=== PATIENT | female | born 1970 | race Caucasian/White ===

== ENCOUNTER 2018-12-18 17:30 | Emergency (ER) | payer OTHER ==
[~2018-12-18] VITALS: Ht 170.2 cm; Wt 104.5 kg
[~2018-12-18 17:30] MED LIST: BREO ELLIPTA I1 EACH INH; COUMADIN5 MG PO; COUMADIN7.5 MG PO; IBUPROFEN800 MG PO; INCRUSE ELLI62.5 MCG INH; LEVAQUIN750 MG PO; LEVOFLOXAC750 MG/150 PO; LOVENOX150 MG SUB-Q; VENTOLIN HFA18 GM INH; XARELTO20 MG PO; ZOLOFT100 MG PO
[2018-12-18] MEDS ORDERED: XARELTO20 MG PO (20:41)
[2018-12-18] MEDS ORDERED: NEURONTIN300 MG PO (20:42)
[2018-12-18] MEDS ORDERED: TRAMADOL HCL50 MG PO (20:47)
== END 2018-12-18 20:55 | disposition home or self-care (01) ==
LOC: ED 17:30
DX: S46.012A Strain of muscle(s) and tendon(s) of the rotator cuff of left shoulder, initial encounter (principal); J45.909 Unspecified asthma, uncomplicated; Z90.49 Acquired absence of other specified parts of digestive tract; Z88.0 Allergy status to penicillin; Z88.1 Allergy status to other antibiotic agents; Z88.4 Allergy status to anesthetic agent; Z88.6 Allergy status to analgesic agent; Z88.8 Allergy status to other drugs, medicaments and biological substances; Z79.899 Other long term (current) drug therapy; W23.0XXA Caught, crushed, jammed, or pinched between moving objects, initial encounter
CPT/HCPCS: 73030; 99283

== ENCOUNTER 2020-02-07 12:35 | Observation (INO) | payer OTHER ==
[~2020-02-07] VITALS: Ht 170.2 cm; Wt 107.5 kg
--- OUTSIDE RECORDS SUMMARY | ~2020-02-07 | XMS | Encounter Summary ---
Demographics + + + | Address | [address] | | | [place] [address] | + + + | Home Phone | | + + + | Preferred Language | Unknown | + + + | Marital Status | Single | + + + | Jain Affiliation | Unknown | + + + | Race | Unknown | + + + | Ethnic Group | Unknown | + + + Author + + + | Author | Located Within [facility] | | | and [place] | + + + | Organization | Located Within [facility] | | | and [place] | + + + | Address | Unknown | + + + | Phone | Unavailable | + + + Support + + +---------+ + | Name | Relationship | Address | Phone | + + +---------+ + | Chalo Alvarez | ECON | Unknown | | + + +---------+ + | Rosy Kim | ECON | Unknown | | + + +---------+ + Care Team Providers + +------+ + | Care Rolling Up Machine Operator Name | Role | Phone | + +------+ + | Magdy Villalobos MD | PCP | | + +------+ + Reason for Visit + +--------+ + | Reason | Onset | Comments | | | Date | | + +--------+ + | Referral | 05/13/ | | | | 2019 | | + +--------+ + Encounter Details +--------+ + + + + | Date | Type | Department | Care Team | Description | +--------+ + + + + | 05/13/ | Telephone | [facility] | Mary Ann Diamond, | Referral | | 2019 | | PULMONOLOGY [address] | [address] | | | | | [address] | [address] [place], | | | | | [place], [place] | [place] [address] | | | | | [address] | [phone] | | | | | [phone] | | | +--------+ + + + + Social History + +-------+ +--------+------+ | Tobacco Use | Types | Packs/Day | Years | Date | | | | | Used | | + +-------+ +--------+------+ | Never Smoker | | | | | + +-------+ +--------+------+ + +---+---+---+ | Smokeless Tobacco: | | | | | Never Used | | | | + +---+---+---+ + + +---------+ + | Alcohol Use | Drinks/Week | oz/Week | Comments | + + +---------+ + | Not Currently | 0 Standard drinks | 0.0 | | | | or equivalent | | | + + +---------+ + + + + | Sex Assigned at | Date Recorded | | | | + + + | Not on file | | + + + documented as of this encounter Miscellaneous Notes Telephone Encounter - Arcelia Larsen I - 05/13/2019 1:22 PM Erin (Karina), is calling r egarding Referral and would like a call back. Additional Call Details: Please call back with referral details. Call back at: If this is a symptom based call, was patient offered triage? Not Applicable If this is a symptom based call and you were unable to immediately transfer the call to a bladimir roy mail forwarding system markup clerk was caller made aware that if at any time she feels it is an emergency they sh ould call 911 or go to the nearest emergency room? not applicable documented in this encounter Plan of Treatment Not on filedocumented as of this encounter Visit Diagnoses Not on filedocumented in this encounter"
--- OUTSIDE RECORDS SUMMARY | ~2020-02-07 | XMS | Encounter Summary ---
Demographics + + + | Address | [address] | | | [place] [address] | + + + | Home Phone | | + + + | Preferred Language | Unknown | + + + | Marital Status | Single | + + + | Anabaptism Affiliation | Unknown | + + + | Race | Unknown | + + + | Ethnic Group | Unknown | + + + Author + + + | Author | [facility] | | | and [place] | + + + | Organization | [facility] | | | and [...] Team Providers + +------+ + | Care Odd Job Laborer Name | Role | Phone | + +------+ + | Magdy Villalobos MD | PCP | | + +------+ + Reason for Visit +--------+ + | Reason | Comments | +--------+ + | Other | request for records from Dr Charlton | +--------+ + Encounter Details +--------+ + + + + | Date | Type | Department | Care Team | Description | +--------+ + + + + | 08/06/ | Documentati | [facility] | [place], | Other (request for | | 2020 | on | PULMONOLOGY [address] | Tiffani Shrestha, Medical | records from Dr Charlton) | | | | [address] [address] | Product Delivery Specialist | | | | | [place], [place] | | | | | | [address] | | | | | | [phone] | | | +--------+ + + + [...] + + documented as of this encounter Progress Notes Hankel-Brockmier, Tiffani M, [facility] - 08/06/2019 10:41 AM PSTCalled to request r maxirds from Dr Charlton. [facility] for the [place] to fax records or call if there were questions.Electronica lly signed by Tiffani Weinberg, [facility] at 08/06/2019 10:42 AM PSTdocume nted in this encounter Plan of Treatment Not on filedocumented as of this encounter Visit Diagnoses Not on filedocumented in this encounter"
--- OUTSIDE RECORDS SUMMARY | ~2020-02-07 | XMS | Encounter Summary ---
Demographics + + + | Address | [address] | | | [place] [address] | + + + | Home Phone | | + + + | Preferred Language | Unknown | + + + | Marital Status | Single | + + + | Rastafarian Affiliation | NRP | + + + | Race | White | + + + | Ethnic Group | Not or | + + + Author + + + | Author | [facility] | + + + | Organization | [facility] | + + + | Address | Unknown | + + + | Phone | Unavailable | + + + Support + + + + + | Name | Relationship | Address | Phone | + + + + + | Rosy Alvarez | ECON | [address] | | | | | [place] | | + + + + + | Chalo Delgado | ECON | [address] | | | | | [place] | | | | | [address] | | + + + + + | Kathleen Mar | ECON | [place] | | | | | [address] | | + + + + + | Yancy Mar | ECON | [address] | | | | | [place] | | + + + + + Care Team Providers + +------+ + | Care Pinion Staker Name | Role | Phone | + +------+ + | Michelle Ndiaye MD | PCP | | + +------+ + Encounter Details +--------+------+ + + + | Date | Type | Department | Care Team | Description | +--------+------+ + + + | 04/28/ | Lab | Laboratory at [facility] | | Tracheal stenosis | | 2019 | | [address] | | | | | | [facility] | | | | | | and Healing, | | | | | | [address] | | | | | | [place], [place] | | | | | | [address] | | | | | | [phone] | | | +--------+------+ + + + Social History + +-------+ [...] Comments | + + +---------+ + | Yes | | | few a week | + + +---------+ + + + + | Sex Assigned at | Date Recorded | | | | + + + | Not on file | | + + + + + + + | Job Start Date | Occupation | Industry | + + + + | Not on file | Not on file | Not on file | + + + + + + + + | Travel History | Travel Start | Travel End | + + + + + + | No recent travel history available. | + + documented as of this encounter Plan of Treatment Not on filedocumented as of this encounter Procedures + +--------+ + + + | Procedure Name | Priori | Date/Time | Associated Diagnosis | Comments | | | ty | | | | + +--------+ + + + | ANTI NEUTROPHIL | Routin | 04/28/2019 | Tracheal stenosis | Results for this | | CYTOPLASMIC AB SCN, | e | 12:25 PM | | procedure are in the | | SERUM | | PDT | | results section. | + +--------+ + + + documented in this encounter Results ANTI NEUTROPHIL CYTOPLASMIC AB SCN, SERUM (04/28/2019 12:25 PM PDT) + + + + + + | Component | Value | Ref Range | Performed | Pathologist | | | | | At | Signature | + + + + + + | ANCA | <1:20Comment: The ANCA | <1:20 | [facility] | | | -NEUTROPHIL | IFA is <1:20; therefore, | | REG UNIV | | | | no further testing will | | PTH - [facility] | | | CYTOPLASMIC | be | | | | | IGG, SERUM | performed.INTERPRETIVE | | | | | | INFORMATION: | | | | | | Anti-Neutrophil Cyto Ab, | | | | | | IgG Neutrophil | | | | | | Cytoplasmic Antibodies | | | | | | (C-ANCA = granular | | | | | | cytoplasmic staining, | | | | | | P-ANCA = perinuclear | | | | | | staining) are found in | | | | | | the serum of over 90 | | | | | | percent of patients with | | | | | | certain necrotizing | | | | | | systemic vasculitides, | | | | | | and usually in less than | | | | | | 5 percent of patients | | | | | | with collagen vascular | | | | | | disease or | | | | | | arthritis.Performed by | | | | | | [employer] | | | | | | [address], [facility] [place] | | | | | | [address] | | | | | | [phone]. | | | | | | [facility], Mayur Spears MD, | | | | | | Lab. Director | | | | + + + + + + + + | Specimen | + + | Blood - Blood | | (substance) | + + + + + + + | Performing | Address | City/State/Zipcode | Phone Number | | Organization | | | | + + + + + | [facility] | [address] | [place], [place] | | | UNIV PTH - [facility] | | [address] | | + + + + + documented in this encounter Visit Diagnoses + + | Diagnosis | + + | Tracheal stenosis Other diseases of trachea and bronchus | + + documented in this encounter"
--- OUTSIDE RECORDS SUMMARY | ~2020-02-07 | XMS | Encounter Summary ---
Demographics + + + | Address | [address] | | | [place] [address] | + + + | Home Phone | | + + + | Preferred Language | Unknown | + + + | Marital Status | Single | + + + | Confucianist Affiliation | NRP | + + + | Race | White | + + + | Ethnic Group | Not or | + + + Author + + + | Author | [facility] | + + + | Organization | [facility] | + + + | Address | Unknown | + + + | Phone | Unavailable | + + + Support + + + + + | Name | Relationship | Address | Phone | + + + + + | Rosy Alvarez | ECON | [address] | | | | | [place] | | + + + + + | Chalo Delgado | ECON | [address] | | | | | [place] | | | | | [address] | | + + + + + | Kathleen Mar | ECON | [place] | | | | | [address] | | + + + + + | Yancy Mar | ECON | [address] | | | | | [place] | | + + + + + Care Team Providers + +------+ + | Care Requisition Approver Name | Role | Phone | + +------+ + | Magdy Villalobos MD | PCP | | + +------+ + Reason for Visit AUTH/CERT +--------+--------+ + + + + | Status | Reason | Specialty | Diagnoses / | Referred By | Referred To | | | | | Procedures | Contact | Contact | +--------+--------+ + + + + | | | | | | | +--------+--------+ + + + + Encounter Details +--------+---------+ + + + | Date | Type | Department | Care Team | Description | +--------+---------+ + + + | 05/15/ | Surgery | [facility] | Jarocho Cosby MD | DIRECT | | 2019 | | [place] [facility] | [address] | MICROLARYNGOSCOPY | | | | and Healing Surgery | [address] [place], | WITH DILATION | | | | Center Admitting | [place] [address] | -INITIAL, | | | | Desk Located on the | [phone] | BRONCHOSCOPY WITH | | | | 4th floor [address] | | TRACHEAL DILATION, | | | | [address] [place], | | DIRECT | | | | [place] [address] | | MICROLARYNGOSCOPY | | | | | | WITH EXCISION OF | | | | | | STENOSIS | +--------+---------+ + + + Social History + +-------+ [...] + +---------+ + | Not Currently | | | few a week | [...] + + documented as of this encounter Last Filed Vital Signs + + + + + | Vital Sign | Reading | Time Taken | Comments | + + + + + | Blood Pressure | 115/70 | 05/15/2019 3:45 PM | | | | | PST | | + + + + + | Pulse | 94 | 05/15/2019 3:45 PM | | | | | PST | | + + + + + | Temperature | 36.2 C (97.2 F) | 05/15/2019 3:00 PM | | | | | PST | | + + + + + | Respiratory Rate | 14 | 05/15/2019 3:45 PM | | | | | PST | | + + + + + | Oxygen Saturation | 97% | 05/15/2019 4:00 PM | | | | | PST | | + + + + + | Inhaled Oxygen | - | - | | | Concentration | | | | + + + + + | Weight | 111.1 kg (245 lb) | 05/15/2019 11:58 AM | | | | | PST | | + + + + + | Height | 170.2 cm (5' 7") | 05/15/2019 11:58 AM | | | | | PST | | + + + + + | Body Mass Index | 38.37 | 05/15/2019 11:58 AM | | | | | PST | | + + + + + documented in this encounter Discharge Instructions Discharge Instr - Activity Liliana Duque MD - 05/15/2019 2:00 PM PSTYou may resume n ormal activity You may use your voice normally. You may resume regular diet. 2 :00 PM PST Discharge Instr - Diet Liliana Duque MD - 05/15/2019 2:00 PM PST{Diet Instructions:1 8330:::0} Discharge Instr - Electronic Signature Liliana Duque MD - 05/15/2019 2:00 PM PSTAfte r Visit Summary Signature Electronically signed by: Liliana Duque MD, 05/15/2019 at 2:00 PMElectronically sig magdiel by Liliana Duque MD at 05/15/2019 2:00 PM PST documented in this encounter Medications at Time of Discharge + + + +---------+ + + | Medication | Sig | Dispensed | Refills | Start | End Date | | | | | | Date | | + + + +---------+ + + | acetaminophen 325 | Take 1-2 Tabs by | | 0 | 03/17/20 | | | mg Oral tablet | mouth every six | | | 12 | | | | hours as needed. | | | | | + + + +---------+ + + | amitriptyline 25 | Take 25 mg by mouth | | 0 | | | | mg oral tablet | once daily at | | | | | | | bedtime. | | | | | + + + +---------+ + + | cholecalciferol | Take 50,000 Units by | | 0 | | | | (vitamin D3) | mouth every seven | | | | | | (VITAMIN D3 ORAL) | days. | | | | | + + + +---------+ + + | citalopram 10 mg | Take 10 mg by mouth | | 0 | | | | oral tablet | once daily. | | | | | + + + +---------+ + + | fluticasone | Inhale 1 puff by | 12 g | 3 | 05/15/20 | | | propionate 220 | mouth two times | | | 19 | | | mcg/actuation | daily. | | | | | | inhalation HFA | | | | | | | aerosol inhaler | | | | | | + + + +---------+ + + | | Inhale 2 puffs by | | 0 | | | | Fluticasone-Salmeter | mouth two times | | | | | | ol (ADVAIR HFA) | daily. | | | | | | 115-21 mcg/actuation | | | | | | | inhalation HFA | | | | | | | aerosol inhaler | | | | | | + + + +---------+ + + | gabapentin 300 mg | Take 300 mg by mouth | | 0 | | | | oral capsule | once daily at | | | | | | | bedtime. | | | | | + + + +---------+ + + | | Inhale 1 puff four | | 0 | | | | ipratropium-albutero | times daily. | | | | | | l 20-100 | | | | | | | mcg/actuation | | | | | | | inhalation mist | | | | | | + + + +---------+ + + | meclizine 25 mg | four times daily. | | 0 | | | | Oral tablet | Take one tablet by | | | | | | | mouth four times a | | | | | | | day as needed for | | | | | | | lightheadedness and | | | | | | | nausea. | | | | | + + + +---------+ + + | metoclopramide HCl | Take 10 mg by mouth | | 0 | | | | 10 mg Oral tablet | every six hours as | | | | | | | needed. | | | | | + + + +---------+ + + | montelukast 10 mg | Take 10 mg by mouth | | 0 | | | | oral tablet | once daily. | | | | | + + + +---------+ + + | oxyCODONE | Take 5 mL by mouth | 473 mL | 0 | 05/15/ | | | (immediate release) | every six hours as | | | 19 | | | 5 mg/5 mL oral | needed for moderate | | | | | | solution | pain. | | | | | + + + +---------+ + + | rivaroxaban 15 mg | Take 15 mg by mouth | | 0 | | | | oral | once daily. | | | | | | tabletIndications: | Indications: | | | | | | prevention of deep | Treatment to Prevent | | | | | | vein thrombosis | Recurrence of a | | | | | | recurrence | Clot in a Deep Vein | | | | | + + + +---------+ + + | tiotropium 18 mcg | Inhale 18 mcg once | | 0 | | | | inhalation capsule, | daily. | | | | | | w/inhalation device | | | | | | + + + +---------+ + + documented as of this encounter Plan of Treatment + +---------+--------+ + + | Name | Type | Priori | Associated Diagnoses | Order Schedule | | | | ty | | | + +---------+--------+ + + | INTRAPROCEDURE | Imaging | Routin | | One Time for 1 | | IMAGING | | e | | Occurrences starting | | | | | | 05/15/2019 until | | | | | | 05/15/2019, 1 | | | | | | completed | + +---------+--------+ + + documented as of this encounter Procedures + +--------+ + + + | Procedure Name | Priori | Date/Time | Associated Diagnosis | Comments | | | ty | | | | + +--------+ + + + | X-RAY CHEST 1 VIEW | Routin | 05/15/2019 | | Results for this | | | e | 2:35 PM | | procedure are in the | | | | PST | | results section. | + +--------+ + + + | DIRECT LARYNGOSCOPY | Electi | 05/15/2019 | Tracheal stenosis | | | | ve | 1:06 PM | Airway obstruction | | | | Surgic | PST | Stridor | | | | al | | | | + +--------+ + + + | INTRAPROCEDURE | Routin | 05/15/2019 | | Results for this | | IMAGING | e | 12:03 PM | | procedure are in the | | | | PST | | results section. | + +--------+ + + + | CARDIOLOGY | | 05/15/2019 | | Results for this | | | | 12:00 AM | | procedure are in the | | | | PST | | results section. | + +--------+ + + + documented in this encounter Results X-RAY CHEST 1 VIEW (05/15/2019 2:35 PM PST) + + | Specimen | + + | | + + + + + | Narrative | Performed At | + + + | EXAM: CHEST 1 VIEW HISTORY: r/o pneumothorax, status post | [facility] | | tracheal balloon dilatation. COMPARISON: Outside CT 03/31/2019; | RADIOLOGY VOICE | | chest radiograph, CT 03/13/2012 FINDINGS: Low lung volumes. The | RECOGNITION 2 | | cardiomediastinal contour is normal. There is no pleural effusion or | | | pneumothorax. There is no pulmonary edema. No acute osseous | | | abnormality. Surgical clips are seen in the right upper quadrant, with | | | surgical anastomosis in the left upper quadrant. IMPRESSION: | | | No pneumothorax. Low lung volumes with otherwise clear lungs. I | | | have personally reviewed the images and, if necessary, edited the | | | report. I agree with the report as now presented. Final | | | signature: Cornelia Thomas MD 05/15/2019 4:04 PM Preliminary: | | | Lorna Porter MD Dictation initiated: Lorna Porter MD | | | 05/15/2019 2:38 PM | | + + + + + | Procedure Note | + + | Service Account, Radiant Res In Interface - 05/15/2019 4:05 PM PST EXAM: CHEST 1 | | VIEW HISTORY: r/o pneumothorax, status post tracheal balloon dilatation. COMPARISON: | | Outside CT 03/31/2019; chest radiograph, CT 03/13/2012 FINDINGS: Low lung volumes. The | | cardiomediastinal contour is normal. There is no pleural effusion or pneumothorax. There | | is no pulmonary edema. No acute osseous abnormality. Surgical clips are seen in the | | right upper quadrant, with surgical anastomosis in the left upper quadrant. IMPRESSION: | | No pneumothorax. Low lung volumes with otherwise clear lungs. I have personally reviewed | | the images and, if necessary, edited the report. I agree with the report as now | | presented. Final signature: Cornelia Thomas MD 05/15/2019 4:04 PM Preliminary: Lorna | | MD [place] Dictation initiated: Lorna Porter MD 05/15/2019 2:38 PM | | | |IMPRESSION: | | | |No pneumothorax. Low lung volumes with otherwise clear lungs. | | | |I have personally reviewed the images and, if necessary, edited the report. I agree with th e report as now presented. | | | |Final signature: Cornelia Thomas MD 05/15/2019 4:04 PM | |Preliminary: Lorna Porter MD | |Dictation initiated: Lorna Porter MD 05/15/2019 2:38 PM | + + + +---------+ + + | Performing | Address | City/State/Zipcode | Phone Number | | Organization | | | | + +---------+ + + | [facility] | | | | | VOICE RECOGNITION 2 | | | | + +---------+ + + INTRAPROCEDURE IMAGING (05/15/2019 12:03 PM PST) + + | Specimen | + + | | + + + + + | Narrative | Performed At | + + + | See admission or procedure notes for details of any intraprocedure | [facility] | | images obtained. | RADIOLOGY | + + + + +---------+ + + | Performing | Address | City/State/Zipcode | Phone Number | | Organization | | | | + +---------+ + + | [facility] | | | | + +---------+ + + CARDIOLOGY (05/15/2019 12:00 AM PST) + + + | Narrative | Performed At | + + + | | | + + + documented in this encounter Visit Diagnoses + + | Diagnosis | + + | Tracheal stenosis Other diseases of trachea and bronchus | + + | Airway obstruction Other diseases of respiratory system, not elsewhere classified | + + | Stridor | + + documented in this encounter Administered Medications + +--------+ +--------+------+------+ | Medication Order | MAR | Action | Dose | Rate | Site | | | Action | Date | | | | + +--------+ +--------+------+------+ | acetaminophen (TYLENOL) tablet | Given | 05/15/20 | 650 mg | | | | 650 mg 650 mg, oral, | | 19 2:43 | | | | | POSTPROCEDURE PRN, 1 dose, | | PM PST | | | | | Starting 05/15/19 at 1326, | | | | | | | Until Sat05/15/19 at 1443, mild | | | | | | | or greater pain while in Phase 1 | | | | | | + +--------+ +--------+------+------+ +---+---+ | | | +---+---+ + +-------+ +------+---+ + | cocaine 4 % solution | Given | 05/15/20 | 4 mL | | Surgical | | INTRAPROCEDURE PRN, Starting Fri | | 19 1:30 | | | Site | | 05/15/19 at 1330, Until Fri | | PM PST | | | | | 05/15/19 at 1408 | | | | | | + +-------+ +------+---+ + + +---+ | | | + +---+ | fentaNYL (SUBLIMAZE) injection | | | 25 mcg 25 mcg, intravenous, | | | POSTPROCEDURE PRN, 8 doses, | | | Starting 05/15/19 at 1327, | | | Until 05/15/19 at 2205, severe | | | pain while in Phase I Recovery | | + +---+ | | | + +---+ + + + +---+---+---+ | lactated ringers IV 10 mL/hr, | given by | 05/15/20 | | | | | intravenous, PROCEDURE | | 19 2:01 | | | | | CONTINUOUS, Starting 05/15/19 | anesthes | PM PST | | | | | at 1215, Until Sat05/15/19 at | iology | | | | | | 2205 | | | | | | + + + +---+---+---+ +---------+ +---+---+---+ | New Bag | 05/15/20 | | | | | | 19 1:03 | | | | | | PM PST | | | | +---------+ +---+---+---+ + +---+ | | | + +---+ | lactated ringers IV 500 mL, | | | intravenous, POSTPROCEDURE PRN, 1 | | | dose, Starting 05/15/19 at | | | 1328, Until Sat05/15/19 at 2205, | | | nausea/vomiting due to | | | dehydration | | + +---+ | | | + +---+ | lidocaine (XYLOCAINE) 10 mg/mL | | | (1 %) injection subcutaneous, | | | PREPROCEDURE PRN, Starting Fri | | | 05/15/19 at 1203, Until Fri | | | 05/15/19 at 2205, IV start | | + +---+ | | | + +---+ | naloxone (NARCAN) injection | | | intravenous, POSTPROCEDURE PRN, | | | Starting 05/15/19 at 1326, | | | Until 05/15/19 at 2205, | | | hypopnea | | + +---+ | | | + +---+ + + + +---------+---+ + | scopolamine (TRANSDERM-SCOP) 1 | Applied | 05/15/20 | 1 patch | | Right | | mg over 3 days 1 dose, Starting | Patch | 19 12:46 | | | Post | | 05/15/19 at 1244, Until Fri | | PM PST | | | Auricula | | 05/15/19 at 1246 | | | | | r | + + + +---------+---+ + +---+---+ | | | +---+---+ + +-------+ +--------+---+ + | triamcinolone acetonide | Given | 05/15/20 | 1.5 mL | | Surgical | | (KENALOG-40) injection | | 19 2:07 | | | Site | | INTRAPROCEDURE PRN, Starting Fri | | PM PST | | | | | 05/15/19 at 1407, Until Fri | | | | | | | 05/15/19 at 1408 | | | | | | + +-------+ +--------+---+ + +---+---+ | | | +---+---+ documented in this encounter
--- OUTSIDE RECORDS SUMMARY | ~2020-02-07 | XMS | Encounter Summary ---
Demographics + + + | Address | [address] | | | [place] [address] | + + + | Home Phone | | + + + | Preferred Language | Unknown | + + + | Marital Status | Single | + + + | Hindu Affiliation | NRP | + + + | Race | White | + + + | Ethnic Group | Not or | + + + Author + + + | Author | [facility] | + + + | Organization | [facility] | + + + | Address | Unknown | + + + | Phone | Unavailable | + + + Support + + + + + | Name | Relationship | Address | Phone | + + + + + | Rosy Alvarez | ECON | [address] | | | | | [place] | | + + + + + | Chalo Delgado | ECON | [address] | | | | | [place] | | | | | [address] | | + + + + + | Kathleen Mar | ECON | [place] | | | | | [address] | | + + + + + | Yancy Mar | ECON | [address] | | | | | [place] | | + + + + + Care Team Providers + +------+ + | Care Slackman Name | Role | Phone | + +------+ + | Magdy Villalobos MD | PCP | | + +------+ + Reason for Referral PROC - Outpatient Surgery (Urgent) +--------+---------+ + + + + | Status | Reason | Specialty | Diagnoses / | Referred By | Referred To | | | | | Procedures | Contact | Contact | +--------+---------+ + + + + | Closed | Coded | Otolaryngolog | Diagnoses | [place], | Jarocho Cosby | | | | y | Tracheal | Jarocho Church MD | MD [address] | | | | | stenosis | [address] | [address] | | | | | Airway | [facility] | [facility] | | | | | obstruction | Rd | [address] [place], | | | | | Stridor | [place], [place] | [place] | | | | | Procedures | [address] | [address] | | | | | REQUEST TO | Phone: | Phone: | | | | | SURGERY | [phone] | [phone] | | | | | STEREOTYPE CASTER | Fax: | Fax: | | | | | [place] | [phone] | [phone] | | | | | LARYNGOSCOPY | | | | | | | | | | | | | | DIRECT,W/DIL | | | | | | | AT, INITIAL | | | | | | | RI | | | | | | | LARYNGOSCOPY | | | | | | | ,DIRCT,OP | | | | | | | SCOP,EXC | | | | | | | TUMR RI | | | | | | | LARYNGOSCOPY | | | | | | | ,DIRECT,SCOP | | | | | | | E,INJ CORDS | | | | | | | RI | | | | | | | BRONCHOSCOPY | | | | | | | ,TRACH/BRONC | | | | | | | H DILATN RI | | | | | | | | | | | | | | BRONCHOSCOPY | | | | | | | ,DIAGNOSTIC | | | | | | | RI | | | | | | | BRONCHOSCOPY | | | | | | | ,RX STENOSIS | | | | | | | 0 G | | | +--------+---------+ + + + + Encounter Details +--------+ + + + + | Date | Type | Department | Care Team | Description | +--------+ + + + + | 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 | Otolaryngology | Jarocho Cosby MD | Tracheal stenosis | | 2019 | | Laryngology Services | [address] | (Primary Dx); Airway | | | | at [facility] [address] | [address] [place], | obstruction; | | | | e [facility] | [place] [address] | Stridor | | | | Health and Healing, | [phone] | | | | | [address] | | | | | | [place], [place] | | | | | | [address] | | | | | | [phone] | | | +--------+ + + + [...] filedocumented as of this encounter Visit Diagnoses + + | Diagnosis | + + | 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
--- OUTSIDE RECORDS SUMMARY | ~2020-02-07 | XMS | Encounter Summary ---
Demographics + + + | Address | [address] | | | [place] [address] | + + + | Home Phone | | + + + | Preferred Language | Unknown | + + + | Marital Status | Single | + + + | Methodist Affiliation | NRP | + + + | Race | White | + + + | Ethnic Group | Not or | + + + Author + + + | Organization | Unknown | + + + | Address | Unknown | + + + | Phone | Unavailable | + + + Support + + + + + | Name | Relationship | Address | Phone | + + + + + | Rosy Alvarez | ECON | [address] | | | | | [place] | | + + + + + | Chalo Delgado | ECON | [address] | | | | | [place] | | | | | [address] | | + + + + + | Kathleen Mar | ECON | [place] | | | | | [address] | | + + + + + | Yancy Mar | ECON | [address] | | | | | [place] | | + + + + + Care Team Providers + +------+ + | Care Java Developer Consultant Name | Role | Phone | + +------+ + | Magdy Villalobos MD | PCP | | + +------+ + Encounter Details +--------+--------+ + + + | Date | Type | Department | Care Team | Description | +--------+--------+ + + + | 05/15/ | Travel | | | | | 2018 | | | | | +--------+--------+ + + + Social History + +-------+ [...]
--- OUTSIDE RECORDS SUMMARY | ~2020-02-07 | XMS | Encounter Summary ---
Demographics + + + | Address | [address] | | | [place] [address] | + + + | Home Phone | | + + + | Preferred Language | Unknown | + + + | Marital Status | Single | + + + | Catholic Affiliation | Unknown | + + + | Race | Unknown | + + + | Ethnic Group | Unknown | + + + Author + + + | Author | [facility] | | | and [place] | + + + | Organization | [facility] | | [...] Team Providers + +------+ + | Care Camera Operator Name | Role | Phone | + +------+ + | Magdy Villalobos MD | PCP | | + +------+ + Reason for Visit Diagnostic/Screening (Routine) +--------+--------+ + + + + | Status | Reason | Specialty | Diagnoses / | Referred By | Referred To | | | | | Procedures | Contact | Contact | +--------+--------+ + + + + | Closed | | | Diagnoses | [place], [facility] | | | | | Severe | Mary Ann E, | Pulmonary | | | | | persistent | [facility] [address] | Function Lab | | | | | asthma, | [address] | [address] | | | | | uncomplicate | [address] | | | | | d | [place], [place] | [place], [place] | | | | | Procedures | [address] | [address] | | | | | PULM FULL | Phone: | Phone: | | | | | PFT | [phone] | [phone] | | | | | | Fax: | Fax: | | | | | | [phone] | [phone] | +--------+--------+ + + + + Encounter Details +--------+ + + + + | Date | Type | Department | Care Team | Description | +--------+ + + + + | 07/06/ | Hospital | [facility] | Mary Ann Diamond E, | Severe persistent | | 2019 | Encounter | PULMONARY FUNCTION | [facility] [address] | asthma without | | | | LAB [address] | [address], | complication | | | | [place], [place] | [place] [address] | | | | | [address] | [phone] | | | | | [phone] | | | +--------+ + + + [...] + + documented as of this encounter Medications at Time of Discharge + + + +---------+ + + | Medication | Sig | Dispensed | Refills | Start | End Date | | | | | | Date | | + + + +---------+ + + | ADVAIR HFA 115-21 | INHALE 2 PUFFS BY | 3 | 11 | 04/14/20 | | | MCG/ACT | MOUTH TWICE DAILY | Inhaler | | 19 | | | inhalerIndications: | | | | | | | Severe persistent | | | | | | | asthma without | | | | | | | complication | | | | | | + + + +---------+ + + | albuterol | Inhale 2 puffs into | 1 | 11 | 03/05/20 | | | (VENTOLIN HFA) 90 | the lungs every 4 | Inhaler | | 19 | | | mcg/puff | hours as needed for | | | | | | inhalerIndications: | Wheezing, Shortness | | | | | | Severe persistent | of Breath or | | | | | | asthma with acute | Increased Work of | | | | | | exacerbation, Cough | Breathing. | | | | | | productive of yellow | | | | | | | sputum | | | | | | + + + +---------+ + + | | Inhale 1 puff into | 1 | 11 | 03/05/20 | | | albuterol-ipratropiu | the lungs 4 times | Inhaler | | 19 | | | m (COMBIVENT | daily. | | | | | | RESPIMAT) 100-20 | | | | | | | mcg/puff | | | | | | | inhalerIndications: | | | | | | | Severe persistent | | | | | | | asthma with acute | | | | | | | exacerbation | | | | | | + + + +---------+ + + | amitriptyline | TAKE 1 TABLET BY | | 0 | 03/11/20 | | | (ELAVIL) 25 mg | MOUTH ONCE DAILY FOR | | | 19 | | | tablet | 7 DAYS THEN | | | | | | | INCREASE TO 2 | | | | | | | TABLETS ONCE DAILY | | | | | | | STARTING 2ND WEEK | | | | | + + + +---------+ + + | azithromycin | Take 2 tablets by | 6 | 0 | 04/21/20 | | | (ZITHROMAX) 250 mg | mouth on day 1, and | tablet | | 19 | | | tabletIndications: | 1 tablet by mouth | | | | | | Cough in adult, | every day | | | | | | Severe persistent | | | | | | | asthma with acute | | | | | | | exacerbation | | | | | | + + + +---------+ + + | citalopram | Take 10 mg by mouth | | 4 | 04/14/20 | | | (CELEXA) 10 mg | Daily. | | | 19 | | | tablet | | | | | | + + + +---------+ + + | fluticasone | Inhale 1 puff into | | 0 | 05/15/20 | | | (FLOVENT HFA) 220 | the lungs. | | | 19 | | | mcg/puff inhaler | | | | | | + + + +---------+ + + | gabapentin | gabapentin 300 mg | | 0 | | | | (NEURONTIN) 300 mg | capsule TAKE 3 TO 4 | | | | | | capsule | CAPSULES BY MOUTH AT | | | | | | | BEDTIME FOR | | | | | | | RESTLESS LEG | | | | | | | SYNDROME | | | | | + + + +---------+ + + | montelukast | Take 10 mg by mouth. | | 0 | 02/20/20 | | | (SINGULAIR) 10 mg | | | | 19 | 0 | | tablet | | | | | | + + + +---------+ + + | oxyCODONE | Take 5 mg by mouth. | | 0 | 05/15/20 | | | (ROXICODONE) 1 mg/mL | | | | 19 | | | solution | | | | | | + + + +---------+ + + | predniSONE | Take 2 tabs x 3 | 15 | 0 | 04/21/20 | | | (DELTASONE) 20 mg | days, 1.5 tabs x 3 | tablet | | 19 | | | tabletIndications: | days, 1 tab x 3 | | | | | | Cough in adult, | days, 0.5 tab x 3 | | | | | | Severe persistent | days. Stop. | | | | | | asthma with acute | | | | | | | exacerbation | | | | | | + + + +---------+ + + | | Take by mouth. | | 0 | | | | promethazine-codeine | | | | | | | (PHENERGAN WITH | | | | | | | CODEINE) syrup (ER | | | | | | | Prepack) | | | | | | + + + +---------+ + + | | Take 5-10 mLs by | 120 mL | 0 | 04/21/20 | | | promethazine-dextrom | mouth 4 times daily | | | 19 | | | ethorphan 6.25-15 | as needed for Cough. | | | | | | mg/5 mL | | | | | | | liquidIndications: | | | | | | | Cough in adult, | | | | | | | Severe persistent | | | | | | | asthma with acute | | | | | | | exacerbation | | | | | | + + + +---------+ + + | rivaroxaban | Take 15 mg by mouth | | 0 | | | | (XARELTO) 15 mg | Daily (with dinner). | | | | | | tablet | | | | | | + + + +---------+ + + | SPIRIVA HANDIHALER | INHALE 1 PUFF BY | | 12 | 02/20/20 | | | 18 MCG inhalation | MOUTH ONCE DAILY | | | 19 | | | capsule | | | | | | + + + +---------+ + + documented as of this encounter Procedure Tracy Baugh MD - 07/06/2019 10:30 AM PSTAssociated Order(s): PFT PULMONARY FUNCTION TESTING ORDERSPULMONARY FUNCTION TEST NAME: Marshall Delgado : 1970 REASON FOR TESTING: Severe persistent asthma FINDINGS SPIROMETRY: 1. FEV-1/FVC is 85 2. FEV-1 is 2.63 L or 85% 3. FVC is 3.10L or 80%. 4.There is no significant bronchodilator response. LUNG VOLUMES: 1. TLC is 4.36L or 80%. 2. RV/TLC is 29. 3. ERV is 0.33L or 37%. A low ERV is suggestive of obesity and neuromuscular weakness, plea se correlate clinically. DIFFUSING CAPACITY: 1. Diffusing capacity is 19.5mL/mmHg/min or 75% 2. DLCO/VA is 4.59 ml/mmHg/min/L or 75 %. INTERPRETATION: There is no obstruction and no significant bronchodilator response. Lung volumes are normal apart from a reduced ERV. Diffusion capacity corrects to normal on alveolar volume adjustme nt. Tracy Amezquita MD Pulmonary and Critical Care Medicine [facility] [address] , [place] [address] documente d in this encounter Plan of Treatment Not on filedocumented as of this encounter Procedures + +--------+ + + + | Procedure Name | Priori | Date/Time | Associated Diagnosis | Comments | | | ty | | | | + +--------+ + + + | PFT PULMONARY | DOLORES | 07/06/2019 | Severe persistent | Results for this | | FUNCTION TESTING | | 10:30 AM | asthma without | procedure are in the | | ORDERS | | PST | complication | results section. | + +--------+ + + + documented in this encounter Results Pulmonary function test full PFT (07/06/2019 10:30 AM PST) + + + | Narrative | Performed At | + + + | Tracy Amezquita MD 07/06/2019 12:53 PM PULMONARY | | | FUNCTION TEST NAME: Marshall Delgado DOB: 1970 MRN: | | | [id number] REASON FOR TESTING: Severe persistent asthma | | | FINDINGS SPIROMETRY: 1. FEV-1/FVC is 85 2. FEV-1 is 2.63 L or | | | 85% 3. FVC is 3.10L or 80%. 4.There is no significant | | | bronchodilator response. LUNG VOLUMES: 1. TLC is 4.36L or 80%. | | | 2. RV/TLC is 29. 3. ERV is 0.33L or 37%. A low ERV is suggestive of | | | obesity and neuromuscular weakness, please correlate clinically. | | | DIFFUSING CAPACITY: 1. Diffusing capacity is 19.5mL/mmHg/min or 75% | | | 2. DLCO/VA is 4.59 ml/mmHg/min/L or 75 %. INTERPRETATION: | | | There is no obstruction and no significant bronchodilator | | | response. Lung volumes are normal apart from a reduced ERV. | | | Diffusion capacity corrects to normal on alveolar volume adjustment. | | | Tracy Amezquita MD Pulmonary and Critical Care | | | Medicine [facility] [address] | | | [place] [address] | | + + + documented in this encounter Visit Diagnoses + + | Diagnosis | + + | Severe persistent asthma without complication | + + documented in this encounter Administered Medications + +--------+ +--------+------+------+ | Medication Order | MAR | Action | Dose | Rate | Site | | | Action | Date | | | | + +--------+ +--------+------+------+ | albuterol 2.5 mg/3 mL nebulizer | Given | 07/06/20 | 2.5 mg | | | | solution 2.5 mg 2.5 mg, | | 19 10:50 | | | | | Nebulization, RT Once, Mon | | AM PST | | | | | 07/06/19 at 1115, For 1 dose, | | | | | | | Dose for outpatient testing., | | | | | | + +--------+ +--------+------+------+ +---+---+ | | | +---+---+ documented in this encounter"
--- OUTSIDE RECORDS SUMMARY | ~2020-02-07 | XMS | Encounter Summary ---
Demographics + + + | Address | [address] | | | [place] [address] | + + + | Home Phone | | + + + | Preferred Language | Unknown | + + + | Marital Status | Single | + + + | Gnosticist Affiliation | NRP | + + + | Race | White | + + + | Ethnic Group | Not or | + + + Author + + + | Author | [facility] | + + + | Organization | [facility] | + + + | Address | Unknown | + + + | Phone | Unavailable | + + + Support + + + + + | Name | Relationship | Address | Phone | + + + + + | Rosy Alvarez | ECON | [address] | | | | | [place] | | + + + + + | Chalo Delgado | ECON | [address] | | | | | [place] | | | | | [address] | | + + + + + | Kathleen Mar | ECON | [place] | | | | | [address] | | + + + + + | Yancy Mar | ECON | [address] | | | | | [place] | | + + + + + Care Team Providers + +------+ + | Care Lead Nitrate Processor Name | Role | Phone | + [...] | +--------+ + + + + | 11/08/ | Hospital | [facility] | Jarocho Cosby MD | | | 2019 | Encounter | STAY [address] | [address] | | | | | Carie Mailcode: [facility] | [address] [place], | | | | | [facility] | [place] [address] | | | | | Health and Healing, | [phone] | | | | | [address] | | | | | | [place], [place] | | | | | | [address] | | | | | | [phone] | | | +--------+ + + + [...] Note | + + | Service Account, [place] [facility] - 05/15/2019 4:05 PM PST [...] trachea and bronchus | + + | Subglottic stenosis Stenosis of larynx | + + documented in this encounter [...] PST | | | | | Starting Sat05/15/19 at 1326, | | | | | | | Until Sat05/15/19 at 1443, mild | | | | | | | or greater pain while in Phase 1 | | | | | | + +--------+ +--------+------+------+ + +---+ | | | + +---+ | fentaNYL (SUBLIMAZE) injection | | | 25 mcg 25 mcg, intravenous, | | | POSTPROCEDURE PRN, 8 doses, | | | Starting Sat05/15/19 at 1327, | | | Until Sat05/15/19 at 2205, severe | | | pain while in Phase I Recovery | | + +---+ | | | + +---+ + + + +---+---+---+ | lactated ringers IV 10 mL/hr, | given by | 05/15/20 | | | | | intravenous, PROCEDURE | | 19 2:01 | | | | | CONTINUOUS, Starting Sat05/15/19 | anesthes | PM PST | | [...] PRN, 1 | | | dose, Starting Sat05/15/19 at | | | 1328, Until Sat05/15/19 [...] intravenous, POSTPROCEDURE PRN, | | | Starting Sat05/15/19 at 1326, | | | Until Sat05/15/19 at 2205, | | | hypopnea | [...] +---------+---+ + +---+---+ | | | +---+---+ documented in this encounter
--- OUTSIDE RECORDS SUMMARY | ~2020-02-07 | XMS | Encounter Summary ---
Demographics + + + | Address | [address] | | | [place] [address] | + + + | Home Phone | | + + + | Preferred Language | Unknown | + + + | Marital Status | Single | + + + | Judaism Affiliation | NRP | + + + | Race | White | + + + | Ethnic Group | Not or | + + + Author + + + | Author | [facility] | + + + | Organization | [facility] | + + + | Address | Unknown | + + + | Phone | Unavailable | + + + Support + + + + + | Name | Relationship | Address | Phone | + + + + + | Rosy Alvarez | ECON | [address] | | | | | [place] | | + + + + + | Chalo Delgado | ECON | [address] | | | | | [place] | | | | | [address] | | + + + + + | Kathleen Mar | ECON | [place] | | | | | [address] | | + + + + + | Yancy Mar | ECON | [address] | | | | | [place] | | + + + + + Care Team Providers + +------+ + | Care Retail Leasing Agent Name | Role | Phone | + +------+ + | Michelle Ndiaye MD | PCP | | + +------+ + Reason for Visit + + + | Reason | Comments | + + + | New Patient Visit | | + + + Intake Referral (Urgent) +--------+--------+ + + + + | Status | Reason | Specialty | Diagnoses / | Referred By | Referred To | | | | | Procedures | Contact | Contact | +--------+--------+ + + + + | Closed | | Otolaryngolog | Diagnoses | Diamond, | Ent | | | | y | Cough in | Mary Ann, FREIGHT CALLER | Laryngology | | | | | adult | [address] | | | | | Shortness of | [address] | [address] | | | | | breath | [address] | [facility] | | | | | | [place], [place] | Health and | | | | | | [address] | Healing, | | | | | | Phone: | [place] [address] | | | | | | [phone] | [place], [place] | | | | | | Fax: | [address] | | | | | | [phone] | Phone: | | | | | | | [phone] | | | | | | | Fax: | | | | | | | [phone] | +--------+--------+ + + + + Encounter Details +--------+---------+ + + + | Date | Type | Department | Care Team | Description | +--------+---------+ + + + | 04/28/ | Office | Otolaryngology | Eliu, | Tracheal stenosis | | 2019 | Visit | Laryngology Services | Tracy Meza PA-C | (Primary Dx); Airway | | | | at [facility] [address] | [address] | obstruction; | | | | [facility] | [place], [place] | Stridor; Dysphagia, | | | | Health and Healing, | [address] | unspecified type | | | | Building [address] | [phone] | | | | | [facility] [place] | | | | | | [address] | | | | | | [phone] | | | +--------+---------+ + + + Social History [...] + + + | Blood Pressure | 116/70 | 04/28/2019 9:52 AM | | | | | PDT | | + + + + + | Pulse | 98 | 04/28/2019 9:52 AM | | | | | PDT | | + + + + + | Temperature | - | - | | + + + + + | Respiratory Rate | - | - | | + + + + + | Oxygen Saturation | - | - | | + + + + + | Inhaled Oxygen | - | - | | | Concentration | | | | + + + + + | Weight | 113.9 kg (251 lb 3.2 | 04/28/2019 9:52 AM | | | | oz) | PDT | | + + + + + | Height | - | - | | + + + + + | Body Mass Index | 39.34 | 05/21/2012 12:44 PM | | | | | PST | | + + + + + documented in this encounter Progress Notes Tracy Nowak PA-C - 04/28/2019 10:30 AM PDTFormatting of this note might be diff erent from the original. anca PATIENT: Marshall Delgado [facility] MR#: [id number] : 1970 REQUESTING PROVIDER: YRN Ramírez [address] [place] [address] PRIMARY CARE PROVIDER: Michelle Ndiaye MD CLINIC: [facility] CHIEF COMPLAINT: Chief Complaint Patient presents with New Patient Visit for "eosinophilic asthma, chronic pulmonary embolism, walking pneumon ia" x years HPI: Marshall Delgado is a 48 y.o. 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 Marshall reports a lifetime history of "eosinophilic asthma", but her symptoms began to get worse about 10 years ago. She started to need increased doses of inhalers which initi ally did help. Then about 5 years ago the inhalers started to not be effective. Over the las t 5 years she has decreased ability to exert herself and more shortness of breath. Over the last year she has had consistent stridor with any activity. She describes breathing through a coffee straw. She has trouble with inhalation and exhalation, with noisy breathing during both. She has been treated with oral steroids which are not effective. She has to position h erself upright in bed to be able to sleep. If she does not do this she wakes up gasping for air. She now is unable to do any activity due to her dyspnea and thus has had a 40lb weight gain. She reports her inhalers were recently changes to Advair, Combivent and Spiriva which has helped with her dyspnea slightly, but she is still unable to exert herself and stridorou s at rest. She feels her airway went from the size of a coffee stir straw to a normal straw. She has a history of a hypercoagulability of unclear etiology. She reports prior workup rev ealed and elevated S protein and D dimer. She had a PE initially in 2011 and then again in 2 016. She was initially placed on coumadin, but required high doses to get to a therapeutic r ashley and thus was transitioned to Xarelto a few years ago. She recently had a CTA 03/31/19 wh ich demonstrated "mild subacute/chronic left lower lobe pulmonary embolus, with no acute PE or right heart strain. Left upper lobe opacity consistent with acute airspace infection". Th is was done at [facility], I have requested these images be pushed, but have not received them yet. She has not had pulmonary function testing despite increasing dyspnea. Sh e reports being too short of breath to be able to complete them. She denies a history of pro longed intubation. I do not have access to anesthesia records from her prior procedures. She reports feeling food hang up substernally during meals. If she takes several drinks of a liquid in a row she feeds the liquid backflow. Her history is significant for a gastric ba nd at age 16. She had a subsequent procedure to address for reflux due to ulcers. Since her revision procedure has has not had reflux symptoms. She has to be careful during meals and a lternate liquids and solids, but is eating an unlimited diet. She has not had a modified bar ium swallow. She had episodic hoarseness over the last 6 months, but over the last month she has had mor e consistent hoarseness. Her voice gets worse throughout the day with use. She has trouble p rojecting her voice. She describes a fluctuating vocal quality which is effortful and weak. She experienced pitch breaks. 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 Her vocal demands are primarily those of conversational speech and wireless telephone use. She drinks about 32 oz of noncaffeinat ed fluid daily, 16 oz of caffeinated beverages. She is a lifetime nonsmoker. PMHx: Past Medical History: Diagnosis Date Anxiety Depression Eosinophilic asthma (HCC) GERD (gastroesophageal reflux disease) History of DVT (deep vein thrombosis) Hypertension Migraine Recurrent pulmonary embolism (HCC) 2011,2015,2018 unclear etiology - pt reports w/up sig for elevated S protein and D dimer Unspecified disorder of thyroid VSD (ventricular septal defect and aortic arch hypoplasia closed spontaenously SURGHx: Past Surgical History Procedure Laterality Date section Gastroplasty vertical banded age 18 Incisional hernia repair x 2 Cholecystectomy Ovarian cyst surgery SOCIAL Hx: Ms. Delgado reports that she has never smoked. 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 She reports current alcohol use. She reports that she does not use drugs. FAMILY HX: Family History Problem Relation Diabetes type II Mother Osteoporosis Mother Panic attack Mother Hyperlipidemia Mother Asthma Father ALLERGIES: Allergies Allergen Reactions Penicillins Tongue swelling, hives and SOB MEDICATIONS: Current Outpatient Medications Medication Sig acetaminophen 325 mg Oral tablet Take 1-2 Tabs by mouth every six hours as needed. amitriptyline 25 mg oral tablet Take 25 mg by mouth once daily at bedtime. citalopram 10 mg oral tablet Take 10 mg by mouth once daily. Fluticasone-Salmeterol (ADVAIR HFA) 115-21 mcg/actuation inhalation HFA aerosol inhaler Inhale 2 puffs by mouth two times daily. gabapentin 300 mg oral capsule Take 300 mg by mouth three times daily. ipratropium-albuterol 20-100 mcg/actuation inhalation mist Inhale 1 puff four times mark ly. meclizine 25 mg Oral tablet four times daily. Take one tablet by mouth four times a day as needed for lightheadedness and nausea. metoclopramide HCl 10 mg Oral tablet Take 10 mg by mouth every six hours as needed. montelukast 10 mg oral tablet Take 10 mg by mouth once daily. promethazine 6.25 mg oral tablet Take by mouth every six hours as needed. propranolol 40 mg Oral tablet Take 0.5 Tabs by mouth two times daily. rivaroxaban 15 mg oral tablet Take 15 mg by mouth once daily. senna-docusate 8.6-50 mg Oral tablet Take 1 Tab by mouth once daily as needed. venlafaxine XR 150 mg Oral capsule,extended release 24hr Take 150 mg by mouth once kelly y. No current facility-administered medications for this visit. REVIEW OF SYSTEMS: Negative for: fevers, chills, murmur, angina, arrhythmia/palpitations, stroke, tremor, liver disease, bleeding problems, diarrhea, or renal insufficiency. EXAMINATION: BP 116/70 (BP Location: Left upper arm, Patient Position: Sitting) | Pulse 98 | Wt 113.9 kg (251 lb 3.2 oz) | BMI 39.34 kg/m | BSA 2.32 m Gen: the patient is a healthy 48 y.o. 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 She is normocephalic. Her weight is elevated. Ears: The pinnae are normal. External auditory canals show minimal cerumen bilaterally. The tympanic membranes are clear with normal anatomic landmarks and an aerated middle ear sp chuck. Nose: The nasal dorsum is straight and the nares are widely patent. The mucosa is pink and there are no lesions or masses noted. There is no significant nasal obstruction noted. Face: Normal and symmetric movement is noted bilaterally. Salivary Glands: The salivary glands are soft and show no lesions or masses within the par otid or submandibular glands bilaterally. There is no obvious obstruction of Stensen's or W joyce's ducts bilaterally Oropharynx: Normal lips and oral competence are noted. The dentition is poor and partiall y absent. The mucosa is moist, but shows no lesions or masses. Palatal elevation is symmet rm and tongue protrusion is midline. The tonsils are small and the fossae show no lesions. Neck: There is no lymphadenopathy noted in the anterior, posterior, digastric or submental triangles. Chest: Inspiratory and expiratory stridor at rest. VOICE EVALUATION: Perceptual voice evaluation demonstrates dysphonia which is mild. The p itch is elevated for a female and shows diminished range. Vocal intensity is acceptable and shows diminished upper range. There is trace roughness, 0 breathiness, and 2+ tightness appreciated. There is no tremor noted with sustained vowel phonation. Glottal spivey is modera te. VIDEOSTROBOSCOPY: Laryngovideostroboscopy was performed today by Trudy Philip CCC-RETAIL WORKER. The patient was sprayed with Lidocaine and Phenylephrine to each nostril prior to the examinati on after verbal consent. This demonstrates a clear vallecula and crisp epiglottis. The primitivo epiglottic folds are intact and symmetric bilaterally. The hypopharynx does not demonstrate pooling. The interarytenoid space demonstrates no lesions. It does not demonstrate pachyd ermia. The false vocal folds are symmetric and without lesions or masses. False fold voicin g (plica ventricularis) is not noted today. The true vocal folds show normal and symmetric motion bilaterally. There is no paradoxical motion. There is moderate laryngeal hyperfunct ion which is most notable in the anterior-posterior and lateral dimensions. There is not not ed to be increased thick laryngeal mucous. Cricothyroid function appears to be intact bilate rally. The mucosal wave is mostly periodic. On the right, the wave amplitude is globally de creased. On the left, the wave amplitude is globally decreased. Closure is complete. The r ight medial edge is crisp and shows no lesions or masses. The left medial edge is crisp and shows no lesions or masses. The mucosal covering is not edematous. There is no erythema p resent today. There are no obvious vascular ectasias present. The vocal processes do not d emonstrate granulomas or contact ulcers. The subglottis is patent, but due to her stridor a t rest bronchoscopy was then performed, see below. BRONCHOSCOPY: Flexible distal-chip bronchoscopy was performed with an Olympus scope. The true vocal folds were anesthetized with 2% lidocaine injected through the cricothyroid membr ane with a 27 gauge needle. This prompted coughing. Her nose was again topicalized with ox ymetazoline and lidocaine solution. After allowing adequate time for vasoconstriction and an algesia, distal-chip bronchoscopy was performed transnasally. The supraglottis was again no betty to be patent. However, stating at between the 4rd and 5th tracheal ring there is a steno sis narrowing the airway by about 75%, see photo below. The scope was then removed. She expe rienced coughing and tightening of her breathing following the procedure which responded to relaxed pursed lip breathing. ASSESSMENT: Ms. 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 I am unable to discern the length of the stenosis from her bronchoscopy and requested the CTA chest she had last month be pushed, but have yet to receive this. We discussed the surgical management of tracheal stenosis with direct microlaryngoscopy with ballon dilation and a steroid injec tion. Dr. Cosby has reviewed Marshall's exam and agrees with proceeding with surgical interve ntion after has reviewed her imaging. I ordered an ANCA which she had drawn today to rule ou t an inflammatory process underlying her stenosis. Marshall also endorses symptoms of esophageal dysphagia with solids hanging up substernally. She would benefit from a swallow study to evaluate this further, but the priority currently is to proceed with surgical intervention for her tracheal stenosis. We can coordinate a priyank rg study at one of her subsequent post-operative visits. PLAN: I have reviewed Ms. Delgado's bronchoscopy with Dr. Cosby who agrees to proceed with direct microlaryngoscopy with dilation and steroid injection. Dr. Harjeet Adam's surgery [facility] will contact her about scheduling in the near future. We discussed given her history of recurrent pulmonary embolism she should only hold her Xarelto on the day of her procedure . Dayanara Nowak PA-C [facility] Department of Otolaryngology and Head and Neck Surgery Associated attestation - Jarocho Cosby MD - 05/03/2019 6:04 PM PDTSupervising attending caity ornelas: I have reviewed the note for this encounter and I examined the patient. I agree with Ms. Nowak's assessment and recommendations. Jarocho Cosby MD, FACS Professor and Chair, Otolaryngology-Head & Neck Surgery [facility] [place] documented in this encounter Plan of Treatment Not on filedocumented as of this encounter Procedures + +--------+ + + + | Procedure Name | Priori | Date/Time | Associated Diagnosis | Comments | | | ty | | | | + +--------+ + + + | MA | Routin | 04/28/2019 | Tracheal stenosis | | | BRONCHOSCOPY,DIAGNOS | e | 7:13 PM | Airway obstruction | | | TIC | | PDT | Stridor | | + +--------+ + + + documented [...] by | | | | | | [facility],[address] | | | | | | [address], [facility],[place] | | | | | | [id number] | | | | | | [phone][facility] | | | | | | Mayur arenas MD, | | | | | | [...] + + | [facility] | [address] | [place], [place] | | | [facility] | | [id number] | | + + + + + documented in this encounter Visit Diagnoses + + | Diagnosis | + + | Tracheal stenosis - Primary Other diseases of trachea and bronchus | + + | Airway obstruction Other diseases of respiratory system, not elsewhere classified | + + | Stridor | + + | Dysphagia, unspecified type | + + documented in this encounter
--- OUTSIDE RECORDS SUMMARY | ~2020-02-07 | XMS | Encounter Summary ---
Demographics + + + | Address | [address] | | | [place] [address] | + + + | Home Phone | | + + + | Preferred Language | Unknown | + + + | Marital Status | Single | + + + | Mormon Affiliation | Unknown | + + + | Race | Unknown | + + + | Ethnic Group | Unknown | + + + Author + + + | Author | [facility] | | | and Michaelana | + + + | Organization | [facility] | | | [...] Team Providers + +------+ + | Care Inspector Plug Seam Name | Role | Phone | + +------+ + | Magdy Villalobos MD | PCP | | + +------+ + Encounter Details +--------+ + + + + | Date | Type | Department | Care Team | Description | +--------+ + + + + | 03/05/ | Orders Only | [facility] | Nasrin Knight | Severe persistent | | 2019 | | [address] | A, Commodity Specialist | asthma with acute | | | | [place] | | exacerbation; Cough | | | | [address] | | productive of yellow | | | | [phone] | | sputum; Edema of | | | | | | both lower | | | | | | extremities | +--------+ + + + + Social [...] | + +--------+ + + + | CBC WITH | Routin | 03/05/2019 | Severe persistent | Results for this | | DIFFERENTIAL | e | 10:52 AM | asthma with acute | procedure are in the | | | | PDT | exacerbation Cough | results section. | | | | | productive of yellow | | | | | | sputum | | + +--------+ + + + | B TYPE NATRIURETIC | Routin | 03/05/2019 | Severe persistent | Results for this | | PEPTIDE | e | 10:52 AM | asthma with acute | procedure are in the | | | | PDT | exacerbation Cough | results section. | | | | | productive of yellow | | | | | | sputum | | + +--------+ + + + | IMMUNOGLOBULIN G | Routin | 03/05/2019 | Severe persistent | Results for this | | | e | 10:52 AM | asthma with acute | procedure are in the | | | | PDT | exacerbation Cough | results section. | | | | | productive of yellow | | | | | | sputum | | + +--------+ + + + | BASIC METABOLIC | Routin | 03/05/2019 | Edema of both | Results for this | | PANEL | e | 10:52 AM | lower extremities | procedure are in the | | | | PDT | | results section. | + +--------+ + + + documented in this encounter Results B Type Natriuretic Peptide (03/05/2019 10:52 AM PDT) + + + + + + | Component | Value | Ref Range | Performed | Pathologist | | | | | At | Signature | + + + + + + | BNP | 23.8Comment: Testing | 0 - 100 pg/mL | REFERENCE | | | | performed at [facility];[address] | | LAB | | | | [facility] | | [facility] | | | | [address];[place] [address] | | LABORATORY | | + + + + + + + + | Specimen | + + | Blood | + + + + + + + | Performing | Address | City/State/Zipcode | Phone Number | | Organization | | | | + + + + + | REFERENCE LAB | [address] [place] [address] | [place], [place] | [phone] | | [facility] | Bl[address] | [address] | | | LABORATORY | | | | + + + + + | REFERENCE LAB | [address] [place] [address] | [place] | | | [facility] | Blvd[address] | [address] | | | LABORATORY | | | | + + + + + Basic Metabolic Panel (03/05/2019 10:52 AM PDT) + + + + + + | Component | Value | Ref Range | Performed | Pathologist | | | | | At | Signature | + + + + + + | Na | 140 | 135 - 145 | REFERENCE | | | | | mmol/L | LAB | | | | | | [facility] | | | | | | LABORATORY | | + + + + + + | K | 4.6 | 3.5 - 4.9 | REFERENCE | | | | | mmol/L | LAB | | | | | | [facility] | | | | | | LABORATORY | | + + + + + + | Cl | 106 | 99 - 109 mmol/L | REFERENCE | | | | | | LAB | | | | | | [facility] | | | | | | LABORATORY | | + + + + + + | CO2 | 29 | 23 - 32 mmol/L | REFERENCE | | | | | | LAB | | | | | | [facility] | | | | | | LABORATORY | | + + + + + + | Anion Gap | 10 | 5 - 20 mmol/L | REFERENCE | | | | | | LAB | | | | | | [facility] | | | | | | LABORATORY | | + + + + + + | Glucose | 102 (H) | 65 - 99 mg/dL | REFERENCE | | | | | | LAB | | | | | | [facility] | | | | | | LABORATORY | | + + + + + + | BUN | 12 | 8 - 25 mg/dL | REFERENCE | | | | | | LAB | | | | | | [facility] | | | | | | LABORATORY | | + + + + + + | Creatinine | 0.9 | 0.50 - 1.00 | REFERENCE | | | | | mg/dL | LAB | | | | | | [facility] | | | | | | LABORATORY | | + + + + + + | BUN/Creatin | 13 | | REFERENCE | | | ine Ratio | | | LAB | | | | | | [facility] | | | | | | LABORATORY | | + + + + + + | Calcium | 9.8 | 8.5 - 10.5 | REFERENCE | | | | | mg/dL | LAB | | | | | | [facility] | | | | | | LABORATORY | | + + + + + + | Estimated | >60Comment: GFR <60: | >60 | REFERENCE | | | GFR | CHRONIC KIDNEY DISEASE, | mL/min/1.73m2 | LAB | | | | IF FOUND OVER A 3 MONTH | | [facility] | | | | PERIOD.GFR <15: KIDNEY | | LABORATORY | | | | FAILURE.FOR | | | | | | AMERICANS, MULTIPLY THE | | | | | | CALCULATED GFR BY | | | | | | 1.210.This eGFR is | | | | | | calculated using the | | | | | | MDRD IDMS traceable | | | | | | equation.Testing | | | | | | performed at [facility];[address] | | | | | | [facility] | | | | | | vd;[place] [address] | | | | | | | | | | + + + + + + + + | Specimen | + + | Blood | + + + + + + + | Performing | Address | City/State/Zipcode | Phone Number | | Organization | | | | + + + + + | REFERENCE LAB | [address] [place] [address] | [place] | [phone] | | [facility] | Blvd[address] | [address] | | | LABORATORY | | | | + + + + + | REFERENCE LAB | [address] [place] [address] | [place], [place] | | | [facility] | Blvd[address] | [address] | | | LABORATORY | | | | + + + + + CBC with Differential (03/05/2019 10:52 AM PDT) + + + + + + | Component | Value | Ref Range | Performed | Pathologist | | | | | At | Signature | + + + + + + | WBC | 6.50 | 3.80 - 11.00 | REFERENCE | | | | | K/uL | LAB | | | | | | [facility] | | | | | | LABORATORY | | + + + + + + | Red Blood | 4.22 | 3.70 - 5.10 | REFERENCE | | | Cells | | M/uL | LAB | | | | | | [facility] | | | | | | LABORATORY | | + + + + + + | Hemoglobin | 10.9 (L) | 11.3 - 15.5 | REFERENCE | | | | | g/dL | LAB | | | | | | [facility] | | | | | | LABORATORY | | + + + + + + | Hematocrit | 33.7 (L) | 34.0 - 46.0 % | REFERENCE | | | | | | LAB | | | | | | [facility] | | | | | | LABORATORY | | + + + + + + | MCV | 79.9 (L) | 80.0 - 100.0 fl | REFERENCE | | | | | | LAB | | | | | | [facility] | | | | | | LABORATORY | | + + + + + + | MCH | 25.8 (L) | 27.0 - 34.0 pg | REFERENCE | | | | | | LAB | | | | | | [facility] | | | | | | LABORATORY | | + + + + + + | MCHC | 32.3 | 32.0 - 35.5 | REFERENCE | | | | | g/dL | LAB | | | | | | [facility] | | | | | | LABORATORY | | + + + + + + | RDW-SD | 53.4 (H) | 37 - 53 fl | REFERENCE | | | | | | LAB | | | | | | [facility] | | | | | | LABORATORY | | + + + + + + | Platelet | 390 | 150 - 400 K/uL | REFERENCE | | | Count | | | LAB | | | | | | [facility] | | | | | | LABORATORY | | + + + + + + | MPV | 9.4 | fl | REFERENCE | | | | | | LAB | | | | | | [facility] | | | | | | LABORATORY | | + + + + + + | Diff Type | AUTOMATED | | REFERENCE | | | | | | LAB | | | | | | [facility] | | | | | | LABORATORY | | + + + + + + | % | 61.81 | % | REFERENCE | | | Neutrophils | | | LAB | | | | | | [facility] | | | | | | LABORATORY | | + + + + + + | % | 26.40 | % | REFERENCE | | | Lymphocytes | | | LAB | | | | | | [facility] | | | | | | LABORATORY | | + + + + + + | Monocyte % | 7.61 | % | REFERENCE | | | | | | LAB | | | | | | [facility] | | | | | | LABORATORY | | + + + + + + | Eosinophils | 3.59 | % | REFERENCE | | | % | | | LAB | | | | | | [facility] | | | | | | LABORATORY | | + + + + + + | Basophils % | 0.59 | % | REFERENCE | | | | | | LAB | | | | | | [facility] | | | | | | LABORATORY | | + + + + + + | Neutrophils | 4.01 | 1.90 - 7.40 | REFERENCE | | | , Absolute | | K/uL | LAB | | | | | | [facility] | | | | | | LABORATORY | | + + + + + + | Absolute | 1.71 | 1.00 - 3.90 | REFERENCE | | | Lymphocytes | | K/uL | LAB | | | | | | [facility] | | | | | | LABORATORY | | + + + + + + | Absolute | 0.50 | 0.00 - 0.80 | REFERENCE | | | Monocytes | | K/uL | LAB | | | | | | [facility] | | | | | | LABORATORY | | + + + + + + | Eosinophils | 0.23 | 0.00 - 0.50 | REFERENCE | | | , Absolute | | K/uL | LAB | | | | | | [facility] | | | | | | LABORATORY | | + + + + + + | Basophils, | 0.04 | 0.00 - 0.10 | REFERENCE | | | Absolute | | K/uL | LAB | | | | | | [facility] | | | | | | LABORATORY | | + + + + + + | RBC | 1+Comment: ANISOTesting | | REFERENCE | | | Morphology | performed at [facility];[address] | | LAB | | | | [place] | | [facility] | | | | Blvd;[place] [address] | | LABORATORY | | | | | | | | + + + + + + + + | Specimen | + + | Blood | + + + + + + + | Performing | Address | City/State/Zipcode | Phone Number | | Organization | | | | + + + + + | REFERENCE LAB | [address] [place] [address] | [place] | [phone] | | [facility] | Blvd. | [address] | | | LABORATORY | | | | + + + + + | REFERENCE LAB | [address] [place] [address] | [place], [place] | | | [facility] | Blvd. | [address] | | | LABORATORY | | | | + + + + + Immunoglobulin G (03/05/2019 10:52 AM PDT) + + + + + + | Component | Value | Ref Range | Performed | Pathologist | | | | | At | Signature | + + + + + + | Immunoglobu | 690 (L)Comment: Testing | 700 - 1,600 | REFERENCE | | | ira IgG | performed at [facility];[address] | mg/dL | LAB | | | | [place] | | [facility] | | | | Bl[address];[place] [address] | | LABORATORY | | + + + + + + + + | Specimen | + + | Blood | + + + + + + + | Performing | Address | City/State/Zipcode | Phone Number | | Organization | | | | + + + + + | REFERENCE LAB | [address] | [place] | [phone] | | [facility] | Bl[address] | [address] | | | LABORATORY | | | | + + + + + | REFERENCE LAB | [address] | [place], [place] | | | [facility] | Blvd[address] | [address] | | | LABORATORY | | | | + + + + + documented in this encounter Visit Diagnoses + + | Diagnosis | + + | Severe persistent asthma with acute exacerbation Unspecified asthma, with | | exacerbation | + + | Cough productive of yellow sputum | + + | Edema of both lower extremities | + + documented in this encounter"
--- OUTSIDE RECORDS SUMMARY | ~2020-02-07 | XMS | Encounter Summary ---
Demographics + + + | Address | [address] | | | [place] [address] | + + + | Home Phone | | + + + | Preferred Language | Unknown | + + + | Marital Status | Single | + + + | Lutheran Affiliation | NRP | + + + | Race | White | + + + | Ethnic Group | Not or | + + + Author + + + | Author | [facility] | + + + | Organization | [facility] | + + + | Address | Unknown | + + + | Phone | Unavailable | + + + Support + + + + + | Name | Relationship | Address | Phone | + + + + + | Rosy Alvarez | ECON | [address] | | | | | [place] | | + + + + + | Chalo Delgado | ECON | [address] | | | | | [place] | | | | | [address] | | + + + + + | Kathleen Mar | ECON | [place] | | | | | [address] | | + + + + + | Yancy Mar | ECON | [address] | | | | | [place] | | + + + + + Care Team Providers + +------+ + | Care Merchandise Support Associate Name | Role | Phone | + +------+ + | Magdy Villalobos MD | PCP | | + +------+ + Reason for Visit + + + | Reason | Comments | + + + | housing accomodation | | + + + Encounter Details +--------+ + + + + | Date | Type | Department | Care Team | Description | +--------+ + + + + | 05/08/ | Telephone | SOCIAL WORK | Kellen [facility]ieg[facility] | housing accomodation | | 2019 | | AMBULATORY [address] | | | | | [address] | [place], | | | | | Mailcode: CH6A | [place] [address] | | | | | [place], [place] | | | | | | [address] | | | | | | [phone] | | | +--------+ + + + [...]
--- OUTSIDE RECORDS SUMMARY | ~2020-02-07 | XMS | Encounter Summary ---
Demographics + + + | Address | [address] | | | [place] [address] | + + + | Home Phone | | + + + | Preferred Language | Unknown | + + + | Marital Status | Single | + + + | Oriental Orthodox Affiliation | NRP | + + + | Race | White | + + + | Ethnic Group | Not or | + + + Author + + + | Author | [facility] | + + + | Organization | [facility] | + + + | Address | Unknown | + + + | Phone | Unavailable | + + + Support + + + + + | Name | Relationship | Address | Phone | + + + + + | Rosy Alvarez | ECON | [address] | | | | | [place] | | + + + + + | Chalo Delgado | ECON | [address] | | | | | [place] | | | | | [address] | | + + + + + | Kathleen Mar | ECON | [place] | | | | | [address] | | + + + + + | Yancy Mar | ECON | [address] | | | | | [place] | | + + + + + Care Team Providers + +------+ + | Care Deputy Sheriff Chief Name | Role | Phone | + +------+ + | Magdy Villalobos MD | PCP | | + +------+ + Reason for Visit + + + | Reason | Comments | + + + | Follow-up visit | | + + + Intake Referral [...] y | Cough in | Mary Ann, LEATHER ETCHER | Laryngology | | | | | adult | [address] | [address] | | | | | Shortness of | SONI MILLER | [address] | | | | | breath | [address] | [facility] | | | | | | [place], [place] | Health and | | | | | | [address] | Healing, | | | | | | Phone: | [facility] [address] | | | | | | [phone] | [place], [place] | | | | | | Fax: | [address] | | | | | | [phone] | Phone: | | | | | | | [phone] | | | | | | | Fax: | | | | | | | [phone] | +--------+--------+ + + + + Encounter Details +--------+---------+ + + + | Date | Type | Department | Care Team | Description | +--------+---------+ + + + | 06/09/ | Office | Otolaryngology | Jarocho Cosby MD | Disease of trachea | | 2019 | Visit | Laryngology Services | [address] | and bronchus | | | | at [facility] [address] | [address] [place], | (Primary Dx) | | | | [facility] | [place] [address] | | | | | Health and Healing, | [phone] | | | | | [address] | | | | | | [place], [place] | | | | | | [address] | | | | | | [phone] | | | +--------+---------+ + + + [...] + + + | Blood Pressure | - | - | | + + + + + | Pulse | - | - | | + [...] + + + + | Weight | 113.4 kg (250 lb) | 06/09/2019 1:00 PM | | | | | PST | | + + + + + | Height | - | - | | + + + + + | Body Mass Index | 39.16 | 05/15/2019 11:58 AM | | | | | PST | | + + + + + documented in this encounter Progress Notes Jarocho Cosby MD - 06/09/2019 1:00 PM PSTPATIENT: Marshall Delgado MR#: [id number] : 1970 REQUESTING PROVIDER: YRN Ramírez [address] [place] [address] PRIMARY CARE PROVIDER: Magdy Villalobos MD CLINIC: [facility] HPI: Marshall Delgado is a 48 y.o. female who returns for airway evaluation post dilatation and steroid injection for trachael stenosis. Breathing comfortably and no noise. "Can sne ak up on people now". Flexible fiberoptic laryngoscopy was performed today and reviewed at the time of the exam w ith the patient. The right nasal passage was decongested with phenylephrine and 2% lidocaine applied for topical anesthesia. The Olympus distal chip scope was passed without difficult y. The nasopharynx is symmetric. There are no masses. The base of tongue and vallecula ar e clear. The AE folds are well defined. Both vocal folds are fully mobile and there were n o discrete lesions. The hypopharynx, piriform sinuses, post cricoid, interarytenoid are norm al. The subglottic and cervical trachea are patent. 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 RTC 6 months Jarocho Cosby MD, FACS Professor and Chair, Otolaryngology-Head & Neck Surgery [facility] & [address] ([place] [address] documented in this enco unter Plan of Treatment Not on filedocumented as of this encounter Procedures + +--------+ + + + | Procedure Name | Priori | Date/Time | Associated Diagnosis | Comments | | | ty | | | | + +--------+ + + + | [place] | Routin | 07/04/2019 | Disease of trachea | | | LARYNGOSCOPY,FLEXIBL | e | 2:51 PM | and bronchus | | | E, DIAGNOSTIC | | PST | | | + +--------+ + + + documented in this encounter Visit Diagnoses + + | Diagnosis | + + | 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
--- OUTSIDE RECORDS SUMMARY | ~2020-02-07 | XMS | Encounter Summary ---
Demographics + + + | Address | [address] | | | [place] [address] | + + + | Home Phone | | + + + | Preferred Language | Unknown | + + + | Marital Status | Single | + + + | Taoist Affiliation | NRP | + + + | Race | White | + + + | Ethnic Group | Not or | + + + Author + + + | Author | [facility] | + + + | Organization | [facility] | + + + | Address | Unknown | + + + | Phone | Unavailable | + + + Support + + + + + | Name | Relationship | Address | Phone | + + + + + | Rosy Alvarez | ECON | [address] | | | | | [place] | | + + + + + | Chalo Delgado | ECON | [address] | | | | | [place] | | | | | [address] | | + + + + + | Kathleen Mar | ECON | [place] | | | | | [address] | | + + + + + | Yancy Mar | ECON | [address] | | | | | [place] | | + + + + + Care Team Providers + +------+ + | Care Inside Sales Name | Role | Phone | + +------+ + | Michelle Ndiaye MD | PCP | | + +------+ + Encounter Details +--------+------+ + + + | Date | Type | Department | Care Team | Description | +--------+------+ + + + | 04/28/ | Lab | Laboratory at [facility] | | Tracheal stenosis | | 2019 | | [address] | | | | | | [facility] | | | | | | and Healing, | | | | | | [address] | | | | | | [place], [place] | | | | | | [address] | | | | | | [phone] | | | +--------+------+ + + + [...] by | | | | | | [employer],[address] | | | | | | [address] [address], [facility] | | | | | | [address] | | | | | | [phone]. | | | | | | [facility], Mayur Spears MD, | | | [...] [facility] | [address] | [place], [place] | | | [facility] | | [address] | | + + + + + documented in this encounter Visit Diagnoses + + | Diagnosis | + + | Tracheal stenosis Other diseases of trachea and bronchus | + + documented in this encounter"
--- OUTSIDE RECORDS SUMMARY | ~2020-02-07 | XMS | Encounter Summary ---
Demographics + + + | Address | [address] | | | [place] [address] | + + + | Home Phone | | + + + | Preferred Language | Unknown | + + + | Marital Status | Single | + + + | Baptism Affiliation | Unknown | + + + | Race | Unknown | + + + | Ethnic Group | Unknown | + + + Author + + + | Author | [facility] | | | and [place] | + + + | Organization | [facility] | | | and [place] | + + + | Address | Unknown | + + + | Phone | Unavailable | + + + Support + + +---------+ + | Name | Relationship | Address | Phone | + + +---------+ + | Chalo Alvarez | ECON | Unknown | | + + +---------+ + | Rosy Alvarez | ECON | Unknown | | + + +---------+ + Care Team Providers + +------+ + | Care Cable Weaver Name | Role | Phone | + +------+ + | Luciano Queen DO | PCP | | + +------+ + Reason for Visit + + + | Reason | Comments | + + + | Wheezing | | + + + Encounter Details +--------+ + + + + | Date | Type | Department | Care Team | Description | +--------+ + + + + | 12/21/ | Emergency | [facility] | Micky Luo | Bronchitis with | | 2017 | [facility] | Jah Dawn MD | asthma, acute | | | | CENTER [address] | [address] | (Primary Dx) | | | | [place] | [place], [place] | | | | | [address] | [address] | | | | | [phone] | | | +--------+ + + + + Social History + +-------+ +--------+------+ | Tobacco Use | Types | Packs/Day | Years | Date | | | | | Used | | + +-------+ +--------+------+ | Never Smoker | | | | | + +-------+ +--------+------+ + + | Tobacco Cessation: Counseling Given: No | + + + + +---------+ + | Alcohol Use | Drinks/Week | oz/Week | Comments | + + +---------+ + | Yes | 0 Standard drinks | 0.0 | [...] + + + | Blood Pressure | 131/60 | 12/21/2016 4:34 PM | | | | | PDT | | + + + + + | Pulse | 109 | 12/21/2016 4:34 PM | | | | | PDT | | + + + + + | Temperature | 37 C (98.6 F) | 12/21/2016 4:34 PM | | | | | PDT | | + + + + + | Respiratory Rate | 24 | 12/21/2016 4:34 PM | | | | | PDT | | + + + + + | Oxygen Saturation | 100% | 12/21/2016 4:34 PM | | | | | PDT | | + + + + + | Inhaled Oxygen | - | - | | | Concentration | | | | + + + + + | Weight | 104.3 kg (230 lb) | 12/21/2016 4:34 PM | | | | | PDT | | + + + + + | Height | 170.2 cm (5' 7") | 12/21/2016 4:34 PM | | | | | PDT | | + + + + + | Body Mass Index | 36.02 | 12/21/2016 4:34 PM | | | | | PDT | | + + + + + documented in this encounter Discharge Instructions Instructions Micky Luo MD - 12/21/2016Return for shortness breath diffic ulty breathing or other worsening symptoms. Please follow-up with your primary care physici anEmerson documented in this encounter Medications at Time [...] + + + +---------+ + + | Albuterol Sulfate | Inhale into the | | 0 | | | | (VENTOLIN HFA IN) | lungs. | | | | 9 | + + + +---------+ + + | azithromycin | Take 2 tablets by | 6 | 0 | 12/22/19 | | | (ZITHROMAX) 250 mg | mouth daily x 1 day, | tablet | | 17 | 9 | | tablet | then take 1 tablet | | | | | | | by mouth daily x 4 | | | | | | | days. | | | | | + + + +---------+ + + | | Inhale 1 puff into | | 0 | | | | fluticasone-vilanter | the lungs Daily. | | | | 9 | | ol (BREO ELLIPTA) | | | | | | | 100-25 mcg/puff | | | | | | | inhaler | | | | | | + + + +---------+ + + | predniSONE | Take 3 tablets by | 15 | 0 | 12/22/19 | | | (DELTASONE) 20 mg | mouth Daily. | tablet | | 17 | 9 | | tablet | | | | | | + + + +---------+ + + | sertraline | Take 100 mg by mouth | | 0 | | | | (ZOLOFT) 100 mg | Daily. | | | | 9 | | tablet | | | | | | + + + +---------+ + + | Umeclidinium | Inhale into the | | 0 | | | | [place] (INCRUSE | lungs Daily. | | | | 9 | | ELLIPTA IN) | | | | | | + + + +---------+ + + documented as of this encounter ED Notes Percy Bang RN - 12/21/2016 6:23 PM PDTPatient discharged in improved conditionElectro nically signed by Percy Bang RN at 12/21/2016 6:25 PM PDTParMicky browning M D - 12/21/2016 6:14 PM PDT [facility] Marshall Delgado Emergency Department Encounter Note [address] [place] [id number] PCP:Luciano Queen DO [phone] eMERGENCY dEPARTMENT eNCOUnter CHIEF COMPLAINT Chief Complaint Patient presents with Wheezing TRIAGE ED Triage Notes Isis Trinh RN 12/21/2016 16:35 Pt reports progressive shortness of breath and wheezing for the past three days. Pain on t he left side, worse when coughing or deep breathing. HPI Marshall Delgado is a 46 y.o. female who presents with wheezing shortness of breath. Elli ent's been dyspneic for the last 3 days. She has pain on left side. She has pain with coug rajiv. She is here for further evaluation. She has a history of asthma. She is normotensiv e normothermic normal oxygen saturation but with difficulty breathing. Patient's here for f urther evaluation. Patient also has seasonal allergies. PAST MEDICAL HISTORY Past Medical History: Diagnosis Date Asthma DVT (deep venous thrombosis) (HCC) PE (pulmonary thromboembolism) (HCC) SURGICAL HISTORY Past Surgical History: Procedure Laterality Date CHOLECYSTECTOMY HERNIA REPAIR OVARY REMOVAL VERTICAL BANDED GASTROPLASTY CURRENT MEDICATIONS Previous Medications ALBUTEROL SULFATE (VENTOLIN HFA IN) Inhale into the lungs. FLUTICASONE-VILANTEROL (BREO ELLIPTA) 100-25 MCG/PUFF INHALER Inhale 1 puff into the evelyn ngs Daily. RIVAROXABAN (XARELTO) 15 MG TABLET Take 15 mg by mouth Daily (with dinner). SERTRALINE (ZOLOFT) 100 MG TABLET Take 100 mg by mouth Daily. UMECLIDINIUM BROMIDE (INCRUSE ELLIPTA IN) Inhale into the lungs Daily. ALLERGIES Allergies Allergen Reactions Penicillins Anaphylaxis FAMILY HISTORY No family history on file. SOCIAL HISTORY Social History Social History Marital status: Single Spouse name: N/A Number of children: N/A Years of education: N/A Social History Main Topics Smoking status: Never Smoker Smokeless tobacco: Not on file Alcohol use 0.0 oz/week Drug use: Unknown Sexual activity: Not on file Other Topics Concern Not on file Social History Narrative No narrative on file REVIEW OF SYSTEMS Please see HPI, All systems negative except as marked. Twelve point review of system comp leted my me. PHYSICAL EXAM VITAL SIGNS: Temp: 37 C (98.6 F) Pulse: 109 Resp: 24 SpO2: 100 % BP: 131/60 Constitutional: Well developed, Well nourished, Non-toxic appearance. HENT: Normocephalic, Atraumatic, Bilateral external ears normal, Oropharynx moist, No oral exudates, Nose normal. Neck- Normal range of motion, No tenderness, Supple, No stridor. Eyes: PERRL, EOMI, Conjunctiva normal, No discharge. Respiratory: Normal breath sounds, moderate wheezing bilateral lung garcia. No chest tend erness. Cardiovascular: Normal heart rate, Normal rhythm, No murmurs, No rubs, No gallops. GI: Bowel sounds normal, Soft, No tenderness, No masses, No pulsatile masses. : defered Musculoskeletal: Intact distal pulses, No edema, No tenderness, No cyanosis, No clubbing. Good range of motion in all major joints. No tenderness to palpation or major deformities no betty. Neurologic: Alert & oriented x 3, Normal motor function, Normal sensory function, No focal deficits noted, no facial assymetry noted. 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 RADIOLOGY Xr Chest Ap Portable Result Date: 12/21/2016 SINGLE AP CHEST 12/21/2016 5:04 PM CLINICAL HISTORY: WHEEZING COMPARISON: None available FIN DINGS: The cardiomediastinal silhouette and pulmonary vasculature are unremarkable. There i s mild reticular opacity in the lung bases. Allowing for low lung volumes, the lungs are ot herwise clear without visible pneumothorax or pleural effusion. Cholecystectomy clips are s uggested and surgical clips/je are noted in the region of the gastroesophageal junction . The bones and soft tissues are otherwise unremarkable. IMPRESSION - 1. MILD BASILAR RET ICULAR OPACITY FAVORING ATELECTASIS IN THE SETTING OF LOW LUNG VOLUMES. Dictated and Signed by: Dez Toledo MD Electronically signed: 12/21/2016 6:07 PM ED COURSE & MEDICAL DECISION MAKING Pertinent Labs & Imaging studies reviewed. (See chart for details) Nursing notes reviewed. Patient had double breathing treatment for acute asthma exacerbation. Patient feels much b walt. She is moving air without difficulty. She is not hypoxemic. This point I'm startin g her on a Zithromax and prednisone. She is to return for severe worsening symptoms. This point patient does not appear to be in acute distress. Follow-up Information Luciano Queen DO In 2 days. Specialties: Family Medicine - Sports Medicine, Family Medicine Why: If symptoms worsen Contact information: [address] [place] [address] New Prescriptions AZITHROMYCIN (ZITHROMAX) 250 MG TABLET Take 2 tablets by mouth daily x 1 day, then take 1 tablet by mouth daily x 4 days. PREDNISONE (DELTASONE) 20 MG TABLET Take 3 tablets by mouth Daily. Discharge Instructions Return for shortness breath difficulty breathing or other worsening symptoms. Please follo w-up with your primary care physician. FINAL IMPRESSION 1. Bronchitis with asthma, acute Acute Portions of this chart may have been created with [employer] voice recognition software. Occasi onal wrong-word or sound-alike substitutions may have occurred due to the inherent castano itations of voice recognition software. Please read the chart carefully and recognize, using context, where these substitutions have occurred Micky Luo MD 12/21/16 1816 documente d in this encounter Miscellaneous Notes ED Triage Notes - Isis Trinh, RN - 12/21/2016 4:34 PM PDTPt reports progressive shortn ess of breath and wheezing for the past three days. Pain on the left side, worse when cough ing or deep breathing. d ocumented in this encounter Plan of Treatment Not on filedocumented as of this encounter Procedures + +--------+ + + + | Procedure Name | Priori | Date/Time | Associated Diagnosis | Comments | | | ty | | | | + +--------+ + + + | XR CHEST AP PORTABLE | STAT | 12/21/2016 | | Results for this | | | | 5:04 PM | | procedure are in the | | | | PDT | | results section. | + +--------+ + + + documented in this encounter Results XR Chest AP Portable (12/21/2016 5:04 PM PDT) + + | Specimen | + + | | + + + + + | Narrative | Performed At | + + + | SINGLE AP CHEST 12/21/2016 5:04 PM CLINICAL HISTORY: WHEEZING | [facility] | | COMPARISON: None available FINDINGS: The cardiomediastinal | | | silhouette and pulmonary vasculature are unremarkable. There is | | | mild reticular opacity in the lung bases. Allowing for low lung | | | volumes, the lungs are otherwise clear without visible pneumothorax or | | | pleural effusion. Cholecystectomy clips are suggested and surgical | | | clips/je are noted in the region of the gastroesophageal | | | junction. The bones and soft tissues are otherwise unremarkable. | | | IMPRESSION - 1. MILD BASILAR RETICULAR OPACITY FAVORING | | | ATELECTASIS IN THE SETTING OF LOW LUNG VOLUMES. Dictated and | | | Signed by: Dez Toledo MD Electronically signed: 12/21/2016 6:07 | | | PM | | + + + + + | Procedure Note | + + | José, Rad Results In - 12/21/2016 6:10 PM PDT SINGLE AP CHEST 12/21/2016 5:04 PM | | | | CLINICAL HISTORY: WHEEZING | | | | COMPARISON: None available | | | | FINDINGS: The cardiomediastinal silhouette and pulmonary vasculature are | | unremarkable. There is mild reticular opacity in the lung bases. Allowing for | | low lung volumes, the lungs are otherwise clear without visible pneumothorax or | | pleural effusion. Cholecystectomy clips are suggested and surgical | | clips/je are noted in the region of the gastroesophageal junction. The | | bones and soft tissues are otherwise unremarkable. | | | | IMPRESSION - | | | | 1. MILD BASILAR RETICULAR OPACITY FAVORING ATELECTASIS IN THE SETTING OF LOW | | LUNG VOLUMES. | | | | Dictated and Signed by: Dez Toledo MD | | Electronically signed: 12/21/2016 6:07 PM | + + + +---------+ + + | Performing | Address | City/State/Zipcode | Phone Number | | Organization | | | | + +---------+ + + | [facility] | | | | + +---------+ + + documented in this encounter Visit Diagnoses + + | Diagnosis | + + | Bronchitis with asthma, acute - Primary Unspecified asthma, with exacerbation | + + documented in this encounter Administered Medications + +--------+ +------+------+------+ | Medication Order | MAR | Action | Dose | Rate | Site | | | Action | Date | | | | + +--------+ +------+------+------+ | albuterol 5 mg/mL concentrated | Given | 12/22/19 | 5 mg | | | | nebulizer solution 5 mg 5 mg, | | 17 5:14 | | | | | Nebulization, RT Once, Fri | | PM PDT | | | | | 12/21/16 at 1710, For 1 dose, RT | | | | | | | will administer., | | | | | | + +--------+ +------+------+------+ +---+---+ | | | +---+---+ + +-------+ +-------+---+---+ | albuterol-ipratropium (DUONEB) | Given | 12/22/19 | 3 mLs | | | | 2.5-0.5 mg/3 mL nebulizer | | 17 5:05 | | | | | solution 3 mL 3 mL, | | PM PDT | | | | | Nebulization, RT Once, Fri | | | | | | | 12/21/16 at 1700, For 1 dose | | | | | | + +-------+ +-------+---+---+ +---+---+ | | | +---+---+ + +-------+ +------+---+---+ | dexamethasone (DECADRON) 10 | Given | 12/22/19 | 8 mg | | | | mg/mL injection for oral use 8 mg | | 17 5:53 | | | | | 8 mg, Oral, ONCE, 12/21/16 | | PM PDT | | | | | at 1715, For 1 dose, Use | | | | | | | dexamethasone 10 mg/mL vial for | | | | | | | inject for this oral dose, | | | | | | + +-------+ +------+---+---+ +---+---+ | | | +---+---+ documented in this encounter
--- OUTSIDE RECORDS SUMMARY | ~2020-02-07 | XMS | Encounter Summary ---
Demographics + + + | Address | [address] | | | [place] [address] | + + + | Home Phone | | + + + | Preferred Language | Unknown | + + + | Marital Status | Single | + + + | Presybeterian Affiliation | Unknown | + + + | Race | Unknown | + + + | Ethnic Group | Unknown | + + + Author + + + | Author | [facility] | | | and [place] | + + + | Organization | [facility] | | [...] Team Providers + +------+ + | Care Invoice Control Clerk Name | Role | Phone | + +------+ + | Stefany Ngo | PCP | | + +------+ + Reason for Referral Diagnostic/Screening (Emergency) +--------+--------+ + + + + | Status | Reason | Specialty | Diagnoses / | Referred By | Referred To | | | | | Procedures | Contact | Contact | +--------+--------+ + + + + | Closed | | Radiology | Diagnoses | Diamond, | [address] | | | | | Recurrent | Mary Ann E, | [address] | | | | | pulmonary | [employer] [address] | [place], [place] | | | | | embolism | [address] | [address] | | | | | (HCC) | [address] | Phone: | | | | | Procedures | [place], [place] | [phone] | | | | | CT Angiogram | [address] | Fax: | | | | | Chest W | Phone: | [phone] | | | | | Contrast | [phone] | | | | | | | Fax: | | | | | | | [phone] | | +--------+--------+ + + + + Reason for Visit + + + | Reason | Comments | + + + | Follow-up | | + + + Encounter Details +--------+---------+ + + + | Date | Type | Department | Care Team | Description | +--------+---------+ + + + | 03/18/ | Office | [facility] | Mary Ann Diamond, | Recurrent pulmonary | | 2019 | Visit | PULMONOLOGY [address] | [employer] [address] | embolism (HCC) | | | | [address] | DR [place], | (Primary Dx); Severe | | | | [place], [place] | [place] [address] | persistent asthma | | | | [address] | [phone] | without | | | | [phone] | | complication; Cough | | | | | | in adult; Post-nasal | | | | | | drip | +--------+---------+ + + + Social History [...] + + + | Blood Pressure | 118/58 | 03/18/2019 1:59 PM | | | | | PDT | | + + + + + | Pulse | 110 | 03/18/2019 1:59 PM | | | | | PDT | | + + + + + | Temperature | 36.4 C (97.5 F) | 03/18/2019 1:59 PM | | | | | PDT | | + + + + + | Respiratory Rate | - | - | | + + + + + | Oxygen Saturation | 99% | 03/18/2019 1:59 PM | | | | | PDT | | + + + + + | Inhaled Oxygen | - | - | | | Concentration | | | | + + + + + | Weight | 110.7 kg (244 lb) | 03/18/2019 1:59 PM | | | | | PDT | | + + + + + | Height | - | - | | + + + + + | Body Mass Index | 38.22 | 03/05/2019 9:21 AM | | | | | PDT | | + + + + + documented in this encounter Progress Notes Mary Ann Diamond ARNP - 03/18/2019 2:00 PM PDTFormatting of this note might be different fr om the original. Subjective: Patient ID: Marshall Delgado is a 48 y.o. female. History of HPI 03/18/19: Marshall Delgado is a 48 y.o. female presenting today for urgent appointment after VQ scan. I received a call this afternoon from Dr Orozco, Radiology and was informed o f intermediate risk for PE. She was scheduled to present to the office for urgent appointmen t today. She presented with her medical records from Dr Queen's office today and I have rev iewed the labs and CT available in these records. She has already been tested for Protein C and S, Factor V Leiden, etc. She has had a high protein S in the past and a normal lab as we ll. No further Lab work needed at this point. She continues to have 3 points of chest burning and tenderness. These have been intermitten tly bothersome to her for several months. No change in usual characteristic and no increase in frequency or intensity since last visit. She completed Echo today. I am awaiting the julio cesar boykin reading on this. She presents today with increased pharyngeal tightness. She notes her voice quality is affe cted today. She reports increased post nasal drip for last few days as well, but is not bein g consistent with her nasal sprays. she continues to wheeze with increased activity such as walking up stairs. She is taking inhalers as prescribed and albuterol up to 4 x a day as nee ded. She reports she is scheduled to see Denies cough, fever, chills, body aches, joint aches, rashes, new or worsening chest discom fort, palpitations, NV, appetite change, fatigue, or weight loss. The following portions of the patients history were reviewed and updated as appropriate: al lergies, current medications, past family history, past medical history, past social history , and problem list. Review of Systems Constitutional: Negative for activity change, appetite change, chills, diaphoresis, fatigue , fever and unexpected weight change. HENT: Positive for congestion, postnasal drip, rhinorrhea, trouble swallowing and voice ryan nge. Negative for ear discharge, ear pain, facial swelling, hearing loss, mouth sores, noseb chepe, sinus pressure, sinus pain, sneezing, sore throat and tinnitus. Difficulty swallowing and speech affected due to pharyngeal tightness. Eyes: Negative for pain, redness and itching. Respiratory: Positive for chest tightness, shortness of breath and wheezing. Negative for a pnea, cough, choking and stridor. Cardiovascular: Positive for chest pain. Negative for palpitations and leg swelling. Left upper chest, right lower chest, right upper chest. Stable from last visit. Gastrointestinal: Negative for abdominal distention, abdominal pain, nausea and vomiting. Musculoskeletal: Positive for arthralgias. Negative for back pain, gait problem, joint swel ling, myalgias, neck pain and neck stiffness. Skin: Negative for color change, pallor, rash and wound. Allergic/Immunologic: Positive for environmental allergies. Negative for food allergies and immunocompromised state. Neurological: Positive for headaches. Negative for dizziness, syncope, weakness and light-h eadedness. Hematological: Negative for adenopathy. Bruises/bleeds easily. On xarelto Objective: Physical Exam Constitutional: She is oriented to person, place, and time. She appears well-developed and well-nourished. No distress. HENT: Head: Normocephalic and atraumatic. Right Ear: External ear normal. Left Ear: External ear normal. Mouth/Throat: Oropharynx is clear and moist. Nasal turbinates boggy and hyperemic bilaterally. Eyes: Pupils are equal, round, and reactive to light. Conjunctivae and EOM are normal. Righ t eye exhibits no discharge. Left eye exhibits no discharge. Neck: Normal range of motion. Neck supple. No JVD present. No tracheal deviation present. N o thyromegaly present. Cardiovascular: Normal rate, regular rhythm, normal heart sounds and intact distal pulses. Exam reveals no gallop and no friction rub. No murmur heard. Pulmonary/Chest: Increased effort. Mild use of accessory muscles to breathe. Audibly restricted breathing so unds from upper airway noted. No wheezing, crackles, or abnormal breath sounds on auscultati on of lung garcia bilat. Abdominal: Soft. Bowel sounds are normal. She exhibits no distension. There is no tendernes s. There is no guarding. Musculoskeletal: Normal range of motion. She exhibits no edema, tenderness or deformity. Lymphadenopathy: She has no cervical adenopathy. Neurological: She is alert and oriented to person, place, and time. Skin: Skin is warm and dry. Capillary refill takes less than 2 seconds. No rash noted. She is not diaphoretic. No erythema. No pallor. Psychiatric: She has a normal mood and affect. Her behavior is normal. Judgment and thought content normal. Vitals reviewed. Allergies Allergen Reactions Hydrocodone Hives Penicillins Anaphylaxis Morphine GI Upset Vitals: 03/18/19 1359 BP: 118/58 Pulse: 110 Temp: 36.4 C (97.5 F) TempSrc: Oral SpO2: 99% Weight: 110.7 kg (244 lb) Patient Active Problem List Diagnosis Anemia Chronic depression Disorder of lipoid metabolism Embolism and thrombosis Chronic anxiety Anxiety state Headache Hypothyroidism Menopausal syndrome Mixed insomnia Other pulmonary embolism and infarction Panic attack Primary hypercoagulable state Recurrent pulmonary embolism Restless legs Sprain of foot Current Outpatient Medications: albuterol (VENTOLIN HFA) 90 mcg/puff inhaler, Inhale 2 puffs into the lungs every 4 ho urs as needed for Wheezing, Shortness of Breath or Increased Work of Breathing., Disp: 1 Inh aler, Rfl: 11 albuterol-ipratropium (COMBIVENT RESPIMAT) 100-20 mcg/puff inhaler, Inhale 1 puff into the lungs 4 times daily., Disp: 1 Inhaler, Rfl: 11 amitriptyline (ELAVIL) 25 mg tablet, TAKE 1 TABLET BY MOUTH ONCE DAILY FOR 7 DAYS THEN INCREASE TO 2 TABLETS ONCE DAILY STARTING 2ND WEEK, Disp: , Rfl: 0 doxepin (SINEQUAN) 10 mg capsule, doxepin 10 mg capsule 3 po qhs for chronic insomina , Disp: , Rfl: fluticasone-salmeterol (ADVAIR HFA) 115-21 MCG/ACT inhaler, Inhale 2 puffs into the evelyn ngs 2 times daily., Disp: 1 Inhaler, Rfl: 0 gabapentin (NEURONTIN) 300 mg capsule, gabapentin 300 mg capsule TAKE 3 TO 4 CAPSULES BY MOUTH AT BEDTIME FOR RESTLESS LEG SYNDROME, Disp: , Rfl: montelukast (SINGULAIR) 10 mg tablet, Take 10 mg by mouth., Disp: , Rfl: rivaroxaban (XARELTO) 15 mg tablet, Take 15 mg by mouth Daily (with dinner)., Disp: , Rfl: SPIRIVA HANDIHALER 18 MCG inhalation capsule, INHALE 1 PUFF BY MOUTH ONCE DAILY, Disp: , Rfl: 12 No current facility-administered medications for this visit. Labs Reviewed: September,: Factor V Leiden: negative. Protein S: 148 (high) Protein C: negative. DDimer: 425 Imaging: VQ scan 03-18-2019: FINDINGS: Ventilation Right Lung: Normal. Left Lung: Normal. Perfusion Right Lung: There is a small to moderate-sized mismatched perfusion defect in right mid lung posteriorly. Left Lung: There is a segmental mismatched perfusion defect in left lower lobe posteriorly. IMPRESSION: Mismatched ventilation perfusion defects in both lungs as detailed above. Intermediate probability ventilation perfusion scan for pulmonary embolism. CXR 03-18-2019: FINDINGS: Heart, lungs and vessels normal. No pneumothorax, pleural effusion or adenopathy. No significant bone abnormality. Cholecystectomy clips. IMPRESSION: No radiographic evidence of acute cardiopulmonary disease. Pulmonary Function Test: None to review. Assessment and Plan: 1. Recurrent pulmonary embolism (HCC) Ms Delgado has a history of 2 x PE, one in 2011 after R leg DVT and again in 2017 after disc ontinuation of xarelto. She will obtain a CTA chest to rule out PE due to small to moderate bilateral mismatches noted in VQ scan today. Discussed SS of PE including her usual symptoms (shortness of breath, chest pain, chest tightness) and to present to ED for these. She tavia ins on Xarelto daily. No further labwork needs to be completed at this point as she has alre ana paula been tested thoroughly by Dr Queen. These labs have been copied from her paper records provided today and will be scanned into the chart. - CT Angiogram Chest W Contrast; Future 2. Severe persistent asthma without complication She continues to have wheezing on activity. On auscultation today, she sounds clear across all lung garcia, but she has restricted breath sounds noted in upper airway. She is complain ing of voice changes and tightness in the pharynx. She is already scheduled to see otolaryng ologist in [place] at the end of April. She verbalized understanding to present to ED for concerns of airway loss. 3. Cough in adult She continues to have productive cough in the mornings of yellow phlegm. She notes increase d phlegm lately along with increase in nasal allergy symptoms. She reports she has stopped t aking nasal sprays consistently as the regimen is cumbersome. I have encouraged her to begin using again, especially considering the throat irritation currently experienced. 4. Post-nasal drip Remains on singulair nightly and taking nasal sprays PRN. She should begin using nasal spra ys daily again. It is a pleasure to be a part of Marshall Delgado's care team. She is already scheduled to follow up with me in 2 weeks. She is welcome to present sooner for urgent appointment if ne eded. She should present to ED for emergent concerns. Please feel free to contact us if ques tions or concerns arise. RAINA Lees [facility] PULMONOLOGY [address] [place] [address] Dept: [phone] Loc: [phone] I have discussed my findings and plan with Dr Amezquita today. We are in agreement with the patient's plan of care as detailed above. documented in this e ncounter Plan of Treatment Not on filedocumented as of this encounter Results CT Angiogram Chest W Contrast (03/31/2019 11:12 AM PDT) + + | Specimen | + + | | + + + + + | Narrative | Performed At | + + + | CT ANGIOGRAPHY CHEST CLINICAL INFORMATION: Intermediate risk | [facility] | | VQ scan 03-18-2019. Past history of pulmonary embolism twice. | | | COMPARISON: NM LUNG PERFUSION VENTILATION (03/18/2019); XR CHEST PA | | | AND LATERAL (03/18/2019); XR CHEST AP PORTABLE (12/22/2016); | | | PROCEDURE: Thin-section images of the entire chest after the | | | administration of 66 ml omnipaque 350 intravenous contrast. 3D MIP | | | thin slab images and 2D multiplanar reconstructions performed. At | | | least one of the following CT dose optimization techniques were | | | used: Automated exposure control; Adjustment of mA and/or kV according | | | to patient size; Use of iterative reconstruction technique. | | | FINDINGS: PULMONARY ARTERIES: No acute pulmonary embolus is | | | identified. Linear filling defects consistent with nonacute/chronic | | | pulmonary embolus are seen within the left lower lobe pulmonary | | | artery as on image 2/100. RIGHT VENTRICLE TO LEFT VENTRICLE RATIO: | | | .63. (Maximum short axis diameter on axial image. Applicable only | | | when pulmonary embolism present. Abnormal greater than or equal to | | | 0.9.) CHEST Lungs, Pleura and Airways: There is patchy airspace | | | opacity within the left upper lobe consistent with acute airspace | | | infection. No pleural effusion is identified. No pulmonary mass | | | or suspicious nodule is identified. Mediastinum: A small hiatal | | | hernia is present. The heart size is normal. Lymph Nodes: There is | | | no hilar, axillary, or mediastinal lymphadenopathy identified. | | | Upper Abdomen: The patient is status post gastric bypass. There is | | | evidence of prior cholecystectomy. BODY WALL Soft Tissues: The | | | soft tissues of the chest wall are unremarkable. Bones: No acute | | | fracture or vertebral end plate destruction. No lytic or blastic | | | lesion. IMPRESSION: 1. Mild subacute/chronic left lower lobe | | | pulmonary embolus, with no acute PE or right heart strain. 2. Left | | | upper lobe opacity consistent with acute airspace infection. | | | Signed by: Maciej Posey Gregory Sign Date/Time: 03/31/2019 11:36 | | | AM | | + + + + + | Procedure Note | + + | José, Rad Results In - 03/31/2019 11:39 AM PDT | | CT ANGIOGRAPHY CHEST | | | | CLINICAL INFORMATION: | | Intermediate risk VQ scan 03-18-2019. Past history of pulmonary embolism | | twice. | | | | COMPARISON: | | NM LUNG PERFUSION VENTILATION (03/18/2019); XR CHEST PA AND LATERAL | | (03/18/2019); XR CHEST AP PORTABLE (12/22/2016); | | | | PROCEDURE: | | Thin-section images of the entire chest after the administration of 66 | | ml omnipaque 350 intravenous contrast. 3D MIP thin slab images and 2D | | multiplanar reconstructions performed. | | | | At least one of the following CT dose optimization techniques were | | used: Automated exposure control; Adjustment of mA and/or kV according | | to patient size; Use of iterative reconstruction technique. | | | | FINDINGS: | | PULMONARY ARTERIES: No acute pulmonary embolus is identified. Linear | | filling defects consistent with nonacute/chronic pulmonary embolus are | | seen within the left lower lobe pulmonary artery as on image 2/100. | | | | RIGHT VENTRICLE TO LEFT VENTRICLE RATIO: .63. (Maximum short axis | | diameter on axial image. Applicable only when pulmonary embolism | | present. Abnormal greater than or equal to 0.9.) | | | | CHEST | | Lungs, Pleura and Airways: There is patchy airspace opacity within the | | left upper lobe consistent with acute airspace infection. No pleural | | effusion is identified. No pulmonary mass or suspicious nodule is | | identified. | | Mediastinum: A small hiatal hernia is present. The heart size is | | normal. | | Lymph Nodes: There is no hilar, axillary, or mediastinal | | lymphadenopathy identified. | | Upper Abdomen: The patient is status post gastric bypass. There is | | evidence of prior cholecystectomy. | | | | BODY WALL | | Soft Tissues: The soft tissues of the chest wall are unremarkable. | | Bones: No acute fracture or vertebral end plate destruction. No lytic | | or blastic lesion. | | | | IMPRESSION: | | 1. Mild subacute/chronic left lower lobe pulmonary embolus, with no | | acute PE or right heart strain. | | 2. Left upper lobe opacity consistent with acute airspace infection. | | | | | | | | | | Signed by: Maciej Posey Gregory | | Sign Date/Time: 03/31/2019 11:36 AM | + + + +---------+ + + | Performing | Address | City/State/Zipcode | Phone Number | | Organization | | | | + +---------+ + + | [facility] | | | | + +---------+ + + documented in this encounter Visit Diagnoses + + | Diagnosis | + + | Recurrent pulmonary embolism (HCC) - Primary Other pulmonary embolism and infarction | + + | Severe persistent asthma without complication | + + | Cough in adult | + + | Post-nasal drip Postnasal drip | + + documented in this encounter"
--- OUTSIDE RECORDS SUMMARY | ~2020-02-07 | XMS | Encounter Summary ---
Demographics + + + | Address | [address] | | | [place] [address] | + + + | Home Phone | | + + + | Preferred Language | Unknown | + + + | Marital Status | Single | + + + | Mormonism Affiliation | NRP | + + + [...] + | Rosy Alvarez | ECON | [address] | | | | | [place] | | + + + + + | Chalo Delgado | ECON | [address] | | | | | [place] | | | | | [address] | | + + + + + | Kathleen Mar | ECON | [place] | | | | | [address] | | + + + + + | Yancy Mar | ECON | [address] | | | | | [place] | | + + + + + Care Team Providers + +------+ + | Care Rand Cementer Name | Role | Phone | + +------+ + | Michelle Ndiaye MD | PCP | | + +------+ + Encounter Details +--------+--------+ + + + | Date | Type | Department | Care Team | Description | +--------+--------+ + + + | 04/28/ | Travel | | | | | 2019 | | | | | +--------+--------+ + [...]
--- OUTSIDE RECORDS SUMMARY | ~2020-02-07 | XMS | Encounter Summary ---
Demographics + + + | Address | [address] | | | [place] [address] | + + + | Home Phone | | + + + | Preferred Language | Unknown | + + + | Marital Status | Single | + + + | Samaritan Affiliation | NRP | + + + | Race | White | + + + | Ethnic Group | Not or | + + + Author + + + | Author | [facility] | + + + | Organization | [facility] | + + + | Address | Unknown | + + + | Phone | Unavailable | + + + Support + + + + + | Name | Relationship | Address | Phone | + + + + + | Rosy Alvarez | ECON | [address] | | | | | [place] | | + + + + + | Chalo Delgado | ECON | [address] | | | | | [place] | | | | | [address] | | + + + + + | Kathleen Mar | ECON | [place] | | | | | [address] | | + + + + + | Yancy Mar | ECON | [address] | | | | | [place] | | + + + + + Care Team Providers + +------+ + | Care Harness Tier Name | Role | Phone | + +------+ + | Magdy Villalobos MD | PCP | | + +------+ + Encounter Details +--------+ + + + + | Date | Type | Department | Care Team | Description | +--------+ + + + + | 05/15/ | Pharmacy | Pharmacy @ [facility] | | | | 2019 | Visit | [address] | | | | | | [address] Mailcode: | | | | | | [facility] | | | | | | and [place], | | | | | | [address] | | | | | | [place], [place] | | | | | | [address] | | | +--------+ + + + [...]
--- OUTSIDE RECORDS SUMMARY | ~2020-02-07 | XMS | Encounter Summary ---
Demographics + + + | Address | [address] | | | [place] [address] | + + + | Home Phone | | + + + | Preferred Language | Unknown | + + + | Marital Status | Single | + + + | Worship Affiliation | Unknown | + + + | Race | Unknown | + + + | Ethnic Group | Unknown | + + + Author + + + | Author | [facility] | | | and [place] | + + + | Organization | [facility] | | | [...] Team Providers + +------+ + | Care Recovery Assistant Name | Role | Phone | + +------+ + | Magdy Villalobos MD | PCP | | + +------+ + Reason for Visit +---------+--------+ + | Reason | Onset | Comments | | | Date | | +---------+--------+ + | Results | 07/31/ | | | | 2019 | | +---------+--------+ + Encounter Details +--------+ + + + + | Date | Type | Department | Care Team | Description | +--------+ + + + + | 07/31/ | Telephone | [facility] | Mary Ann Diamond, | Results | | 2020 | | PULMONOLOGY [address] | [employer] [address] | | | | | [address] | [address] [facility], | | | | | [place], [place] | [place] [address] | | | | | [address] | [phone] | | | | | [phone] | | | +--------+ + + + [...] this encounter Miscellaneous Notes Telephone Encounter - Mary Ann Diamond ARNP - 07/31/2019 2:05 PM PSTSpoke with Marshall on e telephone to give the results of CT scan, The JO ANN nodule has resolved some and seems to be scarring now. This is reassuring. We will plan on repeating a CT to follow it again in 6 mo [address] I will place this order at her next visit with me in 2 weeks. documented in this encounter Plan of Treatment Not on filedocumented as of this encounter Visit Diagnoses Not on filedocumented in this encounter"
--- OUTSIDE RECORDS SUMMARY | ~2020-02-07 | XMS | Encounter Summary ---
Demographics + + + | Address | [address] | | | [place] [address] | + + + | Home Phone | | + + + | Preferred Language | Unknown | + + + | Marital Status | Single | + + + | Anabaptist Affiliation | Unknown | + + + | Race | Unknown | + + + | Ethnic Group | Unknown | + + + Author + + + | Author | [facility] | | | and Michaelana | + + + | Organization | [facility] | | | and [...] Team Providers + +------+ + | Care Electric Motor Control Assembler Name | Role | Phone | + [...] | Radiology | Diagnoses | Diamond, | [address] | | | | | | Mary Ann E, | [address] | | | | | Consolidatio | NURSING HOME ADMINISTRATOR [address] | | | | | n of left | [address] | [address] | | | | | upper lobe | [address] | [place], [place] | | | | | of lung | [place] | [address] | | | | | (HCC) | [address] | Phone: | | | | | Procedures | Phone: | [phone] | | | | | CT Chest wo | [phone] | Fax: | | | | | Contrast | Fax: | [phone] | | | | | | [phone] | | +--------+--------+ + + + + Reason for Visit Diagnostic/Screening (Emergency) +--------+--------+ + + + + | Status | Reason | Specialty | Diagnoses / | Referred By | Referred To | | | | | Procedures | Contact | Contact | +--------+--------+ + + + + | Closed | | Radiology | Diagnoses | Diamond, | [facility] | | | | | | Mary Ann E, | [address] | | | | | Consolidatio | NURSING HOME ADMINISTRATOR [address] | | | | | n of left | [address] | [address] | | | | | upper lobe | [address] | [place], [place] | | | | | of lung | [place] | [address] | | | | | (HCC) | [address] | Phone: | | | | | Procedures | Phone: | [phone] | | | | | CT Chest wo | [phone] | Fax: | | | | | Contrast | Fax: | [phone] | | | | | | [phone] | | +--------+--------+ + + + + Encounter Details +--------+ + + + + | Date | Type | Department | Care Team | Description | +--------+ + + + + | 07/27/ | Hospital | [facility] | Mary Ann Diamond E, | Consolidation of | | 2019 | Encounter | [facility] | NURSING HOME ADMINISTRATOR [address] | left upper lobe of | | | | [address] | [address] [place], | lung (HCC) | | | | [place], [place] | [place] [address] | | | | | [address] | [phone] | | | | | [phone] | | | +--------+ + + + [...] | + +--------+ + + + | CT CHEST WO CONTRAST | STAT | 07/27/2019 | Consolidation of | Results for this | | | | 11:56 AM | left upper lobe of | procedure are in the | | | | PST | lung (HCC) | results section. | + +--------+ + + + documented in this encounter Results CT Chest wo Contrast (07/27/2019 11:56 AM PST) + + | Specimen | + + | | + + + + + | Impressions | Performed At | + + + | 1. Slight reduction in size of airspace consolidation of the left | [facility] | | upper lobe. Some residual ground-glass opacity is noted thought to | | | reflect some nonspecific scarring which is favored over a mass. | | | Pulmonary Nodule Follow Up Recommendation:Non-solid lung nodule | | | greater than 5 mm new or of indeterminate stability. Such nodules are | | | common and have a very low incidence of developing into a clinically | | | significant cancer. Recommendation: Follow up chest CT in 12 months | | | and then every two years until 5 years if nodule remains stable. | | | (Fleischner society recommendation). 2. Slight increase in | | | tree-in-bud opacities along the anteromedial left upper lobe that | | | could reflect interval aspiration versus bronchiolitis. | | | Signed by: Maciej Lopez Richard Sign Date/Time: 07/27/2019 1:34 PM | | | | | + + + + + + | Narrative | Performed At | + + + | CT CHEST WITHOUT CONTRAST CLINICAL INFORMATION: Cough. | [facility] | | Dyspnea, chronic. Shortness of breath, consolidation of left upper | | | lobe of lung, follow up imaging COMPARISON: CT ANGIOGRAM CHEST W | | | CONTRAST (03/31/2019); NM LUNG PERFUSION VENTILATION (03/18/2019); XR | | | CHEST PA AND LATERAL (03/18/2019); PROCEDURE: Axial images through | | | the chest. Multiplanar reconstructions. At least one of the | | | following CT dose optimization techniques were used: Automated | | | exposure control; Adjustment of mA and/or kV according to patient | | | size; Use of iterative reconstruction technique. FINDINGS: Lungs, | | | Pleura and Airways: Ground-glass consolidation persists along the | | | central aspect of the left upper lobe measuring 14 x 11 mm on image | | | 31 of series 3, reduced in size. Scattered tree-in-bud opacities are | | | noted along anteromedial margin of the left upper lobe, new from | | | prior study. There is no pulmonary fibrosis. Mediastinum: Small | | | hiatal hernia is noted. Heart is normal in size. Lymph Nodes: No | | | adenopathy. Upper Abdomen: Postoperative changes are noted along the | | | ventral abdominal wall from hernia repair. Cholecystectomy clip is | | | noted. Postsurgical changes are noted along the stomach. BODY | | | WALL Soft Tissues: The soft tissues of the chest wall are | | | unremarkable. Bones: No acute fracture or vertebral end plate | | | destruction. No lytic or blastic lesion. | | + + + + + | Procedure Note | + + | José, Rad Results In 07/27/2019 1:38 PM PST | | CT CHEST WITHOUT CONTRAST | | | | CLINICAL INFORMATION: | | Cough. Dyspnea, chronic. Shortness of breath, consolidation of left | | upper lobe of lung, follow up imaging | | | | COMPARISON: | | CT ANGIOGRAM CHEST W CONTRAST (03/31/2019); NM LUNG PERFUSION | | VENTILATION (03/18/2019); XR CHEST PA AND LATERAL (03/18/2019); | | | | PROCEDURE: | | Axial images through the chest. Multiplanar reconstructions. | | | | At least one of the following CT dose optimization techniques were | | used: Automated exposure control; Adjustment of mA and/or kV according | | to patient size; Use of iterative reconstruction technique. | | | | FINDINGS: | | Lungs, Pleura and Airways: Ground-glass consolidation persists along | | the central aspect of the left upper lobe measuring 14 x 11 mm on image | | 31 of series 3, reduced in size. Scattered tree-in-bud opacities are | | noted along anteromedial margin of the left upper lobe, new from prior | | study. There is no pulmonary fibrosis. | | Mediastinum: Small hiatal hernia is noted. Heart is normal in size. | | Lymph Nodes: No adenopathy. | | Upper Abdomen: Postoperative changes are noted along the ventral | | abdominal wall from hernia repair. Cholecystectomy clip is noted. | | Postsurgical changes are noted along the stomach. | | | | BODY WALL | | Soft Tissues: The soft tissues of the chest wall are unremarkable. | | Bones: No acute fracture or vertebral end plate destruction. No lytic | | or blastic lesion. | | | | IMPRESSION: | | 1. Slight reduction in size of airspace consolidation of the left upper | | lobe. Some residual ground-glass opacity is noted thought to reflect | | some nonspecific scarring which is favored over a mass. Pulmonary | | Nodule Follow Up Recommendation:Non-solid lung nodule greater than 5 mm | | new or of indeterminate stability. Such nodules are common and have a | | very low incidence of developing into a clinically significant cancer. | | Recommendation: Follow up chest CT in 12 months and then every two | | years until 5 years if nodule remains stable. (Fleischner society | | recommendation). | | 2. Slight increase in tree-in-bud opacities along the anteromedial left | | upper lobe that could reflect interval aspiration versus bronchiolitis. | | | | | | | | Signed by: Maciej Lopez Richard | | Sign Date/Time: 07/27/2019 1:34 PM | + + + +---------+ + + | Performing | Address | City/State/Zipcode | Phone Number | | Organization | | | | + +---------+ + + | [facility] | | | | + +---------+ + + documented in this encounter Visit Diagnoses + + | Diagnosis | + + | Consolidation of left upper lobe of lung (HCC) | + + documented in this encounter"
--- OUTSIDE RECORDS SUMMARY | ~2020-02-07 | XMS | Encounter Summary ---
Demographics + + + | Address | [address] | | | [place] [address] | + + + | Home Phone | | + + + | Preferred Language | Unknown | + + + | Marital Status | Single | + + + | Jew Affiliation | NRP | + + + | Race | White | + + + | Ethnic Group | Not or | + + + Author + + + | Author | [facility] | + + + | Organization | [facility] | + + + | Address | Unknown | + + + | Phone | Unavailable | + + + Support + + + + + | Name | Relationship | Address | Phone | + + + + + | Rosy Alvarez | ECON | [address] | | | | | [place] | | + + + + + | Chalo Delgado | ECON | [address] | | | | | [place] | | | | | [address] | | + + + + + | Kathleen Mar | ECON | [place] | | | | | [address] | | + + + + + | Yancy Mar | ECON | [address] | | | | | [place] | | + + + + + Care Team Providers + +------+ + | Care Master Control Engineer Name | Role | Phone | + +------+ + | Magdy Villalobos MD | PCP | | + +------+ + Encounter Details +--------+ + + + + | Date | Type | Department | Care Team | Description | +--------+ + + + + | 05/15/ | Procedure | [facility] | | | | 2019 | Pass | [facility] | | | | | | and Healing Surgery | | | | | | Center Admitting | | | | | | Desk Located on the | | | | | | 4th floor [address] | | | | | | [address] [place], | | | | | | [place] [address] | | | +--------+ + + + [...]
--- OUTSIDE RECORDS SUMMARY | ~2020-02-07 | XMS | Clinical Summary ---
Demographics + + + | Address | [address] | | | [place] [address] | + + + | Home Phone | | + + + | Preferred Language | Unknown | + + + | Marital Status | Single | + + + | Spiritism Affiliation | NRP | + + + | Race | White | + + + | Ethnic Group | Not or | + + + Author + + + | Author | [facility] | + + + | Organization | [facility] | + + + | Address | Unknown | + + + | Phone | Unavailable | + + + Support + + + + + | Name | Relationship | Address | Phone | + + + + + | Rosy Alvarez | ECON | [address] | | | | | [place], [place] | | + + + + + | Chalo Delgado | ECON | [address] | | | | | [place] | | | | | [address] | | + + + + + | Kathleen Mar | ECON | [place] | | | | | [address] | | + + + + + | Yancy Mar | ECON | [address] | | | | | [place] | | + + + + + Care Team Providers + +------+ + | Care Environmental Project Manager Name | Role | Phone | + +------+ + | Magdy Villalobos MD | PCP | | + +------+ + Source Comments [facility] is fully live [facility] Allergies + + + + + + | Active Allergy | Reactions | Severity | Noted | Comments | | | | | Date | | + + + + + + | Codeine | Nausea and Vomiting | Medium | 05/11/20 | | | | | | 19 | | + + + + + + | Morphine | Respiratory Distress | Medium | 05/11/20 | | | | | | 19 | | + + + + + + | Oxycodone | Hives | | 06/09/20 | | | | | | 19 | | + + + + + + | Penicillins | Unknown | Medium | 03/12/20 | Tongue swelling, | | | | | 12 | hives and SOB | + + + + + + | Hydrocodone-Acetamin | Hives | Medium | 05/11/20 | | | ophen | | | 19 | | + + + + + + Medications + + + +---------+------+------+-------+ | Medication | Sig | Dispensed | Refills | Star | End | Statu | | | | | | t | Date | s | | | | | | Date | | | + + + +---------+------+------+-------+ | meclizine 25 mg | four times daily. | | 0 | | | Activ | | Oral tablet | Take one tablet by | | | | | e | | | mouth four times a | | | | | | | | day as needed for | | | | | | | | lightheadedness and | | | | | | | | nausea. | | | | | | + + + +---------+------+------+-------+ | acetaminophen 325 | Take 1-2 Tabs by | | 0 | 09/1 | | Activ | | mg Oral tablet | mouth every six | | | 0/20 | | e | | | hours as needed. | | | 12 | | | + + + +---------+------+------+-------+ | metoclopramide HCl | Take 10 mg by mouth | | 0 | | | Activ | | 10 mg Oral tablet | every six hours as | | | | | e | | | needed. | | | | | | + + + +---------+------+------+-------+ | | Inhale 2 puffs by | | 0 | | | Activ | | Fluticasone-Salmeter | mouth two times | | | | | e | | ol (ADVAIR HFA) | daily. | | | | | | | 115-21 mcg/actuation | | | | | | | | inhalation HFA | | | | | | | | aerosol inhaler | | | | | | | + + + +---------+------+------+-------+ | | Inhale 1 puff four | | 0 | | | Activ | | ipratropium-albutero | times daily. | | | | | e | | l 20-100 | | | | | | | | mcg/actuation | | | | | | | | inhalation mist | | | | | | | + + + +---------+------+------+-------+ | amitriptyline 25 | Take 25 mg by mouth | | 0 | | | Activ | | mg oral tablet | once daily at | | | | | e | | | bedtime. | | | | | | + + + +---------+------+------+-------+ | citalopram 10 mg | Take 10 mg by mouth | | 0 | | | Activ | | oral tablet | once daily. | | | | | e | + + + +---------+------+------+-------+ | gabapentin 300 mg | Take 300 mg by mouth | | 0 | | | Activ | | oral capsule | once daily at | | | | | e | | | bedtime. | | | | | | + + + +---------+------+------+-------+ | montelukast 10 mg | Take 10 mg by mouth | | 0 | | | Activ | | oral tablet | once daily. | | | | | e | + + + +---------+------+------+-------+ | rivaroxaban 15 mg | Take 15 mg by mouth | | 0 | | | Activ | | oral | once daily. | | | | | e | | tabletIndications: | Indications: | | | | | | | prevention of deep | Treatment to Prevent | | | | | | | vein thrombosis | Recurrence of a | | | | | | | recurrence | Clot in a Deep Vein | | | | | | + + + +---------+------+------+-------+ | cholecalciferol | Take 50,000 Units by | | 0 | | | Activ | | (vitamin D3) | mouth every seven | | | | | e | | (VITAMIN D3 ORAL) | days. | | | | | | + + + +---------+------+------+-------+ | tiotropium 18 mcg | Inhale 18 mcg once | | 0 | | | Activ | | inhalation capsule, | daily. | | | | | e | | w/inhalation device | | | | | | | + + + +---------+------+------+-------+ | fluticasone | Inhale 1 puff by | 12 g | 3 | 11/0 | | Activ | | propionate 220 | mouth two times | | | 8/20 | | e | | mcg/actuation | daily. | | | 19 | | | | inhalation HFA | | | | | | | | aerosol inhaler | | | | | | | + + + +---------+------+------+-------+ | oxyCODONE | Take 5 mL by mouth | 473 mL | 0 | 11/0 | | Activ | | (immediate release) | every six hours as | | | 8/20 | | e | | 5 mg/5 mL oral | needed for moderate | | | 19 | | | | solution | pain. | | | | | | + + + +---------+------+------+-------+ Active Problems + + + | Problem | Noted Date | + + + | Pulmonary embolism | 03/13/2012 | + + + | DVT (deep venous thrombosis) | 03/12/2012 | + + + Immunizations + + + + | Name | Administration Dates | Next Due | + + + + | Pneumococcal 23 | 03/14/2012 | | + + + + Family History + + +------+ + | Medical History | Relation | Name | Comments | + + +------+ + | Asthma | Father | | | + + +------+ + | Diabetes type II | Mother | | | + + +------+ + | Hyperlipidemia | Mother | | | + + +------+ + | Osteoporosis | Mother | | | + + +------+ + | Panic attack | Mother | | | + + +------+ + + +------+--------+ + | Relation | Name | Status | Comments | + +------+--------+ + | Father | | | | + +------+--------+ + | Mother | | | | + +------+--------+ + Social History + +-------+ +--------+------+ | [...] recent travel history available. | + + Last Filed Vital Signs + + + [...] | | + + + + + Plan of Treatment + + + + + | Health Maintenance | Due Date | Last Done | Comments | + + + + + | Influenza (Flu) | Completed | 04/07/2019, 04/22/2018, | | | vaccination | | 04/25/2017, Additional history | | | | | exists | | + + + + + | Pneumococcal | Completed | 04/07/2019, 12/04/2012, | | | vaccination | | 03/14/2012 | | + + + + + Results Not on filefrom Last 3 Months Insurance + +--------+ +--------+-------+---------+--------+ | Payer | Benefi | Subscriber | Effect | Phone | Address | Type | | | t Plan | ID | delmi | | | | | | / | | Dates | | | | | | Group | | | | | | + +--------+ +--------+-------+---------+--------+ | HR SYSTEMS ANALYST MEDICAID | HR SYSTEMS ANALYST | xxxxxxxx | | | | Medica | | | [place] | | 019-[id number] | | | id | | | [place] | | esent | | | | + +--------+ +--------+-------+---------+--------+ + +--------+ +--------+ + + | Guarantor Name | Accoun | Relation to | Date | Phone | Billing Address | | | t Type | Patient | of | | | | | | | | | | + +--------+ +--------+ + + | Marshall Delgado | Person | Self | [birth year] | [address] | | | al/Fam | | 1971 | [phone] | [place] [address] | | | niya | | | 7 (Home) | | + +--------+ +--------+ + + Advance Directives + + + + + | Code Status | Date | Date | Comments | | | Activated | Inactivated | | + + + + + | Full Code | 05/15/2019 | 05/15/2019 | | | | 12:03 PM | 10:10 PM | | + + + + + + + + +---+ | | | | | + + + +---+ | Full Code | 03/12/2012 | 03/18/2012 | | | | 11:20 PM | 7:07 PM | | + + + +---+
--- OUTSIDE RECORDS SUMMARY | ~2020-02-07 | XMS | Encounter Summary ---
Demographics + + + | Address | [address] | | | [place] [address] | + + + | Home Phone | | + + + | Preferred Language | Unknown | + + + | Marital Status | Single | + + + | Mandaeism Affiliation | NRP | + + + | Race | White | + + + | Ethnic Group | Not or | + + + Author + + + | Author | [facility] | + + + | Organization | [facility] | + + + | Address | Unknown | + + + | Phone | Unavailable | + + + Support + + + + + | Name | Relationship | Address | Phone | + + + + + | Rosy Alvarez | ECON | [address] | | | | | [place] | | + + + + + | Chalo Delgado | ECON | [address] | | | | | [place] | | | | | [address] | | + + + + + | Kathleen Mar | ECON | [place] | | | | | [address] | | + + + + + | Yancy Mar | ECON | [address] | | | | | [place] | | + + + + + Care Team Providers + +------+ + | Care Apprentice Machinist Outside Name | Role | Phone | + +------+ + | Michelle Ndiaye MD | PCP | | + +------+ + Reason for Visit + + + | Reason | Comments | + + + | Evaluation AND/OR | | | management - new | | | patient | | + + + Consultation (Routine) + +--------+ + + + + | Status | Reason | Specialty | Diagnoses / | Referred By | Referred To | | | | | Procedures | Contact | Contact | + +--------+ + + + + | Pending | | Vascular | Diagnoses | Jefry, | Vas Vasc | | Review | | Surgery | Deep vein | MD Jadiel | [facility] | | | | | thrombosis | [address] | [address] | | | | | (DVT) (HCC) | [address] | | | | | | [address]ielle [address] | Physicians | | | | | | [place] | [address] | | | | | | [address] | Floor | | | | | | Phone: | [place], [place] | | | | | | [phone] | [address] | | | | | | Fax: | Phone: | | | | | | [phone] | [phone] | | | | | | | Fax: | | | | | | | [phone] | + +--------+ + + + + Encounter Details +--------+---------+ + + + | Date | Type | Department | Care Team | Description | +--------+---------+ + + + | 05/21/ | Office | Vascular Surgery | Percy De Leon, | Phlebitis and | | 2011 | Visit | at [facility] [address] | MD [address] | thrombophlebitis of | | | | [address] | [address] | femoral vein (deep) | | | | [facility], | [place], [place] | (superficial) (HCC) | | | | 2nd Floor | [address] | (Primary Dx) | | | | [place], [place] | [phone] | | | | | [address] | | | | | | [phone] | | | +--------+---------+ + + + [...] + + + | Blood Pressure | 94/56 | 05/21/2012 12:44 PM | | | | | PST | | + + + + + | Pulse | 73 | 05/21/2012 12:44 PM | | | | | PST | | + + + + + | Temperature | - | - | | + + + + + | Respiratory Rate | 14 | 05/21/2012 12:44 PM | | | | | PST | | + + + + + | Oxygen Saturation | 96% | 05/21/2012 12:44 PM | | | | | PST | | + + + + + | Inhaled Oxygen | - | - | | | Concentration | | | | + + + + + | Weight | 107 kg (236 lb) | 05/21/2012 12:44 PM | | | | | PST | | + + + + + | Height | 170.2 cm (5' 7") | 05/21/2012 12:44 PM | | | | | PST | | + + + + + | Body Mass Index | 36.96 | 05/21/2012 12:44 PM | | | | | PST | | + + + + + documented in this encounter Progress Notes Percy De Leon MD - 05/21/2012 2:19 PM PSTI saw and evaluated the patient. I agree with the findings and the plan of care as documented in the resident s note. Percy De Leon M.D. [facility] Vascular Surgery [address] [place] [address], [address] [address] Email: [email or web address] MD - 05/21/2012 2:02 PM PST Attending Surgeon: Percy De Leon MD Author: Jocelin Camejo Date: 05/21/2012 Identification: Marshall Delgado is a 41 year old woman admitted 03/13/2012 with Right leg DVT and PE. Strong family history of DVT Subjective: On coumadin for life. Doing well. Wearing compression on right leg. Minimal swelling. No real pain Aspirin : No Anticoagulation : Yes Statin : no Objective: Ht 170.2 cm (5' 7")( < 3 %ile), Wt 107.049 kg (236 lbs)( < 3 %ile), BP 94/56, Pulse 73, RR 14, SpO2 96%, BMI 36.96 kg/(m^2). Physical Examination: General: No apparent distress. HEENT: Atraumatic, normocephalic. Pulmonary: Clear and no cough or difficulty breathing. Cardiac: Regular rate and rhythm. Abdomen: Soft, non-tender, non-distended. Extremities: Exam is notable for bilateral equal swelling in her legs. Neurological: Alert and oriented to person, place, time, and reason for evaluation. No obv ious cranial nerve deficits. Imaging: (Vascular Labs, Ultrasound, Computed Tomography) RIGHT LEG DUPLEX: DVT in distal popliteal, posterior tibial and peroneal. Assessment and Plan: 41 yo woman with history of DVT and PE. Continue coumadin life long. Compression to bilateral legs Return to clinic as needed Percy De Leon MD is the attending surgeon and agree with my assessment and plan. documented in this enc ounter Plan of Treatment Not on filedocumented as of this encounter Visit Diagnoses + + | Diagnosis | + + | Phlebitis and thrombophlebitis of femoral vein (deep) (superficial) (HCC) - Primary | | Phlebitis and thrombophlebitis of femoral vein (deep) (superficial) | + + documented in this encounter
--- OUTSIDE RECORDS SUMMARY | ~2020-02-07 | XMS | Encounter Summary ---
Demographics + + + | Address | [address] | | | [place] [address] | + + + | Home Phone | | + + + | Preferred Language | Unknown | + + + | Marital Status | Single | + + + | Shinto Affiliation | NRP | + + + | Race | White | + + + | Ethnic Group | Not or | + + + Author + + + | Author | [facility] | + + + | Organization | [facility] | + + + | Address | Unknown | + + + | Phone | Unavailable | + + + Support + + + + + | Name | Relationship | Address | Phone | + + + + + | Rosy Alvarez | ECON | [address] | | | | | [place] | | + + + + + | Chalo Delgado | ECON | [address] | | | | | [place] | | | | | [address] | | + + + + + | Kathleen Mar | ECON | [place] | | | | | [address] | | + + + + + | Yancy Mar | ECON | [address] | | | | | [place] | | + + + + + Care Team Providers + +------+ + | Care Instrument Fitter Name | Role | Phone | + [...] | Coded | Otolaryngolog | Diagnoses | [place], | Jarocho Cosby | | | | y | Tracheal | Jarocho Church MD | MD [address] | | | | | stenosis | [address] | [address] | | | | | Airway | [facility] | [facility] | | | | | obstruction | Rd | Rd [place], | | | | | Stridor | [place], [place] | [place] | | | | | Procedures | [address] | [address] | | | | | REQUEST TO | Phone: | Phone: | | | | | SURGERY | [phone] | [phone] | | | | | HEALTHCARE REPRESENTATIVE | Fax: | Fax: | | | | | [place] | [phone] | [phone] | | | | | LARYNGOSCOPY | | | | | | | | | | | | | | DIRECT,W/DIL | | | | | | | AT, INITIAL | | | | | | | [place] | | | | | | | LARYNGOSCOPY | | | | | | | ,DIRCT,OP | | | | | | | SCOP,EXC | | | | | | | TUMR [place] | | | | | | | LARYNGOSCOPY | | | | | | | ,DIRECT,SCOP | | | | | | | E,INJ CORDS | | | | | | | [place] | | | | | | | BRONCHOSCOPY | | | | | | | ,TRACH/BRONC | | | | | | | H DILATN [place] | | | | | | | | | | | | | | BRONCHOSCOPY | | | | | | | ,DIAGNOSTIC | | | | | | | [place] | | | | | | | BRONCHOSCOPY | | | | | | | ,RX STENOSIS | | | | | | | 0 G | | | +--------+---------+ + + + + Encounter Details +--------+ + + + + | Date | Type | Department | Care Team | Description | +--------+ + + + + | 04/30/ | Bottom Painter | Otolaryngology | Jarocho Cosby MD | Tracheal stenosis | | 2019 | | Laryngology Services | [address] | (Primary Dx); Airway | | | | at [facility] [address] | [address] [place], | obstruction; | | | | e [facility] | [place] [address] | Stridor | | | | Health and Healing, | [phone] | | | | | [address] | | | | | | [place], [place] | | | | | | [address] | | | | | | [phone] | | | +--------+ + + + [...]
--- OUTSIDE RECORDS SUMMARY | ~2020-02-07 | XMS | Encounter Summary ---
Demographics + + + | Address | [address] | | | [place] [address] | + + + | Home Phone | | + + + | Preferred Language | Unknown | + + + | Marital Status | Single | + + + | Cheondoism Affiliation | NRP | + + + [...] + | Rosy Alvarez | ECON | [address] | | | | | [place] | | + + + + + | Chalo Delgado | ECON | [address] | | | | | [place] | | | | | [address] | | + + + + + | Kathleen Mar | ECON | [place] | | | | | [address] | | + + + + + | Yancy Mar | ECON | [address] | | | | | [place] | | + + + + + Care Team Providers + +------+ + | Care Acting Professor Name | Role | Phone | + +------+ + | Magdy Villalobos MD | PCP | | + +------+ + Encounter Details +--------+--------+ + + + | Date | Type | Department | Care Team | Description | +--------+--------+ + + + | 06/09/ | Travel | | | | | [...]
--- OUTSIDE RECORDS SUMMARY | ~2020-02-07 | XMS | Encounter Summary ---
Demographics + + + | Address | [address] | | | [place] [address] | + + + | Home Phone | | + + + | Preferred Language | Unknown | + + + | Marital Status | Single | + + + | Tenriism Affiliation | Unknown | + + + | Race | Unknown | + + + | Ethnic Group | Unknown | + + + Author + + + | Author | [facility] | | | and [place] | + + + | Organization | [facility] | | | [...] Team Providers + +------+ + | Care Coding Director Name | Role | Phone | + +------+ + | Magdy Villalobos MD | PCP | | + +------+ + Reason for Visit +--------+ + | Reason | Comments | +--------+ + | Other | faxed chart notes and CTA report to [facility] | +--------+ + Encounter Details +--------+ + + + + | Date | Type | Department | Care Team | Description | +--------+ + + + + | 05/01/ | Documentati | [facility] | [place], | Other (faxed chart | | 2019 | on | PULMONOLOGY 1100 | Tiffani Shrestha, Medical | notes and CTA report | | | | SONI HANNAH | [employer] | to [facility]) | | | | [place], [place] | | | | | | [address] | | | | | | [phone] | | | +--------+ + + + [...] documented as of this encounter Progress Notes Tiffani Weinberg, Finish Sander - 05/01/2019 8:34 AM PDTfaxed chart notes a nd CTA report to [facility] at [phone]. Confirmation recieved documented in this encount er Plan of Treatment Not on filedocumented as of this encounter Visit Diagnoses Not on filedocumented in this encounter"
--- OUTSIDE RECORDS SUMMARY | ~2020-02-07 | XMS | Encounter Summary ---
Demographics + + + | Address | [address] | | | [place] [address] | + + + | Home Phone | | + + + | Preferred Language | Unknown | + + + | Marital Status | Single | + + + | Cheondoism Affiliation | Unknown | + + + | Race | Unknown | + + + | Ethnic Group | Unknown | + + + Author + + + | Author | [facility] | | | and [place] | + + + | Organization | [facility] | | | [...] Team Providers + +------+ + | Care Medical Cash Poster Name | Role | Phone | + +------+ + | Stefany Ngo | PCP | | + +------+ + Reason for Visit + + + | Reason | Comments | + + + | Medication Refill | | + + + Encounter Details +--------+--------+ + + + | Date | Type | Department | Care Team | Description | +--------+--------+ + + + | 04/13/ | Refill | [facility] | Mary Ann Diamond, | Medication Refill | | 2019 | | PULMONOLOGY 1100 | SMALL ENGINE MECHANIC [address] | | | | | [address] | [address] [place], | | | | | [place], [place] | [place] [address] | | | | | [address] | [phone] | | | | | [phone] | | | +--------+--------+ + + + [...] + | Severe persistent asthma without complication - Primary | + + documented in this encounter"
--- OUTSIDE RECORDS SUMMARY | ~2020-02-07 | XMS | Encounter Summary ---
Demographics + + + | Address | [address] | | | [place] [address] | + + + | Home Phone | | + + + | Preferred Language | Unknown | + + + | Marital Status | Single | + + + | Pentecostal Affiliation | NRP | + + + | Race | White | + + + | Ethnic Group | Not or | + + + Author + + + | Author | [facility] | + + + | Organization | [facility] | + + + | Address | Unknown | + + + | Phone | Unavailable | + + + Support + + + + + | Name | Relationship | Address | Phone | + + + + + | Rosy Alvarez | ECON | [address] | | | | | [place] | | + + + + + | Chalo Delgado | ECON | [address] | | | | | [place] | | | | | [address] | | + + + + + | Kathleen Mar | ECON | [place] | | | | | [address] | | + + + + + | Yancy Mar | ECON | [address] | | | | | [place] | | + + + + + Care Team Providers + +------+ + | Care Automatic Die Cutting Machine Operator Name | Role | Phone [...] | DIRECT | | 2019 | | [place] [facility] | [address] | MICROLARYNGOSCOPY | | | | and Healing Surgery | [address] [place], | WITH DILATION | | | | Center Admitting | [place] [address] | -INITIAL, | | | | Desk Located on the | [phone] | BRONCHOSCOPY WITH | | | | 4th floor [address] | | TRACHEAL DILATION, | | | | [address] [place], | | DIRECT | | | | [place] [address] | | MICROLARYNGOSCOPY | | | | [...]
--- OUTSIDE RECORDS SUMMARY | ~2020-02-07 | XMS | Encounter Summary ---
Demographics + + + | Address | [address] | | | [place] [address] | + + + | Home Phone | | + + + | Preferred Language | Unknown | + + + | Marital Status | Single | + + + | Uatsdin Affiliation | NRP | + + + [...] + | Rosy Alvarez | ECON | [address] | | | | | [place] | | + + + + + | Chalo Delgado | ECON | [address] | | | | | [place] | | | | | [address] | | + + + + + | Kathleen Mar | ECON | [place] | | | | | [address] | | + + + + + | Yancy Mar | ECON | [address] | | | | | [place] | | + + + + + Care Team Providers + +------+ + | Care Returned Goods Inspector Name | Role | Phone | + +------+ + | Michelle Ndiaye MD | PCP | | + +------+ + Reason for Referral Diagnostic Testing (Routine) +--------+--------+ + + + + | Status | Reason | Specialty | Diagnoses / | Referred By | Referred To | | | | | Procedures | Contact | Contact | +--------+--------+ + + + + | Closed | | Radiology | Diagnoses | Moises, | Pankajrad Vasc | | | | | DVT (deep | MD Percy | Lab [address] | | | | | venous | [address] | [address] | | | | | thrombosis) | [address] | | | | | (HCC) | [address] | Mailcode: | | | | | Procedures | [facility] [place] | [address] | | | | | VASC LAB | [address] | Physician's | | | | | VENOUS | Phone: | Pavilion | | | | | DUPLEX LOWER | [phone] | [place], [place] | | | | | EXTREMITY | Fax: | [address] | | | | | BILAT COMP | [phone] | Phone: | | | | | [address] | | [phone] | | | | | | | Fax: | | | | | | | [phone] | +--------+--------+ + + + + Encounter Details +--------+ + + + + | Date | Type | Department | Care Team | Description | +--------+ + + + + | 05/14/ | Telephone | Vascular Surgery | Percy De Leon, | | | 2011 | | at [address] [address] | MD [address] | | | | | [address] | [facility] | | | | | Phys[facility], | [place], [place] | | | | | [address] [place] [address] | [address] | | | | | [place], [place] | [phone] | | | | | [address] | | | | | | [phone] | | | +--------+ + + + [...] on filedocumented as of this encounter Results VASC LAB VENOUS DUPLEX LOWER EXTREMITY BILAT COMP (05/21/2012 12:30 PM PST) + + + + + + | Component | Value | Ref Range | Performed | Pathologist | | | | | At | Signature | + + + + + + | VASC LAB | LOWER EXTREMITY VENOUS | | | | | VENOUS | EXAMINATION: | | | | | DUPLEX | 05/21/2012 Dictated | | | | | LOWER | 05/22/2012 INDICATION: | | | | | EXTREMITY | Followup deep venous | | | | | BILATERAL | thrombosis. FINDINGS: | | | | | COMPLETE | The deep and | | | | | | superficial veins of | | | | | | both lower | | | | | | extremitieswere examined | | | | | | with the duplex | | | | | | scanner. There are | | | | | | normal flows | | | | | | andresponses to | | | | | | augmentation and | | | | | | compression maneuvers in | | | | | | the deep andsuperficial | | | | | | veins in the left leg | | | | | | and normal | | | | | | compressibility of | | | | | | theright popliteal and | | | | | | tibial veins. There is | | | | | | non-occlusive deep | | | | | | venousthrombosis seen in | | | | | | the right popliteal, | | | | | | posterior tibial and | | | | | | peronealveins. | | | | | | IMPRESSION: Abnormal | | | | | | lower extremity venous | | | | | | examination. There is | | | | | | rightpopliteal and | | | | | | tibial vein venous | | | | | | thrombosis (posterior | | | | | | tibial andperoneal | | | | | | veins) and no evidence | | | | | | of venous thrombosis in | | | | | | the leftlower extremity. | | | | | | END IMPRESSION | | | | | | Attending Radiologists: | | | | | | ,Author: THUY Mckeon | | | | | | Maciej STOVALL I have | | | | | | personally viewed this | | | | | | procedure/exam, reviewed | | | | | | this report,and made | | | | | | changes to it where | | | | | | appropriate. | | | | | | Final/Electronically | | | | | | kate / Tuhy Mckeon | | | | | | Bairon Preliminary / | | | | | | Anahy Diego | | | | + + + + + + + + | Specimen | + + | | + + + +---------+ + + | Performing | Address | City/State/Zipcode | Phone Number | | Organization | | | | + +---------+ + + | [facility] DEPARTMENT OF | | | | | RADIOLOGY | | | | + +---------+ + + documented in this encounter Visit Diagnoses + + | Diagnosis | + + | DVT (deep venous thrombosis) (HCC) - Primary Acute venous embolism and thrombosis of | | unspecified deep vessels of lower extremity | + + documented in this encounter"
--- OUTSIDE RECORDS SUMMARY | ~2020-02-07 | XMS | Encounter Summary ---
Demographics + + + | Address | [address] | | | [place] [address] | + + + | Home Phone | | + + + | Preferred Language | Unknown | + + + | Marital Status | Single | + + + | Advent Affiliation | NRP | + + + [...] + | Rosy Alvarez | ECON | [address] | | | | | [place] | | + + + + + | Chalo Delgado | ECON | [address] | | | | | [place] | | | | | [address] | | + + + + + | Kathleen Mar | ECON | [place] | | | | | [address] | | + + + + + | Yancy Mar | ECON | [address] | | | | | [place] | | + + + + + Care Team Providers + +------+ + | Care Program Advocate Name | Role | Phone | + [...] + + + + | 05/15/ | Anesthesia | [facility] | Percy Donahue | | | 2019 | Event | [facility] | MD Brian [address] | | | | | and Healing Surgery | [address] | | | | | Center Admitting | [place], [place] | | | | | Desk Located on the | [address] | | | | | 4th floor [address] | [phone] | | | | | [address] [place], | | | | | | [place] [address] | Aaron Garner | | | | | | MD Susana [address] | | | | | | [address] | | | | | | [place], [place] | | | | | | [address] | | | | | | [phone] | | | | | | | | +--------+ + + + + Anesthesia Record + + + + + | Procedure Name | Responsible | Anesthesia Start | Anesthesia Stop Time | | | Anesthesiologist | Time | | + + + + + | DIRECT | Percy Durbinulkner, | 05/15/19 1303 | 05/15/19 1407 | | MICROLARYNGOSCOPY | MD | | | | WITH DILATION | | | | | -INITIAL, | | | | | BRONCHOSCOPY WITH | | | | | TRACHEAL DILATION, | | | | | DIRECT | | | | | MICROLARYNGOSCOPY | | | | | WITH EXCISION OF | | | | | STENOSIS (N/A | | | | | Airway) | | | | + + + + + +----+---+ + + | Da | T | Event | Comment | | te | i | | | | | m | | | | | e | | | +----+---+ + + | 11 | 1 | Eq Check | Anesthesia machine checked Equipment verified | | /0 | 2 | | | | 8/ | 2 | | | | 20 | 6 | | | | 19 | | | | +----+---+ + + | | 1 | | | | | 2 | | | | | 3 | | | | | 8 | | | +----+---+ + + | | 1 | Pt. Check | Prior to anesthesia start, pt. Identified, examined, chart | | | 2 | | reviewed, PARQ held, anesthetic plan made or approved by | | | 3 | | attending anesthesiologist. NPO status confirmed as appropriate | | | 8 | | for procedure Preoperative evaluation: unchanged | +----+---+ + + | | 1 | Preprocedur | Pt ID confirmed, informed consent obtained, insertion site | | | 3 | e Checklist | marked, equipment available | | | 0 | | | | | 2 | | | +----+---+ + + | | 1 | An Start | | | | 3 | | | | | 0 | | | | | 3 | | | +----+---+ + + | | 1 | An Start | | | | 3 | Data | | | | 0 | | | | | 3 | | | +----+---+ + + | | 1 | Vitals | Monitors applied Vital signs checked Patient ready for anesthesia | | | 3 | Checked | | | | 0 | | | | | 6 | | | +----+---+ + + | | 1 | ETT | Intubated by ENT team with 5.5 uncuffed ETT. See surgical | | | 3 | | procedural note for details. | | | 1 | | | | | 9 | | | +----+---+ + + | | 1 | Ready | | | | 3 | | | | | 2 | | | | | 2 | | | +----+---+ + + | | 1 | Abx held | Contraindicated, or not indicated for this procedure, or already | | | 3 | Medical or | receiving antibiotics | | | 2 | Surgical | | | | 3 | Reason | | +----+---+ + + | | 1 | Timeout | | | | 3 | | | | | 2 | | | | | 4 | | | +----+---+ + + | | 1 | Incision | | | | 3 | | | | | 2 | | | | | 5 | | | +----+---+ + + | | 1 | Quick Note | Extubated. Apneic oxygenation with NC. | | | 3 | | | | | 2 | | | | | 9 | | | +----+---+ + + | | 1 | Quick Note | Ventilating. | | | 3 | | | | | 3 | | | | | 2 | | | +----+---+ + + | | 1 | Quick Note | Apnea | | | 3 | | | | | 3 | | | | | 6 | | | +----+---+ + + | | 1 | Quick Note | Ventilating | | | 3 | | | | | 3 | | | | | 9 | | | +----+---+ + + | | 1 | Quick Note | Apnea | | | 3 | | | | | 4 | | | | | 2 | | | +----+---+ + + | | 1 | Quick Note | Ventilating. | | | 3 | | | | | 4 | | | | | 7 | | | +----+---+ + + | | 1 | Surgery end | | | | 3 | | | | | 5 | | | | | 6 | | | +----+---+ + + | | 1 | An Extubate | Neuromuscular function Intact. Pharynx suctioned. Patient obeys | | | 3 | | commands. Adequate pulmonary mechanics. | | | 5 | | | | | 9 | | | +----+---+ + + | | 1 | O2 by FM | | | | 4 | | | | | 0 | | | | | 1 | | | +----+---+ + + | | 1 | an stop | | | | 4 | data | | | | 0 | | | | | 1 | | | +----+---+ + + | | 1 | PACU Rpt | | | | 4 | Given | | | | 0 | | | | | 6 | | | +----+---+ + + | | 1 | Anesthesia | | | | 4 | End | | | | 0 | | | | | 7 | | | +----+---+ + + | | 1 | Post-Op | | | | 5 | Page | | | | 0 | | | | | 0 | | | +----+---+ + + +------+ | Meds | +------+ + + + | Name | Total | + + + | lidocaine 2% | 100 mg | + + + | propofol (DIPRIVAN) 200 mg | 300 mg | + + + | propofol (DIPRIVAN) 200 mg | 661,045 mcg | + + + | rocuronium | 40 mg | + + + | dexamethasone | 10 mg | + + + | ondansetron | 4 mg | + + + | esmolol | 160 mg | + + + | ketorolac | 30 mg | + + + | sugammadex | 400 mg | + + + | lactated ringers IV | 900 mL | + + + + + | Name | + + | O2 FR Avance (Total Liters) | + + | Air FR Avance (l/min) | + + | Insp Sevo | + + | Et Sevo | + + + + | No blood administrations on file. | + + +--------+ + + + | Type | Details | Placement | Removal | +--------+ + + + | Periph | 05/15/19; 1218; Right; Hand; 22 | 05/15/19 1218 by | 05/15/19 1555 by | | eral | g; None; Positive; 05/15/19; 1555 | Mg Fischer, | Stefany Aquino RN | | IV | | RN | | +--------+ + + + | ETT | 05/15/19; 1319 (created via | 05/15/19 131 by | 05/15/19 1359 by | | | procedure documentation); 5.5; | Percy Donahue, | Stefany Aquino RN | | | Oral; Uncuffed; 05/15/19; 1359 | MD | | +--------+ + + + documented in this encounter Social History + +-------+ +--------+------+ | Tobacco [...] | + +--------+ + + + | ANE ETT | Routin | 05/15/2019 | | Results for this | | | e | 2:30 PM | | procedure are in the | | | | PST | | results section. | + +--------+ + + + documented in this encounter Results ETT (05/15/2019 2:30 PM PST) + + + | Narrative | Performed At | + + + | Percy R Donahue, MD 05/15/2019 2:32 PM AIRWAY MANAGEMENT | | | - ETT Time of Placement: 05/15/2019 1:19 PM Intubation Reason: For | | | surgical procedure Positioning: Supine and Sniffing Location | | | Performed:OR OXYGENATION Patient was preoxygenated Apneic | | | oxygenation Grade: Grade 2 - Ventilated by mask with oral | | | airway/adjuvant Manual in-Line Stabilization: No Induction:Routine, | | | without Cricoid Pressure INTUBATION ATTEMPT 1 Blade Type: | | | Mejia Blade #: 2 Laryngoscopic View: Grade II Surgical Airway: no | | | Surgical Airway ETT DETAILS ETT Type:Other - standard uncuffed | | | Intubation Type: Oral Cuff Status: Uncuffed Size: 5.5 ETT | | | secured with adhesive tape Depth at Lip: 20 cm Airway Leak: No | | | CONFIRMATION Number of Attempts: 1 Atraumatic placement Positive | | | for EtCO2:Waveform capnography Breath Sounds: Bilateral and equal | | | NARRATIVE Attending was physically present for the critical portions | | | of the procedure as described in the procedure note | | | Attending/Authorizing Provider: Percy Donahue MD Performing | | | Provider: Percy Donahue MD Procedure Comments: Intubated by | | | ENT | | + + + documented in this encounter Visit Diagnoses Not on filedocumented in this encounter Administered Medications + +--------+ +-------+------+------+ | Medication Order | MAR | Action | Dose | Rate | Site | | | Action | Date | | | | + +--------+ +-------+------+------+ | dexamethasone (DECADRON) | Given | 05/15/20 | 10 mg | | | | injection INTRAPROCEDURE PRN, | | 19 1:19 | | | | | Starting Sat05/15/19 at 1319, | | PM PST | | | | | Until Sat05/15/19 at 1402 | | | | | | + +--------+ +-------+------+------+ +---+---+ | | | +---+---+ + +-------+ +-------+---+---+ | esmolol (BREVIBLOC) injection | Given | 05/15/20 | 20 mg | | | | intravenous, INTRAPROCEDURE PRN, | | 19 1:53 | | | | | Starting Sat05/15/19 at 1319, | | PM PST | | | | | Until Sat05/15/19 at 1402 | | | | | | + +-------+ +-------+---+---+ +-------+ +-------+---+---+ | Given | 05/15/20 | 20 mg | | | | | 19 1:50 | | | | | | PM PST | | | | +-------+ +-------+---+---+ | Given | 05/15/20 | 20 mg | | | | | 19 1:44 | | | | | | PM PST | | | | +-------+ +-------+---+---+ +---+---+ | | | +---+---+ + +-------+ +-------+---+---+ | ketorolac (TORADOL) injection | Given | 05/15/20 | 30 mg | | | | INTRAPROCEDURE PRN, Starting Fri | | 19 1:28 | | | | | 05/15/19 at 1328, Until Fri | | PM PST | | | | | 05/15/19 at 1402 | | | | | | + +-------+ +-------+---+---+ +---+---+ | | | +---+---+ + + + +---+---+---+ | lactated ringers IV 10 mL/hr, | given by | 05/15/20 | | | | | intravenous, PROCEDURE | | 19 2:01 | | | | | CONTINUOUS, Starting 05/15/19 | anesthes | PM PST | | | | | at 1215, Until 05/15/19 at | iology | | | | | | 2205 | | | | | | + + + +---+---+---+ +---------+ +---+---+---+ | New Bag | 05/15/20 | | | | | | 19 1:03 | | | | | | PM PST | | | | +---------+ +---+---+---+ +---+---+ | | | +---+---+ + +-------+ +--------+---+---+ | lidocaine PF (XYLOCAINE MPF) 20 | Given | 05/15/20 | 100 mg | | | | mg/mL (2 %) injection | | 19 1:16 | | | | | INTRAPROCEDURE PRN, Starting Fri | | PM PST | | | | | 05/15/19 at 1316, Until Fri | | | | | | | 05/15/19 at 1402 | | | | | | + +-------+ +--------+---+---+ +---+---+ | | | +---+---+ + +-------+ +------+---+---+ | ondansetron (ZOFRAN) injection | Given | 05/15/20 | 4 mg | | | | INTRAPROCEDURE PRN, Starting Fri | | 19 1:19 | | | | | 05/15/19 at 1319, Until Fri | | PM PST | | | | | 05/15/19 at 1402 | | | | | | + +-------+ +------+---+---+ +---+---+ | | | +---+---+ + +-------+ +-------+---+---+ | propofol (DIPRIVAN) 200 mg | Bolus | 05/15/20 | 50 mg | | | | INTRAPROCEDURE CONTINUOUS PRN, | | 19 1:37 | | | | | Starting 05/15/19 at 1316, | | PM PST | | | | | Until 05/15/19 at 1402 | | | | | | + +-------+ +-------+---+---+ +---------+ +--------+---+---+ | Bolus | 05/15/20 | 50 mg | | | | | 19 1:25 | | | | | | PM PST | | | | +---------+ +--------+---+---+ | New Bag | 05/15/20 | 200 mg | | | | | 19 1:16 | | | | | | PM PST | | | | +---------+ +--------+---+---+ +---+---+ | | | +---+---+ + + + + +---+---+ | propofol (DIPRIVAN) 200 mg | Rate/Dos | 05/15/20 | 150 | | | | INTRAPROCEDURE CONTINUOUS PRN, | e Change | 19 1:33 | mcg/kg/m | | | | Starting Sat05/15/19 at 1317, | | PM PST | in | | | | Until Sat05/15/19 at 1402 | | | | | | + + + + +---+---+ + + + +---+---+ | Rate/Dose Change | 05/15/20 | 200 | | | | | 19 1:25 | mcg/kg/m | | | | | PM PST | in | | | + + + +---+---+ | New Bag | 05/15/20 | 150 | | | | | 19 1:17 | mcg/kg/m | | | | | PM PST | in | | | + + + +---+---+ +---+---+ | | | +---+---+ + +-------+ +-------+---+---+ | rocuronium injection | Given | 05/15/20 | 40 mg | | | | INTRAPROCEDURE PRN, Starting Fri | | 19 1:17 | | | | | 05/15/19 at 1317, Until Fri | | PM PST | | | | | 05/15/19 at 1402 | | | | | | + +-------+ +-------+---+---+ +---+---+ | | | +---+---+ + +-------+ +--------+---+---+ | sugammadex (BRIDION) IV | Given | 05/15/20 | 400 mg | | | | INTRAPROCEDURE PRN, Starting Fri | | 19 1:56 | | | | | 05/15/19 at 1356, Until Fri | | PM PST | | | | | 05/15/19 at 1402 | | | | | | + +-------+ +--------+---+---+ +---+---+ | | | +---+---+ documented in this encounter"
--- OUTSIDE RECORDS SUMMARY | ~2020-02-07 | XMS | Encounter Summary ---
Demographics + + + | Address | [address] | | | [place] [address] | + + + | Home Phone | | + + + | Preferred Language | Unknown | + + + | Marital Status | Single | + + + | Church Affiliation | NRP | + + + | Race | White | + + + | Ethnic Group | Not or | + + + Author + + + | Author | [facility] | + + + | Organization | [facility] | + + + | Address | Unknown | + + + | Phone | Unavailable | + + + Support + + + + + | Name | Relationship | Address | Phone | + + + + + | Rosy Alvarez | ECON | [address] | | | | | [place] | | + + + + + | Chalo Delgado | ECON | [address] | | | | | [place] | | | | | [address] | | + + + + + | Kathleen Mar | ECON | [place] | | | | | [address] | | + + + + + | Yancy Mar | ECON | [address] | | | | | [place] | | + + + + + Care Team Providers + +------+ + | Care [facility] Machine Feeder Name | Role | Phone | + +------+ + | Magdy Villalobos MD | PCP | | + +------+ + Encounter Details +--------+ + + + + | Date | Type | Department | Care Team | Description | +--------+ + + + + | 05/21/ | Abstract | Otolaryngology | Jarocho Cosby MD | | | 2019 | | Laryngology Services | [address] | | | | | at [facility] [address] | [facility] | | | | | [facility] | [place] [address] | | | | | [facility], | [phone] | | | | | [place] [address] | | | | | | [place], [place] | | | | | | [address] | | | | | | [phone] | | | +--------+ + + + [...]
--- OUTSIDE RECORDS SUMMARY | ~2020-02-07 | XMS | Encounter Summary ---
Demographics + + + | Address | [address] | | | [place] [address] | + + + | Home Phone | | + + + | Preferred Language | Unknown | + + + | Marital Status | Single | + + + | Denominational Affiliation | Unknown | + + + | Race | Unknown | + + + | Ethnic Group | Unknown | + + + Author + + + | Author | [facility] | | | and Michaelana | + + + | Organization | [facility] | | | [...] Team Providers + +------+ + | Care Rent And Miscellaneous Remittance Clerk Name | Role | Phone | + +------+ + | Magdy Villalobos MD | PCP | | + +------+ + Reason for Referral Diagnostic/Screening (Routine) + +--------+ + + + + | Status | Reason | Specialty | Diagnoses / | Referred By | Referred To | | | | | Procedures | Contact | Contact | + +--------+ + + + + | Authorized | | Radiology | Diagnoses | Diamond, | [address] | | | | | | Mary Ann E, | [address] | | | | | Consolid[address] | STYLIST APPRENTICE [address] | | | | | n of left | [address] | [address] | | | | | upper lobe | [address] | [place], [place] | | | | | of lung | [place], [place] | [address] | | | | | (HCC) | [address] | Phone: | | | | | Procedures | Phone: | [phone] | | | | | CT Chest wo | [phone] | Fax: | | | | | Contrast | Fax: | [phone] | | | | | | [phone] | | + +--------+ + + + + Reason for Visit + + + | Reason | Comments | + + + | Follow-up | | + + + Evaluate & Treat (Routine) + +--------+ + + + + | Status | Reason | Specialty | Diagnoses / | Referred By | Referred To | | | | | Procedures | Contact | Contact | + +--------+ + + + + | Authorized | | | Diagnoses | Huber, | Rey | | | | | Moderate | Stefany, | Pulmonology | | | | | persistent | [employer] [address] | [address] | | | | | asthma with | [address] | DR [address] | | | | | status | [place], | [place], [place] | | | | | asthmaticus | [place] [address] | [address] | | | | | Moderate | Phone: | Phone: | | | | | persistent | [phone] | [phone] | | | | | asthma with | Fax: | Fax: | | | | | status | [phone] | [phone] | | | | | asthmaticus | | | + +--------+ + + + + Encounter Details +--------+---------+ + + + | Date | Type | Department | Care Team | Description | +--------+---------+ + + + | 08/17/ | Office | [facility] | Mary Ann Diamond, | Severe persistent | | 2020 | Visit | PULMONOLOGY [address] | STYLIST APPRENTICE [address] | asthma without | | | | [address] | DR [address], | complication | | | | [place], [place] | [place] [address] | (Primary Dx); Acute | | | | [address] | [phone] | non-recurrent | | | | [phone] | | maxillary sinusitis; | | | | | | Consolidation of | | | | | | left upper lobe of | | | | | | lung (HCC); | | | | | | 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; Recurrent | | | | | | pulmonary embolism | | | | | | (HCC); | | | | | | Gastroesophageal | | | | | | reflux disease, | | | | | | esophagitis presence | | | | | | not specified; | | | | | | Snoring | +--------+---------+ + + + Social History [...] + + + | Blood Pressure | 122/68 | 08/17/2019 1:55 PM | | | | | PST | | + + + + + | Pulse | 82 | 08/17/2019 1:55 PM | | | | | PST | | + + + + + | Temperature | 36.4 C (97.5 F) | 08/17/2019 1:55 PM | | | | | PST | | + + + + + | Respiratory Rate | - | - | | + + + + + | Oxygen Saturation | 97% | 08/17/2019 1:55 PM | | | | | PST | | + + + + + | Inhaled Oxygen | - | - | | | Concentration | | | | + + + + + | Weight | 117 kg (258 lb) | 08/17/2019 1:55 PM | | | | | PST | | + + + + + | Height | 170.2 cm (5' 7") | 08/17/2019 1:55 PM | | | | | PST | | + + + + + | Body Mass Index | 40.41 | 08/17/2019 1:55 PM | | | | | PST | | + + + + + documented in this encounter Progress Notes Mary Ann Diamond, STYLIST APPRENTICE - 08/17/2019 2:00 PM PSTFormatting of this note might be different fr om the original. Subjective: Patient ID: Marshall Delgado is a 48 y.o. female. History of asthma, DVT and PEs in 2011 a 2017, anxiety, GERD, never smoker. Initial HPIA Lobo on 02-19-2019: Marshall Delgado is a 48 year old female with severe persistent asthma sent to us for evaluati on and treatment. She has never completed a PFT, but she was diagnosed with asthma at age 7. She reports today with severe dyspnea at rest and mild accessory muscle use to respirate. S he is not wheezing in office, but reports wheezing at home. She has tried several inhalers i ncluding breo, advair, symbicort, anoro, and incruse. She reports no change in symptoms on t hese meds. She is not currently on maintenance therapy and is taking her albuterol inhaler e very hour for shortness of breath and chest tightness without relief. She was last treated w ith prednisone (unknown dose) a month ago for her left shoulder. She reports no change in he r breathing with prednisone use. She notes that she feels like her chest is being restricted by a band. Her breath sounds ar e tight and audible from across the exam room. She is sitting in normal upright position wit hout tripoding. She reports this is how she breathes at all times of the day for the last 3 months. She cannot lay flat or she feels as though she is smothering. She also cannot sleep without 3 fans blowing on her face. She notes that heat and humidity make her feel like she is smothering and leads to panic. She often feels like her throat closes up on her when she is exposed to wind, smoke, or perfume. She gets very little sleep if any at night most night s due to dyspnea and cough. Her cough is productive in the morning of white sputum, and dry the rest of the day. She is swelling every night to the point she notices pitting edema and has swelled enough t o see her skin crack around her toes in the past. Ms Delgado has a history of recurrent PE's she reports extensive testing to determine the cause of her hypercoagulability without clear cause. She reports an INR resistance to warfarin therapy. She was placed on Xarelto in 2012 and was doing well, but notes that she stopped it in 2017 thinking she was better and succu mbed to a second PE event with multiple PE's found. She has been on xarelto since then. She denies unilateral leg pains or swelling, or upper extremity pains. She reports chest tightne ss and pain in her upper back most days. She notes a burning sensation in the left upper lob e of the lung just below the clavicle. Ms Delgado notes that she has a left shoulder injury that causes her a good deal of pain. Sh e notes she needs surgery and is not able to have it due to her current lung condition. She is seeking answers and wishes to feel better. WxybmaibGQB83/29/19:Marshall Booth a 48 y.o.femalepresenting today for 2 w [place] follow up. She is feeling slightly better, but is still breathing with a sound of pharyn geal restriction. She reports she can hear herself wheeze throughout the day, her cough is s lightly diminished from last visit, but it is still productive of phlegm. The phlegm is thic k and yellow in color. She remains on symbicort 160mg 2 puffs BID, but is on her second of t wo sample inhaler. Insurance denied symbicort, so I will try Advair next. She was able to fi ll spiriva and has been using this daily. She uses albuterol inhaler 3 x a day, but she is r unning low on this. Insurance also denied the albuterol inhaler I prescribed. I have searche d the system for a covered medication, and it appears combivent is on her formulary. No othe r albuterol inhaler preparation appears to be covered, only nebulizer preps, which she kishanrea jason has. This is not helpful to her on the go. She also awaits insurance approval for VQ scan and Echocardiogram. She reports continued lower extremity edema daily. It is pitting most n ights. She also reports burning discomfort left upper, anterior chest straight through to th e back and the right lower chest wall laterally at the level of the diaphragm. This gets nurys y painful to her in the evenings and after coughing jags. She sleeps sitting upright because the throat seems to close up on her when she lays flat. She eats very small amounts of food at one time, because when she eats too much, she feels like her stomach gets in the way of her ability to breathe. Reports acid reflux is well controlled. She has had a return call to schedule an appointment at [facility] for c engineer. She repo rts she missed this call but will call them back to do this. She denies fever, chills, body aches, sharp or heavy chest pain, joint aches, palpitations, rashes, appetite change, weight loss, nausea or vomiting, night sweats. AsmgizjoXIQ97/11/19:Marshall Booth a 48 y.o.femalepresenting today for urg ent appointment after VQ scan. I received a call this afternoon from Dr Orozco, Radiology and was informed of intermediate risk for PE. She was scheduled to present to the office for ur gent appointment today. She presented with her medical records from Dr Queen's office today and I have reviewed the labs and CT available in these records. She has already been tested for Protein C and S, Factor V Leiden, etc. She has had a high protein S in the past and a n ormal lab as well. No further Lab work needed at this [...] 4 x a day as nee ded. Denies cough, fever, chills, body aches, joint aches, rashes, new or worsening chest discom fort, palpitations, NV, appetite change, fatigue, or weight loss. JonemaqaTKD73/24/19:Marshall Booth a 48 y.o.femalepresenting today for 2 w [place] follow up visitand close clinical observation. She presents today breathing slightly e asier and tight, throaty breathing seems less harsh and loud from 4 feet away today, though still audible. She notes her breathing is slightly better, but since using Advair, she has n oticed generalized muscle aches all over the body. She denies difficulty urinating, heart pa lpitations, chest pain, or muscle spasms in association. She mentioned today that she recent ly acquired a pulse oximeter for home use. She saturates in the mid 90s while awake, but cau ght herself at 82% after waking up gasping two nights ago. She also notes her memory and con centration have progressively gotten worse over the last two months. She is very tired every day as her sleep is always poor quality and often interrupted by difficulty breathing. Her mother states she has always heard Marshall snoring, even as a child. She has not mentioned th karrie symptoms before now. She has never been tested for sleep apnea. She notes that she is scheduled to see c engineer [phone]. She denies fever, chills, night sweats, poor appetite, weight loss, midsternal or radiating chest pain, joint aches, or rashes. ZtyvvqpcNXN53/15/19:Marshall Booth a 48 y.o.femalepresenting today for 4 w [place] follow up visit and close clinical observation. She completed Echo on 03-18-19 and this s howed no sign of pulmonary hypertension, valvular disease, or heart failure which is good. We reviewed all available diagnostics together today and all questions answered to her prefe rence. Marshall presents today complaining of fever at home x 2 days last was 3 days ago, increased work of breathing, wheezing throughout the day, waking up every hour coughing and dyspneic x 5 days. She has general malaise and body aches. Got the flu shot about 2 weeks ago.She co ntinues to have a very tight, throaty sound with breathing.Sees ENT at [facility] in 1 week. Pra cticing breathing techniques a few times a day, notes improvement while breathing pursed lip or SSS breathing, but tight after she stops again. Overall, feeling worse today. Denies chest pain, headache, palpitations, or pedal edema since last visit. Interval HPI 05/19/19: Marshall Delgado is a 48 y.o. female presenting today for follow up visit. She has seen Dayanara Nowak PA-C with ENT at [facility], and I have reviewed her note. 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 [facility] recommended s urgical procedure: microlaryngoscopy with dilation and steroid injection with Dr Jarocho Cosby, and this was completed on 05-15-2019. They have also recommended Barium swallow following e tracheal procedure to investigate gastric reflux symptoms. This is to be ordered on follow up visit postop. She presents today with facial edema localized around the mouth. She is ch ving trouble talking as she had multiple teeth extracted yesterday. Marshall presents today noting she has felt better since the dilation and injection on 05-15. She reports her voice was immediately improved after procedure. She is feeling generally poo r since her dental extraction procedure 2 days ago, but notes her breathing is vastly better . She continues to take maintenance therapy as ordered (Advair HFA 115mcg 2 puffs BID, spriv a handihaler Q day), and feels her medications are "reaching the lungs now." She notes she h as not needed albuterol since 05-15. She is also able to expectorate more than before, phlegm is white to pale yellow and small in amount, mostly in the mornings. GERD has been poorly controlled for some time. This will hopefully be able to be better add ressed now that tracheal stenosis is no longer of urgency. [facility] has suggested barium swallow in the coming weeks. ENT symptoms have been fairly well controlled the last month. PFT has yet to be completed, ordered on 03-31-2019. CT chest from 04-21-2019 also not completed yet. Denies fever, chills, body aches, joint aches, rashes, headache, night sweats, chest pain, palpitations, peripheral edema, or unintentional weight loss. Interval HPI 08/17/19: Marshall Delgado is a 48 y.o. female presenting today for follow up visit. She reports today that she is recovering from what she thinks was the flu 3 weeks ag o. Her lower respiratory symptoms have mostly resolved, cough is minimal now, but her maxill primitivo and frontal sinus areas are tender to touch, edematous and slightly erythematous. She fe els congested and has a large amount of post nasal drip for the last 2 weeks. The patient reports the following: DYSPNEA: with stairs and exertion lately. COUGH: worsened acutely 3 weeks ago, less now and productive of white-yellow phlegm in t he mornings. ACUTE EXACERBATION: lungs not exacerbated currently. Been doing well since tracheal injecti ons at [facility] on 05-15-2019. 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 Never smoker. EXERCISE: not exercising now. ACTIVITIES OF DAILY LIVING: able to complete without dyspnea. CONSTITUTIONAL SYMPTOMS: denies fever, chills, night sweats, poor appetite, or weight loss in last 2 weeks. Had fever and body aches 3 weeks ago. SINO-NASAL SYMPTOMS: congestion, sinus pressure and facial tenderness to palpation. post nasal drip and rhinitis. REFLUX or REGURGITATION: denies SLEEP: interrupted with cough lately due to drainage and recent flu like illness CHEST PAINS: denies ORTHOPNEA OR PND (Paroxysmal Nocturnal Dyspnea): denies PEDAL EDEMA: none recently OTHER SYMPTOMS: chest (L upper anterior chest and R lower chest) burning chronic for many y ears, usually associated with a trigger such as cold air or smoke inhalation. Inhaler regimen includes: spiriva daily, Advair 115mcg 2 puffs BID. Albuterol nebs QAM r ight now for expectoration, and albuterol HFA PRN (using 1-2 x day last 3 weeks). Oxygen Use: none PAP therapy: initial consult with Dr Charlton was on 07-27-19. To complete sleep study soon. Other relevant medications: singulair nightly, xarelto Social Hx: Ms Delgado is from the [facility]. She lives in [place] currently. 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 She is living in a vehicular home on her pare nts property for her peace of mind and safety. She is not active as she can only walk 100 ft without needing to take a break to breathe. She has poor diet and appetite. She is a never smoker. The following portions of the patients history were reviewed and updated as appropriate: al lergies, current medications, past family history, past medical history, past social history , and problem list. Review of Systems Constitutional: Negative for activity change, appetite change, chills, diaphoresis, fatigue , fever and unexpected weight change. HENT: Positive for congestion, postnasal drip, rhinorrhea, sinus pressure and sore throat. Negative for ear pain, facial swelling, hearing loss, mouth sores, nosebleeds, sinus pain, s neezing, tinnitus, trouble swallowing and voice change. Eyes: Negative for pain, redness and itching. Respiratory: Positive for cough and shortness of breath. Negative for apnea, choking, chest tightness, wheezing and stridor. Cardiovascular: Negative for chest pain, palpitations and leg swelling. Gastrointestinal: Negative for abdominal distention, abdominal pain, nausea and vomiting. Musculoskeletal: Negative for arthralgias, back pain, gait problem, joint swelling, myalgia s, neck pain and neck stiffness. Skin: Negative for color change, pallor, rash and wound. Allergic/Immunologic: Positive for environmental allergies. Negative for food allergies and immunocompromised state. Neurological: Negative for dizziness, syncope, weakness, light-headedness and headaches. Hematological: Negative for adenopathy. Does not bruise/bleed easily. Objective: Physical Exam Vitals signs reviewed. Constitutional: General: She is not in acute distress. Appearance: Normal appearance. She is well-developed. She is not ill-appearing, toxic-ap pearing or diaphoretic. HENT: Head: Normocephalic and atraumatic. Right Ear: External ear normal. Left Ear: External ear normal. Nose: Congestion and rhinorrhea present. Comments: Nasal turbinates hyperemic and boggy bilat. Mouth/Throat: Mouth: Mucous membranes are moist. Pharynx: Oropharynx is clear. Posterior oropharyngeal erythema present. Eyes: General: No scleral icterus. Right eye: No discharge. Left eye: No discharge. Conjunctiva/sclera: Conjunctivae normal. Pupils: Pupils are equal, round, and reactive to light. Neck: Musculoskeletal: Normal range of motion and neck supple. No muscular tenderness. Thyroid: No thyromegaly. Vascular: No JVD. Trachea: No tracheal deviation. Cardiovascular: Rate and Rhythm: Normal rate and regular rhythm. Heart sounds: Normal heart sounds. No murmur. No friction rub. No gallop. Pulmonary: Effort: Pulmonary effort is normal. No respiratory distress. Breath sounds: Normal breath sounds. No stridor. No wheezing, rhonchi or rales. Chest: Chest wall: No tenderness. Abdominal: General: Bowel sounds are normal. There is no distension. Palpations: Abdomen is soft. Tenderness: There is no abdominal tenderness. There is no guarding. Musculoskeletal: Normal range of motion. General: No swelling, tenderness, deformity or signs of injury. Right lower leg: No edema. Left lower leg: No edema. Lymphadenopathy: Cervical: No cervical adenopathy. Skin: General: Skin is warm and dry. Capillary Refill: Capillary refill takes less than 2 seconds. Coloration: Skin is not pale. Findings: No erythema or rash. Neurological: Mental Status: She is alert and oriented to person, place, and time. Psychiatric: Mood and Affect: Mood normal. Behavior: Behavior normal. Thought Content: Thought content normal. Judgment: Judgment normal. Allergies Allergen Reactions Hydrocodone Hives Penicillins Anaphylaxis Morphine GI Upset Vitals: 08/17/19 1355 BP: 122/68 Pulse: 82 Temp: 36.4 C (97.5 F) TempSrc: Oral SpO2: 97% Weight: 117 kg (258 lb) Height: 1.702 m (5' 7") Patient Active Problem List Diagnosis Anemia Chronic depression Disorder of lipoid metabolism Embolism and thrombosis Chronic anxiety Anxiety state Headache Hypothyroidism Menopausal syndrome Mixed insomnia Other pulmonary embolism and infarction Panic attack Primary hypercoagulable state Recurrent pulmonary embolism Restless legs Sprain of foot Asthma DVT (deep venous thrombosis) Chronic deep vein thrombosis (DVT) of distal vein of lower extremity Current Outpatient Medications: ADVAIR HFA 115-21 MCG/ACT inhaler, INHALE 2 PUFFS BY MOUTH TWICE DAILY, Disp: 3 Inhale r, Rfl: 11 albuterol (VENTOLIN HFA) 90 mcg/puff inhaler, Inhale [...] STARTING 2ND WEEK, Disp: , Rfl: 0 azithromycin (ZITHROMAX) 250 mg tablet, Take 2 tablets by mouth on day 1, and 1 tablet by mouth every day (Patient not taking: Reported on 08/17/2019), Disp: 6 tablet, Rfl: 0 citalopram (CELEXA) 10 mg tablet, Take 10 mg by mouth Daily., Disp: , Rfl: 4 fluticasone (FLOVENT HFA) 220 mcg/puff inhaler, Inhale 1 puff into the lungs., Disp: , Rfl: gabapentin (NEURONTIN) 300 mg capsule, gabapentin 300 mg capsule TAKE 3 TO 4 CAPSULES BY MOUTH AT BEDTIME FOR RESTLESS LEG SYNDROME, Disp: , Rfl: montelukast (SINGULAIR) 10 mg tablet, Take 10 mg by mouth., Disp: , Rfl: oxyCODONE (ROXICODONE) 1 mg/mL solution, Take 5 mg by mouth., Disp: , Rfl: predniSONE (DELTASONE) 20 mg tablet, Take 2 tabs x 3 days, 1.5 tabs x 3 days, 1 tab x 3 days, 0.5 tab x 3 days. Stop. (Patient not taking: Reported on 08/17/2019), Disp: 15 tablet , Rfl: 0 promethazine-codeine (PHENERGAN WITH CODEINE) syrup (ER Prepack), Take by mouth., Dis p: , Rfl: promethazine-dextromethorphan 6.25-15 mg/5 mL liquid, Take 5-10 mLs by mouth 4 times d aily as needed for Cough., Disp: 120 mL, Rfl: 0 rivaroxaban (XARELTO) 15 mg tablet, Take 15 mg by mouth Daily (with dinner)., Disp: , Rfl: SPIRIVA HANDIHALER 18 MCG inhalation capsule, INHALE 1 PUFF BY MOUTH ONCE DAILY, Disp: , Rfl: 12 Labs Reviewed: Component Latest Ref Rng & Units 03/05/2019 1052 B-TYPE NATRIURETIC PEPTIDE 0 - 100 pg/mL 23.8 Component Latest Ref Rng & Units 03/05/2019 1052 WBC 3.80 - 11.00 K/uL 6.50 RBC COUNT 3.70 - 5.10 M/uL 4.22 Hemoglobin 11.3 - 15.5 g/dL 10.9 (L) Hematocrit 34.0 - 46.0 % 33.7 (L) MCV 80.0 - 100.0 fl 79.9 (L) MCH 27.0 - 34.0 pg 25.8 (L) MCHC 32.0 - 35.5 g/dL 32.3 RDW-SD 37 - 53 fl 53.4 (H) Platelet Count 150 - 400 K/uL 390 MPV fl 9.4 Diff Type AUTOMATED % Neutrophils % 61.81 % Lymphocytes % 26.40 Monocyte % % 7.61 Eosinophils % % 3.59 Basophils % % 0.59 Neutrophils, Absolute 1.90 - 7.40 K/uL 4.01 Absolute Lymphocytes 1.00 - 3.90 K/uL 1.71 Absolute Monocytes 0.00 - 0.80 K/uL 0.50 Eosinophils, Absolute 0.00 - 0.50 K/uL 0.23 Basophils, Absolute 0.00 - 0.10 K/uL 0.04 RBC Morphology 1+ Negative Comment: Reference range: Negative CYTOPLASMIC (C ANCA) <1:20 Comment: Reference range: Neg:<1:20 PERINUCLEAR (P ANCA) <1:20 Comment: Reference range: Neg:<1:20 The presence of positive fluorescence exhibiting P-ANCA or C-ANCA patterns alone is not specific for the diagnosis of Maegan's Granulomatosis (WG) or microscopic polyangiitis. Decisions about treatment should not be based solely on ANCA IFA results.The International ANCA Group Consensus recommends follow up testing of positive sera with both NH-3 and MPO-ANCA enzyme immunoassays. As many as 5% serum samples are positive only by EIA. Ref. AM J Clin Pathol 1999;111:507-513. ATYPICAL P ANCA <1:20 Comment: Reference range: Neg:<1:20 The atypical pANCA pattern has been observed in a significant percentage of patients with ulcerative colitis, primary sclerosing cholangitis and autoimmune hepatitis. MYELOPEROXIDASE AB <9.0 Comment: Reference range: 0.0 to 9.0 U/mL ANTI PROTEINASE 3 <3.5 Comment: Reference range: 0.0 to 3.5 U/mL Specimen Collected on Blood 02/19/2019 15:14 FUMIGATUS IGE <0.10 Comment: Reference range: Class 0 Levels of Specific IgE ClassDescription of Class <0.10 0 Negative 0.10 -0.31 0/I Equivocal/Low 0.32 -0.55 I Low 0.56 -1.40 IIModerate 1.41 -3.90 III High 3.91 - 19.00 IVVery High 19.01 -100.00 V Very High >100.00 VIVery High kU/L CCP ANTIBODIES IGG IGA 2 Comment: Reference range: 0 to 19 IMMUNOGLOBULIN E TOTAL 6 Comment: Reference range: 6 to 495 [iU]/mL Total eosinophil Count: 229 September,: Factor V Leiden: negative. Protein S: 148 (high) Protein C: negative. DDimer: 425 Imaging: CT chest without 07-27-2019: IMPRESSION: 1. Slight reduction in size of airspace consolidation of the left upper lobe. Some residual ground-glass opacity is noted thought to reflect some nonspecific scarring which is favored over a mass. Pulmonary Nodule Follow Up Recommendation:Non-solid lung nodule greater than 5 mm new or of indeterminate stability. Such nodules are common and have a very low incidence of developing into a clinically significant cancer. Recommendation: Follow up chest CT in 12 months and then every two years until 5 years if nodule remains stable. (Fleischner society recommendation). 2. Slight increase in tree-in-bud opacities along the anteromedial left upper lobe that could reflect interval aspiration versus bronchiolitis. CT angiogram 03-31-2019: IMPRESSION: 1. Mild subacute/chronic left lower lobe pulmonary embolus, with no acute PE or right heart strain. 2. Left upper lobe opacity consistent with acute airspace infection. VQ scan 03-18-2019: FINDINGS: Ventilation Right Lung: [...] No radiographic evidence of acute cardiopulmonary disease. Echo from 03-18-2019: Left Ventricle Normal size left ventricle. There is normal left ventricular wall thickness. Normal left ventricular systolic function by 2D biplane imaging. The left ventricular ejection fraction is 60%. There is normal left ventricular wall motion. There is indeterminate left ventricular diastolic function. Right Ventricle Normal size right ventricle. Normal right ventricular wall thickness. Normal right ventricular systolic function. Left Atrium Normal size left atrium. Right Atrium Normal size right atrium. Interatrial Septum The interatrial septum is normal. Aortic Valve Normal aortic valve structure. No aortic stenosis. No aortic regurgitation. Mitral Valve Normal mitral valve structure. No mitral stenosis. No mitral regurgitation. Tricuspid Valve No tricuspid stenosis. Trace tricuspid regurgitation. Pulmonic Valve Normal pulmonic valve structure. No pulmonic stenosis. No pulmonic regurgitation. IVC/SVC The IVC diameter is </=21 mm with a >50% collapse with inspiration suggesting a right atrial pressure of 3 mmHg. Right Sided Pressures No definite pulmonary hypertension based on the TR Velocity and es timated RAP obtained on today's study. Pulmonary Function Test: 07-06-2019 SPIROMETRY: 1. FEV-1/FVC is 85 2. FEV-1 [...] to normal on alveolar volume adjustme nt. Assessment and Plan: 1. Severe persistent asthma without complication Marshall is a 48 year old female presumed to have asthma. She has no significant bronchodilat or response on PFT, but has historically had symptoms. Abs eos 230. IGE 6. Remains on advair 220mcg 2 puffs BID and spiriva daily. Since tracheal dilation procedure, she has felt much better, her breathing is easier, and s he feels as though her inhalers are reaching the lungs. She notes that she has not needed to use albuterol since the procedure either. She is no longer wheezing. Breathing is no longer labored. Stridor is gone. Overall, she has had a great improvement as a result of the dilat ion and steroid injection. She is feeling poorly after a flu like illness 3 weeks ago, but wheezing, coughing, and karl rtness of breath have been improving since then. Sinusitis and post nasal drip remain with r esulting productive cough lately. We will keep her on all inhalers while she is recovering, but if she feels she tolerates it, she can stop spiriva and see how she feels. We will be ad justing medications in the following months and discontinuing if no longer needed lasha g her great response after tracheal stenosis treatment. May repeat PFT in a few months as we ll. 2. Acute non-recurrent maxillary sinusitis Reports facial tenderness, sinus fullness, and congestion for 3 weeks. This has been steadi ly getting worse over time. Started with a flu like illness 3 weeks ago, lower respiratory s ymptoms have resolved, but sinus symptoms have continued. Denies ABX use in the last month. Will order doxycycline BID x 10 days as she is allergic to Amoxicillin (reports hives reacti on to this drug). - doxycycline (VIBRAMYCIN) 100 mg capsule; Take 1 capsule by mouth 2 times daily. Dispense : 20 capsule; Refill: 0 3. Consolidation of left upper lobe of lung (HCC) She does have an opacity noted in the JO ANN lung on CT imaging from 03-31-2019. We followed th is on 07-27-19 and the consolidation has reduced in size. -CT without contrast of the Chest (01-25-20) 4. Idiopathic subglottic tracheal stenosis [facility] has found subglottic tracheal stenosis, and cannot identify a possible cause as Marshall has no history of chronic intubations, and her symptoms began suddenly. She underwent micro laryngoscopy with dilation and steroid injection with Dr Jarocho Cosby on 11-8-2019. She has re sponded well and voice is normal in tone and quality now. She is aware this can recur. She h as been counseled to present to [facility] for signs of recurrence promptly. We will be vigilant i n monitoring for recurrence going forward. 5. Recurrent pulmonary embolism (HCC) Marshall was noted to have a chronic PE in the LLL lung. She is maintained on xarrelto daily and has no new chest pains or peripheral edema/pain. No lower extremity edema now that she h as been off of prednisone for a few months. 6. Gastroesophageal reflux disease, esophagitis presence not specified This has been better in last few months since tracheal stenosis treated and cough has subsi ded. No symptoms currently. 7. Snoring Saw Dr Charlton for initial consult on 07-27-19. Will undergo sleep study soon. It is a pleasure to be a part of Marshall Delgado's care team. Follow up in 3 months. She was encouraged to return if needed for urgent appointment, and should present to the ED for emergent symptoms. Please feel free to contact us if questions or concerns arise. RAINA Lees [facility] [address] [place] [address] Dept: [phone] FAX: [phone] I have discussed my findings and plan with Dr Amezquita today. We are in agreement with the patient's plan of care as detailed above. Electronically signed by RAINA Moreno at 3:58 PM PSTdocumented in this encounter Plan of Treatment + +---------+--------+ + + | Name | Type | Priori | Associated Diagnoses | Order Schedule | | | | ty | | | + +---------+--------+ + + | CT Chest wo Contrast | Imaging | Routin | Consolidation of | Expected: 01/25/2020 | | | | e | left upper lobe of | (Approximate), | | | | | lung (HCC) | Expires: 08/17/2020 | + +---------+--------+ + + documented as of this encounter Visit Diagnoses + + | Diagnosis | + + | Severe persistent asthma without complication - Primary | + + | Acute non-recurrent maxillary sinusitis | + + | Consolidation of left upper lobe of lung (HCC) | + + | Idiopathic subglottic tracheal stenosis | + + | Recurrent pulmonary embolism (HCC) Other pulmonary embolism and infarction | + + | Gastroesophageal reflux disease, esophagitis presence not specified | + + | Snoring Other dyspnea and respiratory abnormality | + + documented in this encounter
--- OUTSIDE RECORDS SUMMARY | ~2020-02-07 | XMS | Clinical Summary ---
Demographics + + + | Address | [address] | | | [place] [address] | + + + | Home Phone | | + + + | Preferred Language | Unknown | + + + | Marital Status | Single | + + + | Quaker Affiliation | Unknown | + + + | Race | Unknown | + + + | Ethnic Group | Unknown | + + + Author + + + | Author | [facility] | | | and [place] | + + + | Organization | [facility] | | [...] Team Providers + +------+ + | Care Gin Operator Name | Role | Phone | + +------+ + | Magdy Villalobos MD | PCP | | + +------+ + Allergies + + + + + + | Active Allergy | Reactions | Severity | Noted | Comments | | | | | Date | | + + + + + + | Hydrocodone | Hives | High | 02/20/20 | | | | | | 19 | | + + + + + + | Morphine | GI Upset | Low | 02/20/20 | | | | | | 19 | | + + + + + + | Penicillins | Anaphylaxis | High | 06/18/20 | | | | | | 15 | | + + + + + + Medications + + + +---------+------+------+-------+ | Medication | Sig | Dispensed | Refills | Star | End | Statu | | | | | | t | Date | s | | | | | | Date | | | + + + +---------+------+------+-------+ | rivaroxaban | Take 15 mg by mouth | | 0 | | | Activ | | (XARELTO) 15 mg | Daily (with dinner). | | | | | e | | tablet | | | | | | | + + + +---------+------+------+-------+ | gabapentin | gabapentin 300 mg | | 0 | | | Activ | | (NEURONTIN) 300 mg | capsule TAKE 3 TO 4 | | | | | e | | capsule | CAPSULES BY MOUTH AT | | | | | | | | BEDTIME FOR | | | | | | | | RESTLESS LEG | | | | | | | | SYNDROME | | | | | | + + + +---------+------+------+-------+ | SPIRIVA HANDIHALER | INHALE 1 PUFF BY | | 12 | 02/05 | | Activ | | 18 MCG inhalation | MOUTH ONCE DAILY | | | 5/20 | | e | | capsule | | | | 19 | | | + + + +---------+------+------+-------+ | montelukast | Take 10 mg by mouth. | | 0 | 08/ | 08/1 | Activ | | (SINGULAIR) 10 mg | | | | 5/20 | 4/20 | e | | tablet | | | | 19 | 20 | | + + + +---------+------+------+-------+ | | Inhale 1 puff into | 1 | 11 | 08/2 | | Activ | | albuterol-ipratropiu | the lungs 4 times | Inhaler | | 9/20 | | e | | m (COMBIVENT | daily. | | | 19 | | | | RESPIMAT) 100-20 | | | | | | | | mcg/puff | | | | | | | | inhalerIndications: | | | | | | | | Severe persistent | | | | | | | | asthma with acute | | | | | | | | exacerbation | | | | | | | + + + +---------+------+------+-------+ | albuterol | Inhale 2 puffs into | 1 | 11 | 08/2 | | Activ | | (VENTOLIN HFA) 90 | the lungs every 4 | Inhaler | | 9/20 | | e | | mcg/puff | hours as needed for | | | 19 | | | | inhalerIndications: | Wheezing, Shortness | | | | | | | Severe persistent | of Breath or | | | | | | | asthma with acute | Increased Work of | | | | | | | exacerbation, Cough | Breathing. | | | | | | | productive of yellow | | | | | | | | sputum | | | | | | | + + + +---------+------+------+-------+ | amitriptyline | TAKE 1 TABLET BY | | 0 | 09/0 | | Activ | | (ELAVIL) 25 mg | MOUTH ONCE DAILY FOR | | | 4/20 | | e | | tablet | 7 DAYS THEN | | | 19 | | | | | INCREASE TO 2 | | | | | | | | TABLETS ONCE DAILY | | | | | | | | STARTING 2ND WEEK | | | | | | + + + +---------+------+------+-------+ | ADVAIR HFA 115-21 | INHALE 2 PUFFS BY | 3 | 11 | 10/0 | | Activ | | MCG/ACT | MOUTH TWICE DAILY | Inhaler | | 8/20 | | e | | inhalerIndications: | | | | 19 | | | | Severe persistent | | | | | | | | asthma without | | | | | | | | complication | | | | | | | + + + +---------+------+------+-------+ | citalopram | Take 10 mg by mouth | | 4 | 10/0 | | Activ | | (CELEXA) 10 mg | Daily. | | | 8/20 | | e | | tablet | | | | 19 | | | + + + +---------+------+------+-------+ | | Take 5-10 mLs by | 120 mL | 0 | 10/1 | | Activ | | promethazine-dextrom | mouth 4 times daily | | | 5/20 | | e | | ethorphan 6.25-15 | as needed for Cough. | | | 19 | | | | mg/5 mL | | | | | | | | liquidIndications: | | | | | | | | Cough in adult, | | | | | | | | Severe persistent | | | | | | | | asthma with acute | | | | | | | | exacerbation | | | | | | | + + + +---------+------+------+-------+ | predniSONE | Take 2 tabs x 3 | 15 | 0 | 10/1 | | Activ | | (DELTASONE) 20 mg | days, 1.5 tabs x 3 | tablet | | 5/20 | | e | | tabletIndications: | days, 1 tab x 3 | | | 19 | | | | Cough in adult, | days, 0.5 tab x 3 | | | | | | | Severe persistent | days. Stop. | | | | | | | asthma with acute | | | | | | | | exacerbation | | | | | | | + + + +---------+------+------+-------+ +---+ + | | Additional | | | InformationPatient | | | not taking. Reported | | | on 08/17/2019 1:55 | | | PM | +---+ + + + +--------+---+------+---+-------+ | azithromycin | Take 2 tablets by | 6 | 0 | 04/07 | | Activ | | (ZITHROMAX) 250 mg | mouth on day 1, and | tablet | | 11/24 | | e | | tabletIndications: | 1 tablet by mouth | | | 19 | | | | Cough in adult, | every day | | | | | | | Severe persistent | | | | | | | | asthma with acute | | | | | | | | exacerbation | | | | | | | + + +--------+---+------+---+-------+ +---+ + | | Additional | | | InformationPatient | | | not taking. Reported | | | on 08/17/2019 1:55 | | | PM | +---+ + + + +---------+---+------+---+-------+ | oxyCODONE | Take 5 mg by mouth. | | 0 | 11/0 | | Activ | | (ROXICODONE) 1 mg/mL | | | | 8/20 | | e | | solution | | | | 19 | | | + + +---------+---+------+---+-------+ | | Take by mouth. | | 0 | | | Activ | | promethazine-codeine | | | | | | e | | (PHENERGAN WITH | | | | | | | | CODEINE) syrup (ER | | | | | | | | Prepack) | | | | | | | + + +---------+---+------+---+-------+ | fluticasone | Inhale 1 puff into | | 0 | 11/0 | | Activ | | (FLOVENT HFA) 220 | the lungs. | | | 8/20 | | e | | mcg/puff inhaler | | | | 19 | | | + + +---------+---+------+---+-------+ | doxycycline | Take 1 capsule by | 20 | 0 | 02/1 | | Activ | | (VIBRAMYCIN) 100 mg | mouth 2 times daily. | capsule | | 0/20 | | e | | capsuleIndications: | | | | 20 | | | | Acute non-recurrent | | | | | | | | maxillary sinusitis | | | | | | | + + +---------+---+------+---+-------+ Active Problems + + + | Problem | Noted Date | + + + | Chronic deep vein thrombosis (DVT) of distal vein of lower | 04/21/2019 | | extremity | | + + + | Asthma | 03/18/2019 | + + + | Primary hypercoagulable state | 03/05/2019 | + + + + + | Overview: Overview: Strong family history. H[facility]ology at [facility] | | recommended lifelong treatment with coumadin. REcommended | | colonoscopy, mammogram and Pap. Patient did not get done due to | | lack of insurance. | + + + + + | Anemia | 02/19/2019 | + + + | Chronic anxiety | 02/19/2019 | + + + | Menopausal syndrome | 02/19/2019 | + + + | Mixed insomnia | 02/19/2019 | + + + | Panic attack | 02/19/2019 | + + + | Recurrent pulmonary embolism | 02/19/2019 | + + + | Restless legs | 02/19/2019 | + + + | Sprain of foot | 02/19/2019 | + + + | Embolism and thrombosis | 03/19/2012 | + + + + + | Overview: Strong family history. Spontaneous DVT. Vascular | | surgery recommends lifelong anticoagulation and compression | | stockings. Increased warfarin 10/19/13, needs PT INR in 3-4 | | days.Dx name changed by system update 03/29/2017 | |Dx name changed by system update 03/29/2017 | + + + + + | Other pulmonary embolism and infarction | 03/19/2012 | + + + | DVT (deep venous thrombosis) | 03/12/2012 | + + + | Headache | 03/05/2012 | + + + + + | Overview: Overview: | | Migraine. 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 Rechecked in 2012 | | normal.Dx Name changed by system update on 04/19/2017 | |Dx Name changed by system update on 04/19/2017 | + + + + + | Chronic depression | 11/15/2010 | + + + | Anxiety state | 11/15/2010 | + + + + + | Overview: Overview: | | IMO Problem List Replacement - 2016_Regulatory_1 | + + Social History + +-------+ +--------+------+ | Tobacco Use | Types | Packs/Day | Years | Date | | | | | Used | | + +-------+ +--------+------+ | Never Smoker | | | | | + +-------+ +--------+------+ + +---+---+---+ | Smokeless Tobacco: | | | | | Never Used | | | | + +---+---+---+ + + | Tobacco Cessation: Counseling Given: [...] on file | | + + + Last Filed Vital Signs + [...] Health Maintenance | Due Date | Last | Comments | | | | Done | | + + + + + | Hepatitis C | | | | | Screening | 0 | | | + + + + + | Vaccine: | | | | | Pneumococcal 19-64 | 6 | | | | (1 of 1 - PPSV23) | | | | + + + + + | Cervical Cancer | | | | | Screening (Pap) | 0 | | | + + + + + | Breast Cancer | | | | | Screening | 5 | | | + + + + + | Statin Therapy | | | | | (optimal intensity) | 9 | | | + + + + + | Colorectal Cancer | | | | | Screening | 0 | | | | (Colonoscopy) | | | | + + + + + | Vaccine: Zoster (1 | | | | | of 2) | 0 | | | + + + + + | Med Mgmt: Cr | | 03/05/20 | | | | 0 | 19 | | + + + + + | Med Mgmt: HCT | | 03/05/20 | | | | 0 | 19 | | + + + + + | Med Mgmt: HGB | | 03/05/20 | | | | 0 | 19 | | + + + + + | Med Mgmt: eGFR | | 03/05/20 | | | | 0 | 19 | | + + + + + | Medication | | 03/05/20 | | | Management | 0 | 19 | | + + + + + | Vaccine: Influenza | | 04/07/20 | | | (#1) | 0 | 19, | | | | | 04/22/20 | | | | | 18, | | | | | 04/25/20 | | | | | 17, | | | | | Addition | | | | | al | | | | | history | | | | | exists | | + + + + + | Vaccine: | | 12/05/19 | | | Dtap/Tdap/Td (3 - | 3 | 13, | | | Td) | | 11/08/19 | | | | | 13 | | + + + + + Results Not on filefrom Last 3 Months Insurance + +--------+ +--------+ +---------+--------+ | Payer | Benefi | Subscriber | Effect | Phone | Address | Type | | | t Plan | ID | delmi | | | | | | / | | Dates | | | | | | Group | | | | | | + +--------+ +--------+ +---------+--------+ | [employer] | [employer] | [id number] | | [phone] | | Medica | | MEDICAID HMO | HEALTH | | 019-Pr | 1 | | id | | | MDCD | | esent | | | | | | HMO [place] | | | | | | + +--------+ +--------+ +---------+--------+ + +--------+ +--------+ + + | Guarantor Name | Accoun | Relation to | Date | Phone | Billing Address | | | t Type | Patient | of | | | | | | | | | | + +--------+ +--------+ + + | Marshall Delgado | Person | Self [birth year] | [address] | | | al/Marcial | | 1971 | [phone] | [place] | | | [place] | | | [address] (Home) | [address] | + +--------+ +--------+ + + | Marshall Delgado | Person | Self | [birth year] | | [address] | | | al/Fam | | 1971 | [phone] | [place] | | | [place] | | | [address] (Home) | [address] | + +--------+ +--------+ + + Advance Directives + + + + + | Type | Date Recorded | Patient | Explanation | | | | 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
--- OUTSIDE RECORDS SUMMARY | ~2020-02-07 | XMS | Encounter Summary ---
Demographics + + + | Address | [address] | | | [place] [address] | + + + | Home Phone | | + + + | Preferred Language | Unknown | + + + | Marital Status | Single | + + + | Adventist Affiliation | Unknown | + + + | Race | Unknown | + + + | Ethnic Group | Unknown | + + + Author + + + | Author | [facility] | | | and [place]ana | + + + | Organization | [facility] | | | and [...] Team Providers + +------+ + | Care Market Research Interviewer Name | Role | Phone | + +------+ + | Magdy Villalobos MD | PCP | | + +------+ + Reason for Visit +--------+ + | Reason | Comments | +--------+ + | Other | chart notes from [facility] | +--------+ + Encounter Details +--------+ + + + + | Date | Type | Department | Care Team | Description | +--------+ + + + + | 04/29/ | Documentati | [facility] | [place], | Other (chart notes | | 2019 | on | PULMONOLOGY [address] | Tiffani Shrestha [facility] | from [facility]) | | | | SONI [place]ANNAH | History Faculty Member | | | | | [place], [place] | | | | | | [address] | | | | | | [phone] | | | +--------+ + + + [...] of this encounter Progress Notes Tiffani Weinberg, Accounting/Finance Tutor - 04/29/2019 2:23 PM PDTReceived chart note s from [facility], scanned into chart. documented in this encounter Plan of Treatment Not on filedocumented as of this encounter Visit Diagnoses Not on filedocumented in this encounter"
--- OUTSIDE RECORDS SUMMARY | ~2020-02-07 | XMS | Encounter Summary ---
Demographics + + + | Address | [address] | | | [place] [address] | + + + | Home Phone | | + + + | Preferred Language | Unknown | + + + | Marital Status | Single | + + + | Adventist Affiliation | Unknown | + + + | Race | Unknown | + + + | Ethnic Group | Unknown | + + + Author + + + | Author | [facility] | | | and Michaelana | + + + | Organization | [facility] | | | [...] Team Providers + +------+ + | Care Podiatric Medicine Professor Name | Role | Phone | + +------+ + | Stefany Ngo | PCP | | + +------+ + Encounter Details +--------+ + + + + | Date | Type | Department | Care Team | Description | +--------+ + + + + | 02/19/ | Orders Only | [facility] | Mary Ann Diamond, | | | 2018 | | [address] | [address] | | | | | [place], [place] | [address] [place], | | | | | [address] | [place] [address] | | | | | [phone] | [phone] | | | | | | | | +--------+ + + + + Social History + +-------+ +--------+------+ | Tobacco Use | Types | Packs/Day | Years | Date | | | | | Used | | + +-------+ +--------+------+ | Never Smoker | | | | | + +-------+ +--------+------+ + + +---------+ + | Alcohol Use [...] | + +--------+ + + + | CCP ANTIBODIES, IGG | Routin | 02/19/2019 | | Results for this | | IGA | e | 3:14 PM | | procedure are in the | | | | PDT | | results section. | + +--------+ + + + | AGNES PROFILE, REFLEX | Routin | 02/19/2019 | | Results for this | | | e | 3:14 PM | | procedure are in the | | | | PDT | | results section. | + +--------+ + + + | ALLERGEN ASPERGILLUS | Routin | 02/19/2019 | | Results for this | | FUMAGATUS IGE | e | 3:14 PM | | procedure are in the | | | | PDT | | results section. | + +--------+ + + + | RHEUMATOID FACTOR, | Routin | 02/19/2019 | | Results for this | | QUANT | e | 3:14 PM | | procedure are in the | | | | PDT | | results section. | + +--------+ + + + | IMMUNOGLOBULIN E | Routin | 02/19/2019 | | Results for this | | | e | 3:14 PM | | procedure are in the | | | | PDT | | results section. | + +--------+ + + + documented in this encounter Results CCP Antibodies, IgG IgA (02/19/2019 3:14 PM PDT) + + + + + + | Component | Value | Ref Range | Performed | Pathologist | | | | | At | Signature | + + + + + + | CCP IgG | 2Comment: Reference | | EXTERNAL | | | Antibodies | range: 0 to 19 | | LAB | | | | | | | | | | Negative | | | | | | <20 | | | | | | | | | | | | Weak positive | | | | | | 20 - 39 | | | | | | | | | | | | Moderate positive 40 - | | | | | | 59 | | | | | | Strong | | | | | | positive >59 | | | | + + + + + + + + | Specimen | + + | Blood specimen | | (specimen) | + + + +---------+ + + | Performing | Address | City/State/Zipcode | Phone Number | | Organization | | | | + +---------+ + + | EXTERNAL LAB | | | | + +---------+ + + Allergen Aspergillus Fumagatus IgE (02/19/2019 3:14 PM PDT) + + + + + + | Component | Value | Ref Range | Performed | Pathologist | | | | | At | Signature | + + + + + + | Aspergillus | <0.10Comment: Reference | kU/L | EXTERNAL | | | fumigatus, | range: Class 0 Levels | | LAB | | | IgG | of Specific IgE | | | | | | Class Description | | | | | | of Class | | | | | | | | | | | | --- ----- | | | | | | | | | | | | | | | | | | < 0.10 0 | | | | | | Negative | | | | | | 0.10 - | | | | | | 0.31 0/I | | | | | | Equivocal/Low | | | | | | 0.32 - | | | | | | 0.55 I | | | | | | Low | | | | | | 0.56 - 1.40 | | | | | | II | | | | | | Moderate | | | | | | 1.41 - 3.90 | | | | | | III High | | | | | | 3.91 - | | | | | | 19.00 IV | | | | | | Very High | | | | | | 19.01 - 100.00 | | | | | | V | | | | | | Very High | | | | | | >100.00 | | | | | | | | | | | | Very High | | | | + + + + + + + + | Specimen | + + | Blood specimen | | (specimen) | + + + +---------+ + + | Performing | Address | City/State/Zipcode | Phone Number | | Organization | | | | + +---------+ + + | EXTERNAL LAB | | | | + +---------+ + + AGNES Profile, Reflex (02/19/2019 3:14 PM PDT) + + + + + + | Component | Value | Ref Range | Performed | Pathologist | | | | | At | Signature | + + + + + + | AGNES | NegativeComment: | | EXTERNAL | | | | Reference range: | | LAB | | | | Negative | | | | + + + + + + | C ANCA | <1:20Comment: Reference | | EXTERNAL | | | | range: Neg:<1:20 | | LAB | | + + + + + + | Perinuclear | <1:20Comment: Reference | | EXTERNAL | | | (P-ANCA) | range: Neg:<1:20The | | LAB | | | | presence of positive | | | | | | fluorescence exhibiting | | | | | | P-ANCA or C-ANCApatterns | | | | | | alone is not specific | | | | | | for the diagnosis of | | | | | | Maegan'sGranulomatosis | | | | | | (WG) or microscopic | | | | | | polyangiitis. Decisions | | | | | | abouttreatment should | | | | | | not be based solely on | | | | | | ANCA IFA results. | | | | | | TheInternational ANCA | | | | | | Group Consensus | | | | | | recommends follow up | | | | | | testing ofpositive sera | | | | | | with both CO-3 and | | | | | | MPO-ANCA enzyme | | | | | | immunoassays. Asmany as | | | | | | 5% serum samples are | | | | | | positive only by | | | | | | EIA.Ref. AM J Clin | | | | | | Pathol 1999;[id number]:507-513. | | | | | | | | | | + + + + + + | Atypical | <1:20Comment: Reference | | EXTERNAL | | | pANCA | range: Neg:<1:20The | | LAB | | | | atypical pANCA pattern | | | | | | has been observed in a | | | | | | significantpercentage of | | | | | | patients with | | | | | | ulcerative colitis, | | | | | | primary | | | | | | sclerosingcholangitis | | | | | | and autoimmune | | | | | | hepatitis. | | | | + + + + + + | Myeloperoxi | <9.0Comment: Reference | U/mL | EXTERNAL | | | dase | range: 0.0 to 9.0 | | LAB | | | Antibody | | | | | + + + + + + | ANCA | <3.5Comment: Reference | U/mL | EXTERNAL | | | Proteinase | range: 0.0 to 3.5 | | LAB | | | 3 | | | | | + + + + + + + + | Specimen | + + | Blood specimen | | (specimen) | + + + +---------+ + + | Performing | Address | City/State/Zipcode | Phone Number | | Organization | | | | + +---------+ + + | EXTERNAL LAB | | | | + +---------+ + + Rheumatoid Factor, Quant (02/19/2019 3:14 PM PDT) + +-------+ + + + | Component | Value | Ref Range | Performed | Pathologist | | | | | At | Signature | + +-------+ + + + | RHEUMATOID | <10 | [iU]/mL | EXTERNAL | | | FACTOR | | | LAB | | + +-------+ + + + + + | Specimen | + + | Blood specimen | | (specimen) | + + + +---------+ + + | Performing | Address | City/State/Zipcode | Phone Number | | Organization | | | | + +---------+ + + | EXTERNAL LAB | | | | + +---------+ + + Immunoglobulin E (02/19/2019 3:14 PM PDT) + + + + + + | Component | Value | Ref Range | Performed | Pathologist | | | | | At | Signature | + + + + + + | Immunoglobu | 6Comment: Reference | [iU]/mL | EXTERNAL | | | ira IgE | range: 6 to 495 | | LAB | | + + + + + + + + | Specimen | + + | Blood specimen | | (specimen) | + + + +---------+ + + | Performing | Address | City/State/Zipcode | Phone Number | | Organization | | | | + +---------+ + + | EXTERNAL LAB | | | | + +---------+ + + documented in this encounter Visit Diagnoses Not on filedocumented in this encounter"
--- OUTSIDE RECORDS SUMMARY | ~2020-02-07 | XMS | Encounter Summary ---
Demographics + + + | Address | [address] | | | [place] [address] | + + + | Home Phone | | + + + | Preferred Language | Unknown | + + + | Marital Status | Single | + + + | Religion Affiliation | Unknown | + + + | Race | Unknown | + + + | Ethnic Group | Unknown | + + + Author + + + | Author | [facility] | | | and Michaelana | + + + | Organization | [facility] | | [...] Team Providers + +------+ + | Care Credit Professional Name | Role | Phone | + +------+ + | Stefany Ngo | PCP | | + +------+ + Encounter Details +--------+ + + + + | Date | Type | Department | Care Team | Description | +--------+ + + + + | 03/18/ | Hospital | [facility] | Mary Ann Diamond, | Severe persistent | | 2019 | Encounter | [facility] | [employer]PERATOR [address] | asthma without | | | | [address] | [address], | complication; | | | | [place] | [place] [address] | Recurrent pulmonary | | | | [address] | [phone] | embolism (HCC); | | | | [phone] | | Cough in adult; | | | | | | Shortness of breath | +--------+ + + + + Social [...] + + + +---------+ + + | doxepin (SINEQUAN) | doxepin 10 mg | | 0 | | | | 10 mg capsule | capsule 3 po qhs for | | | | 9 | | | chronic insomina | | | | | + + + +---------+ + + | | Inhale 2 puffs into | 1 | 0 | 03/05/20 | | | fluticasone-salmeter | the lungs 2 times | Inhaler | | 19 | 9 | | ol (ADVAIR HFA) | daily. | | | | | | 115-21 MCG/ACT | | | | | | | [...] +--------+ + + + | XR CHEST PA AND | Routin | 03/18/2019 | Severe persistent | Results for this | | LATERAL | e | 11:26 AM | asthma without | procedure are in the | | | | PDT | complication | results section. | | | | | Recurrent pulmonary | | | | | | embolism (HCC) | | | | | | Cough in adult | | | | | | Shortness of breath | | + +--------+ + + + documented in this encounter Results XR Chest PA and Lateral (03/18/2019 11:26 AM PDT) + + | Specimen | + + | | + + + + + | Narrative | Performed At | + + + | CHEST PA AND LATERAL CLINICAL INFORMATION: Severe persistent | [facility] | | asthma without complication. Shortness of breath. Cough. | | | COMPARISON: None. FINDINGS: Heart, lungs and vessels normal. No | | | pneumothorax, pleural effusion or adenopathy. No significant bone | | | abnormality. Cholecystectomy clips. IMPRESSION: No radiographic | | | evidence of acute cardiopulmonary disease. Signed by: | | | Maciej Orozco, Pushpender Sign Date/Time: 03/18/2019 12:14 PM | | + + + + + | Procedure Note | + + | José, Rad Results In - 03/18/2019 12:17 PM PDT | | CHEST PA AND LATERAL | | | | CLINICAL INFORMATION: | | Severe persistent asthma without complication. Shortness of breath. | | Cough. | | | | COMPARISON: | | None. | | | | FINDINGS: | | Heart, lungs and vessels normal. No pneumothorax, pleural effusion or | | adenopathy. No significant bone abnormality. Cholecystectomy clips. | | | | IMPRESSION: | | No radiographic evidence of acute cardiopulmonary disease. | | | | | | | | Signed by: Maciej Orozco, Dalia | | Sign Date/Time: 03/18/2019 12:14 PM | + + + +---------+ + + | Performing | Address | City/State/Zipcode | Phone Number | | Organization | | | | + +---------+ + + | [facility] | | | | + +---------+ + + documented in this encounter Visit Diagnoses + + | Diagnosis | + + | Severe persistent asthma without complication | + + | Recurrent pulmonary embolism (HCC) Other pulmonary embolism and infarction | + + | Cough in adult | + + | Shortness of breath | + + documented in this encounter"
--- OUTSIDE RECORDS SUMMARY | ~2020-02-07 | XMS | Encounter Summary ---
Demographics + + + | Address | [address] | | | [place] [address] | + + + | Home Phone | | + + + | Preferred Language | Unknown | + + + | Marital Status | Single | + + + | Nondenominational Affiliation | Unknown | + + + | Race | Unknown | + + + | Ethnic Group | Unknown | + + + Author + + + | Author | [facility] | | | and Michaelana | + + + | Organization | [facility] | | | [...] Team Providers + +------+ + | Care Supervisor Tree Trimming Name | Role | Phone | + [...] + + + + | 07/06/ | Documentati | [facility] | [place], | Other (chart notes | | 2019 | on | PULMONOLOGY [address] | Tiffani Shrest[facility] | from [facility]) | | | | [place] | Neuroscience Specialist | | | | | [place], [place] | | | | | | [address] | | | | | | [phone] | | | +--------+ + + + [...] of this encounter Progress Notes Tiffani Weinberg, Roller Cleaner - 07/06/2019 11:45 AM PSTReceived chart note s from [facility] from PT last office visit.labeled and scanned into PT chart documented in th is encounter Plan of Treatment Not on filedocumented as of this encounter Visit Diagnoses Not on filedocumented in this encounter"
--- OUTSIDE RECORDS SUMMARY | ~2020-02-07 | XMS | Encounter Summary ---
Demographics + + + | Address | [address] | | | [place] [address] | + + + | Home Phone | | + + + | Preferred Language | Unknown | + + + | Marital Status | Single | + + + | Moravian Affiliation | Unknown | + + + | Race | Unknown | + + + | Ethnic Group | Unknown | + + + Author + + + | Author | [facility] | | | and Michaelana | + + + | Organization | [facility] | | | and [...] Team Providers + +------+ + | Care Citrus Peeler Name | Role | Phone | + +------+ + | Magdy Villalobos MD | PCP | | + +------+ + Reason for Visit +--------+ + | Reason | Comments | +--------+ + | Other | Records from Dr Charlton | +--------+ + Encounter Details +--------+ + + + + | Date | Type | Department | Care Team | Description | +--------+ + + + + | 08/06/ | Documentati | [facility] | [place], | Other (Records from | | 2020 | on | PULMONOLOGY [address] | [facility] | Dr Charlton) | | | | [place] | Wire Spinner | | | | | [place] | | | | | | [address] | | | | | | [phone] | | | +--------+ + + + [...] of this encounter Progress Notes Tiffani Weinberg, Assistant Plant Manager - 08/06/2019 11:35 AM PSTReceived Records remigio Charlton office for pt visit on 07-27-19. Labeled and scanned into pt chartElectronically sig magdiel by Tiffani Weinberg, Assistant Plant Manager at 08/06/2019 11:38 AM PSTdocumented in this encounter Plan of Treatment Not on filedocumented as of this encounter Visit Diagnoses Not on filedocumented in this encounter"
--- OUTSIDE RECORDS SUMMARY | ~2020-02-07 | XMS | Encounter Summary ---
Demographics + + + | Address | [address] | | | [place] [address] | + + + | Home Phone [...] + + + | Author | [facility] | + + + | Organization | [facility] | + + + | Address | Unknown | + + + | Phone | Unavailable | + + + Support + + + + + | Name | Relationship | Address | Phone | + + + + + | Rosy Alvarez | ECON | [address] | | | | | [place] | | + + + + + | Chalo Delgado | ECON | [address] | | | | | [place] | | | | | [address] | | + + + + + | Kathleen Mar | ECON | [place] | | | | | [address] | | + + + + + | Yancy Mar | ECON | [address] | | | | | [place] | | + + + + + Care Team Providers + +------+ + | Care Separator Tender Name | Role | Phone | + [...] | | | | | Procedures | [facility] [place] | [id number] | | | | | VASC LAB | [address] | Physician's | | | | | VENOUS | Phone: | Pavilion | | | | | DUPLEX LOWER | [phone] | [place], [place] | | | | | EXTREMITY | Fax: | [address] | | | | | BILAT COMP | [phone] | Phone: | | | | | [address] | | [phone] | | | | | | | Fax: | | | | | | | [phone] | +--------+--------+ + + + + Encounter [...] | | | | [address] | [facility] | | | | | [facility], | [place], [place] | | | | | [address] [place] [address] | [address] | | | | | [place], [place] | [phone] | | | | | [address] | | | | | | [phone] | | | +--------+ + + + [...] | | | | | kate / Thuy Mckeon | | | | | | [...] | | + +---------+ + + | [facility] DEPARTMENT OF | | | | | [...]
--- OUTSIDE RECORDS SUMMARY | ~2020-02-07 | XMS | Encounter Summary ---
Demographics + + + | Address | [address] | | | [place] [address] | + + + | Home Phone | | + + + | Preferred Language | Unknown | + + + | Marital Status | Single | + + + | Christianity Affiliation | NRP | + + + [...] + | Rosy Alvarez | ECON | [address] | | | | | [place] | | + + + + + | Chalo Delgado | ECON | [address] | | | | | [place] | | | | | [address] | | + + + + + | Kathleen Mar | ECON | [place] | | | | | [address] | | + + + + + | Yancy Mar | ECON | [address] | | | | | [place] | | + + + + + Care Team Providers + +------+ + | Care Tank Car Repairer Name | Role | Phone | + [...]
--- OUTSIDE RECORDS SUMMARY | ~2020-02-07 | XMS | Encounter Summary ---
Demographics + + + | Address | [address] | | | [place] [address] | + + + | Home Phone | | + + + | Preferred Language | Unknown | + + + | Marital Status | Single | + + + | Latter Day Affiliation | NRP | + + + | Race | White | + + + | Ethnic Group | Not or | + + + Author + + + | Author | [facility] | + + + | Organization | [facility] | + + + | Address | Unknown | + + + | Phone | Unavailable | + + + Support + + + + + | Name | Relationship | Address | Phone | + + + + + | Rosy lAvarez | ECON | [address] | | | | | [place] | | + + + + + | Chalo Smalls | ECON | [address] | | | | | [place] | | | | | [address] | | + + + + + | Kathleen Mar | ECON | [place] | | | | | [address] | | + + + + + | Yancy Mar | ECON | [address] | | | | | [place] | | + + + + + Care Team Providers + +------+ + | Care Train Announcer Name | Role | Phone | + [...] + | Closed | | Radiology | Procedures | Jefry, | Annmarie Vasc | | | | | VASC LAB | MD Jadiel | Lab [address] | | | | | VENOUS | [address] | [address] | | | | | DUPLEX LOWER | Quinn | Loop | | | | | EXTREMITY | Dannielle Layton | Mailcode: | | | | | BILAT COMP | [place], [place] | [id number] | | | | | | [address] | Physician's | | | | | | Phone: | Pavilion | | | | | | [phone] | [place], [place] | | | | | | Fax: | [address] | | | | | | [phone] | Phone: | | | | | | | [phone] | | | | | | | Fax: | | | | | | | [phone] | +--------+--------+ + + + + Diagnostic Testing (Routine) +--------+--------+ + + + + | Status | Reason | Specialty | Diagnoses / | Referred By | Referred To | | | | | Procedures | Contact | Contact | +--------+--------+ + + + + | Closed | | Radiology | Procedures | Royce, | Rad Ct Scan | | | | | CT CHEST, | Yuli Bustillo MD | [facility] [address] | | | | | ABDOMEN & | [address] | [address] | | | | | PELVIS W IV | [address] | Dannielle Layton [facility] | | | | | CONTRAST | Dannielle | [facility], | | | | | | [place], [place] | [facility] [address] | | | | | | [address] | [place], [place] | | | | | | Phone: | [phone] | | | | | | [phone] | Phone: | | | | | | Fax: | [phone] | | | | | | [phone] | Fax: | | | | | | | [phone] | +--------+--------+ + + + + Reason for Visit + + + | Reason | Comments | + + + | Occlusion of artery | leg | + + + AUTH/CERT +--------+--------+ + + + + | Status | Reason | Specialty | Diagnoses / | Referred By | Referred To | | | | | Procedures | Contact | Contact | +--------+--------+ + + + + | Closed | | | | | | +--------+--------+ + + + + Encounter Details +--------+ + + + + | Date | Type | Department | Care Team | Description | +--------+ + + + + | 03/12/ | Hospital | [facility] [address] | Jadiel Patrick MD | | | 2011 - | Encounter | [address] [id number] | [address] | | | | | [facility] | [address] [place], | | | 03/[address]/ | | [place], [place] | [place] [address] | | | 2011 | | [address] | [phone] | | | | | [phone] | | | +--------+ + + + [...] + + + | Blood Pressure | 124/64 | 03/18/2012 8:45 AM | | | | | PDT | | + + + + + | Pulse | 92 | 03/18/2012 8:45 AM | | | | | PDT | | + + + + + | Temperature | 36.6 C (97.9 F) | 03/18/2012 8:45 AM | | | | | PDT | | + + + + + | Respiratory Rate | 17 | 03/18/2012 8:45 AM | | | | | PDT | | + + + + + | Oxygen Saturation | 96% | 03/18/2012 8:45 AM | | | | | PDT | | + + + + + | Inhaled Oxygen | - | - | | | Concentration | | | | + + + + + | Weight | 106.9 kg (235 lb | 03/16/2012 3:53 PM | | | | 10.8 oz) | PDT | | + + + + + | Height | 170.2 cm (5' 7") | 03/15/2012 7:33 AM | | | | | PDT | | + + + + + | Body Mass Index | 36.91 | 03/15/2012 7:33 AM | | | | | PDT | | + + + + + documented in this encounter Discharge Summaries Almita Hector, CLINICAL OUTCOMES MANAGER - 03/18/2012 5:34 AM PDTFormatting of this note might be different f rom the original. INPATIENT PHYSICIAN DISCHARGE SUMMARY [facility] VASCULAR SURGERY Attending Physician: Jadiel Patrick MD PCP: Michelle Ndiaye MD Admission Date: 03/12/2012 Discharge Date: 03/18/12 Diagnoses Principal Final Diagnosis: 1. Right leg popliteal DVT Additional Diagnoses: 1. Bilateral pulmonary emboli, right larger than left. 2. Nausea and Vomiting 3. Hypertension 4. Hypercoagulable state 5. Obesity ( hx of Gastric banding) 6. 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 She co uld no longer bare weight on her right leg, and had a palpable cord . [place] Richar giles nosed a RLE DVT extending from the ankle up to the thigh. She was started on a heparin dri p and transferred to [facility], where she was considered for thrombolysis. She had repeat Venous duplex ultrasound and CT done at [facility], which revealed bilateral pulmonary emboli, right la rger than left. Venous duplex prior to lysis showed that the right common femoral and femor al veins were compressible with no clot present, and she had a Right popliteal DVT. Therefo re thrombolysis was cancelled and the patient continued on heparin drip with transition to E noxaparin injections and bridge to warfarin, Target INR 2.0-3.0. [facility] Hematology was consult ed; patient has strong family history of clotting, and felt to have hypercoagulable state, a nd labwork was drawn with results pending at time of discharge, additional followup per [place] tology recommendations is recommended to continue with evaluation including mammogram, colo noscopy, and gynecological screening for malignancy. She will continue on oral anticoagulati on; lifelong therapy is recommended. She was given circaid edema control device and compress ion stockings; and advised by physical therapy regarding exercises and activity, and elevati on of leg. She will followup with her PCP at Family Medicine clinic in [facility] on March 19 for INR check, and recommend followup with [facility] Vascular Surgery in 6-8 weeks . Allergies Allergen Reactions Penicillins Tongue swelling, hives and SOB Current Discharge Medication List START taking these medications Details enoxaparin 100 mg/mL Subcutaneous Syringe Inject 1 mL under the skin (SUBC) every twelve ho urs. Qty: 10 Syringe, Refills: 0 HYDROmorphone 2 mg Oral tablet Take 1-2 Tabs by mouth every four hours as needed for modera te pain. Indications: Pain Qty: 10 Tab, Refills: 0 senna-docusate 8.6-50 mg Oral tablet Take 1 Tab by mouth once daily as needed. warfarin 5 mg Oral tablet Take 1.5 Tabs by mouth once daily in the evening. Qty: 60 Tab, Refills: 0 CONTINUE these medications which have CHANGED or have new prescriptions Details acetaminophen 325 mg Oral tablet Take 1-2 Tabs by mouth every six hours as needed. propranolol 40 mg Oral tablet Take 0.5 Tabs by mouth two times daily. CONTINUE these medications which have NOT CHANGED Details meclizine 25 mg Oral tablet four times daily. Take one tablet by mouth four times a day as needed for lightheadedness and nausea. venlafaxine XR 150 mg Oral capsule,extended release 24hr Take 150 mg by mouth once daily. STOP taking these medications traMADol 50 mg Oral tablet Comments: Reason for Stopping: Lab Results Component Value Date INRPT 1.24* 03/18/2012 Lab Results Component Value Date WBC 6.7 03/18/2012 HB 11.4 03/18/2012 HCT 35.1 03/18/2012 PLT 241 03/18/2012 MCV 88.4 03/18/2012 RDW 17.3 03/18/2012 Lab Results Component Value Date NA 142 03/13/2012 K 3.6 03/13/2012 CL 107 03/13/2012 BICARB 24 03/13/2012 BUN 7 03/13/2012 CR 0.79 03/13/2012 GLU 78 03/17/2012 CA 8.8 03/13/2012 Diet Regular Regular diet- There are no restrictions to your diet. You may eat or drink whatever you pr efer, though healthy food choices are recommended. Activity Frequent episodes of ambulation Wear Right leg circaid edema control device or compression stockings. Elevate Right leg frequently to minimize edema Destination: Destination: Home Condition on Discharge Stable Other Discharge Orders and Instructions Enoxaparin 100mg injection every 12 hours and continue warfarin 7.5mg every evening until i nstructed to discontinue injections when the Target INR 2.0-3.0 is reached, if signs of bleeding from mouth , nose , urine or stool stop injections and got to PCP office or E.D to get INR checked. [facility] Vascular Surgery Clinic, [facility] [address], phone number [phone] Followup in 6-8 weeks, please call to schedule a repeat venous ultrasound and appointment. Followup with PCP Dr. Michelle Ndiaye at [facility] With INR check on Mar 19 at 3:45pm , fax # [phone] Please call to confirm the appointment. Outstanding labs/studies: Factor V Leiden, Anticardiolipin, Lupus Inhibitior [facility] V[facility]ULAR SURGERY [address] [facility] [address] Discharging Physician: YRN [facility] Attending Physician: Jadiel Patrick MD documented in this encounter Discharge Instructions Instructions Michael Tijerina RN - 03/18/2012Patient Education Materials: discharge medication info Additional Instructions: Discharge Nurse: MICHAEL TIJERINA Date: 03/18/2012 Discharge Time: 11:42 AM AttachmentsThe following attachments cannot be sent through Care Everywhere.Pulmonary Embol ism: After Your VisitLearning About How to Prevent Blood ClotsenoxaparinEnoxaparin (Lovenox) : After Your Visithydromorphone (oral)Taking Warfarin Safely (Long-Term): After Your Visitdo cumented in this encounter Medications at Time of [...] documented as of this encounter Progress Notes Almita Hector, YRN - 03/18/2012 9:10 AM PDTFormatting of this note might be different f rom the original. VASCULAR AND ENDOVASCULAR SURGERY Progress Note: Hospital Day #: 6 ATTENDING: Jadiel Patrick MD Interval Events: 1. No acute overnight events. Pt remains afebrile and other vital signs are within acceptab le limits. 2. Pain is adequately controlled. Objective: Last Vitals: BP 124/64 | Pulse 92 | Temp 36.6 C (97.9 F) | RR 17 | Ht 1.702 m (5' 7") | Wt 106.9 kg (235 lb 10.8 oz) | SpO2 96% | BMI 36.91 kg/(m^2) 24 Hour Vital Min/Max: Systolic (24hrs), Av mmHg, Min:118 mmHg, Max:138 mmHg Diastolic (24hrs), Av mmHg, Min:63 mmHg, Max:75 mmHg Pulse Min: 89 Max: 123 Temp Min: 36.5 C (97.7 F) Max: 36.6 C (97.9 F) Resp Min: 17 Max: 18 SpO2 Min: 95 % Max: 100 % Intake/Output Summary (Last 24 hours) at 03/18/12 0910 Last data filed at 03/18/12 0845 Gross per 24 hour Intake 2110 ml Output 1625 ml Net 485 ml Labs: BMP: last 72 Hours (or 3 results): Recent Labs Basename 03/17/12 2154 03/17/12 1752 03/17/12 1338 NA -- -- -- K -- -- -- CL -- -- -- BICARB -- -- -- BUN -- -- -- CR -- -- -- GLU 78 102* 111* CA -- -- -- MG -- -- -- PO4 -- -- -- CBC with diff last 72 hours (or 3 results) Recent Labs Basename 03/18/12 0550 03/17/12 0520 03/16/12 0527 WBC 6.7 6.2|6.2 6.3|6.3 HB 11.4* 11.1*|11.1* 10.9*|10.9* HCT 35.1* 34.0*|34.0* 34.1*|34.1* PLT 241 223|223 209|209 NEUTROPERC 53 54 53 BANDPCT -- -- -- LYMPHPERC 33 32 33 MONOPERC 7 7 7 BASOPERC 1 1 1 EOSPERC 7* 7* 7* Lab Results Component Value Date INRPT 1.24* 03/18/2012 Physical Exam: Gen: Alert, oriented, NAD, lying comfortably in bed. Resp: distant breath sounds, diminished bilateral bases CV: RRR, S1, S2 Abd: Soft, NT, ND, BS+ Extremities: RLE edema + 1, tender to palpation, warm and perfused. Assessment and Plan: Patient Active Problem List Diagnoses DVT (deep venous thrombosis) Pulmonary embolism Assessment and Plan: Marshall Smalls is a 41 year old woman s/p gastric bypass 20 years ago with reported h/o josee enital heart disease, familial h/o PE and DVT with RLE DVT and extensive bilateral pulmonary emboli. RLE DVT, PE: -lovenox 100mg SQ every 12 hours, bridge to warfarin anticoagulation. INR sub therapeutic. MAP to assist with lovenox Rx as pt. Is non sponsored. Target INR 2.0-3.0 , Acute pain: -dilaudid PO and APAP,oral pain meds tolerated Coagulopathy: -CT negative for malignancy. 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 -coagulopathy panel (factor V leiden, prothrombin gene mutation, anticardiolipin) pending. Lupus inhibitor evaluation hindered by presence of heparin. ; hypercoagulable state ; heme recommends life long anticoagulation Myocardial hx of hypertension; metoprolol 25mg BID, ( pre hospital on propranolol, will tr ansition to 20mg BID) Urinary Voiding Surgical Infection none Thromboprophylaxis - therapeutic lovenox to warfarin anticoagulation; pt has been educated Diabetes Care Not indicated Oxygen/ Pulmonary breathing easily on room air, > 92% with ambulation, Dispo needs: Plan for Discharge today Follow at PCP office on 03/19 for INR check has been arranged. Followup at Vascular Surgery clinic 6-8 weeks YRN [facility] [id number] [facility] [address] This assessment and plan was formulated both independently and in conjunction with the [facility] ular Surgery Team as well as the attending provider of record above regarding management of this patient and their medical issues. It is accurate to the best of my knowledge, and is s ubject to modification based on clinical developments, new data, or final imaging results. Current Inpatient Medications Medication Dose Route Frequency acetaminophen (aka TYLENOL) tablet 325-650 mg 325-650 mg Oral Q4H PRN calcium carbonate chewable (aka TUMS) tablet 500 mg 500 mg Oral PRN enoxaparin (aka LOVENOX) injection 100 mg 100 mg Subcutaneous Q12H HYDROmorphone (aka DILAUDID) injection 0.2-0.8 mg 0.2-0.8 mg Intravenous Q2H PRN HYDROmorphone (aka DILAUDID) tablet 2-4 mg 2-4 mg Oral Q3H PRN metoprolol tartrate (aka LOPRESSOR) tablet 25 mg 25 mg Oral BID ondansetron (aka ZOFRAN) injection 4 mg 4 mg Intravenous Q12H PRN promethazine (aka PHENERGAN) injection 6.25 mg 6.25 mg Intravenous Q6H PRN senna-docusate (aka SENOKOT S) 8.6-50 mg 1 Tab 1 Tab Oral BID warfarin (aka COUMADIN) tablet 7.5 mg 7.5 mg Oral QPM Almita Jacobson F RETAIL PERFORMANCE COACH - 03/17/2012 8:54 AM PDT VASCULAR AND ENDOVASCULAR SURGERY Progress Note: Hospital Day #: 5 ATTENDING: Jadiel Patrick MD Interval Events: 1. No acute overnight events. Pt remains afebrile and other vital signs are within acceptab le limits. 2. Pain is adequately controlled. Objective: Last Vitals: BP 109/63 | Pulse 95 | Temp 36.5 C (97.7 F) | RR 18 | Ht 1.702 m (5' 7") | Wt 106.9 kg (235 lb 10.8 oz) | SpO2 98% | BMI 36.91 kg/(m^2) 24 Hour Vital Min/Max: Systolic (24hrs), Av mmHg, Min:109 mmHg, Max:130 mmHg Diastolic (24hrs), Av mmHg, Min:59 mmHg, Max:73 mmHg Pulse Min: 93 Max: 110 Temp Min: 36.3 C (97.3 F) Max: 36.6 C (97.9 F) Resp Min: 16 Max: 18 SpO2 Min: 95 % Max: 100 % Intake/Output Summary (Last 24 hours) at 03/17/12 0854 Last data filed at 03/17/12 0820 Gross per 24 hour Intake 720 ml Output 750 ml Net -30 ml Labs: BMP: last 72 Hours (or 3 results): Recent Labs Basename 03/16/12 2121 03/16/12 1831 03/16/12 1433 NA -- -- -- K -- -- -- CL -- -- -- BICARB -- -- -- BUN -- -- -- CR -- -- -- GLU 74 84 107* CA -- -- -- MG -- -- -- PO4 -- -- -- CBC with diff last 72 hours (or 3 results) Recent Labs Basename 03/17/12 0520 03/16/12 0527 03/15/12 1045 03/15/12 0620 WBC 6.2|6.2 6.3|6.3 6.2 -- HB 11.1*|11.1* 10.9*|10.9* 10.9* -- HCT 34.0*|34.0* 34.1*|34.1* 33.6* -- PLT 223|223 209|209 216 -- NEUTROPERC 54 53 -- 61 BANDPCT -- -- -- -- LYMPHPERC 32 33 -- 26 MONOPERC 7 7 -- 7 BASOPERC 1 1 -- 0 EOSPERC 7* 7* -- 6* Lab Results Component Value Date INRPT 1.06 03/17/2012 Physical Exam: Gen: Alert, oriented, NAD, lying comfortably in bed. Resp: distant breath sounds, diminished bilateral bases CV: RRR, S1, S2 Abd: Soft, NT, ND, BS+, no organomegaly. Extremities: RLE edema, tender to palpation, warm and perfused. Assessment and Plan: Patient Active Problem List Diagnoses DVT (deep venous thrombosis) Pulmonary embolism Marshall Smalls is a 41 y.o. female, hospital day # 5, Assessment and Plan: Marshall Smalls is a 41 year old woman s/p gastric bypass 20 years ago with reported h/o josee enital heart disease, familial h/o PE and DVT with RLE DVT and extensive bilateral pulmonary emboli. RLE DVT, PE: -lovenox 100mg SQ every 12 hours, bridge to warfarin anticoagulation. INR sub therapeutic. MAP to assist with lovenox Rx as pt. Is non sponsored. Target INR 2.0-3.0 , INR subtherapeutic today. Acute pain: -dilaudid PO and IV prn, enc use of oral pain med in anticipation of discharge Coagulopathy: -CT negative for malignancy. 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 -coagulopathy panel (factor V leiden, prothrombin gene mutation, anticardiolipin) pending. Lupus inhibitor evaluation hindered by presence of heparin. -we thank [facility] for their time and recommendations; hypercoagulable state ; [facility] recommends life long anticoagulation Myocardial hx of hypertension; increase metoprolol 25mg BID, ( pre hospital on propranolol) Urinary Voiding Surgical Infection none Thromboprophylaxis - therapeutic lovenox to warfarin anticoagulation; pt to learn to admini ster Diabetes Care Not indicated Oxygen/ Pulmonary No longer needs oxygen, > 92% with ambulation, Dispo needs: MAP program to provide Lovenox injections, self pay for warfarin/dilaudid tabs Plan for Discharge in A.M. Follow at PCP office on 03/19 for INR check has been arranged. YRN [facility] [id number] [facility] [address] This assessment and plan was formulated both independently and in conjunction with the [facility] ular Surgery Team as well as the attending provider of record above regarding management of this patient and their medical issues. It is accurate to the best of my knowledge, and is s ubject to modification based on clinical developments, new data, or final imaging results. Current Inpatient Medications Medication Dose Route Frequency acetaminophen (aka TYLENOL) tablet 325-650 mg 325-650 mg Oral Q4H PRN calcium carbonate chewable (aka TUMS) tablet 500 mg 500 mg Oral PRN enoxaparin (aka LOVENOX) injection 100 mg 100 mg Subcutaneous Q12H HYDROmorphone (aka DILAUDID) injection 0.2-0.8 mg 0.2-0.8 mg Intravenous Q2H PRN HYDROmorphone (aka DILAUDID) tablet 2-4 mg 2-4 mg Oral Q3H PRN metoprolol tartrate (aka LOPRESSOR) tablet 25 mg 25 mg Oral BID ondansetron (aka ZOFRAN) injection 4 mg 4 mg Intravenous Q12H PRN promethazine (aka PHENERGAN) injection 6.25 mg 6.25 mg Intravenous Q6H PRN senna-docusate (aka SENOKOT S) 8.6-50 mg 1 Tab 1 Tab Oral BID warfarin (aka COUMADIN) tablet 7.5 mg 7.5 mg Oral QPM Yuli Hameed M D - 03/16/2012 1:39 PM PDT [facility] Attending Physician: Jadiel Patrick MD Author: Yuli Crane MD Note Date: 03/15/2012 Admission Date: 03/12/2012 MARSHALL SMALLS, [id number] Hospital Day #4 ID: Marshall Smalls is a 41 year old woman s/p gastric bypass 20 years ago with reported h/o congenital heart disease, familial h/o PE and DVT with RLE DVT and extensive bilateral pulmo nary emboli. Interval Hx: -feels better today. -not ambulating as much as recommended. Current Inpatient Medications Medication Dose Route Frequency acetaminophen (aka TYLENOL) tablet 325-650 mg 325-650 mg Oral Q4H PRN calcium carbonate chewable (aka TUMS) tablet 500 mg 500 mg Oral PRN enoxaparin (aka LOVENOX) injection 100 mg 100 mg Subcutaneous Q12H HYDROmorphone (aka DILAUDID) injection 0.2-0.8 mg 0.2-0.8 mg Intravenous Q2H PRN HYDROmorphone (aka DILAUDID) tablet 2-4 mg 2-4 mg Oral Q3H PRN metoprolol tartrate (aka LOPRESSOR) tablet 12.5 mg 12.5 mg Oral BID ondansetron (aka ZOFRAN) injection 4 mg 4 mg Intravenous Q12H PRN promethazine (aka PHENERGAN) injection 6.25 mg 6.25 mg Intravenous Q6H PRN senna-docusate (aka SENOKOT S) 8.6-50 mg 1 Tab 1 Tab Oral BID warfarin (aka COUMADIN) tablet 5 mg 5 mg Oral QPM Physical Exam: Last Vitals: BP 118/64 | Pulse 102 | Temp 36.5 C (97.7 F) | RR 16 | Ht 1.702 m (5' 7") | Wt 108.6 kg (239 lb 6.7 oz) | SpO2 90% | BMI 37.50 kg/(m^2) O2 Delivery Device: None (room air) (03/16/12 1259) 24 Hour Vital Min/Max: Systolic (24hrs), Av mmHg, Min:118 mmHg, Max:134 mmHgDiastolic (24hrs), Av mmHg, M in:64 mmHg, Max:84 mmHgPulse Min: 70 Max: 104 Temp Min: 36.4 C (97.5 F) Max: 36.5 C (97.7 F) Resp Min: 18 Max: 20 SpO2 Min: 84 % Max: 98 % Intake/Output Summary (Last 24 hours) at 03/15/12 1251 Last data filed at 03/15/12 1000 Gross per 24 hour Intake 1312 ml Output 1800 ml Net -488 ml General Appearance: obese female anxious, resting in bed. Respiratory: ctab Extremities: improved right lower extremity swelling. @Chemistries: Last 72 Hours (or 3 results): Recent Labs Basename 03/14/12 2058 03/14/12 1753 03/14/12 1218 03/13/12 0100 NA -- -- -- 142 K -- -- -- 3.6 CL -- -- -- 107 BICARB -- -- -- 24 BUN -- -- -- 7 CR -- -- -- 0.79 GLU 86 105* 96 -- CA -- -- -- 8.8 MG -- -- -- -- PO4 -- -- -- -- @ Lab Results Component Value Date WBC 6.3 03/16/2012 WBC 6.3 03/16/2012 HB 10.9 03/16/2012 HB 10.9 03/16/2012 HCT 34.1 03/16/2012 HCT 34.1 03/16/2012 PLT 209 03/16/2012 PLT 209 03/16/2012 MCV 88.8 03/16/2012 MCV 88.8 03/16/2012 RDW 17.1 03/16/2012 RDW 17.1 03/16/2012 Assessment and Plan: Marshall Smalls is a 41 year old woman s/p gastric bypass 20 years ago with reported h/o josee enital heart disease, familial h/o PE and DVT with RLE DVT and extensive bilateral pulmonary emboli. DVT, PE: -lovenox and warfarin Acute pain: -dilaudid PO and IV Coagulopathy: -CT negative for malignancy. 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 -coagulopathy panel (factor V leiden, prothrombin gene mutation, anticardiolipin) pending. Lupus inhibitor evaluation hindered by presence of heparin. -we thank [facility] for their time and recommendations. Myocardial none indicated Urinary Voiding Surgical Infection none Thromboprophylaxis - therapeutic lovenox to warfarin Diabetes Care Not indicated Oxygen/ Pulmonary On O2 for comfort, but saturations in high 90s when off O2. Will advise caity lr to wean Dispo needs: likely this Saturday, when free lovenox can be administered to patient. Currentl y self-paying. Pt staffed with Dr. Jadiel Patrick MD attending of record Yuli Crane MD General Surgery Resident, R1 Pager [phone] [facility] [address] [address] Vascular Surgery Attending Note Date of History and Physical Examination: Mar 15, 2012 at 830am I saw and examined the patient with the resident. We discussed the history, physical examin ation, assessment, and plan of care. JADIEL PATRICK MD [facility] [id number] [place] [address] [facility] DEPARTMENT: [id number] - Vac Surg PPV Place of Service: - IP Modifiers: Suggested Level of Care: IP Established - 76697 - Level 2 2/3 25 min Procedure(s): [email or web address] MD - 03/15/2012 12:[address] [facility] VASCULAR SURGERY Attending Physician: Jadiel Patrick MD Author: Yuli Crane MD Note Date: 03/15/2012 Admission Date: 03/12/2012 MARSHALL SMALSL, [id number] Hospital Day #3 ID: Marshall Smalls is a 41 year old woman s/p gastric bypass 20 years ago with reported h/o congenital heart disease, familial h/o PE and DVT with RLE DVT and extensive bilateral pulmo nary emboli. Interval Hx: -very painful in RLE. Swelling seems to be improving with compression and elevation -tachypneic, but no desaturations, even when ambulating. Current Inpatient Medications Medication Dose Route Frequency acetaminophen (aka TYLENOL) tablet 325-650 mg 325-650 mg Oral Q4H PRN enoxaparin (aka LOVENOX) injection 100 mg 100 mg Subcutaneous Q12H HYDROmorphone (aka DILAUDID) injection 0.2-0.8 mg 0.2-0.8 mg Intravenous Q2H PRN HYDROmorphone (aka DILAUDID) tablet 2-4 mg 2-4 mg Oral Q3H PRN metoprolol tartrate (aka LOPRESSOR) tablet 12.5 mg 12.5 mg Oral BID ondansetron (aka ZOFRAN) injection 4 mg 4 mg Intravenous Q12H PRN promethazine (aka PHENERGAN) injection 6.25 mg 6.25 mg Intravenous Q6H PRN senna-docusate (aka SENOKOT S) 8.6-50 mg 1 Tab 1 Tab Oral BID warfarin (aka COUMADIN) tablet 5 mg 5 mg Oral QPM Physical Exam: Last Vitals: BP 133/79 | Pulse 103 | Temp 36.5 C (97.7 F) | RR 18 | Ht 1.702 m (5' 7") | Wt 108.6 kg (239 lb 6.7 oz) | SpO2 95% | BMI 37.50 kg/(m^2) O2 Delivery Device: Nasal cannula (03/15/12 0814) 24 Hour Vital Min/Max: Systolic (24hrs), Av mmHg, Min:126 mmHg, Max:133 mmHgDiastolic (24hrs), Av mmHg, M in:66 mmHg, Max:83 mmHgPulse Min: 70 Max: 104 Temp Min: 36.4 C (97.5 F) Max: 36.5 C (97.7 F) Resp Min: 18 Max: 20 SpO2 Min: 84 % Max: 98 % Intake/Output Summary (Last 24 hours) at 03/15/12 1251 Last data filed at 03/15/12 1000 Gross per 24 hour Intake 1312 ml Output 1800 ml Net -488 ml General Appearance: obese female anxious, resting in bed. Respiratory: ctab Extremities: improved right lower extremity swelling. 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 DVT, PE: -d/vivien heparin today, bridging with lovenox to warfarin starting today. Acute pain: -dilaudid PO and IV Coagulopathy: -CT negative for malignancy. 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 -coagulopathy panel (factor V leiden, prothrombin gene mutation, anticardiolipin, lupus inh ibitor eval) pending -we thank [facility] for their time and recommendations. Myocardial none indicated Urinary Voiding Surgical Infection none Thromboprophylaxis - therapeutic lovenox to warfarin Diabetes Care Not indicated Oxygen/ Pulmonary On O2 for comfort, but saturations in high 90s when off O2. Will advise n urses to wean Dispo needs: likely this Saturday, when free lovenox can be administered to patient. Currentl y self-paying. Pt staffed with Dr. Jadiel Patrick MD attending of record Yuli Crane MD General Surgery Resident, R1 Pager [phone] [facility] [address] [address] Vascular Surgery Attending Note Date of History and Physical Examination: Mar 15, 2012 at 830am I saw and examined the patient with the resident. We discussed the history, physical examin ation, assessment, and plan of care. JADIEL PATRICK MD [facility] [id number] [place] [address] [facility] DEPARTMENT: [id number] - Vac Surg PPV Place of Service: - IP Modifiers: Suggested Level of Care: IP Established - 70377 - Level 2 2/3 25 min Procedure(s): Jadiel Solorio MD - 01/2012 2:49 PM PDT VASCULAR AND ENDOVASCULAR SURGERY Progress Note: Hospital Day #: 2 ATTENDING: Jadiel Partick MD Interval Events: 1.Nausea and emesis due to oral narcotic pain meds, RLE Pain is not adequately controlled. Objective: Last Vitals: BP 126/77 | Pulse 102 | Temp 36.8 C (98.2 F) | RR 18 | Wt 107.4 kg (236 lb 12.4 oz) | SpO2 94% 24 Hour Vital Min/Max: Systolic (24hrs), Av mmHg, Min:117 mmHg, Max:132 mmHg Diastolic (24hrs), Av mmHg, Min:64 mmHg, Max:77 mmHg Pulse Min: 78 Max: 129 Temp Min: 36.2 C (97.2 F) Max: 36.8 C (98.2 F) Resp Min: 16 Max: 18 SpO2 Min: 94 % Max: 100 % Intake/Output Summary (Last 24 hours) at 03/14/12 1449 Last data filed at 03/14/12 1100 Gross per 24 hour Intake 1635.53 ml Output 1280 ml Net 355.53 ml Labs: BMP: last 72 Hours (or 3 results): Recent Labs Basename 03/14/12 1218 03/14/12 0751 03/13/12 2151 03/13/12 0100 NA -- -- -- 142 K -- -- -- 3.6 CL -- -- -- 107 BICARB -- -- -- 24 BUN -- -- -- 7 CR -- -- -- 0.79 GLU 96 121* 96 -- CA -- -- -- 8.8 MG -- -- -- -- PO4 -- -- -- -- CBC with diff last 72 hours (or 3 results) Recent Labs Basename 03/14/12 0535 03/13/12 0455 03/13/12 0100 WBC 7.1 7.4|7.4 7.2 HB 11.3* 11.6*|11.6* 11.6* HCT 34.8* 35.4*|35.4* 35.3* PLT 191 204|204 199 NEUTROPERC 64 58 61 BANDPCT -- -- -- LYMPHPERC 23 30 27 MONOPERC 7 7 7 BASOPERC 1 0 1 EOSPERC 5* 5* 5* Lab Results Component Value Date INRPT 1.30* 03/13/2012 Physical Exam: Gen: Alert, NAD, lying comfortably in bed. Resp: CTAB, no c/r/w CV: RRR, no m/r/g Abd: Central obesity, NT,BS+, Extremities: RLE 2+ edema, warm and perfused, tender to touch, firm phlebitic area posterior calf. Wigg les toes, unable to dorsiflex. Assessment and Plan: Patient Active Problem List Diagnoses DVT (deep venous thrombosis) Pulmonary embolism Hypertension Nausea and Vomiting Hypercoagulable state Marshall Smalls is a 41 y.o. female, hospital day # 2, admitted to [facility] Vascular Surgery serv ice due to deep venous thrombosis of the popliteal, posterior tibial, and peroneal veins of the right lower extremity. There is no evidence of venous thrombosis in the left lower extre mity. CT Scan done revealing bilateral extensive pulmonary emboli. - Tachypnea with min. Exertion, oxygen supplement, does not desat. Denies chest pain, lying flat in bed and comfortable -Nausea and emesis intermittently over last 24 hours with Oral oxycodone, now on oral dila udid. Per history does not tolerate narcotics well. -Pain and swelling in RLE; ASHLEY wrap and elevation to minimize edema and pain. Pt will use Acetaminophen and decrease narcotic use if possible. -OOB to BRP with walker, unable to bear weight on RLE today. P.T consulted -Non sponsored; financial office , Social work consult to assist community resources. Refe r to MAP for Enoxaparin injection medication. Myocardial - hx of HTN on propanolol, will start metoprolol 12.5mg bid Urinary - voiding in BR Surgical Infection - no signs of infection Thromboprophylaxis - heparin drip; will eventually transition to Enoxaparin with bridge to warfarin. Per Hematology life long anticoagulation therapy recommended. Hypercoag workup lab s drawn and pending, MAP assistance requested. Diabetes Care - CBG within normal limits; eating small amts. Hx of vertical banded gastrop lasty 1988, declines nutritional supplements. Start stool softener Oxygen/ Pulmonary - Tachypnea with minimal exertion; sats acceptable on room air. Denies c hest pain or orthopnea. HOB at 30 degrees Dispo: Continue acute care Discharge to home early next week with adult daughters who live with her to assist as neede d Followup with PCP Dr. Michelle Ndiaye at [facility] With INR check on Mar 19 at 3:45pm , fax # [phone] ALMITA HECTOR, CLINICAL OUTCOMES MANAGER [facility] [id number] [facility] [place] [address] This assessment and plan was formulated both independently and in conjunction with the [facility] ular Surgery Team as well as the attending provider of record above regarding management of this patient and their medical issues. It is accurate to the best of my knowledge, and is s ubject to modification based on clinical developments, new data, or final imaging results. Current Inpatient Medications Medication Dose Route Frequency acetaminophen (aka TYLENOL) tablet 325-650 mg 325-650 mg Oral Q4H PRN heparin bolus from continuous infusion (protocol) 4,300 Units 4,300 Units Intravenous NEEDED (BOLUS) heparin bolus from continuous infusion (protocol) 8,600 Units 8,600 Units Intravenous NEEDED (BOLUS) heparin in D5W IV infusion 25,000 units/250 mL (100 units/mL) 1-2,000 Units/hr Intrave nous CONTINUOUS HYDROmorphone (aka DILAUDID) injection 0.2-0.8 mg 0.2-0.8 mg Intravenous Q2H PRN HYDROmorphone (aka DILAUDID) tablet 2-4 mg 2-4 mg Oral Q3H PRN metoprolol tartrate (aka LOPRESSOR) tablet 12.5 mg 12.5 mg Oral BID ondansetron (aka ZOFRAN) injection 4 mg 4 mg Intravenous Q12H PRN promethazine (aka PHENERGAN) injection 6.25 mg 6.25 mg Intravenous Q6H PRN senna-docusate (aka SENOKOT S) 8.6-50 mg 1 Tab 1 Tab Oral BID Vascular Surgery Attending Note Date of History and Physical Examination: 03/14/2012 1845 I saw and examined the patient on the 11K ram. In brief, she is a 41 year old who has a ri ght popliteal and tibial DVT and bilateral PEs. Some SOB but perhaps slightly better on oxyg en. VSS. 1+ right calf edema. Convert to LMWH therapeutic dosing Start warfarin, goal INR 2.5 (range 2.0-3.0) Circ-Aid to right calf and counseled patient at length re leg elevation when not ambulation . JADIEL PATRICK MD [facility] [id number] [facility] [address] [facility] DEPARTMENT: [id number] - Vac Surg PPV Place of Service: - IP Modifiers: Suggested Level of Care: IP Established - 72095 - Level 2 2/3 25 min Procedure(s): documented in this enc ounter Plan of Treatment + +------+--------+ + + | Name | Type | Priori | Associated Diagnoses | Date/Time | | | | ty | | | + +------+--------+ + + | DIFFERENTIAL | Lab | Routin | | 03/12/2012 11:20 PM | | | | e | | PDT | + +------+--------+ + + | DIFFERENTIAL | Lab | Urgent | | 03/13/2012 3:05 AM | | | | | | PDT | + +------+--------+ + + | DIFFERENTIAL | Lab | Urgent | | 03/14/2012 3:05 AM | | | | | | PDT | + +------+--------+ + + | DIFFERENTIAL | Lab | Urgent | | 03/15/2012 3:05 AM | | | | | | PDT | + +------+--------+ + + | DIFFERENTIAL | Lab | Urgent | | 03/16/2012 3:05 AM | | | | | | PDT | + +------+--------+ + + | DIFFERENTIAL | Lab | Urgent | | 03/17/2012 3:05 AM | | | | | | PDT | + +------+--------+ + + | DIFFERENTIAL | Lab | Urgent | | 03/18/2012 3:05 AM | | | | | | PDT | + +------+--------+ + + + +------+--------+ + + | Name | Type | Priori | Associated Diagnoses | Order Schedule | | | | ty | | | + +------+--------+ + + | DIFFERENTIAL | Lab | Routin | | One Time for 1 | | | | e | | Occurrences starting | | | | | | 03/12/2012 until | | | | | | 03/12/2012 | + +------+--------+ + + | DIFFERENTIAL | Lab | Urgent | | One Time for 1 | | | | | | Occurrences starting | | | | | | 03/13/2012 until | | | | | | 03/13/2012 | + +------+--------+ + + | DIFFERENTIAL | Lab | Urgent | | One Time for 1 | | | | | | Occurrences starting | | | | | | 03/14/2012 until | | | | | | 03/14/2012 | + +------+--------+ + + | DIFFERENTIAL | Lab | Urgent | | One Time for 1 | | | | | | Occurrences starting | | | | | | 03/15/2012 until | | | | | | 03/15/2012 | + +------+--------+ + + | DIFFERENTIAL | Lab | Urgent | | One Time for 1 | | | | | | Occurrences starting | | | | | | 03/16/2012 until | | | | | | 03/16/2012 | + +------+--------+ + + | DIFFERENTIAL | Lab | Urgent | | One Time for 1 | | | | | | Occurrences starting | | | | | | 03/17/2012 until | | | | | | 03/17/2012 | + +------+--------+ + + | DIFFERENTIAL | Lab | Urgent | | One Time for 1 | | | | | | Occurrences starting | | | | | | 03/18/2012 until | | | | | | 03/18/2012 | + +------+--------+ + + documented as of this encounter Procedures + +--------+ + + + | Procedure Name | Priori | Date/Time | Associated Diagnosis | Comments | | | ty | | | | + +--------+ + + + | DIFFERENTIAL | Urgent | 03/18/2012 | | Results for this | | | | 5:50 AM | | procedure are in the | | | | PDT | | results section. | + +--------+ + + + | INR | Routin | 03/18/2012 | | Results for this | | | e | 5:50 AM | | procedure are in the | | | | PDT | | results section. | + +--------+ + + + | CBC, WITH | Urgent | 03/18/2012 | | Results for this | | DIFFERENTIAL | | 5:50 AM | | procedure are in the | | | | PDT | | results section. | + +--------+ + + + | CAPILLARY BLOOD | Routin | 03/17/2012 | | Results for this | | GLUCOSE (NO CHG), | e | 9:54 PM | | procedure are in the | | POC | | PDT | | results section. | + +--------+ + + + | CAPILLARY BLOOD | Routin | 03/17/2012 | | Results for this | | GLUCOSE (NO CHG), | e | 5:52 PM | | procedure are in the | | POC | | PDT | | results section. | + +--------+ + + + | CAPILLARY BLOOD | Routin | 03/17/2012 | | Results for this | | GLUCOSE (NO CHG), | e | 1:38 PM | | procedure are in the | | POC | | PDT | | results section. | + +--------+ + + + | CAPILLARY BLOOD | Routin | 03/17/2012 | | Results for this | | GLUCOSE (NO CHG), | e | 9:16 AM | | procedure are in the | | POC | | PDT | | results section. | + +--------+ + + + | DIFFERENTIAL | Urgent | 03/17/2012 | | Results for this | | | | 5:20 AM | | procedure are in the | | | | PDT | | results section. | + +--------+ + + + | INR | Routin | 03/17/2012 | | Results for this | | | e | 5:20 AM | | procedure are in the | | | | PDT | | results section. | + +--------+ + + + | CBC, WITH | Urgent | 03/17/2012 | | Results for this | | DIFFERENTIAL | | 5:20 AM | | procedure are in the | | | | PDT | | results section. | + +--------+ + + + | CBC ONLY | Urgent | 03/17/2012 | | Results for this | | | | 5:20 AM | | procedure are in the | | | | PDT | | results section. | + +--------+ + + + | CAPILLARY BLOOD | Routin | 03/16/2012 | | Results for this | | GLUCOSE (NO CHG), | e | 9:21 PM | | procedure are in the | | POC | | PDT | | results section. | + +--------+ + + + | CAPILLARY BLOOD | Routin | 03/16/2012 | | Results for this | | GLUCOSE (NO CHG), | e | 6:31 PM | | procedure are in the | | POC | | PDT | | results section. | + +--------+ + + + | HEPARIN, EITHER | Routin | 03/16/2012 | | Results for this | | STANDARD / LMW, | e | 2:37 PM | | procedure are in the | | BLOOD | | PDT | | results section. | + +--------+ + + + | CAPILLARY BLOOD | Routin | 03/16/2012 | | Results for this | | GLUCOSE (NO CHG), | e | 2:33 PM | | procedure are in the | | POC | | PDT | | results section. | + +--------+ + + + | HEPARIN, EITHER | Routin | 03/16/2012 | | Results for this | | STANDARD / LMW, | e | 1:28 PM | | procedure are in the | | BLOOD | | PDT | | results section. | + +--------+ + + + | HEPARIN, EITHER | Routin | 03/16/2012 | | Results for this | | STANDARD / LMW, | e | 1:07 PM | | procedure are in the | | BLOOD | | PDT | | results section. | + +--------+ + + + | CAPILLARY BLOOD | Routin | 03/16/2012 | | Results for this | | GLUCOSE (NO CHG), | e | 9:57 AM | | procedure are in the | | POC | | PDT | | results section. | + +--------+ + + + | DIFFERENTIAL | Urgent | 03/16/2012 | | Results for this | | | | 5:27 AM | | procedure are in the | | | | PDT | | results section. | + +--------+ + + + | INR | Routin | 03/16/2012 | | Results for this | | | e | 5:27 AM | | procedure are in the | | | | PDT | | results section. | + +--------+ + + + | CBC, WITH | Urgent | 03/16/2012 | | Results for this | | DIFFERENTIAL | | 5:27 AM | | procedure are in the | | | | PDT | | results section. | + +--------+ + + + | CBC ONLY | Urgent | 03/16/2012 | | Results for this | | | | 5:27 AM | | procedure are in the | | | | PDT | | results section. | + +--------+ + + + | CAPILLARY BLOOD | Routin | 03/15/2012 | | Results for this | | GLUCOSE (NO CHG), | e | 5:58 PM | | procedure are in the | | POC | | PDT | | results section. | + +--------+ + + + | CAPILLARY BLOOD | Routin | 03/15/2012 | | Results for this | | GLUCOSE (NO CHG), | e | 1:25 PM | | procedure are in the | | POC | | PDT | | results section. | + +--------+ + + + | CBC ONLY | Routin | 03/15/2012 | | Results for this | | | e | 10:45 AM | | procedure are in the | | | | PDT | | results section. | + +--------+ + + + | DIFFERENTIAL | Urgent | 03/15/2012 | | Results for this | | | | 6:20 AM | | procedure are in the | | | | PDT | | results section. | + +--------+ + + + | CBC, WITH | Urgent | 03/15/2012 | | Results for this | | DIFFERENTIAL | | 6:20 AM | | procedure are in the | | | | PDT | | results section. | + +--------+ + + + | CBC ONLY | Urgent | 03/15/2012 | | Results for this | | | | 6:20 AM | | procedure are in the | | | | PDT | | results section. | + +--------+ + + + | CAPILLARY BLOOD | Routin | 03/14/2012 | | Results for this | | GLUCOSE (NO CHG), | e | 8:58 PM | | procedure are in the | | POC | | PDT | | results section. | + +--------+ + + + | APTT (ACT. PART. | Routin | 03/14/2012 | | Results for this | | THROMBO TIME) | e | 7:06 PM | | procedure are in the | | | | PDT | | results section. | + +--------+ + + + | CAPILLARY BLOOD | Routin | 03/14/2012 | | Results for this | | GLUCOSE (NO CHG), | e | 5:53 PM | | procedure are in the | | POC | | PDT | | results section. | + +--------+ + + + | PROTHROMBIN GENE | Routin | 03/14/2012 | | Results for this | | MUTATION, BLOOD | e | 12:55 PM | | procedure are in the | | | | PDT | | results section. | + +--------+ + + + | FACTOR V (5) LEIDEN | Routin | 03/14/2012 | | Results for this | | BLOOD | e | 12:55 PM | | procedure are in the | | | | PDT | | results section. | + +--------+ + + + | CAPILLARY BLOOD | Routin | 03/14/2012 | | Results for this | | GLUCOSE (NO CHG), | e | 12:18 PM | | procedure are in the | | POC | | PDT | | results section. | + +--------+ + + + | APTT (ACT. PART. | Routin | 03/14/2012 | | Results for this | | THROMBO TIME) | e | 11:00 AM | | procedure are in the | | | | PDT | | results section. | + +--------+ + + + | CAPILLARY BLOOD | Routin | 03/14/2012 | | Results for this | | GLUCOSE (NO CHG), | e | 7:51 AM | | procedure are in the | | POC | | PDT | | results section. | + +--------+ + + + | DIFFERENTIAL | Urgent | 03/14/2012 | | Results for this | | | | 5:35 AM | | procedure are in the | | | | PDT | | results section. | + +--------+ + + + | CBC, WITH | Urgent | 03/14/2012 | | Results for this | | DIFFERENTIAL | | 5:35 AM | | procedure are in the | | | | PDT | | results section. | + +--------+ + + + | LUPUS INHIBITOR | Routin | 03/14/2012 | | Results for this | | EVALUATION WITH | e | 5:35 AM | | procedure are in the | | REFLEXES | | PDT | | results section. | + +--------+ + + + | ANTICARDIOLIPIN | Routin | 03/14/2012 | | Results for this | | IGG/M | e | 5:35 AM | | procedure are in the | | | | PDT | | results section. | + +--------+ + + + | APTT 1:1 MIX, PLASMA | Routin | 03/14/2012 | | Results for this | | | e | 5:35 AM | | procedure are in the | | | | PDT | | results section. | + +--------+ + + + | APTT (ACT. PART. | Urgent | 03/14/2012 | | Results for this | | THROMBO TIME) | | 2:35 AM | | procedure are in the | | | | PDT | | results section. | + +--------+ + + + | CAPILLARY BLOOD | Routin | 03/13/2012 | | Results for this | | GLUCOSE (NO CHG), | e | 9:51 PM | | procedure are in the | | POC | | PDT | | results section. | + +--------+ + + + | APTT (ACT. PART. | Routin | 03/13/2012 | | Results for this | | THROMBO TIME) | e | 9:18 PM | | procedure are in the | | | | PDT | | results section. | + +--------+ + + + | CAPILLARY BLOOD | Routin | 03/13/2012 | | Results for this | | GLUCOSE (NO CHG), | e | 5:19 PM | | procedure are in the | | POC | | PDT | | results section. | + +--------+ + + + | VASC LAB VENOUS | Urgent | 03/13/2012 | | Results for this | | DUPLEX LOWER | | 3:10 PM | | procedure are in the | | EXTREMITY BILAT COMP | | PDT | | results section. | + +--------+ + + + | APTT (ACT. PART. | Urgent | 03/13/2012 | | Results for this | | THROMBO TIME) | | 12:32 PM | | procedure are in the | | | | PDT | | results section. | + +--------+ + + + | CT CHEST, ABDOMEN | Routin | 03/13/2012 | | Results for this | | AND PELVIS W IV | e | 11:56 AM | | procedure are in the | | CONTRAST | | PDT | | results section. | + +--------+ + + + | X-RAY PORTABLE CHEST | Routin | 03/13/2012 | | Results for this | | 1 VIEW | e | 9:24 AM | | procedure are in the | | | | PDT | | results section. | + +--------+ + + + | APTT (ACT. PART. | Routin | 03/13/2012 | | Results for this | | THROMBO TIME) | e | 5:01 AM | | procedure are in the | | | | PDT | | results section. | + +--------+ + + + | DIFFERENTIAL | Urgent | 03/13/2012 | | Results for this | | | | 4:55 AM | | procedure are in the | | | | PDT | | results section. | + +--------+ + + + | CBC, WITH | Urgent | 03/13/2012 | | Results for this | | DIFFERENTIAL | | 4:55 AM | | procedure are in the | | | | PDT | | results section. | + +--------+ + + + | CBC ONLY | Urgent | 03/13/2012 | | Results for this | | | | 4:55 AM | | procedure are in the | | | | PDT | | results section. | + +--------+ + + + | CONFIRMATORY ABO/RH | Routin | 03/13/2012 | | Results for this | | | e | 3:09 AM | | procedure are in the | | | | PDT | | results section. | + +--------+ + + + | DIFFERENTIAL | Routin | 03/13/2012 | | Results for this | | | e | 1:00 AM | | procedure are in the | | | | PDT | | results section. | + +--------+ + + + | INR | Routin | 03/13/2012 | | Results for this | | | e | 1:00 AM | | procedure are in the | | | | PDT | | results section. | + +--------+ + + + | CBC, WITH | Routin | 03/13/2012 | | Results for this | | DIFFERENTIAL | e | 1:00 AM | | procedure are in the | | | | PDT | | results section. | + +--------+ + + + | BASIC METABOLIC SET | Routin | 03/13/2012 | | Results for this | | (NA, K, CL, TCO2, | e | 1:00 AM | | procedure are in the | | BUN, CR, GLU, CA) | | PDT | | results section. | + +--------+ + + + | APTT (ACT. PART. | Routin | 03/13/2012 | | Results for this | | THROMBO TIME) | e | 1:00 AM | | procedure are in the | | | | PDT | | results section. | + +--------+ + + + | CAPILLARY BLOOD | Routin | 03/12/2012 | | Results for this | | GLUCOSE (NO CHG), | e | 11:51 PM | | procedure are in the | | POC | | PDT | | results section. | + +--------+ + + + | URINE, MICROSCOPIC | Routin | 03/12/2012 | | Results for this | | EXAM | e | 11:26 PM | | procedure are in the | | | | PDT | | results section. | + +--------+ + + + | TYPE AND SCREEN | Routin | 03/12/2012 | | Results for this | | | e | 11:20 PM | | procedure are in the | | | | PDT | | results section. | + +--------+ + + + documented in this encounter Results DIFFERENTIAL (03/18/2012 5:50 AM PDT) + +-------+ + + + | Component | Value | Ref Range | Performed | Pathologist | | | | | At | Signature | + +-------+ + + + | NEUTROPHIL | 53 | 50 - 70 % | [facility] | | | % | | | DEPARTMENT | | | | | | OF | | | | | | PATHOLOGY | | + +-------+ + + + | LYMPHOCYTE | 33 | 18 - 42 % | [facility] | | | % | | | DEPARTMENT | | | | | | OF | | | | | | PATHOLOGY | | + +-------+ + + + | MONOCYTE % | 7 | 2 - 8 % | [facility] | | | | | | DEPARTMENT | | | | | | OF | | | | | | PATHOLOGY | | + +-------+ + + + | EOS % | 7 (H) | 1 - 3 % | [facility] | | | | | | DEPARTMENT | | | | | | OF | | | | | | PATHOLOGY | | + +-------+ + + + | BASO % | 1 | <3 % | [facility] | | | | | | DEPARTMENT | | | | | | OF | | | | | | PATHOLOGY | | + +-------+ + + + | NEUTROPHIL | 3.5 | 1.8 - 7.7 K/cu | [facility] | | | # | | mm | DEPARTMENT | | | | | | OF | | | | | | PATHOLOGY | | + +-------+ + + + | LYMPHOCYTE | 2.2 | 1.0 - 4.8 K/cu | [facility] | | | # | | mm | DEPARTMENT | | | | | | OF | | | | | | PATHOLOGY | | + +-------+ + + + | MONOCYTE # | 0.5 | <0.9 K/cu mm | [facility] | | | | | | DEPARTMENT | | | | | | OF | | | | | | PATHOLOGY | | + +-------+ + + + | EOS # | 0.5 | <0.6 K/cu mm | [facility] | | | | | | DEPARTMENT | | | | | | OF | | | | | | PATHOLOGY | | + +-------+ + + + | BASO # | 0.1 | <0.3 | [facility] | | | | | | DEPARTMENT | | | | | | OF | | | | | | PATHOLOGY | | + +-------+ + + + + + | Specimen | + + | | + + + + + + + | Performing | Address | City/State/Zipcode | Phone Number | | Organization | | | | + + + + + | [facility] | [address] | [place] [address] | | | PATHOLOGY | [address] | | | + + + + + INR (03/18/2012 5:50 AM PDT) + + + + + + | Component | Value | Ref Range | Performed | Pathologist | | | | | At | Signature | + + + + + + | INR | 1.24 (H)Comment: | 0.90 - 1.20 INR | [facility] | | | | INR Therapeutic ranges | | DEPARTMENT | | | | for full | | OF | | | | anticoagulation: | | PATHOLOGY | | | | INR for Venous | | | | | | Thromboembolism | | | | | | (2.0-3.0) | | | | | | INR INR for most | | | | | | patients with mech. | | | | | | valves (2.5-3.5) | | | | | | INR | | | | + + + + + + + + | Specimen | + + | Blood - Blood | + + + + + + + | Performing | Address | City/State/Zipcode | Phone Number | | Organization | | | | + + + + + | [facility] | [address] | [place] [address] | | | PATHOLOGY | [address] | | | + + + + + CBC, WITH DIFFERENTIAL (03/18/2012 5:50 AM PDT) + + + + + + | Component | Value | Ref Range | Performed | Pathologist | | | | | At | Signature | + + + + + + | WHITE CELL | 6.7 | 4.4 - 11.0 K/cu | [facility] | | | COUNT | | mm | DEPARTMENT | | | | | | OF | | | | | | PATHOLOGY | | + + + + + + | RED CELL | 3.97 (L) | 4.00 - 5.20 | [facility] | | | COUNT | | M/cu mm | DEPARTMENT | | | | | | OF | | | | | | PATHOLOGY | | + + + + + + | HEMOGLOBIN | 11.4 (L) | 12.0 - 16.0 | [facility] | | | | | g/dL | DEPARTMENT | | | | | | OF | | | | | | PATHOLOGY | | + + + + + + | HEMATOCRIT | 35.1 (L) | 36.0 - 46.0 % | [facility] | | | | | | DEPARTMENT | | | | | | OF | | | | | | PATHOLOGY | | + + + + + + | MCV | 88.4 | 80.0 - 96.0 fL | [facility] | | | | | | DEPARTMENT | | | | | | OF | | | | | | PATHOLOGY | | + + + + + + | MCHC | 32.6 (L) | 33.4 - 35.5 | [facility] | | | | | g/dL | DEPARTMENT | | | | | | OF | | | | | | PATHOLOGY | | + + + + + + | RDW | 17.3 (H) | 11.5 - 15.0 % | [facility] | | | | | | DEPARTMENT | | | | | | OF | | | | | | PATHOLOGY | | + + + + + + | PLATELET | 241 | 150 - 400 K/cu | [facility] | | | COUNT | | mm | DEPARTMENT | | | | | | OF | | | | | | PATHOLOGY | | + + + + + + + + | Specimen | + + | Blood - Blood | + + + + + + + | Performing | Address | City/State/Zipcode | Phone Number | | Organization | | | | + + + + + | [facility] | [address] | [place] [address] | | | PATHOLOGY | [address] | | | + + + + + CAPILLARY BLOOD GLUCOSE, POC (03/17/2012 9:54 PM PDT) + +-------+ + + + | Component | Value | Ref Range | Performed | Pathologist | | | | | At | Signature | + +-------+ + + + | BLOOD | 78 | 60 - 99 mg/dL | [facility] | | | GLUCOSE, | | | [facility] | | | POC | | | [facility] | | | | | | OF CARE | | | | | | TESTS | | + +-------+ + + + + + | Specimen | + + | | + + + + + + + | Performing | Address | City/State/Zipcode | Phone Number | | Organization | | | | + + + + + | [facility] | [address] | [place], [place] | | | [facility] | [address] | [address] | | | TESTS | | | | + + + + + CAPILLARY BLOOD GLUCOSE, POC (03/17/2012 5:52 PM PDT) + +---------+ + + + | Component | Value | Ref Range | Performed | Pathologist | | | | | At | Signature | + +---------+ + + + | BLOOD | 102 (H) | 60 - 99 mg/dL | [facility] | | | GLUCOSE, | | | [facility] | | | POC | | | [place] | | | | | | OF CARE | | | | | | TESTS | | + +---------+ + + + + + | Specimen | + + | | + + + + + + + | Performing | Address | City/State/Zipcode | Phone Number | | Organization | | | | + + + + + | [facility] | [address] | [place], [place] | | | [facility] | [address] | [address] | | | TESTS | | | | + + + + + CAPILLARY BLOOD GLUCOSE, POC (03/17/2012 1:38 PM PDT) + +---------+ + + + | Component | Value | Ref Range | Performed | Pathologist | | | | | At | Signature | + +---------+ + + + | BLOOD | 111 (H) | 60 - 99 mg/dL | [facility] | | | GLUCOSE, | | | [facility] | | | POC | | | [facility] | | | | | | OF CARE | | | | | | TESTS | | + +---------+ + + + + + | Specimen | + + | | + + + + + + + | Performing | Address | City/State/Zipcode | Phone Number | | Organization | | | | + + + + + | [facility] | [address] | [place], [place] | | | [facility] | [address] | [address] | | | TESTS | | | | + + + + + CAPILLARY BLOOD GLUCOSE, POC (03/17/2012 9:16 AM PDT) + +---------+ + + + | Component | Value | Ref Range | Performed | Pathologist | | | | | At | Signature | + +---------+ + + + | BLOOD | 111 (H) | 60 - 99 mg/dL | [facility] | | | GLUCOSE, | | | [facility] | | | POC | | | [facility] | | | | | | OF CARE | | | | | | TESTS | | + +---------+ + + + + + | Specimen | + + | | + + + + + + + | Performing | Address | City/State/Zipcode | Phone Number | | Organization | | | | + + + + + | [facility] | [address] | [place], [place] | | | [facility] | [address] | [address] | | | TESTS | | | | + + + + + DIFFERENTIAL (03/17/2012 5:20 AM PDT) + +-------+ + + + | Component | Value | Ref Range | Performed | Pathologist | | | | | At | Signature | + +-------+ + + + | NEUTROPHIL | 54 | 50 - 70 % | [facility] | | | % | | | DEPARTMENT | | | | | | OF | | | | | | PATHOLOGY | | + +-------+ + + + | LYMPHOCYTE | 32 | 18 - 42 % | [facility] | | | % | | | DEPARTMENT | | | | | | OF | | | | | | PATHOLOGY | | + +-------+ + + + | MONOCYTE % | 7 | 2 - 8 % | [facility] | | | | | | DEPARTMENT | | | | | | OF | | | | | | PATHOLOGY | | + +-------+ + + + | EOS % | 7 (H) | 1 - 3 % | [facility] | | | | | | DEPARTMENT | | | | | | OF | | | | | | PATHOLOGY | | + +-------+ + + + | BASO % | 1 | <3 % | [facility] | | | | | | DEPARTMENT | | | | | | OF | | | | | | PATHOLOGY | | + +-------+ + + + | NEUTROPHIL | 3.3 | 1.8 - 7.7 K/cu | [facility] | | | # | | mm | DEPARTMENT | | | | | | OF | | | | | | PATHOLOGY | | + +-------+ + + + | LYMPHOCYTE | 2.0 | 1.0 - 4.8 K/cu | [facility] | | | # | | mm | DEPARTMENT | | | | | | OF | | | | | | PATHOLOGY | | + +-------+ + + + | MONOCYTE # | 0.4 | <0.9 K/cu mm | [facility] | | | | | | DEPARTMENT | | | | | | OF | | | | | | PATHOLOGY | | + +-------+ + + + | EOS # | 0.4 | <0.6 K/cu mm | [facility] | | | | | | DEPARTMENT | | | | | | OF | | | | | | PATHOLOGY | | + +-------+ + + + | BASO # | 0.1 | <0.3 | [facility] | | | | | | DEPARTMENT | | | | | | OF | | | | | | PATHOLOGY | | + +-------+ + + + + + | Specimen | + + | | + + + + + + + | Performing | Address | City/State/Zipcode | Phone Number | | Organization | | | | + + + + + | [facility] | [address] | [place] [address] | | | PATHOLOGY | [address] | | | + + + + + INR (03/17/2012 5:20 AM PDT) + + + + + + | Component | Value | Ref Range | Performed | Pathologist | | | | | At | Signature | + + + + + + | INR | 1.06Comment: | 0.90 - 1.20 INR | [facility] | | | | INR Therapeutic ranges | | DEPARTMENT | | | | for full | | OF | | | | anticoagulation: | | PATHOLOGY | | | | INR for Venous | | | | | | Thromboembolism | | | | | | (2.0-3.0) | | | | | | INR INR for most | | | | | | patients with mech. | | | | | | valves (2.5-3.5) | | | | | | INR | | | | + + + + + + + + | Specimen | + + | Blood - Blood | + + + + + + + | Performing | Address | City/State/Zipcode | Phone Number | | Organization | | | | + + + + + | [facility] | [address] | [place] [address] | | | PATHOLOGY | [address] | | | + + + + + CBC ONLY (03/17/2012 5:20 AM PDT) + + + + + + | Component | Value | Ref Range | Performed | Pathologist | | | | | At | Signature | + + + + + + | WHITE CELL | 6.2 | 4.4 - 11.0 K/cu | [facility] | | | COUNT | | mm | DEPARTMENT | | | | | | OF | | | | | | PATHOLOGY | | + + + + + + | RED CELL | 3.87 (L) | 4.00 - 5.20 | [facility] | | | COUNT | | M/cu mm | DEPARTMENT | | | | | | OF | | | | | | PATHOLOGY | | + + + + + + | HEMOGLOBIN | 11.1 (L) | 12.0 - 16.0 | [facility] | | | | | g/dL | DEPARTMENT | | | | | | OF | | | | | | PATHOLOGY | | + + + + + + | HEMATOCRIT | 34.0 (L) | 36.0 - 46.0 % | [facility] | | | | | | DEPARTMENT | | | | | | OF | | | | | | PATHOLOGY | | + + + + + + | MCV | 87.8 | 80.0 - 96.0 fL | [facility] | | | | | | DEPARTMENT | | | | | | OF | | | | | | PATHOLOGY | | + + + + + + | MCHC | 32.7 (L) | 33.4 - 35.5 | [facility] | | | | | g/dL | DEPARTMENT | | | | | | OF | | | | | | PATHOLOGY | | + + + + + + | RDW | 17.2 (H) | 11.5 - 15.0 % | [facility] | | | | | | DEPARTMENT | | | | | | OF | | | | | | PATHOLOGY | | + + + + + + | PLATELET | 223 | 150 - 400 K/cu | [facility] | | | COUNT | | mm | DEPARTMENT | | | | | | OF | | | | | | PATHOLOGY | | + + + + + + + + | Specimen | + + | Blood - Blood | + + + + + + + | Performing | Address | City/State/Zipcode | Phone Number | | Organization | | | | + + + + + | [facility] | [address] | [place] [address] | | | PATHOLOGY | [address] | | | + + + + + CBC, WITH DIFFERENTIAL (03/17/2012 5:20 AM PDT) + + + + + + | Component | Value | Ref Range | Performed | Pathologist | | | | | At | Signature | + + + + + + | WHITE CELL | 6.2 | 4.4 - 11.0 K/cu | [facility] | | | COUNT | | mm | DEPARTMENT | | | | | | OF | | | | | | PATHOLOGY | | + + + + + + | RED CELL | 3.87 (L) | 4.00 - 5.20 | [facility] | | | COUNT | | M/cu mm | DEPARTMENT | | | | | | OF | | | | | | PATHOLOGY | | + + + + + + | HEMOGLOBIN | 11.1 (L) | 12.0 - 16.0 | [facility] | | | | | g/dL | DEPARTMENT | | | | | | OF | | | | | | PATHOLOGY | | + + + + + + | HEMATOCRIT | 34.0 (L) | 36.0 - 46.0 % | [facility] | | | | | | DEPARTMENT | | | | | | OF | | | | | | PATHOLOGY | | + + + + + + | MCV | 87.8 | 80.0 - 96.0 fL | [facility] | | | | | | DEPARTMENT | | | | | | OF | | | | | | PATHOLOGY | | + + + + + + | MCHC | 32.7 (L) | 33.4 - 35.5 | [facility] | | | | | g/dL | DEPARTMENT | | | | | | OF | | | | | | PATHOLOGY | | + + + + + + | RDW | 17.2 (H) | 11.5 - 15.0 % | [facility] | | | | | | DEPARTMENT | | | | | | OF | | | | | | PATHOLOGY | | + + + + + + | PLATELET | 223 | 150 - 400 K/cu | [facility] | | | COUNT | | mm | DEPARTMENT | | | | | | OF | | | | | | PATHOLOGY | | + + + + + + + + | Specimen | + + | Blood - Blood | + + + + + + + | Performing | Address | City/State/Zipcode | Phone Number | | Organization | | | | + + + + + | [facility] | [address] | [place] [address] | | | PATHOLOGY | [address] | | | + + + + + CAPILLARY BLOOD GLUCOSE, POC (03/16/2012 9:21 PM PDT) + +-------+ + + + | Component | Value | Ref Range | Performed | Pathologist | | | | | At | Signature | + +-------+ + + + | BLOOD | 74 | 60 - 99 mg/dL | [facility] - | | | GLUCOSE, | | | [facility] | | | POC | | | [facility] | | | | | | OF CARE | | | | | | TESTS | | + +-------+ + + + + + | Specimen | + + | | + + + + + + + | Performing | Address | City/State/Zipcode | Phone Number | | Organization | | | | + + + + + | [facility] | [address] | [place], [place] | | | [facility] | [address] | [address] | | | TESTS | | | | + + + + + CAPILLARY BLOOD GLUCOSE, POC (03/16/2012 6:31 PM PDT) + +-------+ + + + | Component | Value | Ref Range | Performed | Pathologist | | | | | At | Signature | + +-------+ + + + | BLOOD | 84 | 60 - 99 mg/dL | [facility] - | | | GLUCOSE, | | | [facility] | | | POC | | | [facility] | | | | | | OF CARE | | | | | | TESTS | | + +-------+ + + + + + | Specimen | + + | | + + + + + + + | Performing | Address | City/State/Zipcode | Phone Number | | Organization | | | | + + + + + | [facility] | [address] | [place], [place] | | | [facility] | [facility] | [address] | | | TESTS | | | | + + + + + HEPARIN, EITHER STANDARD / LMW, BLOOD (03/16/2012 2:37 PM PDT) + + + + + + | Component | Value | Ref Range | Performed | Pathologist | | | | | At | Signature | + + + + + + | HEPARIN, | 1.05Comment: Heparin | U/mL | [facility] | | | STD LMW | Type: | | DEPARTMENT | | | | | | OF | | | | LMW Heparin - Enoxaparin | | PATHOLOGY | | | | | | | | | | | | | | | | | | | | | | (Lovenox) | | | | | | Heparin, Either STD/LMW | | | | | | - Therapeutic Ranges: | | | | | | Heparin, | | | | | | Unfractionated: 0.35 - | | | | | | 0.70 U/mL | | | | | | Enoxaparin, LMWH: | | | | | | 0.70 - 1.20 U/mL | | | | | | Dalteparin, | | | | | | LMWH: 0.70 - | | | | | | 1.20 U/mL | | | | | | Tinzaparin, LMWH: | | | | | | Therapeutic range | | | | | | not established. | | | | | | | | | | | | | | | | | | Preliminary studies | | | | | | suggest range | | | | | | | | | | | | similar | | | | | | to dalteparin. | | | | | | Clinical | | | | | | | | | | | | correlation | | | | | | required. | | | | | | Heparin levels may be | | | | | | unreliable for: | | | | | | | | | | | | Total | | | | | | bilirubin >6.6 mg/dL | | | | | | | | | | | | | | | | | | Triglycerides >360 mg/dL | | | | | | | | | | | | | | | | | | or moderate to gross | | | | | | hemolysis | | | | + + + + + + + + | Specimen | + + | Blood - Blood | + + + + + + + | Performing | Address | City/State/Zipcode | Phone Number | | Organization | | | | + + + + + | [facility] | [address] | [place] [address] | | | PATHOLOGY | [address] | | | + + + + + CAPILLARY BLOOD GLUCOSE, POC (03/16/2012 2:33 PM PDT) + +---------+ + + + | Component | Value | Ref Range | Performed | Pathologist | | | | | At | Signature | + +---------+ + + + | BLOOD | 107 (H) | 60 - 99 mg/dL | [facility] - | | | GLUCOSE, | | | [facility] | | | POC | | | [facility] | | | | | | OF CARE | | | | | | TESTS | | + +---------+ + + + + + | Specimen | + + | | + + + + + + + | Performing | Address | City/State/Zipcode | Phone Number | | Organization | | | | + + + + + | [facility] | [address] | [place], [place] | | | [facility] | [address] | [address] | | | TESTS | | | | + + + + + HEPARIN, EITHER STANDARD / LMW, BLOOD (03/16/2012 1:28 PM PDT) + + + + + + | Component | Value | Ref Range | Performed | Pathologist | | | | | At | Signature | + + + + + + | HEPARIN, | Imp ratio | U/mL | [facility] | | | STD LMW | | | DEPARTMENT | | | | | | OF | | | | | | PATHOLOGY | | + + + + + + + + | Specimen | + + | Blood - Blood | + + + + + | Narrative | Performed At | + + + | Specimen contains improper ratio blood/anticoagulant. | [facility] | | | DEPARTMENT OF | | | PATHOLOGY | + + + + + + + + | Performing | Address | City/State/Zipcode | Phone Number | | Organization | | | | + + + + + | [facility] | [address] | [place] [address] | | | PATHOLOGY | [address] | | | + + + + + HEPARIN, EITHER STANDARD / LMW, BLOOD (03/16/2012 1:07 PM PDT) + + + + + + | Component | Value | Ref Range | Performed | Pathologist | | | | | At | Signature | + + + + + + | HEPARIN, | Spc unsat | U/mL | [facility] | | | STD LMW | | | DEPARTMENT | | | | | | OF | | | | | | PATHOLOGY | | + + + + + + + + | Specimen | + + | Blood - Blood | + + + + + | Narrative | Performed At | + + + | Specimen sent in wrong tube type. Requires blue top (citrate). | [facility] | | | DEPARTMENT OF | | | PATHOLOGY | + + + + + + + + | Performing | Address | City/State/Zipcode | Phone Number | | Organization | | | | + + + + + | [facility] | [address] | [place] [address] | | | PATHOLOGY | [address] | | | + + + + + CAPILLARY BLOOD GLUCOSE, POC (03/16/2012 9:57 AM PDT) + +---------+ + + + | Component | Value | Ref Range | Performed | Pathologist | | | | | At | Signature | + +---------+ + + + | BLOOD | 110 (H) | 60 - 99 mg/dL | [facility] - | | | GLUCOSE, | | | [facility] | | | POC | | | [facility] | | | | | | OF CARE | | | | | | TESTS | | + +---------+ + + + + + | Specimen | + + | | + + + + + + + | Performing | Address | City/State/Zipcode | Phone Number | | Organization | | | | + + + + + | [facility] | [address] | [place], [place] | | | [facility] | [address] | [address] | | | TESTS | | | | + + + + + DIFFERENTIAL (03/16/2012 5:27 AM PDT) + +-------+ + + + | Component | Value | Ref Range | Performed | Pathologist | | | | | At | Signature | + +-------+ + + + | NEUTROPHIL | 53 | 50 - 70 % | [facility] | | | % | | | DEPARTMENT | | | | | | OF | | | | | | PATHOLOGY | | + +-------+ + + + | LYMPHOCYTE | 33 | 18 - 42 % | [facility] | | | % | | | DEPARTMENT | | | | | | OF | | | | | | PATHOLOGY | | + +-------+ + + + | MONOCYTE % | 7 | 2 - 8 % | [facility] | | | | | | DEPARTMENT | | | | | | OF | | | | | | PATHOLOGY | | + +-------+ + + + | EOS % | 7 (H) | 1 - 3 % | [facility] | | | | | | DEPARTMENT | | | | | | OF | | | | | | PATHOLOGY | | + +-------+ + + + | BASO % | 1 | <3 % | [facility] | | | | | | DEPARTMENT | | | | | | OF | | | | | | PATHOLOGY | | + +-------+ + + + | NEUTROPHIL | 3.3 | 1.8 - 7.7 K/cu | [facility] | | | # | | mm | DEPARTMENT | | | | | | OF | | | | | | PATHOLOGY | | + +-------+ + + + | LYMPHOCYTE | 2.1 | 1.0 - 4.8 K/cu | [facility] | | | # | | mm | DEPARTMENT | | | | | | OF | | | | | | PATHOLOGY | | + +-------+ + + + | MONOCYTE # | 0.4 | <0.9 K/cu mm | [facility] | | | | | | DEPARTMENT | | | | | | OF | | | | | | PATHOLOGY | | + +-------+ + + + | EOS # | 0.4 | <0.6 K/cu mm | [facility] | | | | | | DEPARTMENT | | | | | | OF | | | | | | PATHOLOGY | | + +-------+ + + + | BASO # | 0.1 | <0.3 | [facility] | | | | | | DEPARTMENT | | | | | | OF | | | | | | PATHOLOGY | | + +-------+ + + + + + | Specimen | + + | | + + + + + + + | Performing | Address | City/State/Zipcode | Phone Number | | Organization | | | | + + + + + | [facility] DE[facility]MENT [facility] | [address] | [place] [address] | | | PATHOLOGY | [address] | | | + + + + + INR (03/16/2012 5:27 AM PDT) + + + + + + | Component | Value | Ref Range | Performed | Pathologist | | | | | At | Signature | + + + + + + | INR | 1.06Comment: | 0.90 - 1.20 INR | [facility] | | | | INR Therapeutic ranges | | DEPARTMENT | | | | for full | | OF | | | | anticoagulation: | | PATHOLOGY | | | | INR for Venous | | | | | | Thromboembolism | | | | | | (2.0-3.0) | | | | | | INR INR for most | | | | | | patients with mech. | | | | | | valves (2.5-3.5) | | | | | | INR | | | | + + + + + + + + | Specimen | + + | Blood - Blood | + + + + + + + | Performing | Address | City/State/Zipcode | Phone Number | | Organization | | | | + + + + + | [facility] | [address] | [place] [address] | | | PATHOLOGY | [address] | | | + + + + + CBC ONLY (03/16/2012 5:27 AM PDT) + + + + + + | Component | Value | Ref Range | Performed | Pathologist | | | | | At | Signature | + + + + + + | WHITE CELL | 6.3 | 4.4 - 11.0 K/cu | [facility] | | | COUNT | | mm | DEPARTMENT | | | | | | OF | | | | | | PATHOLOGY | | + + + + + + | RED CELL | 3.84 (L) | 4.00 - 5.20 | [facility] | | | COUNT | | M/cu mm | DEPARTMENT | | | | | | OF | | | | | | PATHOLOGY | | + + + + + + | HEMOGLOBIN | 10.9 (L) | 12.0 - 16.0 | [facility] | | | | | g/dL | DEPARTMENT | | | | | | OF | | | | | | PATHOLOGY | | + + + + + + | HEMATOCRIT | 34.1 (L) | 36.0 - 46.0 % | [facility] | | | | | | DEPARTMENT | | | | | | OF | | | | | | PATHOLOGY | | + + + + + + | MCV | 88.8 | 80.0 - 96.0 fL | [facility] | | | | | | DEPARTMENT | | | | | | OF | | | | | | PATHOLOGY | | + + + + + + | MCHC | 32.1 (L) | 33.4 - 35.5 | [facility] | | | | | g/dL | DEPARTMENT | | | | | | OF | | | | | | PATHOLOGY | | + + + + + + | RDW | 17.1 (H) | 11.5 - 15.0 % | [facility] | | | | | | DEPARTMENT | | | | | | OF | | | | | | PATHOLOGY | | + + + + + + | PLATELET | 209 | 150 - 400 K/cu | [facility] | | | COUNT | | mm | DEPARTMENT | | | | | | OF | | | | | | PATHOLOGY | | + + + + + + + + | Specimen | + + | Blood - Blood | + + + + + + + | Performing | Address | City/State/Zipcode | Phone Number | | Organization | | | | + + + + + | [facility] | [address] | [place] [address] | | | PATHOLOGY | [address] | | | + + + + + CBC, WITH DIFFERENTIAL (03/16/2012 5:27 AM PDT) + + + + + + | Component | Value | Ref Range | Performed | Pathologist | | | | | At | Signature | + + + + + + | WHITE CELL | 6.3 | 4.4 - 11.0 K/cu | [facility] | | | COUNT | | mm | DEPARTMENT | | | | | | OF | | | | | | PATHOLOGY | | + + + + + + | RED CELL | 3.84 (L) | 4.00 - 5.20 | [facility] | | | COUNT | | M/cu mm | DEPARTMENT | | | | | | OF | | | | | | PATHOLOGY | | + + + + + + | HEMOGLOBIN | 10.9 (L) | 12.0 - 16.0 | [facility] | | | | | g/dL | DEPARTMENT | | | | | | OF | | | | | | PATHOLOGY | | + + + + + + | HEMATOCRIT | 34.1 (L) | 36.0 - 46.0 % | [facility] | | | | | | DEPARTMENT | | | | | | OF | | | | | | PATHOLOGY | | + + + + + + | MCV | 88.8 | 80.0 - 96.0 fL | [facility] | | | | | | DEPARTMENT | | | | | | OF | | | | | | PATHOLOGY | | + + + + + + | MCHC | 32.1 (L) | 33.4 - 35.5 | [facility] | | | | | g/dL | DEPARTMENT | | | | | | OF | | | | | | PATHOLOGY | | + + + + + + | RDW | 17.1 (H) | 11.5 - 15.0 % | [facility] | | | | | | DEPARTMENT | | | | | | OF | | | | | | PATHOLOGY | | + + + + + + | PLATELET | 209 | 150 - 400 K/cu | [facility] | | | COUNT | | mm | DEPARTMENT | | | | | | OF | | | | | | PATHOLOGY | | + + + + + + + + | Specimen | + + | Blood - Blood | + + + + + + + | Performing | Address | City/State/Zipcode | Phone Number | | Organization | | | | + + + + + | [facility] | [address] | [place] [address] | | | PATHOLOGY | [address] | | | + + + + + CAPILLARY BLOOD GLUCOSE, POC (03/15/2012 5:58 PM PDT) + +---------+ + + + | Component | Value | Ref Range | Performed | Pathologist | | | | | At | Signature | + +---------+ + + + | BLOOD | 113 (H) | 60 - 99 mg/dL | [facility] - | | | GLUCOSE, | | | [facility] | | | POC | | | [facility] | | | | | | OF CARE | | | | | | TESTS | | + +---------+ + + + + + | Specimen | + + | | + + + + + + + | Performing | Address | City/State/Zipcode | Phone Number | | Organization | | | | + + + + + | [facility] | [address] | [place], [place] | | | [facility] | [address] | [address] | | | TESTS | | | | + + + + + CAPILLARY BLOOD GLUCOSE, POC (03/15/2012 1:25 PM PDT) + +---------+ + + + | Component | Value | Ref Range | Performed | Pathologist | | | | | At | Signature | + +---------+ + + + | BLOOD | 118 (H) | 60 - 99 mg/dL | [facility] - | | | GLUCOSE, | | | [facility] | | | POC | | | [facility] | | | | | | OF CARE | | | | | | TESTS | | + +---------+ + + + + + | Specimen | + + | | + + + + + + + | Performing | Address | City/State/Zipcode | Phone Number | | Organization | | | | + + + + + | [facility] | [address] | [place], [place] | | | [facility] | [facility] | [address] | | | TESTS | | | | + + + + + CBC ONLY (03/15/2012 10:45 AM PDT) + + + + + + | Component | Value | Ref Range | Performed | Pathologist | | | | | At | Signature | + + + + + + | WHITE CELL | 6.2 | 4.4 - 11.0 K/cu | [facility] | | | COUNT | | mm | DEPARTMENT | | | | | | OF | | | | | | PATHOLOGY | | + + + + + + | RED CELL | 3.80 (L) | 4.00 - 5.20 | [facility] | | | COUNT | | M/cu mm | DEPARTMENT | | | | | | OF | | | | | | PATHOLOGY | | + + + + + + | HEMOGLOBIN | 10.9 (L) | 12.0 - 16.0 | [facility] | | | | | g/dL | DEPARTMENT | | | | | | OF | | | | | | PATHOLOGY | | + + + + + + | HEMATOCRIT | 33.6 (L) | 36.0 - 46.0 % | [facility] | | | | | | DEPARTMENT | | | | | | OF | | | | | | PATHOLOGY | | + + + + + + | MCV | 88.3 | 80.0 - 96.0 fL | [facility] | | | | | | DEPARTMENT | | | | | | OF | | | | | | PATHOLOGY | | + + + + + + | MCHC | 32.6 (L) | 33.4 - 35.5 | [facility] | | | | | g/dL | DEPARTMENT | | | | | | OF | | | | | | PATHOLOGY | | + + + + + + | RDW | 17.7 (H) | 11.5 - 15.0 % | [facility] | | | | | | DEPARTMENT | | | | | | OF | | | | | | PATHOLOGY | | + + + + + + | PLATELET | 216 | 150 - 400 K/cu | [facility] | | | COUNT | | mm | DEPARTMENT | | | | | | OF | | | | | | PATHOLOGY | | + + + + + + + + | Specimen | + + | Blood - Blood | + + + + + + + | Performing | Address | City/State/Zipcode | Phone Number | | Organization | | | | + + + + + | [facility] DEPARTMENT | [address] | [place] [address] | | | PATHOLOGY | [address] | | | + + + + + DIFFERENTIAL (03/15/2012 6:20 AM PDT) + +-------+ + + + | Component | Value | Ref Range | Performed | Pathologist | | | | | At | Signature | + +-------+ + + + | NEUTROPHIL | 61 | 50 - 70 % | [facility] | | | % | | | DEPARTMENT | | | | | | OF | | | | | | PATHOLOGY | | + +-------+ + + + | LYMPHOCYTE | 26 | 18 - 42 % | [facility] | | | % | | | DEPARTMENT | | | | | | OF | | | | | | PATHOLOGY | | + +-------+ + + + | MONOCYTE % | 7 | 2 - 8 % | [facility] | | | | | | DEPARTMENT | | | | | | OF | | | | | | PATHOLOGY | | + +-------+ + + + | EOS % | 6 (H) | 1 - 3 % | [facility] | | | | | | DEPARTMENT | | | | | | OF | | | | | | PATHOLOGY | | + +-------+ + + + | BASO % | 0 | <3 % | [facility] | | | | | | DEPARTMENT | | | | | | OF | | | | | | PATHOLOGY | | + +-------+ + + + | NEUTROPHIL | 4.0 | 1.8 - 7.7 K/cu | [facility] | | | # | | mm | DEPARTMENT | | | | | | OF | | | | | | PATHOLOGY | | + +-------+ + + + | LYMPHOCYTE | 1.7 | 1.0 - 4.8 K/cu | [facility] | | | # | | mm | DEPARTMENT | | | | | | OF | | | | | | PATHOLOGY | | + +-------+ + + + | MONOCYTE # | 0.5 | <0.9 K/cu mm | [facility] | | | | | | DEPARTMENT | | | | | | OF | | | | | | PATHOLOGY | | + +-------+ + + + | EOS # | 0.4 | <0.6 K/cu mm | [facility] | | | | | | DEPARTMENT | | | | | | OF | | | | | | PATHOLOGY | | + +-------+ + + + | BASO # | 0.0 | <0.3 | [facility] | | | | | | DEPARTMENT | | | | | | OF | | | | | | PATHOLOGY | | + +-------+ + + + + + | Specimen | + + | | + + + + + + + | Performing | Address | City/State/Zipcode | Phone Number | | Organization | | | | + + + + + | [facility] | [address] | [place] [address] | | | PATHOLOGY | [address] | | | + + + + + CBC ONLY (03/15/2012 6:20 AM PDT) + + + + + + | Component | Value | Ref Range | Performed | Pathologist | | | | | At | Signature | + + + + + + | WHITE CELL | 6.6 | 4.4 - 11.0 K/cu | [facility] | | | COUNT | | mm | DEPARTMENT | | | | | | OF | | | | | | PATHOLOGY | | + + + + + + | RED CELL | 3.88 (L) | 4.00 - 5.20 | [facility] | | | COUNT | | M/cu mm | DEPARTMENT | | | | | | OF | | | | | | PATHOLOGY | | + + + + + + | HEMOGLOBIN | 11.1 (L) | 12.0 - 16.0 | [facility] | | | | | g/dL | DEPARTMENT | | | | | | OF | | | | | | PATHOLOGY | | + + + + + + | HEMATOCRIT | 34.5 (L) | 36.0 - 46.0 % | [facility] | | | | | | DEPARTMENT | | | | | | OF | | | | | | PATHOLOGY | | + + + + + + | MCV | 88.8 | 80.0 - 96.0 fL | [facility] | | | | | | DEPARTMENT | | | | | | OF | | | | | | PATHOLOGY | | + + + + + + | MCHC | 32.3 (L) | 33.4 - 35.5 | [facility] | | | | | g/dL | DEPARTMENT | | | | | | OF | | | | | | PATHOLOGY | | + + + + + + | RDW | 17.5 (H) | 11.5 - 15.0 % | [facility] | | | | | | DEPARTMENT | | | | | | OF | | | | | | PATHOLOGY | | + + + + + + | PLATELET | 196 | 150 - 400 K/cu | [facility] | | | COUNT | | mm | DEPARTMENT | | | | | | OF | | | | | | PATHOLOGY | | + + + + + + + + | Specimen | + + | Blood - Blood | + + + + + + + | Performing | Address | City/State/Zipcode | Phone Number | | Organization | | | | + + + + + | [facility] DE[facility]MENT [facility] | [address] | [place] [address] | | | PATHOLOGY | [address] | | | + + + + + CBC, WITH DIFFERENTIAL (03/15/2012 6:20 AM PDT) + + + + + + | Component | Value | Ref Range | Performed | Pathologist | | | | | At | Signature | + + + + + + | WHITE CELL | 6.6 | 4.4 - 11.0 K/cu | [facility] | | | COUNT | | mm | DEPARTMENT | | | | | | OF | | | | | | PATHOLOGY | | + + + + + + | RED CELL | 3.88 (L) | 4.00 - 5.20 | [facility] | | | COUNT | | M/cu mm | DEPARTMENT | | | | | | OF | | | | | | PATHOLOGY | | + + + + + + | HEMOGLOBIN | 11.1 (L) | 12.0 - 16.0 | [facility] | | | | | g/dL | DEPARTMENT | | | | | | OF | | | | | | PATHOLOGY | | + + + + + + | HEMATOCRIT | 34.5 (L) | 36.0 - 46.0 % | [facility] | | | | | | DEPARTMENT | | | | | | OF | | | | | | PATHOLOGY | | + + + + + + | MCV | 88.8 | 80.0 - 96.0 fL | [facility] | | | | | | DEPARTMENT | | | | | | OF | | | | | | PATHOLOGY | | + + + + + + | MCHC | 32.3 (L) | 33.4 - 35.5 | [facility] | | | | | g/dL | DEPARTMENT | | | | | | OF | | | | | | PATHOLOGY | | + + + + + + | RDW | 17.5 (H) | 11.5 - 15.0 % | [facility] | | | | | | DEPARTMENT | | | | | | OF | | | | | | PATHOLOGY | | + + + + + + | PLATELET | 196 | 150 - 400 K/cu | [facility] | | | COUNT | | mm | DEPARTMENT | | | | | | OF | | | | | | PATHOLOGY | | + + + + + + + + | Specimen | + + | Blood - Blood | + + + + + + + | Performing | Address | City/State/Zipcode | Phone Number | | Organization | | | | + + + + + | [facility] DEPARTMENT | [address] | [place] [address] | | | PATHOLOGY | [address] | | | + + + + + CAPILLARY BLOOD GLUCOSE, POC (03/14/2012 8:58 PM PDT) + +-------+ + + + | Component | Value | Ref Range | Performed | Pathologist | | | | | At | Signature | + +-------+ + + + | BLOOD | 86 | 60 - 99 mg/dL | [facility] - | | | GLUCOSE, | | | [facility] | | | POC | | | [facility] | | | | | | OF CARE | | | | | | TESTS | | + +-------+ + + + + + | Specimen | + + | | + + + + + + + | Performing | Address | City/State/Zipcode | Phone Number | | Organization | | | | + + + + + | [facility] | [address] | [place], [place] | | | [facility] | [address] | [address] | | | TESTS | | | | + + + + + APTT (ACT. PART. THROMBO TIME) (03/14/2012 7:06 PM PDT) + + + + + + | Component | Value | Ref Range | Performed | Pathologist | | | | | At | Signature | + + + + + + | APTT | 90.9 (H)Comment: | 26.0 - 36.0 | [facility] | | | | APTT Therapeutic | seconds | DEPARTMENT | | | | Range | | OF | | | | | | PATHOLOGY | | | | (75-120) sec | | | | | | Heparin | | | | | | levels of 0.35-0.7 U/mL | | | | + + + + + + + + | Specimen | + + | Blood - Blood | + + + + + + + | Performing | Address | City/State/Zipcode | Phone Number | | Organization | | | | + + + + + | [facility] | [address] | [place] [address] | | | PATHOLOGY | [address] | | | + + + + + CAPILLARY BLOOD GLUCOSE, POC (03/14/2012 5:53 PM PDT) + +---------+ + + + | Component | Value | Ref Range | Performed | Pathologist | | | | | At | Signature | + +---------+ + + + | BLOOD | 105 (H) | 60 - 99 mg/dL | [facility] - | | | GLUCOSE, | | | [facility] | | | POC | | | [facility] | | | | | | OF CARE | | | | | | TESTS | | + +---------+ + + + + + | Specimen | + + | | + + + + + + + | Performing | Address | City/State/Zipcode | Phone Number | | Organization | | | | + + + + + | [facility] | [address] | [place], [place] | | | [facility] | [facility] | [address] | | | TESTS | | | | + + + + + FACTOR V DINAH BLOOD (03/14/2012 12:55 PM PDT) + + + + + + | Component | Value | Ref Range | Performed | Pathologist | | | | | At | Signature | + + + + + + | FACTOR V | No specimen received in | | [facility] | | | (5) DINAH | performing lab. | | DIAGNOSTIC | | | | | | | | | | | | LABORATORIE | | | | | | S | | + + + + + + | SPECIMEN | Whole Blood | | [facility] | | | TYPE | | | DIAGNOSTIC | | | SUBMITTED | | | | | | | | | LABORATORIE | | | | | | S | | + + + + + + + + | Specimen | + + | Blood - Blood | + + + + + + + | Performing | Address | City/State/Zipcode | Phone Number | | Organization | | | | + + + + + | [facility] | [address] | [place] [address] | | | DIAGNOSTIC | [address] | | | | LABORATORIES | | | | + + + + + PROTHROMBIN GENE MUTATION, BLOOD (03/14/2012 12:55 PM PDT) + + + + + + | Component | Value | Ref Range | Performed | Pathologist | | | | | At | Signature | + + + + + + | PROTHROMBIN | No specimen received in | No Units | [facility] | | | GENE | performing lab. | | DIAGNOSTIC | | | MUTATION | | | | | | | | | LABORATORIE | | | | | | S | | + + + + + + | SPECIMEN | Whole Blood | | [facility] | | | TYPE | | | DIAGNOSTIC | | | SUBMITTED | | | | | | | | | LABORATORIE | | | | | | S | | + + + + + + + + | Specimen | + + | Blood | + + + + + + + | Performing | Address | City/State/Zipcode | Phone Number | | Organization | | | | + + + + + | [facility] | [address] | [place] [address] | | | DIAGNOSTIC | [address] | | | | LABORATORIES | | | | + + + + + CAPILLARY BLOOD GLUCOSE, POC (03/14/2012 12:18 PM PDT) + +-------+ + + + | Component | Value | Ref Range | Performed | Pathologist | | | | | At | Signature | + +-------+ + + + | BLOOD | 96 | 60 - 99 mg/dL | [facility] - | | | GLUCOSE, | | | [facility] | | | POC | | | [facility] | | | | | | OF CARE | | | | | | TESTS | | + +-------+ + + + + + | Specimen | + + | | + + + + + + + | Performing | Address | City/State/Zipcode | Phone Number | | Organization | | | | + + + + + | [facility] | [address] | [place], [place] | | | [facility] | [address] | [address] | | | TESTS | | | | + + + + + APTT (ACT. PART. THROMBO TIME) (03/14/2012 11:00 AM PDT) + + + + + + | Component | Value | Ref Range | Performed | Pathologist | | | | | At | Signature | + + + + + + | APTT | 132.7 (H)Comment: | 26.0 - 36.0 | [facility] | | | | APTT Therapeutic | seconds | DEPARTMENT | | | | Range | | OF | | | | | | PATHOLOGY | | | | (75-120) sec | | | | | | Heparin | | | | | | levels of 0.35-0.7 U/mL | | | | + + + + + + + + | Specimen | + + | Blood - Blood | + + + + + + + | Performing | Address | City/State/Zipcode | Phone Number | | Organization | | | | + + + + + | [facility] | [address] | [place] [address] | | | PATHOLOGY | [address] | | | + + + + + CAPILLARY BLOOD GLUCOSE, POC (03/14/2012 7:51 AM PDT) + +---------+ + + + | Component | Value | Ref Range | Performed | Pathologist | | | | | At | Signature | + +---------+ + + + | BLOOD | 121 (H) | 60 - 99 mg/dL | [facility] - | | | GLUCOSE, | | | [facility] | | | POC | | | [facility] | | | | | | OF CARE | | | | | | TESTS | | + +---------+ + + + + + | Specimen | + + | | + + + + + + + | Performing | Address | City/State/Zipcode | Phone Number | | Organization | | | | + + + + + | [facility] | [address] | [place], [place] | | | [facility] | [address] | [address] | | | TESTS | | | | + + + + + APTT 1:1 MIX, PLASMA (03/14/2012 5:35 AM PDT) + + + + + + | Component | Value | Ref Range | Performed | Pathologist | | | | | At | Signature | + + + + + + | APTT | Not done | | [facility] | | | INHIBITOR | | | DEPARTMENT | | | SCREEN | | | OF | | | | | | PATHOLOGY | | + + + + + + | APTT PAT,0 | > 119.9 (H) | 26.0 - 36.0 sec | [facility] | | | MIN | | | DEPARTMENT | | | | | | OF | | | | | | PATHOLOGY | | + + + + + + + + | Specimen | + + | | + + + + + | Narrative | Performed At | + + + | APTT 1:1 Mix Heparin present. Hep level= 1.75 U/mL | [facility] | | | DEPARTMENT OF | | | PATHOLOGY | + + + + + + + + | Performing | Address | City/State/Zipcode | Phone Number | | Organization | | | | + + + + + | [facility] DE[facility] | [address] | [place] [address] | | | PATHOLOGY | [address] | | | + + + + + DIFFERENTIAL (03/14/2012 5:35 AM PDT) + +-------+ + + + | Component | Value | Ref Range | Performed | Pathologist | | | | | At | Signature | + +-------+ + + + | NEUTROPHIL | 64 | 50 - 70 % | [facility] | | | % | | | DEPARTMENT | | | | | | OF | | | | | | PATHOLOGY | | + +-------+ + + + | LYMPHOCYTE | 23 | 18 - 42 % | [facility] | | | % | | | DEPARTMENT | | | | | | OF | | | | | | PATHOLOGY | | + +-------+ + + + | MONOCYTE % | 7 | 2 - 8 % | [facility] | | | | | | DEPARTMENT | | | | | | OF | | | | | | PATHOLOGY | | + +-------+ + + + | EOS % | 5 (H) | 1 - 3 % | [facility] | | | | | | DEPARTMENT | | | | | | OF | | | | | | PATHOLOGY | | + +-------+ + + + | BASO % | 1 | <3 % | [facility] | | | | | | DEPARTMENT | | | | | | OF | | | | | | PATHOLOGY | | + +-------+ + + + | NEUTROPHIL | 4.5 | 1.8 - 7.7 K/cu | [facility] | | | # | | mm | DEPARTMENT | | | | | | OF | | | | | | PATHOLOGY | | + +-------+ + + + | LYMPHOCYTE | 1.6 | 1.0 - 4.8 K/cu | [facility] | | | # | | mm | DEPARTMENT | | | | | | OF | | | | | | PATHOLOGY | | + +-------+ + + + | MONOCYTE # | 0.5 | <0.9 K/cu mm | [facility] | | | | | | DEPARTMENT | | | | | | OF | | | | | | PATHOLOGY | | + +-------+ + + + | EOS # | 0.3 | <0.6 K/cu mm | [facility] | | | | | | DEPARTMENT | | | | | | OF | | | | | | PATHOLOGY | | + +-------+ + + + | BASO # | 0.1 | <0.3 | [facility] | | | | | | DEPARTMENT | | | | | | OF | | | | | | PATHOLOGY | | + +-------+ + + + + + | Specimen | + + | | + + + + + + + | Performing | Address | City/State/Zipcode | Phone Number | | Organization | | | | + + + + + | [facility]MENT [facility] | [address] | [place] [address] | | | PATHOLOGY | [address] | | | + + + + + CBC, WITH DIFFERENTIAL (03/14/2012 5:35 AM PDT) + + + + + + | Component | Value | Ref Range | Performed | Pathologist | | | | | At | Signature | + + + + + + | WHITE CELL | 7.1 | 4.4 - 11.0 K/cu | [facility] | | | COUNT | | mm | DEPARTMENT | | | | | | OF | | | | | | PATHOLOGY | | + + + + + + | RED CELL | 3.95 (L) | 4.00 - 5.20 | [facility] | | | COUNT | | M/cu mm | DEPARTMENT | | | | | | OF | | | | | | PATHOLOGY | | + + + + + + | HEMOGLOBIN | 11.3 (L) | 12.0 - 16.0 | [facility] | | | | | g/dL | DEPARTMENT | | | | | | OF | | | | | | PATHOLOGY | | + + + + + + | HEMATOCRIT | 34.8 (L) | 36.0 - 46.0 % | [facility] | | | | | | DEPARTMENT | | | | | | OF | | | | | | PATHOLOGY | | + + + + + + | MCV | 88.1 | 80.0 - 96.0 fL | [facility] | | | | | | DEPARTMENT | | | | | | OF | | | | | | PATHOLOGY | | + + + + + + | MCHC | 32.4 (L) | 33.4 - 35.5 | [facility] | | | | | g/dL | DEPARTMENT | | | | | | OF | | | | | | PATHOLOGY | | + + + + + + | RDW | 17.3 (H) | 11.5 - 15.0 % | [facility] | | | | | | DEPARTMENT | | | | | | OF | | | | | | PATHOLOGY | | + + + + + + | PLATELET | 191 | 150 - 400 K/cu | [facility] | | | COUNT | | mm | DEPARTMENT | | | | | | OF | | | | | | PATHOLOGY | | + + + + + + + + | Specimen | + + | Blood - Blood | + + + + + + + | Performing | Address | City/State/Zipcode | Phone Number | | Organization | | | | + + + + + | [facility] | [address] | [place] [address] | | | PATHOLOGY | [address] | | | + + + + + LUPUS INHIBITOR EVALUATION, PLASMA (03/14/2012 5:35 AM PDT) + + + + + + | Component | Value | Ref Range | Performed | Pathologist | | | | | At | Signature | + + + + + + | LUPUS | Heparin present. | | [facility] | | | INHIBITOR | | | DEPARTMENT | | | EVAL - | | | OF | | | HEADER | | | PATHOLOGY | | + + + + + + | APTT | > 119.9 (H) | 26.0 - 36.0 sec | [facility] | | | PATIENT | | | DEPARTMENT | | | | | | OF | | | | | | PATHOLOGY | | + + + + + + | HEXAGONAL | See cmnt | sec | [facility] | | | PL APTT | | | DEPARTMENT | | | | | | OF | | | | | | PATHOLOGY | | + + + + + + | DVVT | Specimen unsatisfactory. | sec | [facility] | | | | | | DEPARTMENT | | | | | | OF | | | | | | PATHOLOGY | | + + + + + + | HEPARIN, | 1.75Comment: | U/mL | [facility] | | | STD LMW | Heparin, Either STD/LMW | | DEPARTMENT | | | | - Therapeutic Ranges: | | OF | | | | Heparin, | | PATHOLOGY | | | | Unfractionated: 0.35 - | | | | | | 0.70 U/mL | | | | | | Enoxaparin, LMWH: | | | | | | 0.70 - 1.20 U/mL | | | | | | Dalteparin, | | | | | | LMWH: 0.70 - | | | | | | 1.20 U/mL | | | | | | Tinzaparin, LMWH: | | | | | | Therapeutic range | | | | | | not established. | | | | | | | | | | | | | | | | | | Preliminary studies | | | | | | suggest range | | | | | | | | | | | | similar | | | | | | to dalteparin. | | | | | | Clinical | | | | | | | | | | | | correlation | | | | | | required. | | | | + + + + + + + + | Specimen | + + | Blood - Blood | + + + + + | Narrative | Performed At | + + + | Lupus Inhibitor Panel Lupus anticoagulants (LAC) are | [facility] | | evaluated using a multi-test panel with different phospholipids. If | DEPARTMENT OF | | one of the screening assays is positive, a confirmatory assay is | PATHOLOGY | | performed (DVV Confirm or Hexagonal APTT). The LAC is present when | | | one or both of the confirmatory assays are positive. Levels of | | | unfractionated heparin >1.0 U/mL may give elevated results. LMWH | | | >0.25 U/mL interfere with the assay. Coumadin may prolong the DVV | | | but does not affect the Hexagonal APTT. UNABLE TO INTERPRET DUE TO | | | HEPARIN LEVEL OF 1.75 | | + + + + + + + + | Performing | Address | City/State/Zipcode | Phone Number | | Organization | | | | + + + + + | [facility] | [address] | [place] [address] | | | PATHOLOGY | [address] | | | + + + + + ANTICARDIOLIPIN GM, SERUM (03/14/2012 5:35 AM PDT) + +-------+ + + + | Component | Value | Ref Range | Performed | Pathologist | | | | | At | Signature | + +-------+ + + + | ANTICARDIOL | < 9 | <20 PL Units | [facility] | | | IPIN IGG | | | DEPARTMENT | | | | | | OF | | | | | | PATHOLOGY | | + +-------+ + + + | ANTICARDIOL | < 9 | <20 PL Units | [facility] | | | IPIN IGM | | | DEPARTMENT | | | | | | OF | | | | | | PATHOLOGY | | + +-------+ + + + + + | Specimen | + + | Blood - Blood | + + + + + | Narrative | Performed At | + + + | Anticardiolipin GM Interpretive Data for Anticardiolipin | [facility] | | Antibodies IgG, IgM Negative: | DEPARTMENT OF | | (<9-19) PL Units Low Positive: | PATHOLOGY | | (20-30) PL Units Moderate Positive: | | | (31-80) PL Units High Positive: | | | ( > 80) PL Units | | + + + + + + + + | Performing | Address | City/State/Zipcode | Phone Number | | Organization | | | | + + + + + | [facility] DEPARTMENT OF | [address] | [place] [address] | | | PATHOLOGY | [address] | | | + + + + + APTT (ACT. PART. THROMBO TIME) (03/14/2012 2:35 AM PDT) + + + + + + | Component | Value | Ref Range | Performed | Pathologist | | | | | At | Signature | + + + + + + | APTT | 71.0 (H)Comment: | 26.0 - 36.0 | [facility] | | | | APTT Therapeutic | seconds | DEPARTMENT | | | | Range | | OF | | | | | | PATHOLOGY | | | | (75-120) sec | | | | | | Heparin | | | | | | levels of 0.35-0.7 U/mL | | | | + + + + + + + + | Specimen | + + | Blood - Blood | + + + + + + + | Performing | Address | City/State/Zipcode | Phone Number | | Organization | | | | + + + + + | [facility] | [address] | [place] [address] | | | PATHOLOGY | [address] | | | + + + + + CAPILLARY BLOOD GLUCOSE, POC (03/13/2012 9:51 PM PDT) + +-------+ + + + | Component | Value | Ref Range | Performed | Pathologist | | | | | At | Signature | + +-------+ + + + | BLOOD | 96 | 60 - 99 mg/dL | [facility] - | | | GLUCOSE, | | | [facility] | | | POC | | | [facility] | | | | | | OF CARE | | | | | | TESTS | | + +-------+ + + + + + | Specimen | + + | | + + + + + + + | Performing | Address | City/State/Zipcode | Phone Number | | Organization | | | | + + + + + | [facility] | [address] | [place], [place] | | | [facility] | [address] | [address] | | | TESTS | | | | + + + + + APTT (ACT. PART. THROMBO TIME) (03/13/2012 9:18 PM PDT) + + + + + + | Component | Value | Ref Range | Performed | Pathologist | | | | | At | Signature | + + + + + + | APTT | 94.2 (H)Comment: | 26.0 - 36.0 | [facility] | | | | APTT Therapeutic | seconds | DEPARTMENT | | | | Range | | OF | | | | | | PATHOLOGY | | | | (75-120) sec | | | | | | Heparin | | | | | | levels of 0.35-0.7 U/mL | | | | + + + + + + + + | Specimen | + + | Blood - Blood | + + + + + + + | Performing | Address | City/State/Zipcode | Phone Number | | Organization | | | | + + + + + | [facility] | [address] | [place] [address] | | | PATHOLOGY | [address] | | | + + + + + CAPILLARY BLOOD GLUCOSE, POC (03/13/2012 5:19 PM PDT) + +---------+ + + + | Component | Value | Ref Range | Performed | Pathologist | | | | | At | Signature | + +---------+ + + + | BLOOD | 103 (H) | 60 - 99 mg/dL | [facility] - | | | GLUCOSE, | | | [facility] | | | POC | | | [facility] | | | | | | OF CARE | | | | | | TESTS | | + +---------+ + + + + + | Specimen | + + | | + + + + + + + | Performing | Address | City/State/Zipcode | Phone Number | | Organization | | | | + + + + + | [facility] | [address] | [place], [place] | | | [facility] | [address] | [address] | | | TESTS | | | | + + + + + VASC LAB VENOUS DUPLEX LOWER EXTREMITY BILAT COMP (03/13/2012 3:10 PM PDT) + + + + + + | Component | Value | Ref Range | Performed | Pathologist | | | | | At | Signature | + + + + + + | VASC LAB | LOWER EXTREMITY VENOUS | | | | | VENOUS | STUDY: 03/13/2012 | | | | | DUPLEX | Dictated 03/13/2012 | | | | | LOWER | INDICATION: Pain. The | | | | | EXTREMITY | duplex scanner was used | | | | | BILATERAL | to examine the deep and | | | | | COMPLETE | superficial veinsof the | | | | | | right and left lower | | | | | | extremities. In the | | | | | | left lowerextremity, the | | | | | | veins are patent with | | | | | | normal flows and | | | | | | responses toaugmentation | | | | | | and compression | | | | | | maneuvers and no | | | | | | thrombus was noted. | | | | | | Inthe right lower | | | | | | extremity, there is deep | | | | | | venous thrombosis | | | | | | involvingthe popliteal | | | | | | vein as well as the | | | | | | peroneal and posterior | | | | | | tibialveins. No other | | | | | | sites of thrombus are | | | | | | noted in the deep | | | | | | orsuperficial veins of | | | | | | the right lower | | | | | | extremity. IMPRESSION: | | | | | | An abnormal venous | | | | | | examination | | | | | | demonstrating deep | | | | | | venous thrombosisof the | | | | | | popliteal, posterior | | | | | | tibial, and peroneal | | | | | | veins of the rightlower | | | | | | extremity. There is no | | | | | | evidence of venous | | | | | | thrombosis in theleft | | | | | | lower extremity. END | | | | | | IMPRESSION: Attending | | | | | | Radiologists: ,Author: | | | | | | PERCY DOMINGO M.D. | | | | | | I have personally | | | | | | viewed this | | | | | | procedure/exam, reviewed | | | | | | this report,and made | | | | | | changes to it where | | | | | | appropriate. | | | | | | Final/Electronically | | | | | | signed / Percy Mckeon | | | | | | Rosalina | | | | + + + + + + + + | Specimen | + + | | + + + +---------+ + + | Performing | Address | City/State/Zipcode | Phone Number | | Organization | | | | + +---------+ + + | [facility] | | | | | RADIOLOGY | | | | + +---------+ + + APTT (ACT. PART. THROMBO TIME) (03/13/2012 12:32 PM PDT) + + + + + + | Component | Value | Ref Range | Performed | Pathologist | | | | | At | Signature | + + + + + + | [facility] | 135.7 (H)Comment: | 26.0 - 36.0 | [facility] | | | | [facility] Therapeutic | seconds | DEPARTMENT | | | | Range | | OF | | | | | | PATHOLOGY | | | | (75-120) sec | | | | | | Heparin | | | | | | levels of 0.35-0.7 U/mL | | | | + + + + + + + + | Specimen | + + | Blood - Blood | + + + + + + + | Performing | Address | City/State/Zipcode | Phone Number | | Organization | | | | + + + + + | [facility] | [address] | [place] [address] | | | PATHOLOGY | [address] | | | + + + + + CT CHEST, ABDOMEN & PELVIS W IV CONTRAST (03/13/2012 11:56 AM PDT) + + + + + + | Component | Value | Ref Range | Performed | Pathologist | | | | | At | Signature | + + + + + + | CT CHEST, | INDICATION: Right lower | | | | | ABDOMEN & | extremity DVT. | | | | | PELVIS W | Evaluate for IVC | | | | | CONTRAST | patency. COMPARISONS: | | | | | | None available | | | | | | TECHNIQUE: Contiguous | | | | | | axial images were | | | | | | obtained from the | | | | | | thoracicinlet through | | | | | | the pubic symphysis | | | | | | following the IV | | | | | | administration of150 mL | | | | | | Omnipaque 300. . 5mm | | | | | | axial reconstructions | | | | | | and 5mm | | | | | | coronalreformats. | | | | | | FINDINGS:CHEST: A large | | | | | | filling defect is seen | | | | | | in the right main | | | | | | pulmonaryartery | | | | | | extending into right | | | | | | upper, middle and lower | | | | | | lobe segmentalbranches | | | | | | compatible with PE. | | | | | | Also a subsegmental | | | | | | filling defect in | | | | | | abranch of the left | | | | | | lower lobe suggested, | | | | | | likely additional PE. | | | | | | Theheart is normal in | | | | | | size. No pericardial | | | | | | effusion. Thoracic | | | | | | aortaappears normal. | | | | | | The SVC is patent as | | | | | | are the major branch | | | | | | vessels inthe | | | | | | mediastinum. The lungs | | | | | | demonstrate a calcified | | | | | | granuloma in the right | | | | | | lower lobe,otherwise | | | | | | clear. Central | | | | | | tracheobronchial tree | | | | | | contains mucus. | | | | | | Nopleural effusion or | | | | | | pneumothorax. ABDOMEN: | | | | | | The liver is without | | | | | | focal lesion. | | | | | | Gallbladder | | | | | | surgicallyabsent. No | | | | | | biliary dilation. | | | | | | Pancreas, spleen, | | | | | | adrenals and leftkidney | | | | | | are unremarkable. | | | | | | Right kidney | | | | | | demonstrates scarring in | | | | | | theupper pole and an | | | | | | adjacent 1 cm cyst, | | | | | | otherwise unremarkable. | | | | | | Priorventral hernia | | | | | | repair with mesh. The | | | | | | stomach demonstrates | | | | | | postsurgical changes of | | | | | | gastric bypass.Duodenum | | | | | | is unremarkable. There | | | | | | are no dilated loops of | | | | | | small bowel. The colon | | | | | | and the appendix are | | | | | | normal. No free fluid. | | | | | | PELVIS: Bladder, uterus | | | | | | and adnexa are | | | | | | unremarkable. There is | | | | | | noabdominal, pelvic or | | | | | | inguinal | | | | | | lymphadenopathy. The | | | | | | abdominal aortais normal | | | | | | in caliber. The IVC, | | | | | | common iliacs, internal | | | | | | and externaliliacs are | | | | | | widely patent. SKELETON: | | | | | | No suspicious osseous | | | | | | lesion. IMPRESSION:1. | | | | | | Large right main | | | | | | pulmonary artery embolus | | | | | | with extension | | | | | | intoupper, middle and | | | | | | lower lobe segmental | | | | | | branches. Probably | | | | | | additionalleft lower | | | | | | lobe subsegmental PE. 2. | | | | | | Patent IVC and | | | | | | iliacs. Critical | | | | | | findings called to | | | | | | Royce at 12:10 p.m. | | | | | | Attending Radiologists: | | | | | | Lencho Escobar | | | | | | RadhamesAuthor: Naeem Qureshi | | | | | | Lencho Ricci I have personally | | | | | | viewed this | | | | | | procedure/exam, reviewed | | | | | | this report,and made | | | | | | changes to it where | | | | | | appropriate. | | | | | | Final/Electronically | | | | | | signed / Naeem Qureshi | | | | | | 03/13/2012 12:28 PM | | | | + + + + + + + + | Specimen | + + | | + + + +---------+ + + | Performing | Address | City/State/Zipcode | Phone Number | | Organization | | | | + +---------+ + + | [facility] DEPARTMENT OF | | | | | RADIOLOGY | | | | + +---------+ + + X-RAY PORTABLE CHEST 1 VIEW (03/13/2012 9:24 AM PDT) + + + + + + | Component | Value | Ref Range | Performed | Pathologist | | | | | At | Signature | + + + + + + | X-RAY | STUDY: NV CHEST 1 VIEW | | | | | PORTABLE | 03/13/12 09:24:00 | | | | | CHEST 1 | INDICATION: Right lower | | | | | VIEW | extremity DVT. | | | | | | COMPARISON: None | | | | | | FINDINGS: Lungs are | | | | | | clear. No pneumothorax | | | | | | or pleural effusion. | | | | | | The cardiacsilhouette | | | | | | is normal. There is no | | | | | | edema. The osseous | | | | | | structures arenormal. | | | | | | IMPRESSION: Normal chest | | | | | | radiograph Attending | | | | | | Radiologists: Reyna | | | | | | Maciej PollockAuthor: | | | | | | Bill Soliz MD I | | | | | | have personally viewed | | | | | | this procedure/exam, | | | | | | reviewed this report,and | | | | | | made changes to it | | | | | | where appropriate. | | | | | | Final/Electronically | | | | | | signed / Reyna Pollock | | | | | | 03/13/2012 10:33 AM | | | | | | | | | | | | | | | | + + + + + + + + | Specimen | + + | | + + + +---------+ + + | Performing | Address | City/State/Zipcode | Phone Number | | Organization | | | | + +---------+ + + | [facility] DEPARTMENT OF | | | | | RADIOLOGY | | | | + +---------+ + + APTT (ACT. PART. THROMBO TIME) (03/13/2012 5:01 AM PDT) + + + + + + | Component | Value | Ref Range | Performed | Pathologist | | | | | At | Signature | + + + + + + | APTT | > 200.0 (*)Comment: | 26.0 - 36.0 | [facility] | | | | APTT Therapeutic | seconds | DEPARTMENT | | | | Range | | OF | | | | | | PATHOLOGY | | | | (75-120) sec | | | | | | Heparin | | | | | | levels of 0.35-0.7 U/mL | | | | + + + + + + + + | Specimen | + + | Blood - Blood | + + + + + | Narrative | Performed At | + + + | Phoned PTT to Stefania Lightcap Readback. | [facility] | | | DEPARTMENT OF | | | PATHOLOGY | + + + + + + + + | Performing | Address | City/State/Zipcode | Phone Number | | Organization | | | | + + + + + | [facility] | [address] | [place] [address] | | | PATHOLOGY | [address] | | | + + + + + DIFFERENTIAL (03/13/2012 4:55 AM PDT) + +-------+ + + + | Component | Value | Ref Range | Performed | Pathologist | | | | | At | Signature | + +-------+ + + + | NEUTROPHIL | 58 | 50 - 70 % | [facility] | | | % | | | DEPARTMENT | | | | | | OF | | | | | | PATHOLOGY | | + +-------+ + + + | LYMPHOCYTE | 30 | 18 - 42 % | [facility] | | | % | | | DEPARTMENT | | | | | | OF | | | | | | PATHOLOGY | | + +-------+ + + + | MONOCYTE % | 7 | 2 - 8 % | [facility] | | | | | | DEPARTMENT | | | | | | OF | | | | | | PATHOLOGY | | + +-------+ + + + | EOS % | 5 (H) | 1 - 3 % | [facility] | | | | | | DEPARTMENT | | | | | | OF | | | | | | PATHOLOGY | | + +-------+ + + + | BASO % | 0 | <3 % | [facility] | | | | | | DEPARTMENT | | | | | | OF | | | | | | PATHOLOGY | | + +-------+ + + + | NEUTROPHIL | 4.3 | 1.8 - 7.7 K/cu | [facility] | | | # | | mm | DEPARTMENT | | | | | | OF | | | | | | PATHOLOGY | | + +-------+ + + + | LYMPHOCYTE | 2.2 | 1.0 - 4.8 K/cu | [facility] | | | # | | mm | DEPARTMENT | | | | | | OF | | | | | | PATHOLOGY | | + +-------+ + + + | MONOCYTE # | 0.5 | <0.9 K/cu mm | [facility] | | | | | | DEPARTMENT | | | | | | OF | | | | | | PATHOLOGY | | + +-------+ + + + | EOS # | 0.4 | <0.6 K/cu mm | [facility] | | | | | | DEPARTMENT | | | | | | OF | | | | | | PATHOLOGY | | + +-------+ + + + | BASO # | 0.0 | <0.3 | [facility] | | | | | | DEPARTMENT | | | | | | OF | | | | | | PATHOLOGY | | + +-------+ + + + + + | Specimen | + + | | + + + + + + + | Performing | Address | City/State/Zipcode | Phone Number | | Organization | | | | + + + + + | [facility] DEPARTMENT | [address] | [place] [address] | | | PATHOLOGY | [address] | | | + + + + + CBC ONLY (03/13/2012 4:55 AM PDT) + + + + + + | Component | Value | Ref Range | Performed | Pathologist | | | | | At | Signature | + + + + + + | WHITE CELL | 7.4 | 4.4 - 11.0 K/cu | [facility] | | | COUNT | | mm | DEPARTMENT | | | | | | OF | | | | | | PATHOLOGY | | + + + + + + | RED CELL | 4.04 | 4.00 - 5.20 | [facility] | | | COUNT | | M/cu mm | DEPARTMENT | | | | | | OF | | | | | | PATHOLOGY | | + + + + + + | HEMOGLOBIN | 11.6 (L) | 12.0 - 16.0 | [facility] | | | | | g/dL | DEPARTMENT | | | | | | OF | | | | | | PATHOLOGY | | + + + + + + | HEMATOCRIT | 35.4 (L) | 36.0 - 46.0 % | [facility] | | | | | | DEPARTMENT | | | | | | OF | | | | | | PATHOLOGY | | + + + + + + | MCV | 87.7 | 80.0 - 96.0 fL | [facility] | | | | | | DEPARTMENT | | | | | | OF | | | | | | PATHOLOGY | | + + + + + + | MCHC | 32.8 (L) | 33.4 - 35.5 | [facility] | | | | | g/dL | DEPARTMENT | | | | | | OF | | | | | | PATHOLOGY | | + + + + + + | RDW | 17.2 (H) | 11.5 - 15.0 % | [facility] | | | | | | DEPARTMENT | | | | | | OF | | | | | | PATHOLOGY | | + + + + + + | PLATELET | 204 | 150 - 400 K/cu | [facility] | | | COUNT | | mm | DEPARTMENT | | | | | | OF | | | | | | PATHOLOGY | | + + + + + + + + | Specimen | + + | Blood - Blood | + + + + + + + | Performing | Address | City/State/Zipcode | Phone Number | | Organization | | | | + + + + + | [facility] | [address] | [place] [address] | | | PATHOLOGY | [address] | | | + + + + + CBC, WITH DIFFERENTIAL (03/13/2012 4:55 AM PDT) + + + + + + | Component | Value | Ref Range | Performed | Pathologist | | | | | At | Signature | + + + + + + | WHITE CELL | 7.4 | 4.4 - 11.0 K/cu | [facility] | | | COUNT | | mm | DEPARTMENT | | | | | | OF | | | | | | PATHOLOGY | | + + + + + + | RED CELL | 4.04 | 4.00 - 5.20 | [facility] | | | COUNT | | M/cu mm | DEPARTMENT | | | | | | OF | | | | | | PATHOLOGY | | + + + + + + | HEMOGLOBIN | 11.6 (L) | 12.0 - 16.0 | [facility] | | | | | g/dL | DEPARTMENT | | | | | | OF | | | | | | PATHOLOGY | | + + + + + + | HEMATOCRIT | 35.4 (L) | 36.0 - 46.0 % | [facility] | | | | | | DEPARTMENT | | | | | | OF | | | | | | PATHOLOGY | | + + + + + + | MCV | 87.7 | 80.0 - 96.0 fL | [facility] | | | | | | DEPARTMENT | | | | | | OF | | | | | | PATHOLOGY | | + + + + + + | MCHC | 32.8 (L) | 33.4 - 35.5 | [facility] | | | | | g/dL | DEPARTMENT | | | | | | OF | | | | | | PATHOLOGY | | + + + + + + | RDW | 17.2 (H) | 11.5 - 15.0 % | [facility] | | | | | | DEPARTMENT | | | | | | OF | | | | | | PATHOLOGY | | + + + + + + | PLATELET | 204 | 150 - 400 K/cu | [facility] | | | COUNT | | mm | DEPARTMENT | | | | | | OF | | | | | | PATHOLOGY | | + + + + + + + + | Specimen | + + | Blood - Blood | + + + + + + + | Performing | Address | City/State/Zipcode | Phone Number | | Organization | | | | + + + + + | [facility] | [address] | [place] [address] | | | PATHOLOGY | [address] | | | + + + + + CONFIRMATORY ABO/RH (03/13/2012 3:09 AM PDT) + + + + + + | Component | Value | Ref Range | Performed | Pathologist | | | | | At | Signature | + + + + + + | ABO GROUP | B | | [facility] | | | | | | DEPARTMENT | | | | | | OF | | | | | | PATHOLOGY | | + + + + + + | RH TYPE | Positive | | [facility] | | | | | | DEPARTMENT | | | | | | OF | | | | | | PATHOLOGY | | + + + + + + + + | Specimen | + + | | + + + + + + + | Performing | Address | City/State/Zipcode | Phone Number | | Organization | | | | + + + + + | [facility] DEPARTMENT OF | [address] | [place] [address] | | | PATHOLOGY | [address] | | | + + + + + DIFFERENTIAL (03/13/2012 1:00 AM PDT) + +-------+ + + + | Component | Value | Ref Range | Performed | Pathologist | | | | | At | Signature | + +-------+ + + + | NEUTROPHIL | 61 | 50 - 70 % | [facility] | | | % | | | DEPARTMENT | | | | | | OF | | | | | | PATHOLOGY | | + +-------+ + + + | LYMPHOCYTE | 27 | 18 - 42 % | [facility] | | | % | | | DEPARTMENT | | | | | | OF | | | | | | PATHOLOGY | | + +-------+ + + + | MONOCYTE % | 7 | 2 - 8 % | [facility] | | | | | | DEPARTMENT | | | | | | OF | | | | | | PATHOLOGY | | + +-------+ + + + | EOS % | 5 (H) | 1 - 3 % | [facility] | | | | | | DEPARTMENT | | | | | | OF | | | | | | PATHOLOGY | | + +-------+ + + + | BASO % | 1 | <3 % | [facility] | | | | | | DEPARTMENT | | | | | | OF | | | | | | PATHOLOGY | | + +-------+ + + + | NEUTROPHIL | 4.4 | 1.8 - 7.7 K/cu | [facility] | | | # | | mm | DEPARTMENT | | | | | | OF | | | | | | PATHOLOGY | | + +-------+ + + + | LYMPHOCYTE | 1.9 | 1.0 - 4.8 K/cu | [facility] | | | # | | mm | DEPARTMENT | | | | | | OF | | | | | | PATHOLOGY | | + +-------+ + + + | MONOCYTE # | 0.5 | <0.9 K/cu mm | [facility] | | | | | | DEPARTMENT | | | | | | OF | | | | | | PATHOLOGY | | + +-------+ + + + | EOS # | 0.4 | <0.6 K/cu mm | [facility] | | | | | | DEPARTMENT | | | | | | OF | | | | | | PATHOLOGY | | + +-------+ + + + | BASO # | 0.1 | <0.3 | [facility] | | | | | | DEPARTMENT | | | | | | OF | | | | | | PATHOLOGY | | + +-------+ + + + + + | Specimen | + + | | + + + + + + + | Performing | Address | City/State/Zipcode | Phone Number | | Organization | | | | + + + + + | [facility] | [address] | [place] [address] | | | PATHOLOGY | [address] | | | + + + + + APTT (ACT. PART. THROMBO TIME) (03/13/2012 1:00 AM PDT) + + + + + + | Component | Value | Ref Range | Performed | Pathologist | | | | | At | Signature | + + + + + + | APTT | > 200.0 (*)Comment: | 26.0 - 36.0 | [facility] | | | | APTT Therapeutic | seconds | DEPARTMENT | | | | Range | | OF | | | | | | PATHOLOGY | | | | (75-120) sec | | | | | | Heparin | | | | | | levels of 0.35-0.7 U/mL | | | | + + + + + + + + | Specimen | + + | Blood - Blood | + + + + + | Narrative | Performed At | + + + | Phoned PTT to Amy Parks Readback. | [facility] | | | DEPARTMENT OF | | | PATHOLOGY | + + + + + + + + | Performing | Address | City/State/Zipcode | Phone Number | | Organization | | | | + + + + + | [facility] DEPARTMENT OF | [address] | [place] [address] | | | PATHOLOGY | [address] | | | + + + + + INR (03/13/2012 1:00 AM PDT) + + + + + + | Component | Value | Ref Range | Performed | Pathologist | | | | | At | Signature | + + + + + + | INR | 1.30 (H)Comment: | 0.90 - 1.20 INR | [facility] | | | | INR Therapeutic ranges | | DEPARTMENT | | | | for full | | OF | | | | anticoagulation: | | PATHOLOGY | | | | INR for Venous | | | | | | Thromboembolism | | | | | | (2.0-3.0) | | | | | | INR INR for most | | | | | | patients with mech. | | | | | | valves (2.5-3.5) | | | | | | INR | | | | + + + + + + + + | Specimen | + + | Blood - Blood | + + + + + | Narrative | Performed At | + + + | Phoned PTT to Amy Parks Readback. | [facility] | | | DEPARTMENT OF | | | PATHOLOGY | + + + + + + + + | Performing | Address | City/State/Zipcode | Phone Number | | Organization | | | | + + + + + | [facility] DEPARTMENT OF | [address] | [place] [address] | | | PATHOLOGY | [address] | | | + + + + + CBC, WITH DIFFERENTIAL (03/13/2012 1:00 AM PDT) + + + + + + | Component | Value | Ref Range | Performed | Pathologist | | | | | At | Signature | + + + + + + | WHITE CELL | 7.2 | 4.4 - 11.0 K/cu | [facility] | | | COUNT | | mm | DEPARTMENT | | | | | | OF | | | | | | PATHOLOGY | | + + + + + + | RED CELL | 4.02 | 4.00 - 5.20 | [facility] | | | COUNT | | M/cu mm | DEPARTMENT | | | | | | OF | | | | | | PATHOLOGY | | + + + + + + | HEMOGLOBIN | 11.6 (L) | 12.0 - 16.0 | [facility] | | | | | g/dL | DEPARTMENT | | | | | | OF | | | | | | PATHOLOGY | | + + + + + + | HEMATOCRIT | 35.3 (L) | 36.0 - 46.0 % | [facility] | | | | | | DEPARTMENT | | | | | | OF | | | | | | PATHOLOGY | | + + + + + + | MCV | 87.9 | 80.0 - 96.0 fL | [facility] | | | | | | DEPARTMENT | | | | | | OF | | | | | | PATHOLOGY | | + + + + + + | MCHC | 32.9 (L) | 33.4 - 35.5 | [facility] | | | | | g/dL | DEPARTMENT | | | | | | OF | | | | | | PATHOLOGY | | + + + + + + | RDW | 17.7 (H) | 11.5 - 15.0 % | [facility] | | | | | | DEPARTMENT | | | | | | OF | | | | | | PATHOLOGY | | + + + + + + | PLATELET | 199 | 150 - 400 K/cu | [facility] | | | COUNT | | mm | DEPARTMENT | | | | | | OF | | | | | | PATHOLOGY | | + + + + + + + + | Specimen | + + | Blood - Blood | + + + + + + + | Performing | Address | City/State/Zipcode | Phone Number | | Organization | | | | + + + + + | [facility] DEPARTMENT OF | [address] | [place] [address] | | | PATHOLOGY | [address] | | | + + + + + BASIC METABOLIC SET (NA, K, CL, TCO2, BUN, CR, GLU, CA) (03/13/2012 1:00 AM PDT) + +---------+ + + + | Component | Value | Ref Range | Performed | Pathologist | | | | | At | Signature | + +---------+ + + + | GLUCOSE, | 109 (H) | 60 - 99 mg/dL | [facility] | | | PLASMA | | | DEPARTMENT | | | (LAB) | | | OF | | | | | | PATHOLOGY | | + +---------+ + + + | BUN, PLASMA | 7 | 6 - 20 mg/dL | [facility] | | | (LAB) | | | DEPARTMENT | | | | | | OF | | | | | | PATHOLOGY | | + +---------+ + + + | CREATININE | 0.79 | 0.60 - 1.10 | [facility] | | | PLASMA | | mg/dL | DEPARTMENT | | | (LAB) | | | OF | | | | | | PATHOLOGY | | + +---------+ + + + | SODIUM, | 142 | 136 - 145 | [facility] | | | PLASMA | | mmol/L | DEPARTMENT | | | (LAB) | | | OF | | | | | | PATHOLOGY | | + +---------+ + + + | POTASSIUM, | 3.6 | 3.4 - 5.0 | [facility] | | | PLASMA | | mmol/L | DEPARTMENT | | | (LAB) | | | OF | | | | | | PATHOLOGY | | + +---------+ + + + | CHLORIDE, | 107 | 97 - 108 mmol/L | [facility] | | | PLASMA | | | DEPARTMENT | | | (LAB) | | | OF | | | | | | PATHOLOGY | | + +---------+ + + + | TOTAL CO2, | 24 | 21 - 32 mmol/L | [facility] | | | PLASMA | | | DEPARTMENT | | | (LAB) | | | OF | | | | | | PATHOLOGY | | + +---------+ + + + | CALCIUM, | 8.8 | 8.6 - 10.2 | [facility] | | | PLASMA | | mg/dL | DEPARTMENT | | | (LAB) | | | OF | | | | | | PATHOLOGY | | + +---------+ + + + | ANION GAP | 11 | 4 - 11 mmol/L | [facility] | | | | | | DEPARTMENT | | | | | | OF | | | | | | PATHOLOGY | | + +---------+ + + + + + | Specimen | + + | Blood - Blood | + + + + + | Narrative | Performed At | + + + | New reference ranges for ALT, Amylase, Total CO2, GGT, Lipase and | [facility] | | Sodium effective 02/19/12 | DEPARTMENT OF | | | PATHOLOGY | + + + + + + + + | Performing | Address | City/State/Zipcode | Phone Number | | Organization | | | | + + + + + | [facility] | [address] | [place] [address] | | | PATHOLOGY | [address] | | | + + + + + CAPILLARY BLOOD GLUCOSE, POC (03/12/2012 11:51 PM PDT) + +---------+ + + + | Component | Value | Ref Range | Performed | Pathologist | | | | | At | Signature | + +---------+ + + + | BLOOD | 170 (H) | 60 - 99 mg/dL | [facility] - | | | GLUCOSE, | | | [facility] | | | POC | | | [facility] | | | | | | OF CARE | | | | | | TESTS | | + +---------+ + + + + + | Specimen | + + | | + + + + + + + | Performing | Address | City/State/Zipcode | Phone Number | | Organization | | | | + + + + + | [facility] | [address] | [place], [place] | | | [facility] | [address] | [address] | | | TESTS | | | | + + + + + URINE, MICROSCOPIC EXAM (03/12/2012 11:26 PM PDT) + +---------+ + + + | Component | Value | Ref Range | Performed | Pathologist | | | | | At | Signature | + +---------+ + + + | SQUAMOUS | Few | (None-Few) /hpf | [facility] | | | EPITHELIAL | | | DEPARTMENT | | | | | | OF | | | | | | PATHOLOGY | | + +---------+ + + + | NON-SQUAMOU | Few | (None-Few) /hpf | [facility] | | | S EPITH | | | DEPARTMENT | | | | | | OF | | | | | | PATHOLOGY | | + +---------+ + + + | RED CELLS | None | <4 /hpf | [facility] | | | | | | DEPARTMENT | | | | | | OF | | | | | | PATHOLOGY | | + +---------+ + + + | WHITE CELLS | 1 | <6 /hpf | [facility] | | | | | | DEPARTMENT | | | | | | OF | | | | | | PATHOLOGY | | + +---------+ + + + | BACTERIA | None | (None) /hpf | [facility] | | | | | | DEPARTMENT | | | | | | OF | | | | | | PATHOLOGY | | + +---------+ + + + | MUCOUS | Few (A) | (None) /hpf | [facility] | | | | | | DEPARTMENT | | | | | | OF | | | | | | PATHOLOGY | | + +---------+ + + + | HYALINE | None | <3 /lpf | [facility] | | | CASTS | | | DEPARTMENT | | | | | | OF | | | | | | PATHOLOGY | | + +---------+ + + + | GRANULAR | None | <3 /lpf | [facility] | | | CASTS | | | DEPARTMENT | | | | | | OF | | | | | | PATHOLOGY | | + +---------+ + + + | CELLULAR | None | (None) /lpf | [facility] | | | CASTS | | | DEPARTMENT | | | | | | OF | | | | | | PATHOLOGY | | + +---------+ + + + | AMORPHOUS | None | (None) /hpf | [facility] | | | CRYSTALS | | | DEPARTMENT | | | | | | OF | | | | | | PATHOLOGY | | + +---------+ + + + | CALCIUM | None | (None) /hpf | [facility] | | | OXALATE | | | DEPARTMENT | | | FATOU | | | OF | | | | | | PATHOLOGY | | + +---------+ + + + | URIC ACID | None | (None) /hpf | [facility] | | | CRYSTALS | | | DEPARTMENT | | | | | | OF | | | | | | PATHOLOGY | | + +---------+ + + + | TRIPLE P04 | None | (None) /hpf | [facility] | | | CRYSTALS | | | DEPARTMENT | | | | | | OF | | | | | | PATHOLOGY | | + +---------+ + + + | YEAST (LAB) | None | (None) /hpf | [facility] | | | | | | DEPARTMENT | | | | | | OF | | | | | | PATHOLOGY | | + +---------+ + + + | TRICHOMONAS | None | (None) /hpf | [facility] | | | | | | DEPARTMENT | | | | | | OF | | | | | | PATHOLOGY | | + +---------+ + + + + + | Specimen | + + | Urine - Urine | + + + + + + + | Performing | Address | City/State/Zipcode | Phone Number | | Organization | | | | + + + + + | [facility] DEPARTMENT OF | [address] | [place] [address] | | | PATHOLOGY | [address] | | | + + + + + TYPE AND SCREEN (03/12/2012 11:20 PM PDT) + + + + + + | Component | Value | Ref Range | Performed | Pathologist | | | | | At | Signature | + + + + + + | ABO GROUP | B | | [facility] | | | | | | DEPARTMENT | | | | | | OF | | | | | | PATHOLOGY | | + + + + + + | RH TYPE | Positive | | [facility] | | | | | | DEPARTMENT | | | | | | OF | | | | | | PATHOLOGY | | + + + + + + | Antibody | Negative | | [facility] | | | Screen | | | DEPARTMENT | | | | | | OF | | | | | | PATHOLOGY | | + + + + + + + + | Specimen | + + | Blood - Blood | + + + + + + + | Performing | Address | City/State/Zipcode | Phone Number | | Organization | | | | + + + + + | [facility] | [address] | [place] [address] | | | PATHOLOGY | [address] | | | + + + + + documented in this encounter Visit Diagnoses + + | Diagnosis | + + | DVT (deep venous thrombosis) ([facility]) - Primary Acute venous embolism and thrombosis of | | unspecified deep vessels of lower extremity | + + | Pulmonary embolism ([facility]) Other pulmonary embolism and infarction | + + documented in this encounter Administered Medications + +--------+ +--------+------+------+ | Medication Order | MAR | Action | Dose | Rate | Site | | | Action | Date | | | | + +--------+ +--------+------+------+ | acetaminophen (aka TYLENOL) | Given | 03/17/20 | 650 mg | | | | tablet 325-650 mg 325-650 mg, | | 12 9:15 | | | | | oral, EVERY 4 HOURS NEEDED, | | PM PDT | | | | | Starting 03/12/12 at 2320, | | | | | | | Until 03/18/12 at 1907, mild | | | | | | | pain | | | | | | + +--------+ +--------+------+------+ +-------+ +--------+---+---+ | Given | 03/14/20 | 650 mg | | | | | 12 2:27 | | | | | | PM PDT | | | | +-------+ +--------+---+---+ | Given | 03/14/20 | 650 mg | | | | | 12 8:16 | | | | | | AM PDT | | | | +-------+ +--------+---+---+ +---+---+ | | | +---+---+ + +-------+ +--------+---+---+ | calcium carbonate chewable (aka | Given | 03/14/20 | 750 mg | | | | TUMS) tablet 750 mg 750 mg, | | 12 8:16 | | | | | oral, ONCE, 1 dose, [facility] 03/13/12 at | | AM PDT | | | | | 2330 | | | | | | + +-------+ +--------+---+---+ +---+---+ | | | +---+---+ + +-------+ +--------+---+---+ | enoxaparin (aka LOVENOX) | Given | 03/18/20 | 100 mg | | | | injection 100 mg 100 mg, | | 12 9:18 | | | | | subcutaneous, EVERY 12 HOURS, | | AM PDT | | | | | First dose on 03/15/12 at 0800, | | | | | | | Until Discontinued | | | | | | + +-------+ +--------+---+---+ +-------+ +--------+---+---+ | Given | 03/17/20 | 100 mg | | | | | 12 9:15 | | | | | | PM PDT | | | | +-------+ +--------+---+---+ | Given | 03/17/20 | 100 mg | | | | | 12 8:24 | | | | | | AM PDT | | | | +-------+ +--------+---+---+ +---+---+ | | | +---+---+ + +---------+ +--------+--------+---+ | fentaNYL citrate (PF) (aka | New Bag | 03/13/20 | 40 mcg | mL/hr | | | SUBLIMAZE) injection 10-40 mcg | | 12 6:24 | | | | | 10-40 mcg, intravenous, EVERY 2 | | PM PDT | | | | | HOURS NEEDED, Starting Wed | | | | | | | 03/12/12 at 2319, Until Kriss 03/13/12 | | | | | | | at 1844, moderate pain | | | | | | + +---------+ +--------+--------+---+ +---------+ +--------+--------+---+ | New Bag | 03/13/20 | 40 mcg | mL/hr | | | | 12 4:29 | | | | | | PM PDT | | | | +---------+ +--------+--------+---+ | New Bag | 03/13/20 | 20 mcg | mL/hr | | | | 12 2:34 | | | | | | PM PDT | | | | +---------+ +--------+--------+---+ +---+---+ | | | +---+---+ + + + +--------+--------+---+ | heparin bolus from continuous | Bolus | 03/14/20 | 4,300 | mL/hr | | | infusion (protocol) 4,300 Units | from | 12 4:58 | Units | | | | intravenous, BOLUS PRN, Starting | Same Bag | AM PDT | | | | | 03/12/12 at 2321, Until Sat | | | | | | | 03/15/12 at 0646, (aPTT 56-75 sec) | | | | | | | OR (heparin level 0.1-0.34 | | | | | | | units/mL) | | | | | | + + + +--------+--------+---+ +---+---+ | | | +---+---+ + + + +--------+--------+---+ | heparin bolus from continuous | Bolus | 03/13/20 | 4,300 | mL/hr | | | infusion (protocol) 4,300 Units | from | 12 12:23 | Units | | | | intravenous, ONCE, 1 dose, Kriss | Same Bag | AM PDT | | | | | 03/13/12 at 0045 | | | | | | + + + +--------+--------+---+ +---+---+ | | | +---+---+ + + + + + +---+ | heparin in D5W IV infusion | Rate/Dos | 03/14/20 | 1,300 | 13 mL/hr | | | 25,000 units/250 mL (100 | e Change | 12 12:00 | Units/hr | | | | units/mL) 1-2,000 Units/hr | | PM PDT | | | | | (rounded to 0.01-20 mL/hr), | | | | | | | intravenous, CONTINUOUS, Starting | | | | | | | Kriss 03/13/12 at 0000, Until Sat | | | | | | | 03/15/12 at 0646 | | | | | | + + + + + +---+ + + + + +---+ | New Bag | 03/14/20 | 1,500 | 15 mL/hr | | | | 12 5:01 | Units/hr | | | | | AM PDT | | | | + + + + +---+ | Rate/Dose Change | 03/14/20 | 1,500 | 15 mL/hr | | | | 12 4:55 | Units/hr | | | | | AM PDT | | | | + + + + +---+ +---+---+ | | | +---+---+ + +---------+ +--------+--------+---+ | HYDROmorphone (aka DILAUDID) | New Bag | 03/16/20 | 0.8 mg | mL/hr | | | injection 0.2-0.8 mg 0.2-0.8 mg, | | 12 11:41 | | | | | intravenous, EVERY 2 HOURS | | PM PDT | | | | | NEEDED, Starting [facility] 03/13/12 at | | | | | | | 1843, Until Sat03/18/12 at 1907, | | | | | | | moderate pain | | | | | | + +---------+ +--------+--------+---+ +---------+ +--------+--------+---+ | New Bag | 03/14/20 | 0.8 mg | mL/hr | | | | 12 11:21 | | | | | | PM PDT | | | | +---------+ +--------+--------+---+ +---+---+ | | | +---+---+ + +-------+ +------+---+---+ | HYDROmorphone (aka DILAUDID) | Given | 03/18/20 | 2 mg | | | | tablet 2-4 mg 2-4 mg, oral, | | 12 11:37 | | | | | EVERY 3 HOURS NEEDED, Starting | | AM PDT | | | | | 03/14/12 at 0639, Until Tue | | | | | | | 03/18/12 at 1907, moderate pain | | | | | | + +-------+ +------+---+---+ +-------+ +------+---+---+ | Given | 03/18/20 | 2 mg | | | | | 12 1:30 | | | | | | AM PDT | | | | +-------+ +------+---+---+ | Given | 03/16/20 | 2 mg | | | | | 12 9:22 | | | | | | PM PDT | | | | +-------+ +------+---+---+ +---+---+ | | | +---+---+ + +---------+ +--------+--------+---+ | iohexol (aka OMNIPAQUE) | New Bag | 03/13/20 | 150 mL | mL/hr | | | injection 150 mL 150 mL, | | 12 12:01 | | | | | intravenous, PROCEDURE ONCE, 1 | | PM PDT | | | | | dose, [facility] 03/13/12 at 1215 | | | | | | + +---------+ +--------+--------+---+ +---+---+ | | | +---+---+ + +-------+ +---------+---+---+ | metoprolol tartrate (aka | Given | 03/17/20 | 12.5 mg | | | | LOPRESSOR) tablet 12.5 mg 12.5 | | 12 8:24 | | | | | mg, oral, TWICE DAILY, First dose | | AM PDT | | | | | on 03/15/12 at 0900, Until | | | | | | | Discontinued | | | | | | + +-------+ +---------+---+---+ +-------+ +---------+---+---+ | Given | 03/16/20 | 12.5 mg | | | | | 12 9:17 | | | | | | PM PDT | | | | +-------+ +---------+---+---+ | Given | 03/16/20 | 12.5 mg | | | | | 12 9:12 | | | | | | AM PDT | | | | +-------+ +---------+---+---+ +---+---+ | | | +---+---+ + +-------+ +-------+---+---+ | metoprolol tartrate (aka | Given | 03/18/20 | 25 mg | | | | LOPRESSOR) tablet 25 mg 25 mg, | | 12 9:18 | | | | | oral, TWICE DAILY, First dose | | AM PDT | | | | | (after last modification) on Mon | | | | | | | 03/17/12 at 2100, Until | | | | | | | Discontinued | | | | | | + +-------+ +-------+---+---+ +-------+ +-------+---+---+ | Given | 03/17/20 | 25 mg | | | | | 12 9:15 | | | | | | PM PDT | | | | +-------+ +-------+---+---+ +---+---+ | | | +---+---+ + +---------+ +------+--------+---+ | ondansetron (aka ZOFRAN) | New Bag | 03/17/20 | 4 mg | mL/hr | | | injection 4 mg 4 mg, | | 12 12:34 | | | | | intravenous, EVERY 12 HOURS | | AM PDT | | | | | NEEDED, Starting Sat03/12/12 at | | | | | | | 2320, Until Sat03/18/12 at 1907, | | | | | | | nausea/vomiting | | | | | | + +---------+ +------+--------+---+ +---------+ +------+--------+---+ | New Bag | 03/14/20 | 4 mg | mL/hr | | | | 12 12:09 | | | | | | AM PDT | | | | +---------+ +------+--------+---+ | New Bag | 03/12/20 | 4 mg | mL/hr | | | | 12 11:44 | | | | | | PM PDT | | | | +---------+ +------+--------+---+ +---+---+ | | | +---+---+ + +-------+ +-------+---+---+ | oxyCODONE (immediate release) | Given | 03/13/20 | 15 mg | | | | (aka ROXICODONE) tablet 5-15 mg | | 12 11:02 | | | | | 5-15 mg, oral, EVERY 4 HOURS | | PM PDT | | | | | NEEDED, Starting Kriss 03/13/12 at | | | | | | | 1843, Until Sat03/14/12 at 0639, | | | | | | | severe pain, give after leslie | | | | | | | or trudy palm if patient not | | | | | | | taking much PO. | | | | | | + +-------+ +-------+---+---+ +-------+ +-------+---+---+ | Given | 03/13/20 | 15 mg | | | | | 12 7:10 | | | | | | PM PDT | | | | +-------+ +-------+---+---+ +---+---+ | | | +---+---+ + +-------+ +--------+---+--------+ | pneumococcal (23-valent) | Given | 03/14/20 | 0.5 mL | | Right | | polysaccharide vaccine (aka | | 12 9:02 | | | Arm | | PNEUMOVAX) injection 0.5 mL 0.5 | | AM PDT | | | | | mL, intramuscular, ONE TIME IN | | | | | | | THE MORNING, 1 dose, First dose | | | | | | | on Sat03/14/12 at 0900 | | | | | | + +-------+ +--------+---+--------+ +---+---+ | | | +---+---+ + +-------+ + +---+---+ | senna-docusate (aka SAULO S) | Given | 03/18/20 | 1 tablet | | | | 8.6-50 mg 1 Tab 1 tablet, oral, | | 12 9:18 | | | | | TWICE DAILY, First dose on Sat | | AM PDT | | | | | 03/14/12 at 2100, Until | | | | | | | Discontinued | | | | | | + +-------+ + +---+---+ +-------+ + +---+---+ | Given | 03/17/20 | 1 tablet | | | | | 12 8:24 | | | | | | AM PDT | | | | +-------+ + +---+---+ | Given | 03/16/20 | 1 tablet | | | | | 12 9:12 | | | | | | AM PDT | | | | +-------+ + +---+---+ +---+---+ | | | +---+---+ + +-------+ +------+---+---+ | warfarin (aka COUMADIN) tablet | Given | 03/16/20 | 5 mg | | | | 5 mg 5 mg, oral, EVERY EVENING, | | 12 9:17 | | | | | First dose on 03/15/12 at 2100, | | PM PDT | | | | | Until Discontinued | | | | | | + +-------+ +------+---+---+ +-------+ +------+---+---+ | Given | 03/15/20 | 5 mg | | | | | 12 9:04 | | | | | | PM PDT | | | | +-------+ +------+---+---+ +---+---+ | | | +---+---+ + +-------+ +--------+---+---+ | warfarin (aka COUMADIN) tablet | Given | 03/17/20 | 7.5 mg | | | | 7.5 mg 7.5 mg, oral, EVERY | | 12 9:15 | | | | | EVENING, First dose (after last | | PM PDT | | | | | modification) on 03/17/12 at | | | | | | | 2100, Until Discontinued | | | | | | + +-------+ +--------+---+---+ +---+---+ | | | +---+---+ documented in this encounter
--- OUTSIDE RECORDS SUMMARY | ~2020-02-07 | XMS | Encounter Summary ---
Demographics + + + | Address | [address] | | | [place] [address] | + + + | Home Phone | | + + + | Preferred Language | Unknown | + + + | Marital Status | Single | + + + | Roman Catholic Affiliation | Unknown | + + [...] Team Providers + +------+ + | Care Signal Tower Operator Name | Role | Phone | + +------+ + | Stefany Ngo | PCP | | + +------+ + Reason for Visit +--------+ + | Reason | Comments | +--------+ + | Other | Scan records from [facility] | +--------+ + Encounter Details +--------+ + + + + | Date | Type | Department | Care Team | Description | +--------+ + + + + | 04/22/ | Documentati | [facility] | [place], | Other (Scan records | | 2019 | on | PULMONOLOGY [address] | Tiff[facility] | from [facility] | | | | SONI HANNAH | Mold Press Operator | and science | | | | [place], [place] | | [facility] | | | | [address] | | | | | | [phone] | | | +--------+ + + + [...] of this encounter Progress Notes Tiffani Weinberg, Accounting Technician - 04/22/2019 8:37 AM PDT[facility] documented in this encounte r Plan of Treatment Not on filedocumented as of this encounter Visit Diagnoses Not on filedocumented in this encounter"
--- OUTSIDE RECORDS SUMMARY | ~2020-02-07 | XMS | Encounter Summary ---
Demographics + + + | Address | [address] | | | [place] [address] | + + + | Home Phone | | + + + | Preferred Language | Unknown | + + + | Marital Status | Single | + + + | Buddhism Affiliation | NRP | + + + | Race | White | + + + | Ethnic Group | Not or | + + + Author + + + | Author | [facility] | + + + | Organization | [facility] | + + + | Address | Unknown | + + + | Phone | Unavailable | + + + Support + + + + + | Name | Relationship | Address | Phone | + + + + + | Rosy Alvarez | ECON | [address] | | | | | [place] | | + + + + + | Chalo Delgado | ECON | [address] | | | | | [place] | | | | | [address] | | + + + + + | Kathleen Mar | ECON | [place] | | | | | [address] | | + + + + + | Yancy Mar | ECON | [address] | | | | | [place] | | + + + + + Care Team Providers + +------+ + | Care Marketer Name | Role | Phone | + +------+ + | Michelle Ndiaye MD | PCP | | + +------+ + Reason for Visit Speech Therapy (Routine) +--------+--------+ + + + + | Status | Reason | Specialty | Diagnoses / | Referred By | Referred To | | | | | Procedures | Contact | Contact | +--------+--------+ + + + + | Closed | | Speech | Diagnoses | Ent | Ent Speech | | | | Therapy | Cough | Laryngology | [address] | | | | | Shortness of | [address] | | | | | breath | [address] | [facility] | | [facility] and | | | | | | Health and | Healing, | | | | | | Healing, | [address], | | | | | | [address] | 15th Floor | | | | | | [place], [place] | [place], [place] | | | | | | [address] | [address] | | | | | | Phone: | Phone: | | | | | | [phone] | [phone] | | | | | | Fax: | Fax: | | | | | | [phone] | [phone] | +--------+--------+ + + + + Encounter Details +--------+---------+ + + + | Date | Type | Department | Care Team | Description | +--------+---------+ + + + | 04/28/ | Office | [facility] | Trudy Philip, LUCRETIA | Tracheal stenosis | | 2019 | Visit | [facility] | [address] | (Primary Dx); | | | | Swallowing at [facility] | Dannielle Layton [place], | Dysphonia; Shortness | | | | [address] | [place] [address] | of breath; Stridor | | | | [facility] | [phone] | | | | | and Healing, | | | | | | | | | | | | [place], [place] | | | | | | [address] | | | | | | [phone] | | | +--------+---------+ + + + [...] documented as of this encounter Progress Notes Trudy Philip, LUCRETIA - 04/28/2019 10:00 AM PDT VOICE EVALUATION CLINIC: [facility] REFERRING PHYSICIAN: Dr. Mary Ann Diamond PRIMARY DIAGNOSIS: 1. Tracheal stenosis 2. Dysphonia 3. Shortness of breath 4. Stridor TREATMENT DIAGNOSIS: 1. Tracheal stenosis 2. Dysphonia 3. Shortness of breath 4. Stridor DATE OF ONSET: 04/14/2019 START OF CARE: 04/28/2019 NUMBER OF SESSIONS: 1 DURATION OF SESSION: 50 minutes The patient stated her name and date of to confirm identity prior to the examination and procedure. REASON FOR REFERRAL: Marshall Delgado was referred to the [facility] by YRN Barrientos for a complete evaluation and and treatment. HISTORY: The patient has a long history of asthma. She notices that over the last 10 years , her asthma got worse and her asthma treatments stopped working. She tried a number of inh marissa which did not work. She reports that over the last year, it got even worse. She rep orts that her eocinophil levels are always high. She reports that her voice started changin g about 6 months ago with periods of hoarseness coming and going. She reports that over the past month, her voice has been more consistently hoarse. She has a stridor sound with ever y breath. She has a stridor sound with talking. She is unable to do any activity. She has found that over the last 5 years she found herself doing less and less. Over the last year , she has been unable to do any activity. She has trouble breathing in and out. She feels like she is breathing through a "coffee straw". Marshall reportedly has a history of Eosino philic asthma, chronic pulmonary embolism, and walking pneumonia. The patient reported that her voice is hoarse and effortful. The patient complained of variable voice quality, voice fading with use, poor ability to yell or project voice and pitch breaks. She notes that it is harder to talk at the end of the day than at the beginning of the day. She feels fatigu ed all of the time, but she has trouble breathing because she can't lay down flat. She was referred to our clinic to further evaluate noise in her upper airway. This evaluation was completed in cooperation with LILLIAM Vaz. Please refer to his report for details regarding the medical diagnosis. Marshall has a history of multiple surger ies over the years. VOCAL HYGIENE: The patient drinks 32 oz. of water, 16 oz. of diet pepsi per day and min gl asses of alcohol per day. The patient has never smoked. The patient's vocal demands are mo derate. The patient is employed. 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 The patient does not complain of reflux symptoms any more as she has had a surgery to decrease her reflux. SINGING: Can't sing now. SWALLOWING: She feels that foods get stuck about mid chest area. She feels like she gets back up in her esophagus. She has a history of a gastric banding in 1988. She also has a h istory of ulcers. PERCEPTUAL ASSESSMENT: The patient's voice was moderately hoarse and characterized by a ho arse and rough vocal quality with constant stridor in between sentences. There were not aud ible spasms during phonation. There was not a tremor noted during phonation. The patient's pitch was high for her age and gender due to strain. Loudness was within normal limits for 1:1 conversation. Articulation was within normal limits. Speech rate was within normal limi ts. Resonance was within normal limits. Breathing pattern was thoracic. Breath support fo r speech was poor. Coordination of breath and voice was poor. The patient spoke 5-6 syllab les per breath group during connected speech. She was clearly struggling for air between se ntences. The patient's speech intelligibility was approximately 100%. CAPE-V results reve aled overall moderate dysphonia (47/100). Voice Handicap Index = 66 (VHI measures the impact of the patient's voice disorder on daily communication with 120 being the maximum score indicating severe handicap). LARYNGEAL EXAMINATION: Laryngovideostroboscopy was completed using the flexible distal chi p telescope. The patient was sprayed with Lidocaine and Phenylephrine to each nostril prior to the examination after verbal consent. The patient tolerated the procedure well. The voc al folds were well visualized. The vocal folds were white with straight and smooth edges. T here were no lesions noted bilaterally. Range of motion for vocal fold abduction was within normal limits bilaterally during inspiration. Range of motion for vocal fold adduction was within normal limits bilaterally during phonation. There was increased supraglottic activit y during phonation and connected speech. Supraglottic activity was characterized by moderat e-severe A-P squeeze as well as some press of the false vocal folds. The patient was not ab le to achieve more relaxed phonation with trial therapy as she couldn't get enough airflow. Vocal fold elongation during glissando was normal. During stroboscopy, vertical level of the vocal folds was equal. Glottic closure was complete. The mucosal wave was normal bilater ally. Amplitude of vibration was decreased bilaterally. The closed phase was predominant w ith hyper adduction of the vocal folds. Vibration was always present. Phase symmetry was s ometimes irregular. Her upper airway, just below the vocal folds did not have stenosis. We gave her additional Lidocaine and then looked at her airway below the vocal folds. 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 This stenosis was quite severe and explained her shortness of breath symptoms. Patient education was completed with verbal and visual information. The patient did appear to understand the information presented today. SUMMARY: The patient presented with significant tracheal stenosis contributing to her olivier re shortness of breath. Her shortage of airflow is contributing to dysphonia as well as she is needing to compensate with laryngeal hyperfunction. RECOMMENDATIONS: 1. It is recommended that Marshall be scheduled for surgery with Dr. Jarocho Cosby who will rec ommend either tracheal dilation or tracheal resection depending on the results of her CT sca n (we have requested it be sent to us). Thank you for this consult. Trudy Philip M.A., C.C.C. Cleaning And Maintenance Worker Speech-Language Pathologist [facility] Department of Otolaryngology/ Head and Neck Surgery Appointments:[phone] documented in this enco unter Plan of Treatment Not on filedocumented as of this encounter Procedures + +--------+ + + + | Procedure Name | Priori | Date/Time | Associated Diagnosis | Comments | | | ty | | | | + +--------+ + + + | [facility] | Routin | 04/29/2019 | Tracheal stenosis | | | QUALITATIVE ANALYSIS | e | 8:44 AM | Dysphonia | | | OF VOICE AND | | PDT | Shortness of breath | | | RESONANCE | | | Stridor | | + +--------+ + + + | ND | Routin | 04/29/2019 | Tracheal stenosis | | | LARYNGOSCOPY,FLEX/RI | e | 8:44 AM | Dysphonia | | | GID+STROBOSCOPY | | PDT | Shortness of breath | | | | | | Stridor | | + +--------+ + + + documented in this encounter Visit Diagnoses + + | Diagnosis | + + | Tracheal stenosis - Primary Other diseases of trachea and bronchus | + + | Dysphonia | + + | Shortness of breath | + + | Stridor | + + documented in this encounter
--- OUTSIDE RECORDS SUMMARY | ~2020-02-07 | XMS | Encounter Summary ---
Demographics + + + | Address | [address] | | | [place] [address] | + + + | Home Phone | | + + + | Preferred Language | Unknown | + + + | Marital Status | Single | + + + | Adventism Affiliation | Unknown | + + + | Race | Unknown | + + + | Ethnic Group | Unknown | + + + Author + + + | Author | [facility] | | | and Michaelana | + + + | Organization | [facility] | | | [...] Team Providers + +------+ + | Care Associate Professor Of Engineering Name | Role | Phone | + +------+ + | Stefany Ngo | PCP | | + +------+ + Reason for Referral Diagnostic/Screening (Urgent) +--------+--------+ + + + + | Status | Reason | Specialty | Diagnoses / | Referred By | Referred To | | | | | Procedures | Contact | Contact | +--------+--------+ + + + + | Closed | | Radiology | Diagnoses | Lobo, | [facility] | | | | | Recurrent | Mary Ann E, | Medicine | | | | | pulmonary | 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 [address] | [address] | | | | | embolism | [address] | [address] | | | | | (HCC) Cough | HETAL E | [place], [place] | | | | | in adult | [place], [place] | [address] | | | | | Shortness of | [address] | Phone: | | | | | breath | Phone: | [phone] | | | | | Procedures | [phone] | Fax: | | | | | [facility] Lung | Fax: | [phone] | | | | | Perfusion | [phone] | | | | | | Ventilation | | | +--------+--------+ + + + + Reason for Visit Diagnostic/Screening (Urgent) +--------+--------+ + + + + | Status | Reason | Specialty | Diagnoses / | Referred By | Referred To | | | | | Procedures | Contact | Contact | +--------+--------+ + + + + | Closed | | Radiology | Diagnoses | Lobo, | [facility] | | | | | Recurrent | Mary Ann Meza, | Medicine | | | | | pulmonary | 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 [address] | [address] | | | | | embolism | [address] | [place] | | | | | ([facility]) Cough | HETAL Susana | [place], [place] | | | | | in adult | [place] | [address] | | | | | Shortness of | [address] | Phone: | | | | | breath | Phone: | [phone] | | | | | Procedures | [phone] | Fax: | | | | | [facility] Lung | Fax: | [phone] | | | | | Perfusion | [phone] | | | | | | Ventilation | | | +--------+--------+ + + + + Encounter Details +--------+ + + + + | Date | Type | Department | Care Team | Description | +--------+ + + + + | 03/18/ | Hospital | [facility] | Mary Ann Diamond, | Recurrent pulmonary | | 2019 | Encounter | [facility] | 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 [address] | embolism ([facility]); | | | | NUCLEAR MEDICINE | DR VILLALTA, | Cough in adult; | | | | [address] | [place] [address] | Shortness of breath | | | | [place], [place] | [phone] | | | | | [address] | | | | | | [phone] | | | +--------+ + + + [...] + + + +---------+ + + | KAYLI SUÁREZR | INHALE 1 PUFF BY | | [...] | + +--------+ + + + | [facility] LUNG PERFUSION | Routin | 03/18/2019 | Recurrent | Results for this | | VENTILATION | e | 12:02 PM | pulmonary embolism | procedure are in the | | | | PDT | ([facility]) Cough in | results section. | | | | | adult Shortness of | | | | | | breath | | + +--------+ + + + documented in this encounter Results NM Lung Perfusion Ventilation (03/18/2019 12:02 PM PDT) + + | Specimen | + + | | + + + + + | Narrative | Performed At | + + + | PULMONARY PERFUSION IMAGING, PARTICULATE, WITH VENTILATION; | [facility] | | REBREATHING AND WASHOUT, WITH OR WITHOUT SINGLE BREATH CLINICAL | | | INFORMATION: Recurrent pulmonary embolism. Cough in adult. Shortness | | | of breath COMPARISON: Concurrent chest radiographs. | | | PROCEDURE: Following the inhalation of mCi xenon 133, ventilation | | | images were obtained in the standard projections according to | | | department protocol. Washout imaging was performed. Following the | | | intravenous administration of mCi of Tc-99m MAA, perfusion images | | | were obtained in standard projections according to department | | | protocol. FINDINGS: Ventilation Right Lung: Normal. Left | | | Lung: Normal. Perfusion Right Lung: There is a small to | | | moderate-sized mismatched perfusion defect in right mid lung | | | posteriorly. Left Lung: There is a segmental mismatched perfusion | | | defect in left lower lobe posteriorly. IMPRESSION: Mismatched | | | ventilation perfusion defects in both lungs as detailed above. | | | Intermediate probability ventilation perfusion scan for pulmonary | | | embolism. Signed by: Maciej Orozco, Dalia Sign | | | Date/Time: 03/18/2019 12:14 PM | | + + + + + | Procedure Note | + + | José, Rad Results In - 03/18/2019 12:18 PM PDT | | PULMONARY PERFUSION IMAGING, PARTICULATE, WITH VENTILATION; REBREATHING | | AND WASHOUT, WITH OR WITHOUT SINGLE BREATH | | | | CLINICAL INFORMATION: | | Recurrent pulmonary embolism. Cough in adult. Shortness of breath | | | | COMPARISON: | | Concurrent chest radiographs. | | | | PROCEDURE: | | Following the inhalation of mCi xenon 133, ventilation images were | | obtained in the standard projections according to department protocol. | | Washout imaging was performed. Following the intravenous administration | | of mCi of Tc-99m MAA, perfusion images were obtained in standard | | projections according to department protocol. | | | | FINDINGS: | | Ventilation | | | | Right Lung: Normal. | | | | Left Lung: Normal. | | | | Perfusion | | | | Right Lung: There is a small to moderate-sized mismatched perfusion | | defect in right mid lung posteriorly. | | | | Left Lung: There is a segmental mismatched perfusion defect in left | | lower lobe posteriorly. | | | | IMPRESSION: | | Mismatched ventilation perfusion defects in both lungs as detailed | | above. Intermediate probability ventilation perfusion scan for | | pulmonary embolism. | | | | | | | [...] breath | + + documented in this encounter Administered Medications + +--------+ + +------+------+ | Medication Order | MAR | Action | Dose | Rate | Site | | | Action | Date | | | | + +--------+ + +------+------+ | technetium TC-99M albumin | Given | 03/18/20 | 6 | | | | aggregated (MAA) injection 6 | | 19 12:00 | millicur | | | | millicurie 6 millicurie, | | PM PDT | ies | | | | Intravenous, ONCE, 03/18/19 at | | | | | | | 1200, For 1 dose, Nuclear | | | | | | | Medicine | | | | | | + +--------+ + +------+------+ +---+---+ | | | +---+---+ + +-------+ + +---+---+ | xenon XE-133 (XENEISOL) | Given | 03/18/20 | 18.5 | | | | inhalation 15 millicurie 15 | | 19 12:02 | millicur | | | | millicurie, Inhalation, ONCE PRN, | | PM PDT | ies | | | | Other, Starting 03/18/19 at | | | | | | | 1145, For 1 dose, Nuclear | | | | | | | Medicine | | | | | | + +-------+ + +---+---+ +---+---+ | | | +---+---+ documented in this encounter"
--- OUTSIDE RECORDS SUMMARY | ~2020-02-07 | XMS | Encounter Summary ---
Demographics + + + | Address | [address] | | | [place] [address] | + + + | Home Phone | | + + + | Preferred Language | Unknown | + + + | Marital Status | Single | + + + | Christian Affiliation | NRP | + + + | Race | White | + + + | Ethnic Group | Not or | + + + Author + + + | Author | [facility] | + + + | Organization | [facility] | + + + | Address | Unknown | + + + | Phone | Unavailable | + + + Support + + + + + | Name | Relationship | Address | Phone | + + + + + | Rosy Alvarez | ECON | [address] | | | | | [place] | | + + + + + | Chalo Delgado | ECON | [address] | | | | | [place] | | | | | [address] | | + + + + + | Kathleen Mar | ECON | [place] | | | | | [address] | | + + + + + | Yancy Mar | ECON | [address] | | | | | [place] | | + + + + + Care Team Providers + +------+ + | Care Police Sergeant Precinct Name | Role | Phone | + [...] | [address] | Dannielle Layton [place], | | | | | Mailcode: [id number] | [place] [address] | | | | | [place], [place] | | | | | | [address] | | | | | | [phone] | | | +--------+ + + + [...]
--- OUTSIDE RECORDS SUMMARY | ~2020-02-07 | XMS | Encounter Summary ---
Demographics + + + | Address | [address] | | | [place] [address] | + + + | Home Phone | | + + + | Preferred Language | Unknown | + + + | Marital Status | Single | + + + | Jewish Affiliation | NRP | + + + [...] + | Rosy Alvarez | ECON | [address] | | | | | [place] | | + + + + + | Chalo Delgado | ECON | [address] | | | | | [place] | | | | | [address] | | + + + + + | Kathleen Mar | ECON | [place] | | | | | [address] | | + + + + + | Yancy Mar | ECON | [address] | | | | | [place] | | + + + + + Care Team Providers + +------+ + | Care Molasses Coloring Operator Name | Role | Phone | + +------+ + | Magdy Villalobos MD | PCP | | + +------+ + Encounter Details +--------+ + + + + | Date | Type | Department | Care Team | Description | +--------+ + + + + | 05/14/ | Abstract | Otolaryngology | Jarocho Cosby MD | | | 2019 | | Laryngology Services | [address] | | | | | at [facility] [address] | [facility] | | | | | [facility] | [place] [address] | | | | | Health and Healing, | [phone] | | | | | [place] [address] | | | | | | [place], [place] | | | | | | [address] | | | | | | [phone] | | | +--------+ + + + [...]
--- OUTSIDE RECORDS SUMMARY | ~2020-02-07 | XMS | Encounter Summary ---
Demographics + + + | Address | [address] | | | [place] [address] | + + + | Home Phone | | + + + | Preferred Language | Unknown | + + + | Marital Status | Single | + + + | Temple Affiliation | NRP | + + + | Race | White | + + + | Ethnic Group | Not or | + + + Author + + + | Author | [facility] | + + + | Organization | [facility] | + + + | Address | Unknown | + + + | Phone | Unavailable | + + + Support + + + + + | Name | Relationship | Address | Phone | + + + + + | Rosy Alvarez | ECON | [address] | | | | | [place] | | + + + + + | Chalo Delgado | ECON | [address] | | | | | [place] | | | | | [address] | | + + + + + | Kathleen Mar | ECON | [place] | | | | | [address] | | + + + + + | Yancy Mar | ECON | [address] | | | | | [place] | | + + + + + Care Team Providers + +------+ + | Care Hotel Or Motel Receptionist Name | Role | Phone | + [...] | thrombosis | [address] | [address] | | | | | (DVT) (HCC) | [address] | [address] | | | | | | [place] | Physicians | | | | | | [place] | [address] | | | | | | [address] | Floor | | | | | | Phone: | [place], [place] | | | | | | [phone] | [address] | | | | | | Fax: | Phone: | | | | | | [phone] | [phone] | | | | | | | Fax: | | | | | | | [phone] | + +--------+ + + + + [...] | | | | [facility], | [place], [place] | (superficial) (HCC) | | | | 2nd Floor | [address] | (Primary Dx) | | | | [place], [place] | [phone] | | | | | [address] | | | | | | [phone] | | | +--------+---------+ + + + [...] resident s note. Percy De Leon M.D. [facility] [address] [place] [address], [address] [address] Email: [email or web address] MD - 05/21/2012 2:02 PM [...]
--- OUTSIDE RECORDS SUMMARY | ~2020-02-07 | XMS | Encounter Summary ---
Demographics + + + | Address | [address] | | | [place] [address] | + + + | Home Phone | | + + + | Preferred Language | Unknown | + + + | Marital Status | Single | + + + | Taoist Affiliation | Unknown | + + + | Race | Unknown | + + + | Ethnic Group | Unknown | + + + Author + + + | Author | [facility] | | | and [place] | + + + | Organization | [facility] | | | and [...] Team Providers + +------+ + | Care Child Care Provider Name | Role | Phone | + +------+ + | Luciano Queen DO | PCP | | + +------+ + Reason for Visit + + + | Reason | Comments | + + + | Nasal Congestion | sinus pain, throat and ear pain RM 3 | + + + Encounter Details +--------+---------+ + + + | Date | Type | Department | Care Team | Description | +--------+---------+ + + + | 06/18/ | Office | [facility] | Latha Simpson, | Acute maxillary | | 2015 | Visit | CARE [address] | Need updated | sinusitis, | | | | [place] | address | recurrence not | | | | [address] | | specified (Primary | | | | [phone] | | Dx); Chronic | | | | | | anticoagulation | +--------+---------+ + + + Social History + +-------+ +--------+------+ | Tobacco Use | Types | Packs/Day | Years | Date | | | | | Used | | + +-------+ +--------+------+ | Never Smoker | | | | | + +-------+ +--------+------+ + + +---------+ + | Alcohol Use | Drinks/Week | oz/Week | Comments | + + +---------+ + | Not Asked | 0 Standard drinks | 0.0 | [...] + + + | Blood Pressure | 120/72 | 06/18/2015 3:56 PM | | | | | PST | | + + + + + | Pulse | 83 | 06/18/2015 3:56 PM | | | | | PST | | + + + + + | Temperature | 37.8 C (100.1 F) | 06/18/2015 3:56 PM | | | | | PST | | + + + + + | Respiratory Rate | 22 | 06/18/2015 3:56 PM | | | | | PST | | + + + + + | Oxygen Saturation | 97% | 06/18/2015 3:56 PM | | | | | PST | | + + + + + | Inhaled Oxygen | - | - | | | Concentration | | | | + + + + + | Weight | 105.7 kg (233 lb 1.6 | 06/18/2015 3:56 PM | | | | oz) | PST | | + + + + + | Height | 170.2 cm (5' 7") | 06/18/2015 3:56 PM | | | | | PST | | + + + + + | Body Mass Index | 36.51 | 06/18/2015 3:56 PM | | | | | PST | | + + + + + documented in this encounter Patient Instructions Patient Instructions Latha Simpson MD - 06/18/2015 4:13 PM PST Use the flonase too Self-Care for Sinusitis Sinusitis can often be managed with self-care. Self-care can keep sinuses moist and make yo u feel more comfortable. Remember to follow your doctor's instructions closely, which can ma ke a big difference in getting your sinus problem under control. Drink fluids Drinking extra fluids a glass every hour or two helps thin your mucus, allowing it to drain from your sinuses more easily. A humidifier helps in much the same way. Fluids can also offset the drying effects of certain drugs. Use saltwater rinses Rinses help keep your sinuses and nose moist. Mix a teaspoon of salt in 8 ounces of fresh, warm water. Use a bulb syringe to gently squirt the water into your nose a few times a day. You can also buy ready-made saline nasal sprays. Apply hot or cold packs Applying heat to the area surrounding your sinuses may make you feel more comfortable. Use a hot water bottle or a hand towel dipped in hot water. Some people also find ice packs effe ctive for relieving pain. 4381-7700 [employer]. [address] [place] [address]. All righ ts reserved. This information is not intended as a substitute for professional medical care. Always follow your healthcare professional's instructions. documented in this encounter Progress Notes Latha Simpson MD - 06/18/2015 4:03 PM PSTFormatting of this note might be different fro m the original. Chief Complaint: Nasal Congestion Marshall is a 44 y.o. female who comes in complaining of upper respiratory symptoms for 1 wk, started w vomiting and diarrhea and then cough. Nonproductive. Feels like in throat and s inuses. Face pressure but no headache.. Always wheezing and sob. Worse now b/c can't reji the out her nose. Face pain and pressure. Worse if leans forward. No tooth pain. Taking a lkaseltzer cold plus advil and throat lozenges. Throat hurts so bad. asmanex and albuterol . No shortness of breath. Lungs feel clear. Asthma and pulmonary emboli. On xarelto. Cu t the dose in half while she was taking Advil and [place] because it has aspirin in. H as Flonase at home but has not been using it Marshall has no other complaints. Patient's medications, allergies, past medical, surgical, social and family histories were reviewed and updated as appropriate. 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 Will have health insurance on the first ROS: See HPI Objective: BP 120/72 mmHg | Pulse 83 | Temp(Src) 37.8 C (100.1 F) (Temporal) | Resp 22 | Ht 1.702 m (5' 7") | Wt 105.733 kg (233 lb 1.6 oz) | BMI 36.50 kg/m2 | SpO2 97% General Appearance: Alert, cooperative, no distress, appears stated age Head: Normocephalic, without obvious abnormality, atraumatic Eyes: PERRL, conjunctiva/corneas clear Ears: Normal TM's and external ear canals, gross normal hearing Nose: Very congested Throat: Clear Neck: Supple, symmetrical, with no anterior cervical adenopathy Lungs: Clear to auscultation bilaterally, wet cough, respirations unlabored Skin: Skin color, texture, turgor normal, no rashes or lesions Assessment and Plans: Sinusitis-- Will treat with Z-Niko because allergic to penicillin, prednisone 50 mg a day for 5 days, re st, tylenol or ibuprofen as needed, increased fluids, saline sinus irrigation, steam the sin uses in the shower. Use her Flonase for a couple weeks I'm concerned that she is taking NSAIDs and her Xarelto. I explained her this could cause significant bleeding episodes. There is no data that I am aware of about cutting the Xarelt o, although I understand what she was thinking. I'm still concerned about her affecting her anticoagulation either way. Better to avoid NSAIDs. Return to clinic if symptoms persist, change or worsen over the following week despite that. This note was dictated using [employer] voice recognition software. Occasional wrong- word or s ound-alike substitutions may have occurred due to the inherent limitations of [employer] software. Please read the chart carefully and recognize, using context, where these subs titutions have occurred. documented in this en counter Plan of Treatment Not on filedocumented as of this encounter Visit Diagnoses + + | Diagnosis | + + | Acute maxillary sinusitis, recurrence not specified - Primary | + + | Chronic anticoagulation Encounter for long-term (current) use of anticoagulants | + + documented in this encounter
--- OUTSIDE RECORDS SUMMARY | ~2020-02-07 | XMS | Encounter Summary ---
Demographics + + + | Address | [address] | | | [place] [address] | + + + | Home Phone | | + + + | Preferred Language | Unknown | + + + | Marital Status | Single | + + + | Buddhist Affiliation | Unknown | + + + | Race | Unknown | + + + | Ethnic Group | Unknown | + + + Author + + + | Author | [facility] | | | and [place] | + + + | Organization | [facility] | | | [...] Team Providers + +------+ + | Care Clinical Exercise Physiologist Name | Role | Phone | + [...] | Radiology | Diagnoses | Diamond, | [facility] [address] | | | | | Recurrent | Mary Ann E, | [address] | | | | | pulmonary | [employer]ACH[address] | [place], [place] | | | | | embolism | [address] | [address] | | | | | (HCC) | [address] | Phone: | | | | | Procedures | [place], [place] | [phone] | | | | | CT Angiogram | [address] | Fax: | | | | | Chest W | Phone: | [phone] | | | | | Contrast | [phone] | | | | | | | Fax: | | | | | | | [phone] | | +--------+--------+ + + + + Reason for Visit Diagnostic/Screening (Emergency) +--------+--------+ + + + + | Status | Reason | Specialty | Diagnoses / | Referred By | Referred To | | | | | Procedures | Contact | Contact | +--------+--------+ + + + + | Closed | | Radiology | Diagnoses | Diamond, | [facility] [address] | | | | | Recurrent | Mary Ann E, | [address] | | | | | pulmonary | [address] | [place], [place] | | | | | embolism | [address] | [address] | | | | | ([facility]) | HETAL [address] | Phone: | | | | | Procedures | [place], [place] | [phone] | | | | | CT Angiogram | [address] | Fax: | | | | | Chest W | Phone: | [phone] | | | | | Contrast | [phone] | | | | | | | Fax: | | | | | | | [phone] | | +--------+--------+ + + + + Encounter Details +--------+ + + + + | Date | Type | Department | Care Team | Description | +--------+ + + + + | 03/31/ | Hospital | [facility] | Mary Ann Diamond, | Recurrent pulmonary | | 2019 | Encounter | [facility] | [address] MACHINE [address] | embolism ([facility]) | | | | [address] | [address] [place], | | | | | [place], [place] | [place] [address] | | | | | [address] | [phone] | | | | | [phone] | | | +--------+ + + + [...] puffs into | 1 | 11 | 03/05/ | | | (VENTOLIN HFA) 90 | [...] + +--------+ + + + | CT ANGIOGRAM CHEST W | STAT | 03/31/2019 | Recurrent | Results for this | | CONTRAST | | 11:12 AM | pulmonary embolism | procedure are in the | | | | PDT | ([facility]) | results section. | + +--------+ + + + documented in this encounter Results CT Angiogram Chest W [...] infection. | | | Signed by: Maciej Poesy Gregory Sign Date/Time: 03/31/2019 11:36 | | [...] | | | | Signed by: Maciej Posey, Percy | | Sign Date/Time: 03/31/2019 11:36 AM [...] | | | + +--------+ +--------+------+------+ | iohexol (OMNIPAQUE 350) 350 | Given | 03/31/20 | 66 mLs | | | | mg/mL injection 100 mL 100 mL, | | 19 11:12 | | | | | Intravenous, ONCE PRN, Other, | | AM PDT | | | | | Starting 03/31/19 at 1052, For | | | | | | | 1 dose, Cat Scanner | | | | | | + +--------+ +--------+------+------+ +---+---+ | | | +---+---+ documented in this encounter"
--- OUTSIDE RECORDS SUMMARY | ~2020-02-07 | XMS | Encounter Summary ---
Demographics + + + | Address | [address] | | | [place] [address] | + + + | Home Phone | | + + + | Preferred Language | Unknown | + + + | Marital Status | Single | + + + | Pentecostalism Affiliation | NRP | + + + | Race | White | + + + | Ethnic Group | Not or | + + + Author + + + | Author | [facility] | + + + | Organization | [facility] | + + + | Address | Unknown | + + + | Phone | Unavailable | + + + Support + + + + + | Name | Relationship | Address | Phone | + + + + + | Rosy Alvarez | ECON | [address] | | | | | [place] | | + + + + + | Chalo Smalls | ECON | [address] | | | | | [place] | | | | | [address] | | + + + + + | Kathleen Mar | ECON | [place] | | | | | [address] | | + + + + + | Yancy Mar | ECON | [address] | | | | | [place] | | + + + + + Care Team Providers + +------+ + | Care Box Storage Worker Name | Role | Phone | + [...] | | | VENOUS | [address] | | | | | DUPLEX LOWER | [place] | Loop | | | | | EXTREMITY | Dannielle Layton | Mailcode: | | | | | BILAT COMP | [place], [place] | [address] | | | | | | [address] | Physician's | | | | | | Phone: | Pavilion | | | | | | [phone] | [place], [place] | | | | | | Fax: | [address] | | | | | | [phone] | Phone: | | | | | | | [phone] | | | | | | | Fax: | | | | | | | [phone] | +--------+--------+ + + + + Diagnostic [...] IV | [address] | Dannielle Layton [facility] | | | | | CONTRAST | Dannielle | [facility], | | | | | | [place], [place] | [facility] Floor | | | | | | [address] | [place], [place] | | | | | | Phone: | [phone] | | | | | | [phone] | Phone: | | | | | | Fax: | [phone] | | | | | | [phone] | Fax: | | | | | | | [phone] | +--------+--------+ + + + + Reason [...] + + | 03/12/ | Hospital | [facility] [address] | Jadiel Patrick MD | | | 2011 - | Encounter | [address] [id number] | [address] | | | | | [facility] | [address] [place], | | | 03/18/ | | [place], [place] | [place] [address] | | | 2011 | | [address] | [phone] | | | | | [phone] | | | +--------+ + + + [...] in this encounter Discharge Summaries Almita Hector, MANAGER STRATEGIC MARKETING - 03/18/2012 5:34 AM PDTFormatting of this note might be different f rom the original. INPATIENT PHYSICIAN DISCHARGE SUMMARY [facility] VASCULAR SURGERY Attending Physician: Jadiel Patrick MD [...] a 41 year old female admitted to [facility] Vascular Surgery service with 1 week history [...] a heparin dri p and transferred to [facility], where she was considered for thrombolysis. She had repeat Venous duplex ultrasound and CT done at [facility], which revealed bilateral pulmonary emboli, right la rger than left. Venous duplex prior to lysis showed that the right common femoral and femor al veins were compressible with no clot present, and she had a Right popliteal DVT. Therefo re thrombolysis was cancelled and the patient continued on heparin drip with transition to E noxaparin injections and bridge to warfarin, Target INR 2.0-3.0. [facility] Hematology was consult ed; patient has strong [...] her PCP at [facility] clinic in [facility] on March 19 for INR check, and recommend followup with [facility] Vascular Surgery in 6-8 weeks . Allergies [...] office or E.D to get INR checked. [facility] Vascular Surgery Clinic, [facility] [address], phone number [phone] Followup in 6-8 weeks, please call to schedule a repeat venous ultrasound and appointment. Followup with PCP Dr. Michelle Ndiaye at [facility] in [facility] With INR check on Mar 19 at 3:45pm , fax # [phone] Please call to confirm the appointment. Outstanding labs/studies: Factor V Leiden, Anticardiolipin, Lupus Inhibitior [facility]RN [facility] VASCULAR SURGERY [address] [facility] [address] Discharging Physician: YRN [place] Attending Physician: Jadiel [...] malignancy. Will advise patient to obtain mammogram, molding fitter f/u, colonoscopy next month to complete malignancy [...] Vascular Surgery clinic 6-8 weeks YRN [facility] [address]K [address] [id number] [facility] [address] This assessment and plan was formulated both independently and in conjunction with the [facility] ular Surgery Team as well [...] 7.5 mg Oral QPM Almita Jacobson F HOUSE MOVER SUPERVISOR - 03/17/2012 8:54 AM PDT VASCULAR AND [...] malignancy. Will advise patient to obtain mammogram, molding fitter f/u, colonoscopy next month to complete malignancy workup at PCP office. -coagulopathy panel (factor V leiden, prothrombin gene mutation, anticardiolipin) pending. Lupus inhibitor evaluation hindered by presence of heparin. -we thank [facility] for their time and recommendations; hypercoagulable state ; [facility] recommends life long anticoagulation Myocardial hx [...] INR check has been arranged. YRN [facility] [address] [id number] [facility] [address] This assessment and plan was formulated both independently and in conjunction with the [facility] ular Surgery Team as well [...] M D - 03/16/2012 1:39 PM PDT [facility] VASCULAR SURGERY Attending Physician: Jadiel Patrick MD Author: Yuli Crane MD Note Date: 03/15/2012 Admission Date: 03/12/2012 MARSHALL SMALLS, [id number] Hospital Day #4 ID: [place] Sm[place] is [...] malignancy. Will advise patient to obtain mammogram, molding fitter f/u, colonoscopy next month to complete malignancy workup. -coagulopathy panel (factor V leiden, prothrombin gene mutation, anticardiolipin) pending. Lupus inhibitor evaluation hindered by presence of heparin. -we thank [facility] for their time and recommendations. Myocardial [...] Crane MD General Surgery Resident, R1 Pager [phone] [facility] [address] [address] Vascular Surgery Attending Note Date of History and Physical Examination: Mar 15, 2012 at 830am I saw and examined the patient with the resident. We discussed the history, physical examin ation, assessment, and plan of care. JADIEL PATRICK MD [facility] [id number] [place] [address] [facility] DEPARTMENT: [id number] - Vac Surg PPV Place of Service: - IP Modifiers: Suggested Level of Care: IP Established - 27294 - Level 2 2/3 25 min Procedure(s): [email or web address] MD - 03/15/2012 12:46 PM PDT [facility] VASCULAR SURGERY Attending Physician: Jadiel Patrick MD Author: Yuli Crane MD Note Date: 03/15/2012 Admission Date: 03/12/2012 MARSHALL SMALLS, [id number] Hospital Day #3 ID: [place] Smalls is [...] malignancy. Will advise patient to obtain mammogram, molding fitter f/u, colonoscopy next month to complete malignancy workup. -coagulopathy panel (factor V leiden, prothrombin gene mutation, anticardiolipin, lupus inh ibitor eval) pending -we thank [facility] for their time and recommendations. Myocardial [...] Crane MD General Surgery Resident, R1 Pager [phone] [facility] [address] [address] Vascular Surgery Attending Note Date of History and Physical Examination: Mar 15, 2012 at 830am I saw and examined the patient with the resident. We discussed the history, physical examin ation, assessment, and plan of care. JADIEL PATRICK MD [facility] [address]K [id number] [place] [address] [facility] DEPARTMENT: [id number] - Vac Surg PPV Place of Service: - IP Modifiers: Suggested Level of Care: IP Established - 41344 - Level 2 2/3 25 min Procedure(s): Jadiel Solorio MD - 01/2012 2:49 PM PDT VASCULAR AND ENDOVASCULAR SURGERY Progress Note: Hospital Day #: 2 ATTENDING: Jadiel Patrick MD Interval Events: 1.Nausea and emesis due [...] female, hospital day # 2, admitted to [facility] Vascular Surgery serv ice due to deep [...] Followup with PCP Dr. Michelle Ndiaye at [facility] in [facility] With INR check on Mar 19 at 3:45pm , fax # [phone] ALMITA HECTOR, MANAGER STRATEGIC MARKETING [facility] [address] [id number] [facility] [place] [address] This assessment and plan was formulated both independently and in conjunction with the [facility] ular Surgery Team as well [...] when not ambulation . JADIEL PATRICK MD [facility] [address]K [address] [id number] [facility] [address] [facility] DEPARTMENT: [id number] - Vac Surg PPV Place of Service: - IP Modifiers: Suggested Level of Care: IP Established - 22120 - Level 2 2/3 25 min Procedure(s): [...] DEPARTMENT OF | [address] | [place] [address] | | | PATHOLOGY | [address] [...] | + + + + + | [facility] | [address] | [place] [address] | | | PATHOLOGY | [address] [...] | + + + + + | [facility] | [address] | [place] [address] | | | PATHOLOGY | [address] [...] MARQUAM | [address] | [place], [place] | | | [facility] CARE | [address] | [address] | | | TESTS | | | [...] MARQUAM | [address] | [place], [place] | | | ANJEL POINT OF CARE | [address] | [address] | | | TESTS | | | [...] + + + | ADALI [facility] | [address] | [place], [place] | | | [facility] | [address] | [address] | | | TESTS | | | [...] MARQUAM | [address] | [place], [place] | | | [facility] CARE | [address] | [address] | | | TESTS | | | [...] | + + + + + | [facility] DEPARTMENT OF | [address] | [place] [address] | | | PATHOLOGY | [address] | | | + + + + + INR (03/17/2012 5:20 AM PDT) + + + + + + | Component | Value | Ref Range | Performed | Pathologist | | | | | At | Signature | + + + + + + | INR | 1.06Comment: | 0.90 - 1.20 INR | [facility] | | | | INR Therapeutic ranges [...] | + + + + + | [facility] | [address] | [place] [address] | | | PATHOLOGY | [address] [...] | + + + + + | [facility] | [address] | [place] [address] | | | PATHOLOGY | [address] [...] | + + + + + | [facility] | [address] | [place] [address] | | | PATHOLOGY | [address] [...] MARQUAM | [address] | [place], [place] | | | ANJEL POINT OF CARE | [address] | [address] | | | TESTS | | | [...] ANITRA | [address] | [place], [place] | | | [facility] | [facility] | [address] | | | TESTS | | | [...] | + + + + + | [facility] DEPARTMENT | [address] | [place] [address] | | | PATHOLOGY | [address] [...] (H) | 60 - 99 mg/dL | [facility] - | | | GLUCOSE, | | [...] AYOUB | [address] | [place], [place] | | | ANJEL POINT OF CARE | [address] | [address] | | | TESTS | | | [...] | + + + + + | [facility] | [address] | [place] [address] | | | PATHOLOGY | [address] [...] | + + + + + | [facility] DEPARTMENT | [address] | [place] [address] | | | PATHOLOGY | [address] [...] (H) | 60 - 99 mg/dL | [facility] - | | | GLUCOSE, | | [...] AYOUB | [address] | [place], [place] | | | MAR[facility]BS OF ANNALEE | [address] | [address] | | | TESTS | | | [...] DEPARTMENT OF | [address] | [place] [address] | | | PATHOLOGY | [address] [...] | + + + + + | [facility] | [address] | [place] [address] | | | PATHOLOGY | [address] [...] | + + + + + | [facility] | [address] | [place] [address] | | | PATHOLOGY | [address] [...] | + + + + + | [facility] | [address] | [place] [address] | | | PATHOLOGY | [address] [...] MARAAM | [address] | [place], [place] | | | MAR[facility] AN[facility]E | [address] | [address] | | | TESTS | | | [...] - ANITRA | [address] | [place], [place] | | | [facility] | [facility] | [address] | | | TESTS | | | [...] [facility] DEPARTMENT | [address] | [place] [address] | | | PATHOLOGY | [address] [...] DEPARTMENT OF | [address] | [place] [address] | | | PATHOLOGY | [address] [...] | + + + + + | [facility] DEPARTMENT OF | [address] | [place] [address] | | | PATHOLOGY | [address] [...] | + + + + + | [facility] DEPARTMENT | [address] | [place] [address] | | | PATHOLOGY | [address] | | | + + + + + CAPILLARY BLOOD GLUCOSE, POC (03/14/2012 8:58 PM PDT) + +-------+ + + + | Component | Value | Ref Range | Performed | Pathologist | | | | | At | Signature | + +-------+ + + + | BLOOD | 86 | 60 - 99 mg/dL | [facility] - | | | GLUCOSE, | | [...] AYOUB | [address] | [place], [place] | | | [facility] CARE | [address] | [address] | | | TESTS | | | [...] | + + + + + | [facility] | [address] | [place] [address] | | | PATHOLOGY | [address] [...] (H) | 60 - 99 mg/dL | [facility] - | | | GLUCOSE, | | [...] AYOUB | [address] | [place], [place] | | | [facility] CARE | [facility] | [address] | | | TESTS | | | [...] | + + + + + | [facility] | [address] | [place] [address] | | | DIAGNOSTIC | [address] [...] + + + | [facility] | [address] | [place] [address] | | | DIAGNOSTIC | [address] [...] MARQUAM | [address] | [place], [place] | | | [facility] CARE | [address] | [address] | | | TESTS | | | [...] | + + + + + | [facility] | [address] | [place] [address] | | | PATHOLOGY | [address] [...] MARQUAM | [address] | [place], [place] | | | [facility] CARE | [address] | [address] | | | TESTS | | | [...] DEPARTMENT OF | [address] | [place] [address] | | | PATHOLOGY | [address] [...] DEPARTMENT OF | [address] | [place] [address] | | | PATHOLOGY | [address] [...] DEPARTMENT OF | [address] | [place] [address] | | | PATHOLOGY | [address] [...] + + | [facility] DEPARTMENT | [address] [facility] | [place] [address] | | | PATHOLOGY | [address] [...] | + + + + + | [facility] DEPARTMENT OF | [address] | [place] [address] | | | PATHOLOGY | [address] [...] | + + + + + | [facility] | [address] | [place] [address] | | | PATHOLOGY | [address] [...] MARQUAM | [address] | [place], [place] | | | ANJEL POINT OF CARE | [address] | [address] | | | TESTS | | | [...] | + + + + + | [facility] | [address] | [place] [address] | | | PATHOLOGY | [address] [...] AYOUB | [address] | [place], [place] | | | CHI [facility]BS | [address] | [address] | | | TESTS | | | [...] | + + + + + | [facility] | [address] | [place] [address] | | | PATHOLOGY | [address] [...] | | + +---------+ + + | [facility] DEPARTMENT OF | | | | | RADIOLOGY | | | | + +---------+ + + X-RAY PORTABLE CHEST 1 VIEW (03/13/2012 9:24 AM PDT) + + + + + + | Component | Value | Ref Range | Performed | Pathologist | | | | | At | Signature | + + + + + + | X-RAY | STUDY: NM CHEST 1 VIEW | | | | [...] | | + +---------+ + + | [facility] DEPARTMENT OF | | | | | [...] | + + + + + | [facility] | [address] | [place] [address] | | | PATHOLOGY | [address] [...] BASO # | 0.0 | <0.3 | [facility] | | | | | | DEPARTMENT [...] | + + + + + | [facility] DEPARTMENT | [address] | [place] [address] | | | PATHOLOGY | [address] [...] | + + + + + | [facility] | [address] | [place] [address] | | | PATHOLOGY | [address] [...] | + + + + + | [facility] | [address] | [place] [address] | | | PATHOLOGY | [address] [...] DEPARTMENT OF | [address] | [place] [address] | | | PATHOLOGY | [address] [...] DEPARTMENT OF | [address] | [place] [address] | | | PATHOLOGY | [address] [...] | + + + + + | [facility] DEPARTMENT OF | [address] | [place] [address] | | | PATHOLOGY | [address] | | | + + + + + INR (03/13/2012 1:00 AM PDT) + + + + + + | Component | Value | Ref Range | Performed | Pathologist | | | | | At | Signature | + + + + + + | INR | 1.30 (H)Comment: | 0.90 - 1.20 INR | [facility] | | | | INR Therapeutic ranges [...] | + + + + + | [facility] DEPARTMENT OF | [address] | [place] [address] | | | PATHOLOGY | [address] [...] | + + + + + | [facility] DEPARTMENT OF | [address] | [place] [address] | | | PATHOLOGY | [address] [...] (H) | 60 - 99 mg/dL | [facility] | | | PLASMA | | | [...] | + + + + + | [facility] | [address] | [place] [address] | | | PATHOLOGY | [address] [...] (H) | 60 - 99 mg/dL | [facility] - | | | GLUCOSE, | | [...] ANITRA | [address] | [place], [place] | | | MARELY HOBBS OF CARE | [address] | [address] | | | TESTS | | | [...] DEPARTMENT OF | [address] | [place] [address] | | | PATHOLOGY | [address] [...] | + + + + + | [facility] | [address] | [place] [address] | | | PATHOLOGY | [address] | | | + + + + + documented in this encounter Visit Diagnoses + + | Diagnosis | + + | DVT (deep venous thrombosis) ([facility]) - Primary Acute venous embolism and thrombosis of | | unspecified deep vessels of lower extremity | + + | Pulmonary embolism ([facility]) Other pulmonary embolism and infarction | + [...] | | | oral, ONCE, 1 dose, [facility] 03/13/12 at | | AM PDT [...] | | | | | NEEDED, Starting [facility] 03/13/12 at | | | | [...] PDT | | | | | dose, [facility] 03/13/12 at 1215 | | | [...]
--- OUTSIDE RECORDS SUMMARY | ~2020-02-07 | XMS | Encounter Summary ---
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 [address] | [address] | | | | | asthma with | [address] | [address] | | | | | status | [place], | [place], [place] | | | | | asthmaticus | [place] [address] | [address] | | | | | Moderate | Phone: | Phone: | | | | | persistent | [phone] | [phone] | | | | | asthma with | Fax: | Fax: | | | | | status | [phone] | [phone] | | | | | asthmaticus | | | + +--------+ + + + + Encounter Details +--------+---------+ + + + | Date | Type | Department | Care Team | Description | +--------+---------+ + + + | 04/21/ | Office | [facility] | Mary Ann Diamond, | Severe persistent | | 2019 | Visit | PULMONOLOGY [address] | SENIOR ESTIMATOR [address] | asthma with acute | | | | [address] | [address] [place], | exacerbation | | | | [place], [place] | [place] [address] | (Primary Dx); Cough | | | | [address] | [phone] | in adult; Recurrent | | | | [phone] | | pulmonary embolism | | | | | | ([facility]); Post-nasal | | | | | | drip; Sleep | | | | | | disturbance | +--------+---------+ + + + Social History [...] + + + | Blood Pressure | 118/68 | 04/21/2019 10:24 AM | | | | | PDT | | + + + + + | Pulse | 81 | 04/21/2019 10:24 AM | | | | | PDT | | + + + + + | Temperature | 36.7 C (98.1 F) | 04/21/2019 10:24 AM | | | | | PDT | | + + + + + | Respiratory Rate | - | - | | + + + + + | Oxygen Saturation | 94% | 04/21/2019 10:24 AM | | | | | PDT | | + + + + + | Inhaled Oxygen | - | - | | | Concentration | | | | + + + + + | Weight | 115.2 kg (254 lb) | 04/21/2019 10:24 AM | | | | | PDT | | + + + + + | Height | 170.2 cm (5' 7") | 04/21/2019 10:24 AM | | | | | PDT | | + + + + + | Body Mass Index | 39.78 | 04/21/2019 10:24 AM | | | | | PDT | | + + + + + documented in this encounter Progress Notes Mary Ann Diamond, RAINA - 04/21/2019 10:15 AM PDTFormatting of this note might be different fr om the original. Subjective: Patient ID: Marshall Delgado is a 48 y.o. female. History ofasthma, DVT and PEs in 2011 an d 2018, anxiety, GERD, never smoker. Initial HPIA Lobo [...] her a good deal of pain. Sh ann notes she needs surgery and is not able to have it due to her current lung condition. She is seeking answers and wishes to feel better. Interval HPI03/05/19:Marshall Booth a 48 y.o.femalepresenting today for 2 we ek follow up. She is feeling slightly better, but is still breathing with a sound of pharyng eal restriction. She reports she can hear herself wheeze throughout the day, her cough is sl ightly diminished from last visit, but it is still productive of phlegm. The phlegm is thick and yellow in color. She remains on symbicort 160mg 2 puffs BID, but is on her second of o sample inhaler. Insurance denied symbicort, so I will try Advair next. She was able to hilary l spiriva and has been using this daily. She uses albuterol inhaler 3 x a day, but she is ru nning low on this. Insurance also denied the albuterol inhaler I prescribed. I have searched the system for a covered medication, and it appears combivent is on her formulary. No other albuterol inhaler preparation appears to be covered, only nebulizer preps, which she alread y has. This is not helpful to her on the go. She also awaits insurance approval for VQ scan and Echocardiogram. She reports continued lower extremity edema daily. It is pitting most ni ghts. She also reports burning discomfort left upper, anterior chest straight through to the back and the right lower chest wall laterally at the level of the diaphragm. This gets very painful to her in the evenings and after coughing jags. She sleeps sitting upright because the throat seems to close up on her when she lays flat. She eats very small amounts of food at one time, because when she eats too much, she feels like her stomach gets in the way of h er ability to breathe. Reports acid reflux is well controlled. She has had a return call to schedule an appointment at [facility] for computer service technician. She repo rts she missed this call but will call them back to do this. She denies fever, chills, body aches, sharp or heavy chest pain, joint aches, palpitations, rashes, appetite change, weight loss, nausea or vomiting, night sweats. Interval HPI03/18/19:Marshall Delgadois a 48 y.o.femalepresenting today for urge nt appointment after VQ scan. I received a call this afternoon from Dr Orozco, Radiology and was informed of intermediate risk for PE. She was scheduled to present to the office for urg ent appointment today. She presented with her medical records from Dr Queen's office today and I have reviewed the labs and CT available in these records. She has already been tested for Protein C and S, Factor V Leiden, etc. She has had a high protein S in the past and a no rmal lab as well. No further Lab work [...] NV, appetite change, fatigue, or weight loss. Interval HPI 03/31/19: Marshall Delgado is a 48 y.o. female presenting today for 2 week fo llow up visit and close clinical observation. She presents today breathing slightly easier a nd tight, throaty breathing seems less harsh and loud from 4 feet away today, though still a udible. She notes her breathing is slightly better, but since using Advair, she has noticed generalized muscle aches all over the body. She denies difficulty urinating, heart palpitati ons, chest pain, or muscle spasms in association. She mentioned today that she recently acqu ired a pulse oximeter for home use. She saturates in the mid 90s while awake, but caught her self at 82% after waking up gasping two nights ago. She also notes her memory and concentrat ion have progressively gotten worse over the last two months. She is very tired every day as her sleep is always poor quality and often interrupted by difficulty breathing. Her mother states she has always heard Marshall snoring, even as a child. She has not mentioned these sym ptoms before now. She has never been tested for sleep apnea. She notes that she is scheduled to see computer service technician on 04-28-2019. She denies fever, chills, night sweats, poor appetite, weight loss, midsternal or radiating chest pain, joint aches, or rashes. Interval HPI 04/21/19: Marshall Delgado is a 48 y.o. female presenting today for 4 week fo llow up visit and close clinical observation. She completed Echo on 03-18-19 and this showed no sign of pulmonary hypertension, valvular disease, or heart failure which is good. We revi ewed all available diagnostics together today and all questions answered to her preference. Marshall presents today complaining of fever at home x 2 days last was 3 days ago, increased work of breathing, wheezing throughout the day, waking up every hour coughing and dyspneic x 5 days. She has general malaise and body aches. Got the flu shot about 2 weeks ago. She con tinues to have a very tight, throaty sound with breathing. Sees ENT at [facility] in 1 week. Pract icing breathing techniques a few times a day, notes improvement while breathing pursed lip o r SSS breathing, but tight after she stops again. Overall, feeling worse today. Denies chest pain, headache, palpitations, or pedal edema since last visit. Social Hx: Ms Delgado is from the [facility]. She lives in [place] currently. 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 She is living [...] and problem list. Review of Systems Constitutional: Positive for activity change, chills, fatigue and fever. Negative for appet ite change, diaphoresis and unexpected weight change. HENT: Positive for postnasal drip, sneezing and voice change. Negative for congestion, ear pain, facial swelling, hearing loss, mouth sores, nosebleeds, rhinorrhea, sinus pressure, si nus pain, sore throat, tinnitus and trouble swallowing. Eyes: Negative for pain, redness and itching. Respiratory: Positive for cough, chest tightness, shortness of breath, wheezing and stridor . Negative for apnea and choking. Cardiovascular: Negative for chest pain, palpitations and leg swelling. Gastrointestinal: Negative for abdominal distention, abdominal pain, nausea and vomiting. Endocrine: Positive for cold intolerance and heat intolerance. Musculoskeletal: Positive for arthralgias, back pain and myalgias. Negative for gait proble m, joint swelling, neck pain and neck stiffness. Skin: Negative for color change, pallor, rash and wound. Allergic/Immunologic: Positive for environmental allergies. Negative for food allergies and immunocompromised state. Neurological: Negative for dizziness, syncope, weakness, light-headedness, numbness and hea daches. Hematological: Negative for adenopathy. Does not bruise/bleed easily. Objective: Physical Exam Constitutional: She is oriented to person, place, and time. She appears well-developed and well-nourished. No distress. HENT: Head: Normocephalic and atraumatic. Right Ear: External ear normal. Left Ear: External ear normal. Difficult to appreciate posterior oropharynx, but appears erythematous and clear drainage n oted. Bilaterally, nasal turbinates appear boggy and erythematous with plenty of clear mucou s in nasal passages. Eyes: Pupils are equal, round, and reactive to light. Conjunctivae and EOM are normal. Righ t eye exhibits no discharge. Left eye exhibits no discharge. No scleral icterus. Neck: Normal range of motion. Neck supple. No JVD present. No tracheal deviation present. N o thyromegaly present. Cardiovascular: Normal rate, regular rhythm, normal heart sounds and intact distal pulses. Exam reveals no gallop and no friction rub. No murmur heard. Pulmonary/Chest: No stridor. No respiratory distress. She has wheezes. She has no rales. Sh e exhibits no tenderness. Increased effort of breathing, faint bilateral basilar coarse wheeze on expiration. Otherwi se clear. Abdominal: Soft. Bowel sounds are normal. She [...] Hives Penicillins Anaphylaxis Morphine GI Upset Vitals: 04/21/19 1024 BP: 118/68 Pulse: 81 Temp: 36.7 C (98.1 F) TempSrc: Oral SpO2: 94% Weight: 115.2 kg (254 lb) Height: 1.702 m (5' 7") Patient Active Problem List Diagnosis Anemia Chronic depression Disorder of lipoid metabolism Embolism and thrombosis Chronic anxiety Anxiety state Headache Hypothyroidism Menopausal syndrome Mixed insomnia Other pulmonary embolism and infarction Panic attack Primary hypercoagulable state Recurrent pulmonary embolism Restless legs Sprain of foot Asthma DVT (deep venous thrombosis) Current Outpatient Medications: ADVAIR HFA 115-21 MCG/ACT [...] for chronic insomina , Disp: , Rfl: gabapentin (NEURONTIN) 300 mg [...] up testing of positive sera with both WY-3 and MPO-ANCA enzyme immunoassays. As many as [...] 6 to 495 [iU]/mL Total eosinophil Count: September,: Factor V Leiden: negative. Protein S: 148 (high) Protein C: negative. DDimer: 425 Imaging: CT angiogram 03-31-2019: IMPRESSION: 1. Mild subacute/chronic [...] obtained on today's study. Pulmonary Function Test: Ordered on 03-31-2019, not completed yet. Assessment and Plan: 1. Severe persistent asthma with acute exacerbation She appears to be acutely exacerbated today and notes a change in her breathing for last 5 days. She also reports fever at home 3 days ago. Will treat her for acute infectious process today. She is scheduled for evalutation of irritable larynx by ENT in [place] on 04-28-2019. Leanne cavazos provided her with information on vocal cord exercises and pursed lip breathing. She was encouraged to continue to practice this often to help reduce the laryngospasm as she awaits for initial consult. We continue to wait for insurance to approve PFT. Will ask scheduling what the status is on this today. - promethazine-dextromethorphan 6.25-15 mg/5 mL liquid; Take 5-10 mLs by mouth 4 times kelly y as needed for Cough. Dispense: 120 mL; Refill: 0 - predniSONE (DELTASONE) 20 mg tablet; Take 2 tabs x 3 days, 1.5 tabs x 3 days, 1 tab x 3 d ays, 0.5 tab x 3 days. Stop. Dispense: 15 tablet; Refill: 0 - azithromycin (ZITHROMAX) 250 mg tablet; Take 2 tablets by mouth on day 1, and 1 tablet by mouth every day Dispense: 6 tablet; Refill: 0 - CT Chest wo Contrast; Future 2. Cough in adult Cough is severe now, and waking her up at night every hour. Will try phenergan with dextrom ethorphan cough syrup at night to help her get rest. Also will give a prednisone taper and a zithromycin to cover for exacerbation related to infection. She does have an opacity noted i n the JO ANN lung on CT imaging from 03-31-2019. We will follow up with this imaging in 3 months with a noncontrast CT to determine if resolving or changing. - promethazine-dextromethorphan 6.25-15 mg/5 mL liquid; Take 5-10 mLs by mouth 4 times kelly y as needed for Cough. Dispense: 120 mL; Refill: 0 - predniSONE (DELTASONE) 20 mg tablet; Take 2 tabs x 3 days, 1.5 tabs x 3 days, 1 tab x 3 d ays, 0.5 tab x 3 days. Stop. Dispense: 15 tablet; Refill: 0 - azithromycin (ZITHROMAX) 250 mg tablet; Take 2 tablets by mouth on day 1, and 1 tablet by mouth every day Dispense: 6 tablet; Refill: 0 - CT Chest wo Contrast; Future 3. Recurrent pulmonary embolism (HCC) Marshall was noted to have a chronic PE in the LLL lung. She is maintained on xarrelto daily and has no new chest pains or peripheral edema/pain. - CT Chest wo Contrast; Future 4. Post-nasal drip Ms Delgado notes that she is continuing to have post nasal drip, but is taking singulair nig htly. She notes little difference in symptoms on singulair currently. She can use nasal spra ys and sinus rinses as needed. Mucous is not currently thick, but when it is she is welcome to add mucinex as needed as well. 5. Sleep disturbance Placed an order for eval and tx of sleep disorder with Dr Charlton. Marshall notes insurance has ye t to clear her for this. I have suggested she call Dr Charlton and ask if they have heard back fro m insurance yet. Currently, she is coughing and not sleeping well as a result, but previousl y, she was snoring, would wake up often feeling as though she is smothering and gasping. It is a pleasure to be a part of Marshall Delgado's care team. She will follow up with me in 4 weeks for close clinical observation. She was encouraged to return if needed for urgent appointment, and should present to the ED for emergent symptoms. Please feel free to contac t us if questions or concerns arise. RAINA Lees [facility] PULMONOLOGY [address] [place] [address] Dept: [phone] Loc: [phone] I have discussed my findings and plan with Dr Amezquita today. We are in agreement with the patient's plan of care as detailed above. Electronically signed by RAINA Moreno at 11:36 AM PDTdocumented in this encounter Plan of Treatment Not on filedocumented as of this encounter Visit Diagnoses + + | Diagnosis | + + | Severe persistent asthma with acute exacerbation - Primary Unspecified asthma, with | | exacerbation | + + | Cough in adult | + + | Recurrent pulmonary embolism (HCC) Other pulmonary embolism and infarction | + + | Post-nasal drip Postnasal drip | + + | Sleep disturbance Sleep disturbance, unspecified | + + documented in this encounter
--- OUTSIDE RECORDS SUMMARY | ~2020-02-07 | XMS | Encounter Summary ---
Demographics + + + | Address | [address] | | | [place] [address] | + + + | Home Phone | | + + + | Preferred Language | Unknown | + + + | Marital Status | Single | + + + | [employer] Affiliation | NRP | + + + | Race | White | + + + | Ethnic Group | Not or | + + + Author + + + | Author | [facility] | + + + | Organization | [facility] | + + + | Address | Unknown | + + + | Phone | Unavailable | + + + Support + + + + + | Name | Relationship | Address | Phone | + + + + + | Rosy Alvarez | ECON | [address] | | | | | [place] | | + + + + + | Chalo Delgado | ECON | [address] | | | | | [place] | | | | | [address] | | + + + + + | Kathleen Mar | ECON | [place] | | | | | [address] | | + + + + + | Yancy Mar | ECON | [address] | | | | | [place] | | + + + + + Care Team Providers + +------+ + | Care Qa Automation Engineer Name | Role | Phone | [...] y | Cough in | Mary Ann, HOGSHEAD STRIPPER | Laryngology | | | | | adult | [address] | [address] | | | | | Shortness of | [address] | [address] | | | | | breath | [address] | [facility] | | | | | | [place], [place] | Health and | | | | | | [address] | Healing, | | | | | | Phone: | [place] [address] | | | | | | [phone] | [place], [place] | | | | | | Fax: | [address] | | | | | | [phone] | Phone: | | | | | | | [phone] | | | | | | | Fax: | | | | | | | [phone] | +--------+--------+ + + + + Encounter Details +--------+---------+ + + + | Date | Type | Department | Care Team | Description | +--------+---------+ + + + | 04/28/ | Office | Otolaryngology | Eliu, | Tracheal stenosis | | 2019 | Visit | Laryngology Services | Tracy Meza PA-C | (Primary Dx); Airway | | | | at [facility] [address] | [address] | obstruction; | | | | [facility] | [place], [place] | Stridor; Dysphagia, | | | | Health and Healing, | [address] | unspecified type | | | | [address] | [phone] | | | | | [facility] [place] | | | | | | [address] | | | | | | [phone] | | | +--------+---------+ + + + [...] from the original. anca PATIENT: Marshall Delgado [facility] MR#: [id number] : 1970 REQUESTING PROVIDER: YRN Ramírez [address] [place] [address] PRIMARY CARE PROVIDER: Michelle Ndiaye MD CLINIC: [facility] CHIEF COMPLAINT: Chief Complaint Patient presents with New Patient Visit for "eosinophilic asthma, chronic pulmonary embolism, walking pneumon ia" x years HPI: Marshall Delgado is a 48 y.o. female who presents to the [facility] for evaluation of possible vocal cord dysfunction at the request of Mary Ann [facility], LATHE SETUP OPERATOR. 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 Her vocal demands are primarily those of [...] smoked. She has never used smokeless toba cco & president. She reports current alcohol use. She reports [...] Laryngovideostroboscopy was performed today by Trudy Philip CCC-MANAGER OF SOFTWARE DEVELOPMENT. The patient was sprayed with Lidocaine and [...] steroid injection. Dr. Harjeet Adam's surgery [facility] will contact her about scheduling in the near future. We discussed given her history of recurrent pulmonary embolism she should only hold her Xarelto on the day of her procedure . Dayanara Nowak PA-C [facility] Department of Otolaryngology and Head and Neck Surgery Associated attestation - Jarocho Cosby MD - 05/03/2019 6:04 PM PDTSupervising attending caity ornelas: I have reviewed the note for this encounter and I examined the patient. I agree with Ms. Nowak's assessment and recommendations. Jarocho Cosby MD, FACS Professor and Chair, Otolaryngology-Head & Neck Surgery [facility] [employer] documented in this encounter Plan of Treatment Not on filedocumented as of this encounter Procedures + +--------+ + + + | Procedure Name | Priori | Date/Time | Associated Diagnosis | Comments | | | ty | | | | + +--------+ + + + | ID | Routin | 04/28/2019 | Tracheal stenosis [...] by | | | | | | [email or web address] | | | | | | Teri Perez, [facility],[place] | | | | | | [address] | | | | | | [phone]. | | | | | | Mayur [...] [facility] | [address] | [place], [place] | | | [facility] | | [id number] | | + + + + + [...]
--- OUTSIDE RECORDS SUMMARY | ~2020-02-07 | XMS | Encounter Summary ---
Demographics + + + | Address | [address] | | | [place] [address] | + + + | Home Phone | | + + + | Preferred Language | Unknown | + + + | Marital Status | Single | + + + | Yazdanism Affiliation | NRP | + + + | Race | White | + + + | Ethnic Group | Not or | + + + Author + + + | Author | [facility] | + + + | Organization | [facility] | + + + | Address | Unknown | + + + | Phone | Unavailable | + + + Support + + + + + | Name | Relationship | Address | Phone | + + + + + | Rosy Alvarez | ECON | [address] | | | | | [place] | | + + + + + | Chalo Delgado | ECON | [address] | | | | | [place] | | | | | [address] | | + + + + + | Kathleen Mar | ECON | [place] | | | | | [address] | | + + + + + | Yancy Mar | ECON | [address] | | | | | [place] | | + + + + + Care Team Providers + +------+ + | Care Pearl Peller Name | Role | Phone | + +------+ + | Magdy Villalobos MD | PCP | | + +------+ + Reason for Visit + + + | Reason | Comments | + + + | Pre-op evaluation | | + + + Encounter Details +--------+ + + + + | Date | Type | Department | Care Team | Description | +--------+ + + + + | 05/11/ | Telephone-S | Preoperative | | Pre-op evaluation | | 2019 | cheduled | Medicine Clinic | | | | | | [facility] | | | | | | [address] | | | | | | [facility] | | | | | | and Healing, | | | | | | [address] | | | | | | [facility] [place] | | | | | | [address] | | | | | | [phone] | | | +--------+ + + + + Anesthesia Record + + + + + | Procedure Name | Responsible | Anesthesia Start | Anesthesia Stop Time | | | Anesthesiologist | Time | | + + + + + | DIRECT | Percy Donahue, | 05/15/19 1303 | 05/15/19 1407 | [...] | | | 2 | | reviewed, PARMellissa held, anesthetic plan made or approved by [...] | Meds | +------+ + + + No medications | on file. | + + + + + | No agents on file. | + + + + | No [...] | 05/15/19; 1319 (created via | 05/15/19 1319 by | 05/15/19 1359 by | | [...] + + documented as of this encounter Patient Instructions Patient Instructions Emily Lin RN - 05/11/2019 11:51 AM PST PREOPERATIVE INSTRUCTIONS Pre-surgery "homework" If you have not already done so, please consider getting your flu vaccine before surger y. This is safe and effective before a surgery and recovery. Unless otherwise instructed by your surgeon, stay active between now and surgery, even striving to increase your activity levels if you can (ex. taking at least one walk daily, ev en around the block). This can help speed your surgery recovery. If you have a CPAP/BiPAP machine (or other device for Sleep Apnea treatment like a mout h guard), please bring it with you on the day of your surgery. Deciding to or needing to schedule a surgery is often an important moment that can help you pursue quitting smoking life-long. We ideally recommend quitting smoking for at least 4 weeks before surgery, though we recognize that your appointment today is likely less than 4 weeks until surgery. Any smoking quitting is worth it before surgery, though speak to your surgeon about any specific goals set for how long you will be off cigarettes before your diaz rgery. Quitting smoking can help you decrease the chance of complications from your surgery and improve healing. Multiple tobacco quitting aids exist, including nicotine patches and gum. The [employer] Quit Line can also be reached at 1.Jongla.QUIT.NOW ( ) or online at [email or web address]. Surgery check-in location: [facility] Surgery Check in Time: you will receive a call 1-3 business days before your surgery confi rming your exact arrival/check-in time for your surgery day. We know that planning for surg adonay can be stressful and involve a lot of family/friend/transportation coordination as well as hotel arrangements. The Preoperative Medicine Clinic does not have access to check in [facility], and we encourage you to contact your surgeon's office for any assistance planning aroun d a tentative arrival time. Empty stomach before surgery On the day BEFORE your surgery, drink plenty of fluids and stay well hydrated NOTHING to eat or drink after midnight the night before surgery. This includes water, coffee, candy, mints, gum. Medications Instructions On the evening before your surgery, take ALL your usual evening medications On the morning of surgery TAKE the following medications with a sip of water: FLUTICASONE PROPIONATE-SALMETEROL 115 MCG-21 MCG/ACTUATION HFA INHALER IPRATROPIUM 20 MCG-ALBUTEROL 100 MCG/ACTUATION MIST FOR INHALATION On the morning of surgery DO NOT TAKE the following medications: Other medications not specifically mentioned are at your discretion as to taking or not taking on the morning of surgery. ACETAMINOPHEN 325 MG TABLET AMITRIPTYLINE 25 MG TABLET VITAMIN D3 ORAL CITALOPRAM 10 MG TABLET GABAPENTIN 300 MG CAPSULE MECLIZINE 25 MG TABLET METOCLOPRAMIDE 10 MG TABLET MONTELUKAST 10 MG TABLET PROMETHAZINE 6.25 MG ORAL DOSE PROPRANOLOL 40 MG TABLET RIVAROXABAN 15 MG TABLET SENNOSIDES 8.6 MG-DOCUSATE SODIUM 50 MG TABLET VENLAFAXINE ER 150 MG CAPSULE,EXTENDED RELEASE 24 HR Unless otherwise directed by your surgeon, do not take any Aspirin, fish oil supplement s, vitamin E or non-steroidal anti-inflammatory (NSAIDs i.e. Advil, Aleve, Ibuprofen) or her bal supplements 7 days prior to your surgery. These drugs may interfere with normal blood cl otting and may cause excessive bleeding and bruising during or after the surgery. If you are taking Coumadin (warfarin), Plavix or any other blood thinners please let y our surgical team know as medication changes may be necessary If you need a pain medication for general purposes, use Tylenol as directed. OK to take it even on the morning of surgery, if needed. If you are in doubt about any medications that you are taking, please contact our office . Other Important Guidelines ? Do not shave the surgical area ? Do not smoke, drink alcohol or use recreational drugs for 24 hours before your surgery Watch for any change in your health condition. Let your surgeon know right away if you do not feel well--this includes calling if you think you are developing a "cold" in the days before your surgery. ? Do not wear makeup, perfume, lotions, deodorant, powder or hairspray. Do not wear any jewelry to the hospital. Wear loose, comfortable clothing. Leave all your valuables at home. Allow enough travel time so you re not late for your check in for surgery. ? Take a bath or shower and remember to shampoo your hair using your usual hair product be fore your arrival at the hospital ? Please remember to brush your teeth the night before and the morning of your procedure. Preventing post op complications while you are in the hospital Use an incentive spirometer or peep breathe to keep your lungs working properly an d to help prevent respiratory complications. It helps you take long, deep breaths. Use it at least once every hour while you are awake. Leg and feet exercises will maintain good circulation and help prevent blood clots in yo ur legs. Sometimes your doctor will order sequential air compression stockings. Compressed air helps the circulation in your legs. Walking and moving will help stimulate normal circulation and deep breathing. Going Home Your surgical team will decide when you are medically ready to go home. If you are released to go home on the same day as your procedure/surgery please note th e following: You will not be able to drive yourself A responsible adult MUST escort you home. You may not drive yourself Your responsible adult can drive you or they can accompany you in a taxi, ride share (diaz ch as Uber/Lyft), or public transportation. An Uber/Lyft/medical delivery driver does not count as the responsible adult who accompanies you. Certified Medical Transport can transport you after surgery as long as a competent adult is waiting for you on arrival at your destination Although not mandatory, it is highly recommended that a patient has a responsible person with you to provide overnight monitoring/support following discharge. It IS required that you have a competent person assist you and look after you on the fi rst night after you have undergone regional blocks (72 hours for patients going home with re gional block pump) If you stayed in the hospital after surgery, please discuss anticipated discharge time and plans with your inpatient team so that transportation plans and other going home arrange ments can be coordinated If you have questions or concerns after you go home, call your doctor s office. If it is after office hours, call the [facility] extrusion press operator at [phone] and ask them to page him or h er. documented in this encounter Plan of Treatment Not on filedocumented as of this encounter Visit Diagnoses Not on filedocumented in this encounter
--- OUTSIDE RECORDS SUMMARY | ~2020-02-07 | XMS | Encounter Summary ---
Demographics + + + | Address | [address] | | | [place] [address] | + + + | Home Phone [...] + + + | Author | [facility] | | | and Michaelana | + + + | Organization | [facility] | | [...] Team Providers + +------+ + | Care Vice Principal Name | Role | Phone | + [...] | | | | | persistent | ANTHROPOLOGIST PHYSICAL [address] | [address] | | | | | asthma with | [address] | DR [address] | | | | | status | [place], | [place], [place] | | | | | asthmaticus | [place] [address] | [address] | | | | | Moderate | Phone: | Phone: | | | | | persistent | [phone] | [phone] | | | | | asthma with | Fax: | Fax: | | | | | status | [phone] | [phone] | | | | | asthmaticus | | | + +--------+ + + + + Encounter Details +--------+---------+ + + + | Date | Type | Department | Care Team | Description | +--------+---------+ + + + | 03/05/ | Office | [facility] | Mary Ann Diamond, | Severe persistent | | 2019 | Visit | PULMONOLOGY [address] | RN BONE MARROW TRANSPLANT [address] | asthma with acute | | | | [address] | DR [address] [place], | exacerbation | | | | [place], [place] | [place] [address] | (Primary Dx); Cough | | | | [address] | [phone] | productive of yellow | | | | [phone] | | sputum; Edema of | | | | | | both lower | | | | | | extremities | +--------+---------+ + + + Social History [...] + + + | Blood Pressure | 112/76 | 03/05/2019 9:21 AM | | | | | PDT | | + + + + + | Pulse | 73 | 03/05/2019 9:21 AM | | | | | PDT | | + + + + + | Temperature | 36.2 C (97.1 F) | 03/05/2019 9:21 AM | | | | | PDT | | + + + + + | Respiratory Rate | - | - | | + + + + + | Oxygen Saturation | 99% | 03/05/2019 9:21 AM | | | | | PDT | | + + + + + | Inhaled Oxygen | - | - | | | Concentration | | | | + + + + + | Weight | 111.6 kg (246 lb) | 03/05/2019 9:21 AM | | | | | PDT | | + + + + + | Height | 170.2 cm (5' 7") | 03/05/2019 9:21 AM | | | | | PDT | | + + + + + | Body Mass Index | 38.53 | 03/05/2019 9:21 AM | | | | | PDT | | + + + + + documented in this encounter Progress Notes Mary Ann Diamond, RN BONE MARROW TRANSPLANT - 03/05/2019 9:00 AM PDTFormatting of this note might be different fr om the original. Subjective: Patient ID: Marshall Delgado is a 48 y.o. female. History of asthma, DVT and PEs in 2011 a 2017, anxiety, GERD, never smoker. Initial HPI A Lobo on 02-19-2019: Marshall Delgado is a [...] seeking answers and wishes to feel better. HPI 03/05/19: Marshall Delgado is a 48 y.o. female presenting today for 2 week follow up. She is feeling slightly better, but is still breathing with a sound of pharyngeal restrictio n. She reports she can hear herself wheeze throughout the day, her cough is slightly diminis hed from last visit, but it is still productive of phlegm. The phlegm is thick and yellow in color. She remains on symbicort 160mg 2 puffs BID, but is on her second of two sample inhal er. Insurance denied symbicort, so I will try Advair next. She was able to fill spiriva and has been using this daily. She uses albuterol inhaler 3 x a day, but she is running low on t his. Insurance also denied the albuterol inhaler I prescribed. I have searched the system fo r a covered medication, and it appears combivent is on her formulary. No other albuterol inh aler preparation appears to be covered, only nebulizer preps, which she already has. This is not helpful to her on the go. She also awaits insurance approval for VQ scan and Echocardio gram. She reports continued lower extremity edema daily. It is pitting most nights. She also reports burning discomfort left upper, anterior chest straight through to the back and the right lower chest wall laterally at the level of the diaphragm. This gets very painful to he r in the evenings and after coughing jags. She sleeps sitting upright because the throat see ms to close up on her when she lays flat. She eats very small amounts of food at one time, b ecause when she eats too much, she feels like her stomach gets in the way of her ability to breathe. Reports acid reflux is well controlled. She has had a return call to schedule an appointment at [facility] for electrical design technician. She repo rts she missed this call but will call them back to do this. She denies fever, chills, body aches, sharp or heavy chest pain, joint aches, palpitations, rashes, appetite change, weight loss, nausea or vomiting, night sweats. Social Hx: Ms Delgado is from the [facility]. She lives in [place] currently. 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 She is living in a vehicular home on her [facility] property for her peace of mind and safety. She is not active as she can only walk 100 ft without needing to take a break to breathe. She has poor diet and appetite. She is a never smoker. History reviewed. No pertinent family history. Review of Systems Constitutional: Negative for activity change, appetite change, chills, diaphoresis, fatigue , fever and unexpected weight change. HENT: Positive for postnasal drip. Negative for congestion, ear pain, rhinorrhea, sinus pre ssure, sinus pain, sneezing, sore throat, tinnitus, trouble swallowing and voice change. Eyes: Negative for pain, redness and itching. Respiratory: Positive for cough, chest tightness, shortness of breath, wheezing and stridor . Negative for apnea and choking. Cardiovascular: Positive for chest pain and leg swelling. Negative for palpitations. Bilateral lower extremity edema daily. Burning discomfort left upper, anterior chest a nd right lower lateral chest. Gastrointestinal: Negative for abdominal distention, abdominal pain, [...] normal. Left Ear: External ear normal. Nose: Nose normal. Mouth/Throat: Oropharynx is clear and moist. Eyes: Pupils are equal, round, and reactive to light. Conjunctivae and EOM are normal. Righ t eye exhibits no discharge. Left eye exhibits no discharge. No scleral icterus. Neck: Normal range of motion. Neck supple. No JVD present. No tracheal deviation present. N o thyromegaly present. Cardiovascular: Normal rate, regular rhythm, normal heart sounds and intact distal pulses. Pulmonary/Chest: Effort normal and breath sounds normal. Stridor present. No respiratory di stress. She has no wheezes. She has no rales. She exhibits no tenderness. Increased respiratory effort with mild accessory muscle use. Pt not in tripod position not in distress. Abdominal: Soft. Bowel sounds are normal. She exhibits no distension. There is no tendernes s. There is no guarding. Musculoskeletal: Normal range of motion. She exhibits edema. She exhibits no tenderness or deformity. Nonpitting edema bilateral lower extremities. Lymphadenopathy: She has no cervical adenopathy. Neurological: [...] Hives Penicillins Anaphylaxis Morphine GI Upset Vitals: 03/05/19 0921 BP: 112/76 Pulse: 73 Temp: 36.2 C (97.1 F) TempSrc: Oral SpO2: 99% Weight: 111.6 kg (246 lb) Height: 1.702 m (5' 7") Patient [...] times daily., Disp: 1 Inhaler, Rfl: 11 doxepin (SINEQUAN) 10 mg capsule, doxepin 10 [...] mouth Daily (with dinner)., Disp: , Rfl: sertraline (ZOLOFT) 100 mg tablet, Take 100 mg by mouth Daily., Disp: , Rfl: SPIRIVA HANDIHALER 18 MCG inhalation capsule, INHALE 1 PUFF BY MOUTH ONCE DAILY, Disp: , Rfl: 12 Labs Reviewed: Negative Comment: Reference range: Negative CYTOPLASMIC (C [...] up testing of positive sera with both KY-3 and MPO-ANCA enzyme immunoassays. As many as [...] Levels of Specific IgE ClassDescription of Class < 0.10 0 Negative 0.10 -0.31 0/I Equivocal/Low 0.32 -0.55 I Low 0.56 -1.40 IIModerate 1.41 -3.90 III High 3.91 - 19.00 IVVery High 19.01 -100.00 V Very High >100.00 VIVery High kU/L CCP ANTIBODIES IGG IGA 2 Comment: Reference range: 0 to 19 IMMUNOGLOBULIN E TOTAL 6 Comment: Reference range: 6 to 495 [iU]/mL Total eosinophil Count: 229 Imaging: Pulmonary Function Test: FEV1 FVC FEV1/FVC TLC RV/TLC DLCO Interpretation: 3 step testing Oximetry Exercise (code) 79070 1. At rest on room air: Time:1:26 PM Heart rate:95 Oxygen saturations:97% 2. At exercise on room air: Time:1:27 PM Heart rate:102 Oxygen saturations:94% 3. At exercise with oxygen: Time: Heart rate: Oxygen Saturations: Liters per minute: Assessment and Plan: 1. Severe persistent asthma with acute exacerbation Marshall presents today still complaining of shortness of breath and a very restricted airway . She has less stridor today, however, and her lungs are clear. Her respiratory effort is in creased, but it is more relaxed than at her appointment two weeks ago. She had 2 symbicort i nhalers given to her as samples previously, but the medication is not on her formulary. I am going to order Advair in hope this is covered. She should be on this 2 puffs BID. She has a lso been using spiriva daily. She notes that insurance denied albuterol inhaler. I have sear ched the system for a preferred inhaler and all that appears to be covered is Combivent. I h ave prescribed this today prn. If this is not covered or not helpful, I will ask to complete d PA for patient going forward. Ms Delgado's eosinophils were 253 - fluticasone-salmeterol (ADVAIR HFA) 115-21 MCG/ACT inhaler; Inhale 2 puffs into the lungs 2 times daily. Dispense: 1 Inhaler; Refill: 0 - albuterol-ipratropium (COMBIVENT RESPIMAT) 100-20 mcg/puff inhaler; Inhale 1 puff into th e lungs 4 times daily. Dispense: 1 Inhaler; Refill: 11 - B Type Natriuretic Peptide; Future - CBC with Differential; Future - Immunoglobulin G; Future - albuterol (VENTOLIN HFA) 90 mcg/puff inhaler; Inhale 2 puffs into the lungs every 4 hours as needed for Wheezing, Shortness of Breath or Increased Work of Breathing. Dispense: 1 In haler; Refill: 11 2. Cough productive of yellow sputum Ms Delgado continues to cough up yellow sputum. She coughs mostly in the mornings and at [facility]. She notes that she has increased edema and she has trouble clearing the lungs of congest ion. Will complete a BNP as Echo is waiting for insurance approval still. - B Type Natriuretic Peptide; Future - CBC with Differential; Future - Immunoglobulin G; Future - albuterol (VENTOLIN HFA) 90 mcg/puff inhaler; Inhale 2 puffs into the lungs every 4 hours as needed for Wheezing, Shortness of Breath or Increased Work of Breathing. Dispense: 1 In haler; Refill: 11 3. Edema of both lower extremities We await insurance approval for Echo and VQ scan. I am ordering BNP, BMP and CBC today as s he has not had routine labs in 2 years and we are waiting for Echo results. She continues to have edema and I would like to check for SS of fluid overload. She has no cardiac history. - Basic Metabolic Panel; Future It is a pleasure to be a part of Marshall Delgado's care team. She will follow up with me in 2 weeks for close clinical observation. She was counseled in detail about respiratory anastasiia rgency SS and when to seek ED help. She can return here for urgent appointment as needed. Pl ease feel free to contact us if questions or concerns arise. RAINA Lees [facility] PULMONOLOGY [address] [place] [address] Dept: [phone] Loc: [phone] I have discussed my findings and plan with Dr Amezquita today. We are in agreement with the patient's plan of care as detailed above. documented in this e ncounter Plan of Treatment Not on filedocumented as of this encounter Results Immunoglobulin G (03/05/2019 10:52 AM PDT) + + + + + + | Component | Value | Ref Range | Performed | Pathologist | | | | | At | Signature | + + + + + + | Immunoglobu | 690 (L)Comment: Testing | 700 - 1,600 | REFERENCE | | | ira IgG | performed at [facility];[address] | mg/dL | LAB | | | | [place] | | [facility] | | | | [address];[place] [address] | | LABORATORY | | + + + + + + + + | Specimen | + + | Blood | + + + + + + + | Performing | Address | City/State/Zipcode | Phone Number | | Organization | | | | + + + + + | REFERENCE LAB | [address] [place] [address] | [place], [place] | [phone] | | [facility] | [address] | [address] | | | LABORATORY | | | | + + + + + | REFERENCE LAB | [address] [place] [address] | [place], [place] | | | [facility] | [address] | [address] | | | LABORATORY | | | [...] | | | Morphology | performed at [facility];[address] | | LAB | | | | [place] | | [facility] | | | | [address];[place] [address] | | LABORATORY | | | | | | | | + + + + + + + + | Specimen | + + | Blood | + + + + + + + | Performing | Address | City/State/Zipcode | Phone Number | | Organization | | | | + + + + + | REFERENCE LAB | [address] [place] [address] [place] | [place] | [phone] | | [facility] | [address] | [address] | | | LABORATORY | | | | + + + + + | REFERENCE LAB | [address] [place], [place] [address]jo | [place] | | | [facility] | [address] | [address] | | | LABORATORY | | | [...] | | | | | | MDRD IDTN traceable | | | | | | equation.Testing | | | | | | performed at [facility];[address] | | | | | | [facility] | | | | | | [facility];[place] [address] | | | | | | | | | | + + + + + + + + | Specimen | + + | Blood | + + + + + + + | Performing | Address | City/State/Zipcode | Phone Number | | Organization | | | | + + + + + | REFERENCE LAB | [address] [place] [address] | [place], [place] | [phone] | | [facility] | [address] | [address] | | | LABORATORY | | | | + + + + + | REFERENCE LAB | [address] [place] [address] | [place], [place] | | | [facility] | [address] | [address] | | | LABORATORY | | | | + + + + + B Type Natriuretic Peptide (03/05/2019 10:52 AM PDT) + + + + + + | Component | Value | Ref Range | Performed | Pathologist | | | | | At | Signature | + + + + + + | BNP | 23.8Comment: Testing | 0 - 100 pg/mL | REFERENCE | | | | performed at [facility];[address] | | LAB | | | | [place] | | [facility] | | | | [address];[place] [address] | | LABORATORY | | + + + + + + + + | Specimen | + + | Blood | + + + + + + + | Performing | Address | City/State/Zipcode | Phone Number | | Organization | | | | + + + + + | REFERENCE LAB | [address] [facility] | [place] | [phone] | | [facility] | [address] | [address] | | | LABORATORY | | | | + + + + + | REFERENCE LAB | [address] | [place] | | | [facility] | [address] | [address] | | | LABORATORY | | | [...] extremities | + + documented in this encounter
--- OUTSIDE RECORDS SUMMARY | ~2020-02-07 | XMS | Encounter Summary ---
Demographics + + + | Address | [address] | | | [place] [address] | + + + | Home Phone | | + + + | Preferred Language | Unknown | + + + | Marital Status | Single | + + + | Caodaism Affiliation | NRP | + + + [...] + | Rosy Alvarez | ECON | [address] | | | | | [place] | | + + + + + | Chalo Delgado | ECON | [address] | | | | | [place] | | | | | [address] | | + + + + + | Kathleen Mar | ECON | [place] | | | | | [address] | | + + + + + | Yancy Mar | ECON | [address] | | | | | [place] | | + + + + + Care Team Providers + +------+ + | Care Restaurant Hourly Team Member Name | Role | Phone | + +------+ + | Magdy Villalobos MD | PCP | | + +------+ + Encounter Details +--------+--------+ + + + | Date | Type | Department | Care Team | Description | +--------+--------+ + + + | 05/11/ | Travel | | | | | [...]
--- OUTSIDE RECORDS SUMMARY | ~2020-02-07 | XMS | Clinical Summary ---
Demographics + + + | Address | [address] | | | [place] [address] | + + + | Home Phone | | + + + | Preferred Language | Unknown | + + + | Marital Status | Single | + + + | Yazidi Affiliation | NRP | + + + [...] + | Rosy Alvarez | ECON | [address] | | | | | [place], [place] | | + + + + + | Chalo Delgado | ECON | [address] | | | | | [place] | | | | | [address] | | + + + + + | Kathleen Mar | ECON | [place] | | | | | [address] | | + + + + + | Yancy Mar | ECON | [address] | | | | | [place] | | + + + + + Care Team Providers + +------+ + | Care Desk Attendant Name | Role | Phone | + +------+ + | Magdy Villalobos MD | PCP | | + +------+ + Source Comments ADALI is fully live on both [facility] and [facility] InPatient.[facility] Allergies + + + + + + [...] | | | + +--------+ +--------+-------+---------+--------+ | [employer] | [employer] | xxxxxxxx | | | | Medica [...] Person | Self | [birth year] | [address] | | | al/Fam | | 1971 | [phone] | [place] [address] | | | niya | | | [...]
--- OUTSIDE RECORDS SUMMARY | ~2020-02-07 | XMS | Encounter Summary ---
Demographics + + + | Address | [address] | | | [place] [address] | + + + | Home Phone [...] + | Rosy Alvarez | ECON | [address] | | | | | [place] | | + + + + + | Chalo Delgado | ECON | [address] | | | | | [place] | | | | | [address] | | + + + + + | Kathleen Mar | ECON | [place] | | | | | [address] | | + + + + + | Yancy Mar | ECON | [address] | | | | | [place] | | + + + + + Care Team Providers + +------+ + | Care Roller Embosser Name | Role | Phone | + [...] | | | 2019 | Event | [facility] | MD Brian [address] | | | | | and Healing Surgery | [address] | | | | | Center Admitting | [place], [place] | | | | | Desk Located on the | [address] | | | | | 4th floor [address] | [phone] | | | | | [address] [place], | | | | | | [place] [address] | Aaron Garner | | | | | | MD Susana [address] | | | | | | [address] | | | | | | [place], [place] | | | | | | [address] | | | | | | [phone] | | | | | | | [...]
--- OUTSIDE RECORDS SUMMARY | ~2020-02-07 | XMS | Encounter Summary ---
Demographics + + + | Address | [address] | | | [place] [address] | + + + | Home Phone [...] + | Rosy Alvarez | ECON | [address] | | | | | [place] | | + + + + + | Chalo Delgado | ECON | [address] | | | | | [place] | | | | | [address] | | + + + + + | Kathleen Mar | ECON | [place] | | | | | [address] | | + + + + + | Yancy Mar | ECON | [address] | | | | | [place] | | + + + + + Care Team Providers + +------+ + | Care An Employee Sponsor Or Advocate And Name | Role | Phone | + +------+ + | Magdy Villalobos MD | PCP | | + +------+ + Encounter Details +--------+ + + + + | Date | Type | Department | Care Team | Description | +--------+ + + + + | 05/15/ | Pharmacy | Pharmacy @ [facility] | | | | 2019 | Visit | [address] | | | | | [address] Mailcode: | | | | | | [facility] | | | | | | and [place], | | | | | | Building [address] | | | | | | [place], [place] | | | | | | [address] | | | +--------+ + + + [...]
--- OUTSIDE RECORDS SUMMARY | ~2020-02-07 | XMS | Encounter Summary ---
Demographics + + + | Address | [address] | | | [place] [address] | + + + | Home Phone [...] + + + | Author | [facility] | | | and Michaelana | + + + | Organization | [facility] | | | and [...] Team Providers + +------+ + | Care Pointing Machine Operator Name | Role | Phone | + +------+ + | Stefany Ngo | PCP | | + +------+ + Reason for Referral Service/Procedure (Routine) +--------+--------+ + + + + | Status | Reason | Specialty | Diagnoses / | Referred By | Referred To | | | | | Procedures | Contact | Contact | +--------+--------+ + + + + | Closed | | Cardiology | Diagnoses | Danny | Rey | | | | | Recurrent | Marshall Kenney RN | Cardiology | | | | | pulmonary | | [place] | | | | | embolism | | [address] | | | | | (HCC) Cough | | DR | | | | | in adult | | [place], [place] | | | | | Shortness of | | [address] | | | | | breath | | Phone: | | | | | Procedures | | [phone] | | | | | ECHO | | Fax: | | | | | Complete | | [phone] | | | | | Echo Only | | | +--------+--------+ + + + + Reason for Visit Service/Procedure (Routine) +--------+--------+ + + + + | Status | Reason | Specialty | Diagnoses / | Referred By | Referred To | | | | | Procedures | Contact | Contact | +--------+--------+ + + + + | Closed | | Cardiology | Diagnoses | Antonia Delgado | | | | | Recurrent | Marshall Kenney RN | Cardiology | | | | | pulmonary | | [place] | | | | | embolism | | [address] | | | | | (HCC) Cough | | DR | | | | | in adult | | [place] | | | | | Shortness of | | [address] | | | | | breath | | Phone: | | | | | Procedures | | [phone] | | | | | ECHO | | Fax: | | | | | Complete | | [phone] | | | | | Echo Only | | | +--------+--------+ + + + + Encounter Details +--------+ + + + + | Date | Type | Department | Care Team | Description | +--------+ + + + + | 03/18/ | Hospital | [facility] | Mary Ann Diamond, | 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 | | | | | adult Shortness of | | | | | | breath | | + +--------+ + + + documented in this encounter Results ECHO Complete (03/18/2019 11:23 AM PDT) + +--------+ + + + | Component | Value | Ref Range | Performed | Pathologist | | | | | At | Signature | + +--------+ + + + | LVEF-TTE | 60 | % | [facility] | | | TRANSTHORAC | | | | | | IC ECHO | | | | | + +--------+ + + + | BASELINE | 155/90 | mmHg | [facility] | | | BLOOD | | | | | | PRESSURE | | | | | + +--------+ + + + | Patient | 246 | | [facility] | | | Weight | | | | | | (lbs) | | | | | + +--------+ + + + | Patient | 67 | | [facility] | | | Height | | | | | + +--------+ + + + | Inferior | 0.7 | cm | [facility] | | | Vena Cava | | | | | | Diameter at | | | | | | | | | | | | Inspiration | | | | | + +--------+ + + + | Inferior | 1.6 | cm | [facility] | | | Vena Cava | | | | | | Diameter at | | | | | | Expiration | | | | | + +--------+ + + + | RA PRESSURE | 3 | mmHg | [facility] | | + +--------+ + + + | LVIDd | 4.31 | cm | [facility] | | + +--------+ + + + | FS | 26 | % | [facility] | | + +--------+ + + + | LA volume | 52.4 | mL | [facility] | | + +--------+ + + + | AV mean | 3.73 | mmHg | [facility] | | | gradient | | | | | + +--------+ + + + | Aortic | 2.53 | cm2 | [facility] | | | Valve Area | | | | | | by | | | | | | Continuity | | | | | | VTI | | | | | + +--------+ + + + | MV Area by | 3.16 | cm2 | [facility] | | | P 1/2 | | | | | | method | | | | | + +--------+ + + + | PV peak | 5.74 | mmHg | [facility] | | | gradient | | | | | + +--------+ + + + | Pulm vein | 197.23 | msec | [facility] | | | "A" wave | | | | | + +--------+ + + + | Pulm vein | 30.34 | | [facility] | | | S/D ratio | | | | | + +--------+ + + + | LVOT | 2.12 | cm | [facility] | | | diameter | | | | | + +--------+ + + + | LVOT peak | 96.94 | cm/s | [facility] | | | jose | | | | | + +--------+ + + + | LVOT peak | 18.72 | cm | [facility] | | | VTI | | | | | + +--------+ + + + | AV peak jose | 125.93 | cm/s | [facility] | | + +--------+ + + + | AV VTI | 26.12 | cm | [facility] | | + +--------+ + + + | AV peak | 6.34 | mmHg | [facility] | | | gradient | | | | | + +--------+ + + + | TV peak | 8.01 | mmHg | [facility] | | | gradient | | | | | + +--------+ + + + | PV mean | 3.13 | mmHg | [facility] | | | gradient | | | | | + +--------+ + + + | MV Pressure | 69.68 | msec | [facility] | | | 1/2 time | | | | | + +--------+ + + + | Pulm Vein | 48.71 | cm/s | [facility] | | | Peak S Jose | | | | | + +--------+ + + + | Pulm Vein | 36.89 | cm/s | [facility] | | | Peak D Jose | | | | | + +--------+ + + + | LA Volume | 24 | mL/m2 | [facility] | | | Index | | | | | + +--------+ + + + | AV LVOT | 3.76 | mmHg | [facility] | | | Peak | | | | | | Gradient | | | | | + +--------+ + + + | AV LVOT | 1.66 | mmHg | [facility] | | | Mean | | | | | | Gradient | | | | | + +--------+ + + + | PI Peak | 119.84 | cm/s | [facility] | | | Velocity | | | | | + +--------+ + + + | LV | 7.29 | cm | [facility] | | | Diastolic | | | | | | Length 4C | | | | | + +--------+ + + + | RV | 3.19 | cm | [facility] | | | Diastolic | | | | | | Basal | | | | | | Diameter | | | | | + +--------+ + + + | LV | 62 | % | [facility] | | | Sanchez's | | | | | | Biplane EF | | | | | + +--------+ + + + | LV ED | 78.98 | ml | [facility] | | | Volume | | | | | | (Sanchez's) | | | | | + +--------+ + + + | LV ED | 36 | ml/m2 | [facility] | | | Volume | | | | | | Index | | | | | + +--------+ + + + | LV ES | 29.78 | ml | [facility] | | | Volume | | | | | + +--------+ + + + | LVOT Mean | 58.82 | cm/s | [facility] | | | Velocity | | | | | + +--------+ + + + | MV E' | 14.15 | cm/s | [facility] | | | Lateral | | | | | | Velocity | | | | | + +--------+ + + + | MV E' | 5.89 | cm/s | [facility] | | | Septal | | | | | | Velocity | | | | | + +--------+ + + + | MV | 244.13 | msec | [facility] | | | Deceleratio | | | | | | n Time | | | | | + +--------+ + + + | MV E/A | 0.91 | | [facility] | | | Ratio | | | | | + +--------+ + + + | MV Peak | 83.37 | cm/s | [facility] | | | A-Wave | | | | | + +--------+ + + + | MV Peak | 75.84 | cm/s | [facility] | | | E-Wave | | | | | + +--------+ + + + | TV | 464.4 | msec | [facility] | | | Deceleratio | | | | | | n Time | | | | | + +--------+ + + + | TV Peak | 116.75 | cm/s | [facility] | | | A-Wave | | | | | + +--------+ + + + | TV Peak | 141.47 | cm/s | [facility] | | | E-Wave | | | | | + +--------+ + + + | PV Mean | 83.35 | cm/s | [facility] | | | Velocity | | | | | + +--------+ + + + | AV Mean | 93.21 | cm/s | [facility] | | | Velocity | | | | | + +--------+ + + + | RA Area | 15 | cm2 | [facility] | | + +--------+ + + + | RA | 4.8 | cm | [facility] | | | Dimension | | | | | + +--------+ + + + | LA/Aorta | 1.12 | | [facility] | | | Ratio | | | | | + +--------+ + + + | LA Area | 17.28 | cm2 | [facility] | | + +--------+ + + + | LA Systolic | 8.7 | mmHg | [facility] | | | Pressure | | | | | + +--------+ + + + | MV E/E | 12.88 | | [facility] | | | SEPTAL | | | | | + +--------+ + + + | MV E/E | 5.36 | | [facility] | | | LATERAL | | | | | + +--------+ + + + | LA Major | 0.2612 | cm | [facility] | | + +--------+ + + + | LV ES | 13 | ml/m2 | [facility] | | | Volume | | | | | | Index | | | | | + +--------+ + + + | Cardiac | 5.94 | l/min | [facility] | | | Output | | | | | + +--------+ + + + | Cardiac | 2.69 | l/min/m2 | [facility] | | | Index | | | | | + +--------+ + + + | Heart Rate | 90 | | [facility] | | + +--------+ + + + | Aortic Root | 3.21 | cm | [facility] | | | Diameter | | | | | + +--------+ + + + | IVS | 0.92 | cm | [facility] | | | Diastolic | | | | | | Thickness | | | | | | MM | | | | | + +--------+ + + + | LVPW | 0.85 | cm | [facility] | | | Diastolic | | | | | | Thickness | | | | | | MM | | | | | + +--------+ + + + | IVS | 1.21 | cm | [facility] | | | Systolic | | | | | | Thickness | | | | | | MM | | | | | + +--------+ + + + | LV Systolic | 3.21 | cm | [facility] | | | Diameter | | | | | | MM | | | | | + +--------+ + + + | LVPW | 1.15 | cm | [facility] | | | Systolic | | | | | | Thickness | | | | | | MM | | | | | + +--------+ + + + | AV Cusp | 2.1 | cm | [facility] | | | Seperation | | | | | | MM | | | | | + +--------+ + + + | LA Systolic | 3.61 | cm | [facility] | | | Diameter | | | | | | MM | | | | | + +--------+ + + + + + | Specimen | + + | | + + + + + | Narrative | Performed At | + + + | Normal size | [facility] | | left ventricle. There is normal left ventricular wall thickness. | | | There is normal left ventricular wall motion. Normal size right | | | ventricle. Normal right ventricular systolic function Normal size | | | left atrium. Normal size right atrium. No aortic stenosis. No | | | mitral regurgitation. Trace tricuspid regurgitation. No definite | | | pulmonary hypertension based on the TR Velocity and estimated RAP | | | obtained on today's study. Normal pericardium without effusion. | | | No mitral regurgitation. | | | Trace tricuspid regurgitation. | | | No definite pulmonary hypertension based on the TR Velocity and | | |estimated RAP obtained on today's study. | | | Normal pericardium without effusion. | | | | | + + + + +---------+ + [...]
--- OUTSIDE RECORDS SUMMARY | ~2020-02-07 | XMS | Encounter Summary ---
Demographics + + + | Address | [address] | | | [place] [address] | + + + | Home Phone [...] Author + + + | Author | [facility] | + + + | Organization | [facility] | + + + | Address | Unknown | + + + | Phone | Unavailable | + + + Support + + + + + | Name | Relationship | Address | Phone | + + + + + | Rosy Alvarez | ECON | [address] | | | | | [place] | | + + + + + | Chalo Delgado | ECON | [address] | | | | | [place] | | | | | [address] | | + + + + + | Kathleen Mar | ECON | [place] | | | | | [address] | | + + + + + | Yancy Mar | ECON | [address] | | | | | [place] | | + + + + + Care Team Providers + +------+ + | Care Street Car Inspector Name | Role | Phone | [...] Ball | | | | | at [facility] [address] | [place] [facility] | | | | | [facility] | [place] [address] | | | | | Health and Healing, | [phone] | | | | | [place] [address] | | | | | | [place], [place] | | | | | | [address] | | | | | | [phone] | | | +--------+ + + + [...]
--- OUTSIDE RECORDS SUMMARY | ~2020-02-07 | XMS | Encounter Summary ---
Demographics + + + | Address | [address] | | | [place] [address] | + + + | Home Phone | | + + + | Preferred Language | Unknown | + + + | Marital Status | Single | + + + | Catholic Affiliation | Unknown | + + + | Race | Unknown | + + + | Ethnic Group | Unknown | + + + Author + + + | Author | [facility] | | | and Michaelana | + + + | Organization | [facility] | | | and [...] Team Providers + +------+ + | Care Electromechanical Equipment Assembler Name | Role | Phone | + +------+ + | Stefany Ngo | PCP | | + +------+ + Reason for Visit +--------+--------+ + | Reason | Onset | Comments | | | Date | | +--------+--------+ + | Other | 03/10/ | Lab results | | | 2019 | | +--------+--------+ + Encounter Details +--------+ + + + + | Date | Type | Department | Care Team | Description | +--------+ + + + + | 03/10/ | Telephone | [facility] | Mary Ann Diamond, | Other (Lab results) | | 2019 | | PULMONOLOGY [address] | JEWEL [address] | | | | | [address] | [address], | | | | | [place], [place] | [place] [address] | | | | | [address] | [phone] | | | | | [phone] | | | +--------+ + + + [...] this encounter Miscellaneous Notes Telephone Encounter - Tiffani Weinberg, Residential Plumber - 03/10/2019 10:06 AM PDTCalled PT at per Mary Ann's orders. PT blood work showed mild anemia, and she should follow up with her PCP regarding this. Also the echo and VQ scans should be cleared soon through the PT insurance. documented in this encounter Plan of Treatment Not on filedocumented as of this encounter Visit Diagnoses Not on filedocumented in this encounter"
--- OUTSIDE RECORDS SUMMARY | ~2020-02-07 | XMS | Encounter Summary ---
Demographics + + + | Address | [address] | | | [place] [address] | + + + | Home Phone | | + + + | Preferred Language | Unknown | + + + | Marital Status | Single | + + + | Restorationist Affiliation | NRP | + + + | Race | White | + + + | Ethnic Group | Not or | + + + Author + + + | Author | [facility] | + + + | Organization | [facility] | + + + | Address | Unknown | + + + | Phone | Unavailable | + + + Support + + + + + | Name | Relationship | Address | Phone | + + + + + | Rosy Alvarez | ECON | [address] | | | | | [place] | | + + + + + | Chalo Delgado | ECON | [address] | | | | | [place] | | | | | [address] | | + + + + + | Kathleen Mar | ECON | [place] | | | | | [address] | | + + + + + | Yancy Mar | ECON | [address] | | | | | [place] | | + + + + + Care Team Providers + +------+ + | Care Personal Investment Adviser Name | Role | Phone | + [...] Floor | | | | | | [place], [place] | [place], [place] | | | | | | [address] | [address] | | | | | | Phone: | Phone: | | | | | | [phone] | [phone] | | | | | | Fax: | Fax: | | | | | | [phone] | [phone] | +--------+--------+ + + + + Encounter Details +--------+---------+ + + + | Date | Type | Department | Care Team | Description | +--------+---------+ + + + | 04/28/ | Office | [facility] | Trudy Philip, LUCRETIA | Tracheal stenosis | | 2019 | Visit | [facility] | [address] | (Primary Dx); | | | | Swallowing at [facility] | [place], | Dysphonia; Shortness | | | | [address] | [place] [address] | of breath; Stridor | | | | [facility] | [phone] | | | | | and Healing, | | | | | | | | | | | | [place], [place] | | | | | | [address] | | | | | | [phone] | | | +--------+---------+ + + + [...] 04/28/2019 10:00 AM PDT VOICE EVALUATION CLINIC: [facility] REFERRING PHYSICIAN: Dr. [...] REFERRAL: Marshall Delgado was referred to the [facility] by YRN [...] is employed. 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 The [...] for this consult. Trudy Philip M.A., C.C.C. Radar Scientist Speech-Language Pathologist [facility] Department of Otolaryngology/ Head and Neck Surgery Appointments:[phone] documented in this enco unter Plan of Treatment Not on filedocumented as of this encounter Procedures + +--------+ + + + | Procedure Name | Priori | Date/Time | Associated Diagnosis | Comments | | | ty | | | | + +--------+ + + + | [facility] | Routin | 04/29/2019 | Tracheal stenosis | | | QUALITATIVE ANALYSIS | e | 8:44 AM | Dysphonia | | | OF VOICE AND | | PDT | Shortness of breath | | | RESONANCE | | | Stridor | | + +--------+ + + + | [place] | Routin | 04/29/2019 | Tracheal stenosis [...]
--- OUTSIDE RECORDS SUMMARY | ~2020-02-07 | XMS | Encounter Summary ---
Demographics + + + | Address | [address] | | | [place] [address] | + + + | Home Phone | | + + + | Preferred Language | Unknown | + + + | Marital Status | Single | + + + | Islam Affiliation | NRP | + + + | Race | White | + + + | Ethnic Group | Not or | + + + Author + + + | Author | [facility] | + + + | Organization | [facility] | + + + | Address | Unknown | + + + | Phone | Unavailable | + + + Support + + + + + | Name | Relationship | Address | Phone | + + + + + | Rosy Alvarez | ECON | [address] | | | | | [place] | | + + + + + | Chalo Delgado | ECON | [address] | | | | | [place] | | | | | [address] | | + + + + + | Kathleen Mar | ECON | [place] | | | | | [address] | | + + + + + | Yancy Mar | ECON | [address] | | | | | [place] | | + + + + + Care Team Providers + +------+ + | Care Echo Technician Name | Role | Phone | + [...] Ball | | | | | at [facility] [address] | [place] [facility] | | | | | [facility] | [place] [address] | | | | | Health and Healing, | [phone] | | | | | [place] [address] | | | | | | [place], [place] | | | | | | [address] | | | | | | [phone] | | | +--------+ + + + [...]
--- OUTSIDE RECORDS SUMMARY | ~2020-02-07 | XMS | Encounter Summary ---
Demographics + + + | Address | [address] | | | [place] [address] | + + + | Home Phone | | + + + | Preferred Language | Unknown | + + + | Marital Status | Single | + + + | Baptism Affiliation | NRP | + + + | Race | White | + + + | Ethnic Group | Not or | + + + Author + + + | Author | [facility] | + + + | Organization | [facility] | + + + | Address | Unknown | + + + | Phone | Unavailable | + + + Support + + + + + | Name | Relationship | Address | Phone | + + + + + | Rosy Alvarez | ECON | [address] | | | | | [place] | | + + + + + | Chalo Delgado | ECON | [address] | | | | | [place] | | | | | [address] | | + + + + + | Kathleen Mar | ECON | [place] | | | | | [address] | | + + + + + | Yancy Mar | ECON | [address] | | | | | [place] | | + + + + + Care Team Providers + +------+ + | Care Rivet Hole Machine Operator Name | Role | Phone | + +------+ + | Magdy Villalobos MD | PCP | | + +------+ + Encounter Details +--------+ + + + + | Date | Type | Department | Care Team | Description | +--------+ + + + + | 05/15/ | Procedure | [facility] | | | | 2019 | Pass | [facility] | | | | | | and Healing Surgery | | | | | | Center Admitting | | | | | | Desk Located on the | | | | | | 4th floor [address] | | | | | | [address] [place], | | | | | | [place] [address] | | | +--------+ + + + [...]
--- OUTSIDE RECORDS SUMMARY | ~2020-02-07 | XMS | Encounter Summary ---
Demographics + + + | Address | [address] | | | [place] [address] | + + + | Home Phone [...] + + + | Author | [facility] | + + + | Organization | [facility] | + + + | Address | Unknown | + + + | Phone | Unavailable | + + + Support + + + + + | Name | Relationship | Address | Phone | + + + + + | Rosy Alvarez | ECON | [address] | | | | | [place] | | + + + + + | Chalo Delgado | ECON | [address] | | | | | [place] | | | | | [address] | | + + + + + | Kathleen Mar | ECON | [place] | | | | | [address] | | + + + + + | Yancy Mar | ECON | [address] | | | | | [place] | | + + + + + Care Team Providers + +------+ + | Care Infrastructure Security Architect Name | Role | Phone | + +------+ + | Michelle Ndiaye MD | PCP | | + +------+ + Reason for Visit Diagnostic Testing (Routine) +--------+--------+ + + + [...] | | | | | Procedures | [facility] [place] | [address] | | | | | VASC LAB | [address] | Physician's | | | | | VENOUS | Phone: | Pavilion | | | | | DUPLEX LOWER | [phone] | [place], [place] | | | | | EXTREMITY | Fax: | [address] | | | | | BILAT COMP | [phone] | Phone: | | | | | [address] | | [phone] | | | | | | | Fax: | | | | | | | [phone] | +--------+--------+ + + + + Encounter Details +--------+ + + + + | Date | Type | Department | Care Team | Description | +--------+ + + + + | 05/21/ | Hospital | Diagnostic | | | | 2011 | Encounter | Radiology at [facility] | | | | | | [address] | | | | | | Loop Mailcode: | | | | | | [address] Physician's | | | | | | Pavilion [place], | | | | | | [place] [address] | | | | | | [phone] | | | +--------+ + + + [...] 1-2 Tabs by | | 0 | // | | | mg Oral tablet | [...] + + | VASC LAB VENOUS | Routin | 05/21/2012 | DVT (deep venous | Results for this | | DUPLEX LOWER | e | 12:30 PM | thrombosis) ([facility]) | procedure are in the | | EXTREMITY BILAT COMP | | PST | | results section. | + +--------+ + + + documented in this encounter Results VASC LAB VENOUS DUPLEX [...] | | | | | signed / Thuy Mckeon | | | | [...] + | DVT (deep venous thrombosis) (HCC) Acute venous embolism and thrombosis of | | unspecified deep vessels of lower extremity | + + documented in this encounter"
--- OUTSIDE RECORDS SUMMARY | ~2020-02-07 | XMS | Encounter Summary ---
Demographics + + + | Address | [address] | | | [place] [address] | + + + | Home Phone | | + + + | Preferred Language | Unknown | + + + | Marital Status | Single | + + + | Evangelical Affiliation | NRP | + + + | Race | White | + + + | Ethnic Group | Not or | + + + Author + + + | Author | [facility] | + + + | Organization | [facility] | + + + | Address | Unknown | + + + | Phone | Unavailable | + + + Support + + + + + | Name | Relationship | Address | Phone | + + + + + | Rosy Alvarez | ECON | [address] | | | | | [place] | | + + + + + | Chalo Delgado | ECON | [address] | | | | | [place] | | | | | [address] | | + + + + + | Kathleen Mar | ECON | [place] | | | | | [address] | | + + + + + | Yancy Mar | ECON | [address] | | | | | [place] | | + + + + + Care Team Providers + +------+ + | Care Research Chief Engineer Name | Role | Phone | [...] + + | 11/08/ | Hospital | [facility] | Jarocho Cosby MD | | | 2019 | Encounter | [address] | [address] | | | | | Carie Mailcode: [facility] | [address] [place], | | | | | [facility] | [place] [address] | | | | | Health and Healing, | [phone] | | | | | [address] | | | | | | [place], [place] | | | | | | [address] | | | | | | [phone] | | | +--------+ + + + [...] Note | + + | Service Account, [place] In Interface - 05/15/2019 4:05 PM PST [...]
--- OUTSIDE RECORDS SUMMARY | ~2020-02-07 | XMS | Encounter Summary ---
Demographics + + + | Address | [address] | | | [place] [address] | + + + | Home Phone | | + + + | Preferred Language | Unknown | + + + | Marital Status | Single | + + + | Adventism Affiliation | NRP | + + + [...] + | Rosy Alvarez | ECON | [address] | | | | | [place] | | + + + + + | Chalo Delgado | ECON | [address] | | | | | [place] | | | | | [address] | | + + + + + | Kathleen Mar | ECON | [place] | | | | | [address] | | + + + + + | Yancy Mar | ECON | [address] | | | | | [place] | | + + + + + Care Team Providers + +------+ + | Care Dinkey Locomotive Operator Name | Role | Phone | [...] y | Cough in | Mary Ann, MEDIC TECHNICIAN | Laryngology | | | | | adult | [address] | [address] | | | | | Shortness of | SONI MILLER | [address] | | | | | breath | [address] | [facility] | | | | | | [place], [place] | Health and | | | | | | [address] | Healing, | | | | | | Phone: | [facility] [address] | | | | | | [phone] | [place], [place] | | | | | | Fax: | [address] | | | | | | [phone] | Phone: | | | | | | | [phone] | | | | | | | Fax: | | | | | | | [phone] | +--------+--------+ + + + + Encounter Details +--------+---------+ + + + | Date | Type | Department | Care Team | Description | +--------+---------+ + + + | 06/09/ | Office | Otolaryngology | Jarocho Cosby MD | Disease of trachea | | 2019 | Visit | Laryngology Services | [address] | and bronchus | | | | at [facility] [address] | [address] [place], | (Primary Dx) | | | | [facility] | [place] [address] | | | | | Health and Healing, | [phone] | | | | | [address] | | | | | | [place], [place] | | | | | | [address] | | | | | | [phone] | | | +--------+---------+ + + + [...] 06/09/2019 1:00 PM PSTPATIENT: Marshall Delgado MR#: [id number] : 1970 REQUESTING PROVIDER: YRN Ramírez [address] [place] [address] PRIMARY CARE PROVIDER: Magdy Villalobos MD CLINIC: [facility] HPI: Marshall Delgado [...] Professor and Chair, Otolaryngology-Head & Neck Surgery [facility] & [address] ([place] [address] documented in this enco unter Plan of Treatment Not on filedocumented as of this encounter Procedures + +--------+ + + + | Procedure Name | Priori | Date/Time | Associated Diagnosis | Comments | | | ty | | | | + +--------+ + + + | ID | Routin | 07/04/2019 | Disease of [...]
--- OUTSIDE RECORDS SUMMARY | ~2020-02-07 | XMS | Encounter Summary ---
Demographics + + + | Address | [address] | | | [place] [address] | + + + | Home Phone | | + + + | Preferred Language | Unknown | + + + | Marital Status | Single | + + + | Gnosticist Affiliation | Unknown | + + + [...] Team Providers + +------+ + | Care Venereal Disease Control Head Name | Role | Phone | + +------+ + | Stefany Ngo | PCP | | + +------+ + Reason for Visit Diagnostic/Screening (Urgent) +--------+--------+ + + + + | Status | Reason | Specialty | Diagnoses / | Referred By | Referred To | | | | | Procedures | Contact | Contact | +--------+--------+ + + + + | Closed | | Radiology | Diagnoses | 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 | | | | | Recurrent | Mary Ann Meza, | Medicine | | | | | pulmonary | ELECTROMECHANICAL EQUIPMENT TESTER [address] | [address] | | | | | embolism | [address] | [address]VD | | | | | (HCC) Cough | [address] | [place], [place] | | | | | in adult | [place] | [address] | | | | | Shortness of | [address] | Phone: | | | | | breath | Phone: | [phone] | | | | | Procedures | [phone] | Fax: | | | | | [place] Lung | Fax: | [phone] | | | | | Perfusion | [phone] | | | | | | Ventilation | | | +--------+--------+ + + + + Encounter Details +--------+ + + + + | Date | Type | Department | Care Team | Description | +--------+ + + + + | 03/18/ | Hospital | [facility] | Mary Ann Diamond, | | | 2019 | Encounter | [facility] | ELECTROMECHANICAL EQUIPMENT TESTER [address] | | | | | NUCLEAR MEDICINE | DR [place], | | | | | [address] | [place] [address] | | | | | [place] | [phone] | | | | | [address] | | | | | | [phone] | | | +--------+ + + + [...] | | | | PDT | ([facility]) Cough in | results section. | | [...]
--- OUTSIDE RECORDS SUMMARY | ~2020-02-07 | XMS | Encounter Summary ---
Demographics + + + | Address | [address] | | | [place] [address] | + + + | Home Phone | | + + + | Preferred Language | Unknown | + + + | Marital Status | Single | + + + | Zoroastrianism Affiliation | Unknown | + + + | Race | Unknown | + + + | Ethnic Group | Unknown | + + + Author + + + | Author | [facility] | | | and [place] | + + + | Organization | [facility] | | | [...] Team Providers + +------+ + | Care Bread Wrapping Machine Feeder Name | Role | Phone [...] | | | | | Consolidatio | TELESALES MANAGER [address] | | | | | n of left | [address] | [address] | | | | | upper lobe | [address] | [place], [place] | | | | | of lung | [place] | [address] | | | | | (HCC) | [address] | Phone: | | | | | Procedures | Phone: | [phone] | | | | | CT Chest wo | [phone] | Fax: | | | | | Contrast | Fax: | [phone] | | | | | | [phone] | | +--------+--------+ + + + + Encounter Details +--------+ + + + + | Date | Type | Department | Care Team | Description | +--------+ + + + + | 07/15/ | Orders Only | [facility] | Mary Ann Diamond E, | Consolidation of | | 2019 | | PULMONOLOGY [address] | TELESALES MANAGER [address] | left upper lobe of | | | | [address] | DR [place], | lung (HCC) (Primary | | | | [place], [place] | [place] [address] | Dx) | | | | [address] | [phone] | | | | | [phone] | | | +--------+ + + + [...] filedocumented as of this encounter Results CT Chest wo Contrast [...] bronchiolitis. | | | Signed by: Maciej Lopez, Sign Date/Time: 07/27/2019 1:34 PM | | [...] | | | | Signed by: Maciej Lopez, | | Sign Date/Time: 07/27/2019 1:34 PM [...] of left upper lobe of lung (HCC) - Primary | + + documented in this encounter"
--- OUTSIDE RECORDS SUMMARY | ~2020-02-07 | XMS | Encounter Summary ---
Demographics + + + | Address | [address] | | | [place] [address] | + + + | Home Phone | | + + + | Preferred Language | Unknown | + + + | Marital Status | Single | + + + | Latter Day Affiliation | Unknown | + + + | Race | Unknown | + + + | Ethnic Group | Unknown | + + + Author + + + | Author | [facility] | | | and Michaelana | + + + | Organization | [facility] | | | [...] Team Providers + +------+ + | Care Health Services Administrator Name | Role | Phone | + +------+ + | Stefany Ngo | PCP | | + +------+ + Reason for Referral Evaluate & Treat (Routine) +--------+ + + + + + | Status | Reason | Specialty | Diagnoses / | Referred By | Referred To | | | | | Procedures | Contact | Contact | +--------+ + + + + + | Denied | Specialty | Sleep | Diagnoses | Lobo, | | | | Services | Medicine | Sleep | Mary Ann Meza, | | | | Required | | disturbance | VIBRATING SCREED OPERATOR [address] | | | | | | Cough in | SONI MILLER | | | | | | adult | HETAL Meza | | | | | | Snoring | [place], [place] | | | | | | | [address] | | | | | | | Phone: | | | | | | | [phone] | | | | | | | Fax: | | | | | | | [phone] | | +--------+ + + + + + Encounter Details +--------+---------+ + + + | Date | Type | Department | Care Team | Description | +--------+---------+ + + + | 03/31/ | Office | [facility] | Mary Ann Diamond, | Severe persistent | | 2019 | Visit | PULMONOLOGY [address] | VIBRATING SCREED OPERATOR [address] | asthma without | | | | [address] | [address], | complication | | | | [place], [place] | [place] [address] | (Primary Dx); Sleep | | | | [address] | [phone] | disturbance; | | | | [phone] | | Post-nasal drip; | | | | | | Cough in adult; | | | | | | Recurrent pulmonary | | | | | | embolism (HCC); | | | | | | Snoring [...] + + + | Blood Pressure | 114/78 | 03/31/2019 1:03 PM | | | | | PDT | | + + + + + | Pulse | 94 | 03/31/2019 1:03 PM | | | | | PDT | | + + + + + | Temperature | 37.2 C (99 F) | 03/31/2019 1:03 PM | | | | | PDT | | + + + + + | Respiratory Rate | - | - | | + + + + + | Oxygen Saturation | 96% | 03/31/2019 1:03 PM | | | | | PDT | | + + + + + | Inhaled Oxygen | - | - | | | Concentration | | | | + + + + + | Weight | 112.9 kg (248 lb | 03/31/2019 1:03 PM | | | | 14.4 oz) | PDT | | + + + + + | Height | 170.2 cm (5' 7") | 03/31/2019 1:03 PM | | | | | PDT | | + + + + + | Body Mass Index | 38.98 | 03/31/2019 1:03 PM | | | | | PDT | | + + + + + documented in this encounter Patient Instructions Patient Instructions Mary Ann Diamond ARNP - 03/31/2019 1:00 PM PDT PAUSED BREATHING: Sit in a position that allows your neck & shoulders to relax but keep your back straight. Breathe in gently through the nose. Stick your tongue out of your mouth, past the teeth & lower lip, in preparation to exhale. This forward stretch of the tongue helps to open the airway at the vocal cords. This may be difficult to do with a severe spasm but will be easier the more you repeat this exercise. With the tongue out, exhale only through the mouth in slow, paused or spaced breaths. The t iming should be like saying Roth, Roth, Roth, Roth, very slowly. Don t use your voice, just breath e out. Repeat 10 times and practice 3 times a day so you will know how to do it well when PAROXYSM S OF COUGHING OCCUR. BELLY BREATHING: Sit in a position that allows your neck and shoulders to relax but keep your back straight. Place your hand on your belly. Breathe in gently through the nose with your belly pushing y our hand outward from your body. As you start to exhale, place the tip of your tongue where your upper teeth meet the roof o f your mouth. This will allow you to make a hissing or S sound as you exhale. This cre ates a back pressure to help keep the airway open. Slowly exhale allowing the hand & belly to move inward to a resting position and make the h issing or S sound as you push the air between your tongue & teeth. Repeat 10 times & practice 3 times a day so you will know how to do it well when PAROXYSMS OF COGHING occurs. Pursed-Lip Breathing Pursed-lip breathing can help you get more oxygen into your lungs when you are short of madelin ath.When you start to feel short of breath, use pursed-lip breathing to control your breat rajiv. Breathing in through the nose and exhaling through pursed or closed lips makes breathi ng easier. You can practice breathing this way anytime, anywhere. For example, if you are wa tching TV, practice during the commercials. Try to practice several times a day. Over time, pursed-lip breathing will feel natural. Home care Practice these steps every day so that you'll know how to do pursed-lip breathing when you have shortness of breath. 1. Sit in a comfortable chair. 2. Relax the muscles in your neck and shoulders. 3. Breathe in slowly through your nose while counting to 2. 4. Hold your lips together as if you are trying to whistle or blow out a candle. 5. Breathe out slowly and gently through your pursed lips while counting to 4. 6. Repeat the above steps as needed. Use pursed-lip breathing to prevent shortness of breath when you do things such as exercisi ng, climbing stairs, and bending or lifting. Breathe out during the difficult part of any ac tivity, such as when you bend, lift, or reach. Always breathe out for longer than you breath e in. This allows your lungs to empty as much as possible. Never hold your breath when doing pursed-lip breathing. Follow-up care Make a follow-up appointment as directed by our staff. When to call the healthcare provider Call your healthcare provider right away if you have any of the following: Shortness of breath,wheezing,or coughing Increased mucus; yellow, green, or bloody mucus Fever of 100.4F (38C) or higher, or as directed by your healthcare provider Tightness in your chest that does not go away with rest or medicine An irregular heartbeat Swollen ankles Date Last Reviewed: 11/06/201519997100-3477 [employer]. [address] [place] [address]. All righ ts reserved. This information is not intended as a substitute for professional medical care. Always follow your healthcare professional's instructions. documented in this encounter Progress Notes Mary Ann Diamond ARNP - 03/31/2019 1:00 PM PDTFormatting of this note might be different fr om the original. Subjective: Patient ID: Marshall Delgado is a 48 y.o. female. History of asthma, DVT and PEs in 2011 a 2017, anxiety, GERD, never smoker. Initial HPI Jody Diamond on 02-19-2019: Marshall Delgado is a 48 [...] but notes that she stopped it in 2016 thinking she was better and succu mbed [...] answers and wishes to feel better. Interval HPI 03/05/19: Marshall Delgado is a 48 y.o. female presenting today for 2 week fo llow up. She is feeling slightly better, but is still breathing with a sound of pharyngeal r estriction. She reports she can hear herself wheeze throughout the day, her cough is slightl y diminished from last visit, but it is still productive of phlegm. The phlegm is thick and yellow in color. She remains on symbicort 160mg 2 puffs BID, but is on her second of two michaela ple inhaler. Insurance denied symbicort, so I will try Advair next. She was able to fill spi lisbeth and has been using this daily. She uses albuterol inhaler 3 x a day, but she is running low on this. Insurance also denied the albuterol inhaler I prescribed. I have searched the system for a covered medication, and it appears combivent is on her formulary. No other albu terol inhaler preparation appears to be covered, only nebulizer preps, which she already has . This is not helpful to her on the go. She also awaits insurance approval for VQ scan and E chocardiogram. She reports continued lower extremity edema daily. It is pitting most nights. She also reports burning discomfort left upper, anterior chest straight through to the back and the right lower chest wall laterally at the level of the diaphragm. This gets very pain ful to her in the evenings and after coughing jags. She sleeps sitting upright because the t hroat seems to close up on her when she lays flat. She eats very small amounts of food at on e time, because when she eats too much, she feels like her stomach gets in the way of her ab ility to breathe. Reports acid reflux is well controlled. She has had a return call to schedule an appointment at [facility] for trouble tracer. She repo rts she missed this call but will call them back to do this. She denies fever, chills, body aches, sharp or heavy chest pain, joint aches, palpitations, rashes, appetite change, weight loss, nausea or vomiting, night sweats. Interval HPI 03/18/19: Marshall Delgado is a 48 y.o. female presenting today for urgent ap pointment after VQ scan. I received a call this afternoon from Dr Orozco, Radiology and was i nformed of intermediate risk for PE. She was scheduled to present to the office for urgent a ppointment today. She presented with her medical records from Dr Queen's office today and I have reviewed the labs and CT available in these records. She has already been tested for P rotein C and S, Factor V Leiden, etc. She has had a high protein S in the past and a normal lab as well. No further Lab work [...] notes that she is scheduled to see trouble tracer on 04-28-2019. She denies fever, chills, night sweats, poor appetite, weight loss, midsternal or radiating chest pain, joint aches, or rashes. Social Hx: Ms Delgado is from the [facility]. She lives in [place] currently. 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 Negative for appetite change, chi lls, diaphoresis, fever and unexpected weight change. HENT: Negative for congestion, ear discharge, ear pain, facial swelling, hearing loss, mout h sores, nosebleeds, postnasal drip, rhinorrhea, sinus pressure, sinus pain, sneezing, sore throat, tinnitus, trouble swallowing and voice change. Eyes: Negative for pain, redness and itching. Respiratory: Positive for cough, chest tightness, shortness of breath, wheezing and stridor . Negative for apnea and choking. Cardiovascular: Positive for chest pain. Left lateral chest burning, right lower chest burning and right diaphragm area chest b urning. Gastrointestinal: Positive for nausea and vomiting. Negative for abdominal distention and a bdominal pain. Recent migraine led to NV. Controlled with imitrex now. Musculoskeletal: Positive for back pain and myalgias. Negative for arthralgias, gait proble m, joint swelling, neck pain and neck stiffness. Skin: Negative for color change, pallor, rash and wound. Allergic/Immunologic: Negative for environmental allergies, food allergies and immunocompro mised state. Neurological: Positive for headaches. Negative for dizziness, syncope, facial asymmetry, sp eech difficulty, weakness, light-headedness and numbness. Hematological: Negative for adenopathy. Bruises/bleeds easily. On anticoagulation Objective: Physical Exam Constitutional: She is oriented [...] sounds and intact distal pulses. Pulmonary/Chest: Effort normal. Stridor present. No respiratory distress. She has no wheeze s. She has no rales. She exhibits no tenderness. Upper airway tightness noted, but improved from last visit. No wheezing or other abnormal b reath sounds in lungs bilat. Abdominal: Soft. Bowel sounds are normal. [...] Hives Penicillins Anaphylaxis Morphine GI Upset Vitals: 03/31/19 1303 BP: 114/78 Pulse: 94 Temp: 37.2 C (99 F) TempSrc: Oral SpO2: 96% Weight: 112.9 kg (248 lb 14.4 oz) Height: 1.702 m (5' 7") Patient Active Problem List Diagnosis Anemia Chronic depression Disorder of lipoid metabolism Embolism and thrombosis Chronic anxiety Anxiety state Headache Hypothyroidism Menopausal syndrome Mixed insomnia Other pulmonary embolism and infarction Panic attack Primary hypercoagulable state Recurrent pulmonary embolism Restless legs Sprain of foot Asthma Current Outpatient Medications: albuterol (VENTOLIN HFA) 90 [...] up testing of positive sera with both PA-3 and MPO-ANCA enzyme immunoassays. As many as [...] cardiopulmonary disease. Pulmonary Function Test: None to review Assessment and Plan: 1. Severe persistent asthma without complication Ms Delgado reports a slight improvement in breathing and I have noted this today on exam as well. She is scheduled for evalutation of irritable larynx by ENT in [place] on 04-28-2019. I have provided her with information on vocal cord exercises and pursed lip breathing today . She was encouraged to practice this often to help reduce the laryngospasm as she awaits fo r initial consult. Additionally, she notes new onset of muscle aches. I have asked her to pa y attention for worsening symptoms including heart palpitations, muscle spasms or cramps, or difficulty urinating along with this and to notify us immediately if more serious side effe cts were to occur. - Pulmonary function test; Future 2. Sleep disturbance Ms Delgado has had insomnia and poor sleep for many years. For last few months, she notes or thopnea and feeling like she is drowning when she lays flat. Echo was unremarkable for cardi ac related cause. I am sending her for sleep med eval as she notes she checked o2 sat two ni ghts ago when she woke up with dyspnea and it was 82%. - Ambulatory Referral to Sleep Medicine Farhan Charlton 3. Post-nasal drip Ms Delgado notes that she is continuing to have post nasal drip, but is taking singulair nig htly. She notes little difference in symptoms on singulair currently. She can use nasal spra ys and sinus rinses as needed. Mucous is not currently thick, but when it is she is welcome to add mucinex as needed as well. 4. Cough in adult Ms Delgado notes dry cough chronically for several months. This cough is sporadic throughout the day occasionally wakes her at night, but does not lead to gagging or vomiting. Cough ca n be exacerbated by sleep apnea and so we will send for sleep medicine eval. - Ambulatory Referral to Sleep Medicine Farhan Charlton 5. Recurrent pulmonary embolism (HCC) We received the result of her CTA pulmonary today. She has a noted left lower lobe chronic pulmonary embolus and JO ANN opacity that is suspicious for infection or inflammatory process. We will repeat CT in 3 months (approx Jun 30) to determine if this has resolved or if otero ges are occurring. She remains on anticoagulation therapy with xarelto daily. She denies any current lower extremity edema, erythema or pain outside of usual night time nonpitting franca a from standing many hours at work. 6. Snoring Pt reports snoring and waking up gasping today. She has recently noted a desaturation to 82 % with home pulse oximeter. She has never been worked up for sleep apnea. I suspect she may have an obstruction when she lays flat or is relaxed which may or may not be related to uppe r airway structure currently in workup. - Ambulatory Referral to Sleep Medicine - Latesha It is a pleasure to be a part of Marshall Delgado's care team. She will follow up with me in 3 weeks for close clinical observation. She is welcome to follow up sooner if needed and should present to ED for emergent concerns. Please feel free to contact us if questions or c oncerns arise. RAINA Lees [facility] [address] [place] [facility] [address] Dept: [phone] Loc: [phone] I have discussed my findings and plan with Dr Amezquita today. We are in agreement with the patient's plan of care as detailed above. Electronically signed by RAINA Moreno at 5:22 PM PDTdocumented in this encounter Plan of Treatment + + +--------+ + + | Name | Type | Priori | Associated Diagnoses | Order Schedule | | | | ty | | | + + +--------+ + + | Ambulatory Referral | Outpatient | Routin | Sleep disturbance | Ordered: 03/31/2019 | | to Sleep Medicine - | Referral | e | Cough in adult | | | Charlton | | | Snoring | | + + +--------+ + + documented as of this encounter Results Pulmonary function test full PFT (07/06/2019 10:30 AM PST) + + + | Narrative | Performed At | + + + | Tracy Amezquita MD 07/06/2019 12:53 PM PULMONARY | | | FUNCTION TEST NAME: Marshall Delgado : 1970 MRN: | | | [id number] REASON FOR TESTING: Severe persistent asthma | [...] on alveolar volume adjustment. | | | Trcay Amezquita MD Pulmonary and Critical Care | | | Medicine [facility] [address] | | | [place] [address] | | + + + documented in this encounter Visit Diagnoses + + | Diagnosis | + + | Severe persistent asthma without complication - Primary | + + | Sleep disturbance Sleep disturbance, unspecified | + + | Post-nasal drip Postnasal drip | + + | Cough in adult | + + | Recurrent pulmonary embolism (HCC) Other pulmonary embolism and infarction | + + | Snoring Other dyspnea and respiratory abnormality | + + documented in this encounter
--- OUTSIDE RECORDS SUMMARY | ~2020-02-07 | XMS | Encounter Summary ---
Demographics + + + | Address | [address] | | | [place] [address] | + + + | Home Phone [...] + | Rosy Alvarez | ECON | [address] | | | | | [place] | | + + + + + | Chalo Delgado | ECON | [address] | | | | | [place] | | | | | [address] | | + + + + + | Kathleen Mar | ECON | [place] | | | | | [address] | | + + + + + | Yancy Mar | ECON | [address] | | | | | [place] | | + + + + + Care Team Providers + +------+ + | Care Uke Operator Name | Role | Phone | + +------+ + | Magdy Villalobos MD | PCP | | + +------+ + Reason for Visit + + + | Reason | Comments | + + + | housing accomodation | RPV approved | + + + Encounter Details +--------+ + + + + | Date | Type | Department | Care Team | Description | +--------+ + + + + | 05/08/ | Telephone | SOCIAL WORK | Kellen Ziegler | housing accomodation | | 2019 | | AM[address]ULATORY [address] | (RPV approved) | | | | [address] | D[place], | | | | | Mailcode: CH[address]A | [place] [address] | | | | | [place], [place] | | | | | | [address] | | | | | | [phone] | | | +--------+ + + + [...]
--- OUTSIDE RECORDS SUMMARY | ~2020-02-07 | XMS | Encounter Summary ---
Demographics + + + | Address | [address] | | | [place] [address] | + + + | Home Phone [...] Author + + + | Author | [facility] | + + + | Organization | [facility] | + + + | Address | Unknown | + + + | Phone | Unavailable | + + + Support + + + + + | Name | Relationship | Address | Phone | + + + + + | Rosy Alvarez | ECON | [address] | | | | | [place] | | + + + + + | Chalo Delgado | ECON | [address] | | | | | [place] | | | | | [address] | | + + + + + | Kathleen Mar | ECON | [place] | | | | | [address] | | + + + + + | Yancy Mar | ECON | [address] | | | | | [place] | | + + + + + Care Team Providers + +------+ + | Care Mental Health Program Director Name | Role | Phone | [...] | | | | | Procedures | [facility] [place] | [address] | | | | | VASC LAB | [address] | Physician's | | | | | VENOUS | Phone: | Pavilion | | | | | DUPLEX LOWER | [phone] | [place], [place] | | | | | EXTREMITY | Fax: | [address] | | | | | BILAT COMP | [phone] | Phone: | | | | | [address] | | [phone] | | | | | | | Fax: | | | | | | | [phone] | +--------+--------+ + + + + Encounter [...] | | | | | | Pavilion [place], | | | | | | [place] [address] | | | | | | [phone] | | | +--------+ + + + [...] | e | 12:30 PM | thrombosis) ([facility]) | procedure are in the | | [...]
--- OUTSIDE RECORDS SUMMARY | ~2020-02-07 | XMS | Encounter Summary ---
Demographics + + + | Address | [address] | | | [place] [address] | + + + | Home Phone [...] + | Rosy Alvarez | ECON | [address] | | | | | [place] | | + + + + + | Chalo Delgado | ECON | [address] | | | | | [place] | | | | | [address] | | + + + + + | Kathleen Mar | ECON | [place] | | | | | [address] | | + + + + + | Yancy Mar | ECON | [address] | | | | | [place] | | + + + + + Care Team Providers + +------+ + | Care Bakery Team Leader Name | Role | Phone | + [...]
--- OUTSIDE RECORDS SUMMARY | ~2020-02-07 | XMS | Encounter Summary ---
Demographics + + + | Address | [address] | | | [place] [address] | + + + | Home Phone | | + + + | Preferred Language | Unknown | + + + | Marital Status | Single | + + + | Roman Catholic Affiliation | NRP | + + + [...] + | Rosy Alvarez | ECON | [address] | | | | | [place] | | + + + + + | Chalo Delgado | ECON | [address] | | | | | [place] | | | | | [address] | | + + + + + | Kathleen Mar | ECON | [place] | | | | | [address] | | + + + + + | Yancy Mar | ECON | [address] | | | | | [place] | | + + + + + Care Team Providers + +------+ + | Care Wire Photo Operator Name | Role | Phone | [...] | [address] | Dannielle [place], | | | | | Mailcode: CH[address] | [place] [address] | | | | | [place], [place] | | | | | | [address] | | | | | | [phone] | | | +--------+ + + + [...]
--- OUTSIDE RECORDS SUMMARY | ~2020-02-07 | XMS | Encounter Summary ---
Demographics + + + | Address | [address] | | | [place] [address] | + + + | Home Phone [...] + | Rosy Alvarez | ECON | [address] | | | | | [place] | | + + + + + | Chalo Delgado | ECON | [address] | | | | | [place] | | | | | [address] | | + + + + + | Kathleen Mar | ECON | [place] | | | | | [address] | | + + + + + | Yancy Mar | ECON | [address] | | | | | [place] | | + + + + + Care Team Providers + +------+ + | Care Tripe Washer Name | Role | Phone | + [...]
--- OUTSIDE RECORDS SUMMARY | ~2020-02-07 | XMS | Encounter Summary ---
Demographics + + + | Address | [address] | | | [place] [address] | + + + | Home Phone | | + + + | Preferred Language | Unknown | + + + | Marital Status | Single | + + + | Protestant Affiliation | Unknown | + + + | Race | Unknown | + + + | Ethnic Group | Unknown | + + + Author + + + | Author | [facility] | | | and Michaelana | + + + | Organization | [facility] | | [...] Team Providers + +------+ + | Care Bioinformatics Research Technician Name | Role | Phone | + +------+ + | Magdy Villalobos MD | PCP | | + +------+ + Reason for Visit +---------+--------+ + | Reason | Onset | Comments | | | Date | | +---------+--------+ + | Results | 07/15/ | | | | 2019 | | +---------+--------+ + Encounter Details +--------+ + + + + | Date | Type | Department | Care Team | Description | +--------+ + + + + | 07/15/ | Telephone | [facility] | Mary Ann Diamond, | Results | | 2020 | | PULMONOLOGY [address] | SUPERVISOR DIAGNOSTIC [address] | | | | | [address] | [facility], | | | | | [place], [place] | [place] [address] | | | | | [address] | [phone] | | | | | [phone] | | | +--------+ + + + [...] Encounter - Mary Ann Diamond ARNP - 07/15/2019 10:59 AM PSTSpoke with patient via telephone. PFT is normal from 12-30-2019 which is reassuring. She is still feeling much bett er after laryngeal injections, and [facility] sent notes from last follow up visit stating laryngo scopy was much improved. Notes she still has good days and bad days, but is able to control symptoms with inhalers, which is an improvement from recent past. She has yet to hear back f rom CT scheduling for 3 [address] follow up chest CT for PE. I will be in touch with our schedul ers to investigate this and get her scheduled urgently as this was due around 06-30-2019. El ectronically signed by RAINA Moreno at 07/15/2019 11:06 AM PSTdocumented in this enco unter Plan of Treatment Not on filedocumented as of this encounter Visit Diagnoses Not on filedocumented in this encounter"
--- OUTSIDE RECORDS SUMMARY | ~2020-02-07 | XMS | Encounter Summary ---
Demographics + + + | Address | [address] | | | [place] [address] | + + + | Home Phone | | + + + | Preferred Language | Unknown | + + + | Marital Status | Single | + + + | Jain Affiliation | NRP | + + + [...] + | Rosy Alvarez | ECON | [address] | | | | | [place] | | + + + + + | Chalo Delgado | ECON | [address] | | | | | [place] | | | | | [address] | | + + + + + | Kathleen Mar | ECON | [place] | | | | | [address] | | + + + + + | Yancy Mar | ECON | [address] | | | | | [place] | | + + + + + Care Team Providers + +------+ + | Care Pallet Stone Positioner Name | Role | Phone | + [...]
--- OUTSIDE RECORDS SUMMARY | ~2020-02-07 | XMS | Encounter Summary ---
Demographics + + + | Address | [address] | | | [place] [address] | + + + | Home Phone | | + + + | Preferred Language | Unknown | + + + | Marital Status | Single | + + + | Latter-Day Affiliation | NRP | + + + | Race | White | + + + | Ethnic Group | Not or | + + + Author + + + | Author | [facility] | + + + | Organization | [facility] | + + + | Address | Unknown | + + + | Phone | Unavailable | + + + Support + + + + + | Name | Relationship | Address | Phone | + + + + + | Rosy Alvarez | ECON | [address] | | | | | [place] | | + + + + + | Chalo Delgado | ECON | [address] | | | | | [place] | | | | | [address] | | + + + + + | Kathleen Mar | ECON | [place] | | | | | [address] | | + + + + + | Yancy Mar | ECON | [address] | | | | | [place] | | + + + + + Care Team Providers + +------+ + | Care Pack Worker Name | Role | Phone | [...] Clinic | | | | | | [facility] | | | | | | [address] | | | | | | [facility] | | | | | | and Healing, | | | | | | [address] | | | | | | [facility] [place] | | | | | | [address] | | | | | | [phone] | | | +--------+ + + + [...] exist, including nicotine patches and gum. The [employer] mobile marketing Quit Line can also be reached at [email or web address] ( ) or online at [email or web address]. Surgery check-in location: [facility] Surgery Check in Time: you will receive a call 1-3 business days before your surgery confi rming your exact arrival/check-in time for your surgery day. We know that planning for surg adonay can be stressful and involve a lot of family/friend/transportation coordination as well as hotel arrangements. [facility] does not have access to check in located [facility], and we encourage you to contact your [...] ch as Uber/Lyft), or public transportation. An Uber/Lyft/commercial driver's license driver does not count as the responsible [...] it is after office hours, call the [facility] ingot car operator at [phone] and ask them to page him or h er. documented in this encounter Plan of Treatment Not on filedocumented as of this encounter Visit Diagnoses Not on filedocumented in this encounter
--- OUTSIDE RECORDS SUMMARY | ~2020-02-07 | XMS | Encounter Summary ---
Demographics + + + | Address | [address] | | | [place] [address] | + + + | Home Phone | | + + + | Preferred Language | Unknown | + + + | Marital Status | Single | + + + | Shinto Affiliation | Unknown | + + + | Race | Unknown | + + + | Ethnic Group | Unknown | + + + Author + + + | Author | [facility] | | | and Michaelana | + + + | Organization | [facility] | | | and [...] Team Providers + +------+ + | Care Transition Rn Name | Role | Phone | + [...] Description | +--------+---------+ + + + | 05/20/ | Office | [facility] | Mary Ann Diamond, | Severe persistent | | 2019 | Visit | PULMONOLOGY [address] | MACHINE INSPECTOR [address] | asthma without | | | | [address] | DR [address], | complication | | | | [place], [place] | [place] [address] | (Primary Dx); | | | | [address] | [phone] | Idiopathic | | | | [phone] | | subglottic tracheal | | | | | | stenosis; Recurrent | | | | | | pulmonary embolism | | | | | | (HCC); Snoring; | | | | | | Gastroesophageal | | | | | | reflux disease, | | | | | | esophagitis presence | | | | | | not specified | +--------+---------+ + + + Social History [...] + + + | Blood Pressure | 117/73 | 05/20/2019 1:06 PM | | | | | PST | | + + + + + | Pulse | 75 | 05/20/2019 1:06 PM | | | | | PST | | + + + + + | Temperature | - | - | | + + + + + | Respiratory Rate | - | - | | + + + + + | Oxygen Saturation | 98% | 05/20/2019 1:06 PM | | | | | PST | | + + + + + | Inhaled Oxygen | - | - | | | Concentration | | | | + + + + + | Weight | 115.7 kg (255 lb) | 05/20/2019 1:06 PM | | | | | PST | | + + + + + | Height | 170.2 cm (5' 7") | 05/20/2019 1:06 PM | | | | | PST | | + + + + + | Body Mass Index | 39.94 | 05/20/2019 1:06 PM | | | | | PST | | + + + + + documented in this encounter Progress Notes Mary Ann Diamond, MACHINE INSPECTOR - 05/20/2019 1:00 PM PSTFormatting of this note might be different fr om the original. Subjective: Patient ID: Marshall Delgado is a 48 y.o. female. History ofasthma, DVT and PEs in 2012 an d 2017, anxiety, GERD, never smoker. Initial HPIA [...] around her toes in the past. Ms Delgdao has a history of recurrent PE's she [...] seeking answers and wishes to feel better. NlvghbbaUUY49/29/19:Marshall Booth a 48 y.o.femalepresenting today for 2 w [place] follow up. She is feeling slightly better, [...] return call to schedule an appointment at [facility] for business and marketing teacher. She repo rts she missed this call but will call them back to do this. She denies fever, chills, body aches, sharp or heavy chest pain, joint aches, palpitations, rashes, appetite change, weight loss, nausea or vomiting, night sweats. TjghffvtSHD51/11/19:Marshall Booth a 48 y.o.femalepresenting today for urg [...] NV, appetite change, fatigue, or weight loss. FbpjlrbdVXI94/24/19:Marshall Delgadois a 48 y.o.femalepresenting today for 2 w [place] follow up visitand close clinical observation. She [...] notes that she is scheduled to see business and marketing teacher [phone]. She denies fever, chills, night sweats, poor [...] throaty sound with breathing. Sees ENT at [facility] in 1 week. Pract icing breathing techniques a few times a day, notes improvement while breathing pursed lip o r SSS breathing, but tight after she stops again. Overall, feeling worse today. Denies chest pain, headache, palpitations, or pedal edema since last visit. Interval HPI 05/19/19: Marshall Delgdao is a 48 y.o. female presenting today for follow up visit. She has seen Dayanara Nowak PA-C with ENT at [facility], and I have reviewed her note. 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 [facility] recommended s urgical procedure: microlaryngoscopy with dilation [...] tracheal stenosis is no longer of urgency. [facility] has suggested barium swallow in the coming weeks. ENT symptoms have been fairly well controlled the last month. PFT has yet to be completed, ordered on 03-31-2019. CT chest from 04-21-2019 also not completed yet. Denies fever, chills, body aches, joint aches, rashes, headache, night sweats, chest pain, palpitations, peripheral edema, or unintentional weight loss. Social Hx: Ms Delgado is from [facility]. She lives in [place] currently. 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 She is living in a vehicular home on her pare nts property for her peace of mind and safety. She is not active as she can only walk 100 ft without needing to take a break to breathe. She has poor diet and appetite. She is a never smoker. No family history on file. Review of Systems Constitutional: Negative for activity change, appetite change, chills, diaphoresis, fatigue , fever and unexpected weight change. HENT: Positive for postnasal drip. Negative for congestion, ear pain, facial swelling, hear ing loss, mouth sores, nosebleeds, rhinorrhea, sinus pressure, sinus pain, sneezing, sore th roat, tinnitus, trouble swallowing and voice change. Eyes: Negative for pain, redness and itching. Respiratory: Positive for cough and shortness of breath. Negative for apnea, choking, chest tightness, wheezing and stridor. Minimal now Cardiovascular: Negative for chest pain, palpitations and leg swelling. Gastrointestinal: Negative for abdominal distention, abdominal pain, nausea and vomiting. Musculoskeletal: Negative for arthralgias, back pain, gait problem, joint swelling, myalgia s, neck pain and neck stiffness. Skin: Negative for color change, pallor, rash and wound. Allergic/Immunologic: Negative for environmental allergies, food allergies and immunocompro mised state. Neurological: Negative for dizziness, syncope, weakness, [...] Ear: External ear normal. Nose: Nose normal. No congestion or rhinorrhea. Mouth/Throat: Comments: Not able to examine today due to pain of the mouth and limited jaw movement po st teeth extraction 2 days prior. Eyes: General: No scleral icterus. Right eye: [...] Abdomen is soft. Tenderness: There is no tenderness. There is no guarding. Musculoskeletal: Normal range of motion. General: No swelling, tenderness or deformity. Right lower leg: No edema. Left lower [...] Hives Penicillins Anaphylaxis Morphine GI Upset Vitals: 05/20/19 1306 BP: 117/73 Pulse: 75 TempSrc: Oral SpO2: 98% Weight: 115.7 kg (255 lb) Height: 1.702 m (5' 7") Patient [...] 1, and 1 tablet by mouth every day, Disp: 6 tablet, Rfl: 0 citalopram (CELEXA) 10 mg tablet, Take 10 mg by mouth Daily., Disp: , Rfl: 4 gabapentin (NEURONTIN) 300 mg capsule, gabapentin 300 mg capsule TAKE 3 TO 4 CAPSULES BY MOUTH AT BEDTIME FOR RESTLESS LEG SYNDROME, Disp: , Rfl: montelukast (SINGULAIR) 10 mg tablet, Take 10 mg by mouth., Disp: , Rfl: predniSONE (DELTASONE) 20 mg tablet, Take 2 tabs x 3 days, 1.5 tabs x 3 days, 1 tab x 3 days, 0.5 tab x 3 days. Stop., Disp: 15 tablet, Rfl: 0 promethazine-dextromethorphan 6.25-15 mg/5 mL liquid, Take 5-10 mLs by mouth 4 times d aily as needed for Cough., Disp: 120 mL, Rfl: 0 rivaroxaban (XARELTO) 15 mg tablet, Take 15 mg by mouth Daily (with dinner)., Disp: , Rfl: SPIRIVA HANDIHALER 18 MCG inhalation capsule, INHALE 1 PUFF BY MOUTH ONCE DAILY, Disp: , Rfl: 12 Component Latest Ref Rng & Units 03/05/2019 [...] up testing of positive sera with both WA-3 and MPO-ANCA enzyme immunoassays. As many as [...] Plan: 1. Severe persistent asthma without complication At last visit, Marshall was acutely exacerbated. She notes that since tracheal dilation proce dure, she has felt much better, her breathing is easier, and she feels as though her inhaler s are reaching the lungs. She notes that she has not needed to use albuterol since the proce dure either. She is no longer wheezing. Breathing is no longer labored. Stridor is gone. Ove rall, she has had a great improvement as a result of the dilation and steroid injection, and I am exteremly pleased with this result. She will continue Symbicort and Spiriva as ordered for the time being. No changes to regimen will be made at this point. She has not heard nico k about PFT order yet, we will give her the number for scheduling of this procedure to set u p at her earliest convenience. 2. Idiopathic subglottic tracheal stenosis [facility] has found subglottic tracheal stenosis, and cannot identify a possible cause as Marshall has no history of chronic intubations, and her symptoms began suddenly. She has responded w ell to the tracheal dilation and kenalog steroid injection on 05-15-2019. Voice is normal in tone and quality now. Breathing is no longer labored, and no stridor noted on exam today. ann is aware this can recur. She has been counseled to present to [facility] for signs of recurrence promptly. We will be vigilant in monitoring for recurrence going forward. 3. Recurrent pulmonary embolism (HCC) Marshall was noted to have a chronic PE in the LLL lung. She is maintained on xarrelto daily and has no new chest pains or peripheral edema/pain. I have already placed order for follow up CT chest imaging, but she has been busy last few weeks in preparation for [facility] procedures . She plans to get CT chest done soon, we will provide numbers for her to get in touch with radiology scheduling at her earliest convenience. She does have an opacity noted in the JO ANN lung on CT imaging from 03-31-2019. We will follow up with this imaging in 3 months with a noncontrast CT to determine if resolving or changin g. 4. Snoring I previously had placed an order for eval and tx of sleep disorder with Dr Charlton. Marshall notes insurance had yet to clear her for this at last visit. I suggested she call Dr Charlton and ask i f they have heard back from insurance yet. She has not done this yet, but has been preoccupi ed with getting prepared for [facility] visit and laryngoscopy procedure. We will visit this furth er at follow up visits once she has recovered. 5. Gastroesophageal reflux disease, esophagitis presence not specified Ms Delgado noted GERD for many years, poorly managed. She noted she could not tolerate eatin g more than a few bites at a time or her stomach felt "bloated" since the respiratory rate a nd cough increased. This was understandable considering the elevated respiratory effort, we will see if symptoms of GERD become more apparent post tracheal dilation. [facility] made mention that they may order barium swallow study. If they do not, I will order this once Marshall has recovered from her ENT and dental procedures. It is a pleasure to be a part of Marshall Delgado's care team. I have requested she follow up with me in 2-3 months. She was encouraged to return if needed for urgent appointment, an d should present to the ED for emergent symptoms. Please feel free to contact us if question s or concerns arise. RAINA Lees [facility] [address] [place] [address] Dept: [phone] Loc: [phone] I have discussed my findings and plan with Dr Amezquita today. We are in agreement with the patient's plan of care as detailed above. Electronically signed by RAINA Moreno at 9:20 PM PSTdocumented in this encounter Plan of Treatment Not on filedocumented as of this encounter Visit Diagnoses + + | Diagnosis | + + | Severe persistent asthma without complication - Primary | + + | Idiopathic subglottic tracheal stenosis | + + | Recurrent pulmonary embolism (HCC) Other pulmonary embolism and infarction | + + | Snoring Other dyspnea and respiratory abnormality | + + | Gastroesophageal reflux disease, esophagitis presence not specified | + + documented in this encounter
[~2020-02-07 12:35] MED LIST changes: -IBUPROFEN800 MG PO; +MOTRIN IB200 MG; +NEURONTIN300 MG PO; +TRAMADOL HCL50 MG PO
[2020-02-07] MEDS ORDERED: CITALOPRAM HBR20 MG PO (12:51)
[2020-02-07] MEDS ORDERED: LASIX20 MG PO (12:52)
--- NOTE | 2020-02-07 21:05 | NUR ---
PT TO ROOM 124 VIA STRETCHER FROM ED. ORDERS RECEIVED. PT UP TO BR WITH SBA TO VOID. BACK TO BED, KIRSTIE FAIR. INCREASED RESPIRATIONS AND PAIN WITH AMBULATION. HOB ELEVATED. Sp02 96% ON RA. RR=24. PRN ADMINISTERED FOR 8/10 RIGHT CHEST WALL PAIN. ICE CHIPS PROVIDED. IVF INFUSING. ASSESSMENT COMPLETE. PT ORIENTED TO ROOM AND NURSE CALL LIGHT. PT MONEY TO SAFE IN ENVELOPE WITH RN HEALTH CONCIERGE. SECOND COUNT DONE WITH SENIOR MATERIALS PLANNER.
--- NOTE | 2020-02-07 21:50 | NUR ---
ASSESSMENT COMPLETE. PT ALERT AND ORIENTED X 4. SCHEDULED MEDS ADMINISTERED PER EMAR. IVF INFUSING. SANDWICH BOX AND DRINK PROVIDED. PT REPORTS PAIN IS TOLERABLE. DENIES QUESTIONS OR CONCERNS AT THIS TIME. CALL LIGHT IN REACH. WHITE BOARD UPDATED.
--- NOTE | 2020-02-08 00:21 | NUR ---
PT RESTING IN BED WITH EYES CLOSED, NAD. RR EVEN AND UNLABORED.
--- NOTE | 2020-02-08 01:23 | NUR ---
CALL LIGHT ANSWERED. PT UP TO BR WITH SBA TO VOID. BACK TO BED, KIRSTIE FAIR. INCREASED PAIN AND RESPIRATIONS WITH AMBULATION. PRN ADMINISTERED FOR 8/10 RIGHT SIDE PAIN. VS COMPLETE. SpO2 86-90 ON RA. O2 1L PLACES, SpO2 96%. PT DENIES FURTHER NEEDS. CALL LIGHT IN REACH.
--- NOTE | 2020-02-08 03:47 | NUR ---
PT RESTING IN BED WITH EYES CLOSED, NAD. Sp02 92% ON 1L/NC. HR 62. RR=20.
--- NOTE | 2020-02-08 05:05 | NUR ---
PT RESTING IN BED WITH EYES CLOSED. RESPIRATIONS EVEN, NAD.
--- NOTE | 2020-02-08 05:49 | NUR ---
CALL LIGHT ANSWERED. PRN ADMINISTERED FOR 8/10 RIGHT SIDE PAIN. PT DENIES NAUSEA. REPOSITIONED IN BED WITH PILLOWS. O2 1L/NC IN PLACE DUE TO PT SHALLOW RESPIRATIONS. PT DENIES FURTHER NEEDS. CALL LIGHT IN REACH.
--- NOTE | 2020-02-08 08:10 | NUR ---
PATIENT RECIEVING NEB TREATMENT. ROOM WILL BE READY TO ENTER AT 0852, BREAKFAST ORDER WILL BE PLACED THEN. NO FURTHER NEEDS AT THIS TIME.
--- NOTE | 2020-02-08 09:39 | NUR ---
PT SITTING UP IN BED. LEGS ELEVATED AND STATES THEY ARE BETTER THAN THEY HAVE BEEN IN A COUPLE OF WEEKS. HOLDING UPPER RIGHT QUADRANT AND STATES IT MAKES IT FEEL BETTER. PT DECLINED MIRALAX BUT TOOK THE SENNA. STATES SHE DOESNT USUALLY HAVE A PROBLEM, ADVISED SHE IS TAKING NARCOTICS.
--- NOTE | 2020-02-08 09:47 | NUR ---
MEDICATED FOR HEADACHE AND ABD UPPER RIGHT SIDE WITH [id number] AND DILAUDID 2MG PO. PT UP TO THE BATHROOM UA SENT TO LAB CLEAN CATCH. THEN PT UP BRUSHING DENTURES.
--- NOTE | 2020-02-08 10:00 | NUR ---
PLACED LIDO PATCH ON RUQ AFTER PHARM BROUGHT IT UP. PT HAS CALL LIGHT IN REACH. DNIES FURTHER CONCERNS.
--- NOTE | 2020-02-08 10:22 | NUR ---
PT C/O NAUSEA WITH DRY HEAVES. NO EMENSIS AT THIS TIME,
--- NOTE | 2020-02-08 11:38 | NUR ---
PT APPEARS TO BE RESTING COMFORTABLY WITH WASHCLOTH ON FOREHEAD AND EMESIS BAG IN LAP.
--- NOTE | 2020-02-08 13:23 | EKG ---
[facility] [address] [place] [address] Signed Normal sinus rhythm Otherwise normal ECG When compared with ECG of 27-DEC-2016 00:14, Confirmed by NEVAEH LITTLEJOHN DO ([id number]) on 02/08/2020 1:23:20 PM Electronically Signed By: NEVAEH LITTLEJOHN DO 02/08/20 1323 PATIENT NAME: ARI SMALLS CALI Electrocardiogram DATE OF : 68 PHYSICIAN: NEVAEH LITTLEJOHN DO REPORT #: [id number] REPORT IS CONFIDENTIAL AND NOT TO BE RELEASED WITHOUT AUTHORIZATION
--- NOTE | 2020-02-08 13:45 | NUR ---
KB IN ROOM TO ADMINISTERED NEB. ADMINISTERED PO DILAUDID PER REQUEST.
[2020-02-08] MEDS ORDERED: ADVAIR HFA 115-12 GM PO (13:51)
[2020-02-08] MEDS ORDERED: SPIRIVA18 MCG PO (13:51)
[2020-02-08] MEDS ORDERED: GABAPENTIN300 MG PO (13:56)
[2020-02-08] MEDS ORDERED: MONTELUKAST SOD10 MG PO (13:56)
[2020-02-08] MEDS ORDERED: ROPINIROLE HCL1 MG PO (13:57)
[2020-02-08] MEDS ORDERED: FERROUS GLUCON324 M1 PO (13:57)
[2020-02-08] MEDS ORDERED: VITAMIN D21250 MCG PO (13:58)
--- NOTE | 2020-02-08 17:59 | NUR ---
PT CALLED FOR PUMP BEEPING. ADMINISTERED PAIN MEDS FOR 8/10 PAIN. PT ORDERIONG MORE TO EAT AFTER TOLERATING SODA AND FRUIT PLATE.
--- NOTE | 2020-02-08 18:49 | NUR ---
PATIENT RESTING IN BED. HAS NAUSEA, RN BRITTON NOTIFED. CALL LIGHT WITHIN REACH. NO FURTHER NEEDS AT THIS TIME.
--- NOTE | 2020-02-08 18:58 | NUR ---
ORDERED PT DINNER THEN UPON ARRIVAL PT GOT MORE NAUSEOUS AND WAS DRY HEAVING. NEVER HAD EMESIS. ADMINISTERED PHENEGREN ON PUMP.
--- NOTE | 2020-02-08 20:04 | NUR ---
REPORT RECEIVED FROM DAY SHIFT RN. PT LYING IN BED ALERT AND ORIENTED. REPORT NAUSEA IMPROVED AFTER PRN. DENIES NEEDS AT THIS TIME. WHITE BOARD UPDATED. CALL LIGHT IN REACH.
--- NOTE | 2020-02-08 21:18 | NUR ---
SBA PATIENT WAS UP TO THE BATHROOM. PATIENT IS BACK IN BED. ICE CHIPS PROVIDED. NO OTHER NEEDS AT THIS TIME.
--- NOTE | 2020-02-08 22:30 | NUR ---
EVENING ASSESSMENT COMPLETE. SCHEDULED MEDS ADMINISTERED PER EMAR. PRN GIVEN FOR 01/14 RIGHT SIDE. PAIN. PT DENIES NAUSEA. O2 1L/NC IN PLACE. IVF INFSUING. PT DENIES FURTHER NEEDS AT THIS TIME. CALL LIGHT IN REACH.
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
--- NOTE | 2020-02-09 02:38 | NUR ---
IV SL PER MD ORDER. ICE CHIPS PROVIDED. PT DENIES FURTHER NEEDS. CALL LIGHT IN REACH.
--- NOTE | 2020-02-09 06:00 | NUR ---
VS AND I&O COMPLETE. ATTEMPTED TO TITRATE O2 OFF, SpO2 84-85%. PT WITH SHALLOW RESPIRATIONS. O2 1L/NC IN PLACE. SpO2 97%.
--- NOTE | 2020-02-09 07:10 | NUR ---
BEDSIDE HANDOFF REPORT RECEIVED FROM CLOTH BRUSHING AND SUEDING SUPERVISOR RN.PT REPORTING NAUSEA AND HEADACHE, REQUESTING TYLENOL AND ZOFRAN. PT ON 1LNC, O2 SATS 96%. PT DENIES OTHER NEEDS AT THIS TIME.
--- NOTE | 2020-02-09 07:45 | NUR ---
PT GIVEN 4MG IV ZOFRAN AND 1000 MG PO TYLENOL REQUESTED. PT WEANED TO ROOM AIR, LUNG SOUNDS CLEAR AND DIMINISHED IN THE BASES. PT WITH PAIN TO RIGHT SIDE, LIDOCAINE PATCH APPLIED. CMS INTACT, WITH GENERAL EDEMA TO BLE, HX LYMPHEDEMA. IV SALINE LOCKED. BOWEL TONES ACTIVE. PT DENIES OTHER NEEDS AT THIS TIME.
--- NOTE | 2020-02-09 08:24 | NUR ---
PATIENT IN BED. WHITE BOARD UPDATED. GAVE WARM CLOTH FOR FACE. CALL LIGHT WITHIN REACH. NO FURTHER NEEDS AT THIS TIME.
[2020-02-09] MEDS ORDERED: HYDROMORPHONE HC2 MG PO (09:23)
[2020-02-09] MEDS ORDERED: ZOFRAN4 MG PO (10:18)
--- NOTE | 2020-02-09 11:00 | NUR ---
Chart faxed to [facility] for oxygen.
--- NOTE | 2020-02-09 12:30 | NUR ---
Received phone call from [facility]ARGIE Stephens code is not correct. New codes given and notified they had called and requested an order to go with the chart which was compeleted by Dr. Begum.
--- NOTE | 2020-02-09 16:45 | NUR ---
Spoke with pt as auth has not been completed, she agrees to stay tonight. [id number] from [facility] they received auth and will deliver portable [employer] conc. to hospital. In and spoke with Marshall, she will like to dc tonight. Updated 02 should be here within the hour.
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
--- NOTE | 2020-02-09 18:26 | NUR ---
PATIENT DISCHARGING. VITALS OBTAINED
== END 2020-02-09 18:40 | disposition home or self-care (01) ==
LOC: ED 12:35 → MS 12:37
PROVIDERS: ADMIT Student in an Organized Health Care Education/Training Program
DX: R07.89 Other chest pain (principal); J82 Pulmonary eosinophilia, not elsewhere classified; G89.29 Other chronic pain; M79.2 Neuralgia and neuritis, unspecified; F39 Unspecified mood [affective] disorder; Z86.718 Personal history of other venous thrombosis and embolism; Z79.01 Long term (current) use of anticoagulants; Z88.1 Allergy status to other antibiotic agents; Z88.0 Allergy status to penicillin; Z88.5 Allergy status to narcotic agent; Z88.8 Allergy status to other drugs, medicaments and biological substances; Z79.899 Other long term (current) drug therapy; Z86.711 Personal history of pulmonary embolism
CPT/HCPCS: 71045; 71260; 80053; 81001; 83735; 83880; 84484; 85025; 93005; 93010; 94640; 94668; 94760; 94761; 96361; 96375; 96376; 97162; 99285-25; A9270; C9803; G0378; J1170; J1885; J2405; J2550; J3010; J7121; Q9967; U0002

== ENCOUNTER 2020-08-12 06:30 | Day surgery (SDC) | payer OTHER ==
[~2020-08-12] VITALS: Ht 170.2 cm; Wt 101.8 kg
[~2020-08-12 06:30] MED LIST changes: +ADVAIR HFA 115-12 GM PO; +CARBIDOPA-LEVO1 EA10 PO; +CITALOPRAM HBR20 MG PO; +FERROUS GLUCON324 M1 PO; +GABAPENTIN300 MG PO; +HYDROMORPHONE HC2 MG PO; +IRON325 M1 PO; +LASIX20 MG PO; +MONTELUKAST SOD10 MG PO; +ROPINIROLE HCL1 MG PO; +SPIRIVA18 MCG PO; +VITAMIN D21250 MCG PO; +ZOFRAN4 MG PO
--- NOTE | 2020-08-12 08:15 | NUR ---
08/12/20 0815 Akosua Lawson 0812 PATIENT ARRIVES TO PACU UNRESPONSIVE TO PAIN. RESP EVEN AND UNLABORED, ORAL AIRWAY IN PLACE, MASK AT 6 LITERS.
--- NOTE | 2020-08-12 12:05 | NUR ---
PT ALERT, ORIENTED AND MENTIONED THAT PREP FOR SCOPE WAS NOT PLEASANT. FIRST SCOPE, HAS HAD EGD PREVIOUS. PT MENTIONED THAT SHE HOPES THAT THIS WILL BE HELPFUL IN DISCOVERING WHAT IS WRONG-SHE IS TIRED OF NOT FEELING GOOD. HER PARENTS WITH PICK PT UP FOLLOWING DC. PT DECLINED PRAYER, SAID SHE IS AN AGNOSTIC, BUT THANKED ME FOR COMING IN. GAVE BLESSING, WILL FOLLOW
--- NOTE | 2020-08-15 13:26 | OR ---
[facility] [address] [place], [place] [address] Signed DATE OF OPERATION: 08/09/2020 SURGEON: Teetee Salinas MD PREOPERATIVE DIAGNOSES: 1. Iron-deficiency anemia. 2. 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 3. Gastric surgery x2. 4. History of duodenal ulcer. POSTOPERATIVE DIAGNOSES: 1. Significantly altered gastric anatomy. 2. Unremarkable colonoscopy. PROCEDURES: 1. EGD with CLOtest and biopsies of the antrum and small bowel. 2. Colonoscopy with hot biopsies. ESTIMATED BLOOD LOSS: None. 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 Of course, there are different variant. Her mother has tested negative. However, her father refuses testing. She knows that her maternal grandmother and two of her maternal uncles have had Teresa syndrome. In addition, a paternal grandfather and a paternal uncle have had Teresa syndrome. 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 In addition, she had a duodenal ulcer requiring stomach surgery apparently back in 1988. She then had reconstruction of that stomach surgery in 1999. Unfortunately, we do not have much detail in that regard. There was also some mention of gastric banding in the past. More recently, she has been found to have iron-deficiency anemia with a hemoglobin of 8.7 and a mean cell volume of 66. Consequently she was asked to see me for upper and lower endoscopy. 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 She is very fortunate to be age 49 and not had developed cancer at this time. 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 She just had her genetic testing last week at [facility]. She is waiting on those results. It will probably be 4 weeks to 6 weeks. We had reviewed upper and lower endoscopy together. She understands there is risk including, but not limited to gas bloating, crampy abdominal pain, bleeding, perforation requiring surgery, and missed diagnosis. In addition, she Electronically Signed By: TEETEE SALINAS MD 08/12/20 0947 Electronically Signed By: TEETEE SALINAS MD 08/16/20 0857 PATIENT NAME: MARSHALL SMALLS OPERATIVE REPORT DATE OF : 68 REPORT #: [id number] PHYSICIAN: TEETEE SALINAS MD PCP: SIMON HARPER MD REPORT IS CONFIDENTIAL AND NOT TO BE RELEASED WITHOUT AUTHORIZATION [facility] [address] [place] [address] Signed has a long list of medical issues including idiopathic subglottic stenosis. It had to be treated with steroids and dilation at [facility]. In that regard, we are going to have an anesthesia provider to help us with increased monitoring sedation with propofol. 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 She is therefore on Xarelto. We took her off Xarelto for two days and gave her a shot of Lovenox this morning. She will resume the Xarelto tomorrow morning. She had expressed understanding and wished to proceed. DESCRIPTION OF PROCEDURE: Marshall was taken into our endoscopy suite and placed in the supine semi-recumbent position. The posterior oropharynx was anesthetized with lidocaine spray. A bite block was utilized for the case. She was given IV sedation with propofol per our nurse network internship. The adult gastroscope had been introduced and advanced quite easily down the esophagus and out into her stomach. We did not see any obvious subglottic stenosis. The vocal cords and arytenoids were unremarkable. We encountered her GE junction at 30 cm. We went into a short segment of what appears to be stomach and then anastomosis most likely a Johnathon-en-Y limb. However, it is quite altered from what we normally encounter. In the end, it was very difficult to ascertain her anatomy. We finally found the exit through her stomach at a bit of angulation and we went 30-40 cm down to her small intestine. It all appeared quite healthy. We came back in what we think is the stomach and/or the antrum and took a biopsy for pathologic review as well as CLOtest. We did not see any specific evidence of a hiatal hernia. She had very minimal disruption to the Z-line. Her distal middle and upper esophagus were unremarkable. There were no ulcerations found in the stomach. She had one area that was a little irritated that may or may not represent her source of bleeding. We went ahead and took a biopsy of that area. That may be part of her small bowel with a stapled off the Johnathon limb. Again, it was quite difficult to ascertain her anatomy. After this, the gas had been suctioned out and the gastroscope removed. Marshall tolerated procedure quite well. Marshall was then rotated into the left lateral decubitus position. She was maintained on IV sedation by our nurse network internship. A digital rectal exam was performed and this was unremarkable. The adult colonoscope was introduced and advanced all around into the cecum under direct visualization of camera. It took minimal abdominal pressure to advance the scope into the cecum itself. Her prep was quite excellent. We could easily see the appendiceal orifice and the ileocecal valve. We had taken several pictures throughout for photodocumentation. The rest of the entire colon and rectum were completely unremarkable, quite healthy appearing. Specifically, there were no polyps. Upon retroflexion of scope, there was no additional pathology noted above the anal canal. After this, the gas was suctioned out and the colonoscope removed. Marshall tolerated the procedure quite well. RECOMMENDATIONS: Electronically Signed By: TEETEE SALINAS MD 08/12/20 0947 Electronically Signed By: TEETEE SALINAS MD 08/16/20 0857 PATIENT NAME: MARSHALL SMALLS OPERATIVE REPORT DATE OF : 68 REPORT #: [id number] PHYSICIAN: TEETEE SALINAS MD PCP: SIMON HARPER MD REPORT IS CONFIDENTIAL AND NOT TO BE RELEASED WITHOUT AUTHORIZATION [address] [address] Signed I will see Marshall back in my office in 7 to 14 days to review her results. It will be interesting to know the results of her genetic testing for Teresa syndrome. In addition, we will discuss her gastric anatomy and surgical history more thoroughly with Marshall. Teetee Salinas MD ALB/MODL /[id number] cc: LILLIAM Ramírez MD Dr. Yu James D Ward, DO Robert C Quackenbush, MD Andrew L Bower, MD Copies: SIMON HARPER DMD, JAMES D DO QUACKENBUSH, ROBERT C MD BOWER, ANDREW L MD ~ Electronically Signed By: TEETEE SALINAS MD 08/12/20 0947 Electronically Signed By: TEETEE SALINAS MD 08/16/20 0857 PATIENT NAME: MARSHALL SMALLS CALI OPERATIVE REPORT DATE OF : 68 REPORT #: [id number] PHYSICIAN: TEETEE SALINAS MD PCP: SIMON HARPER MD REPORT IS CONFIDENTIAL AND NOT TO BE RELEASED WITHOUT AUTHORIZATION
--- NOTE | 2020-08-16 15:35 | PATH ---
[facility] [address] [place], [place] [address] Signed SPECIMEN(S): A ANTRUM/PYLORUS BIOPSY SPECIMEN(S): B SMALL BOWEL VS. ANTRUM BIOPSY SPECIMEN SOURCE: A. ANTRUM/PYLORUS BIOPSY B. SMALL BOWEL VS. ANTRUM BIOPSY CLINICAL HISTORY: Idiopathic subglottic stenosis. Pre Op: Anemia, Fam. Hx landers. Post Op EGD: Unremarkable: "Ultragastric" anatomy. Post Op colon: Unremarkable. R/O: #2 bx of small bowel vs antrum. MICROSCOPIC DESCRIPTION: Histologic sections of all submitted blocks are examined by light microscopy. These findings, together with the gross examination, support the pathologic diagnosis. FINAL PATHOLOGIC DIAGNOSIS: A. Stomach, antrum/pylorus, biopsy: - Antral/oxyntic mucosa with chronic, inactive gastritis. - Negative for Helicobacter organisms on HE stain. - Negative for dysplasia or malignancy. B. Designated "small bowel vs. antrum", biopsy: - Duodenal mucosa with no histopathologic abnormality. - Negative for increased intraepithelial lymphocytes. - Negative for dysplasia or malignancy. NAL:cml:C2NR GROSS DESCRIPTION: Two specimens are received in two containers, labeled `` Marshall Smalls. A. The specimen, labeled " Marshall Smalls, #1, and designated on the requisition "antrum/pylorus," is received in formalin and consists of 1 aguirre soft tissue fragment(s) that measure 0.6 cm in greatest dimension. The specimen is entirely submitted in cassette (A1). B. The specimen, labeled " Marshall Smalls, #2, and designated on the requisition "biopsy of small bowel versus antrum/rule out-," is received in formalin and consists of 1 aguirre soft tissue fragment(s) that measure 0.4 cm in greatest dimension. The specimen is entirely submitted in cassette (B1). FB (under the direct supervision of a pathologist) The Gross Description was prepared using a voice recognition system. The report PATIENT NAME: MARSHALL SMALLS PATHOLOGY DATE OF : 68 REPORT #: [id number] PHYSICIAN: DEANAN RIOJAS PCP: SIMON HARPER MD REPORT IS CONFIDENTIAL AND NOT TO BE RELEASED WITHOUT AUTHORIZATION [facility] [address] [place], [place] [address] Signed was reviewed for accuracy; however, sound-alike word errors, addition and/or deletions may occur. If there is any question about this report, please contact Client Services. PERFORMING LABORATORY: The technical component was performed by [facility] [address] (Enterprise Account Manager: Isis Yung MD; CLIA# [id number]). Professional interpretation was performed by [facility], [address] [address] (CLIA# [id number]). Diagnostician: Ana Lilia Valerio MD Pathologist Electronically Signed 08/16/2020 Copies: ~ PATIENT NAME: MARSHALL SMALLS PATHOLOGY DATE OF : 68 REPORT #: [id number] PHYSICIAN: DEANNA RIOJAS PCP: SIMON HARPER MD REPORT IS CONFIDENTIAL AND NOT TO BE RELEASED WITHOUT AUTHORIZATION
== END 2020-08-12 08:55 | disposition home or self-care (01) ==
LOC: OPS 06:30 → DS 06:30 → OPS 06:45 → DS 08:15 → OPS 08:55
PROVIDERS: ATTEND Colon & Rectal Surgery
PROC: 0DJD8ZZ Inspection of Lower Intestinal Tract, Via Natural or Artificial Opening Endoscopic (ICD-10-PCS; 2020-08-12)
PROC: 0DB78ZX Excision of Stomach, Pylorus, Via Natural or Artificial Opening Endoscopic, Diagnostic (ICD-10-PCS; principal; 2020-08-12 06:45)
PROC: 0DB88ZX Excision of Small Intestine, Via Natural or Artificial Opening Endoscopic, Diagnostic (ICD-10-PCS; 2020-08-12 06:45)
DX: D50.9 Iron deficiency anemia, unspecified (principal); K29.50 Unspecified chronic gastritis without bleeding; K92.89 Other specified diseases of the digestive system; J82.83 Eosinophilic asthma; G25.81 Restless legs syndrome; F41.9 Anxiety disorder, unspecified; M81.0 Age-related osteoporosis without current pathological fracture; Z15.09 Genetic susceptibility to other malignant neoplasm; Z87.19 Personal history of other diseases of the digestive system; Z98.84 Bariatric surgery status; Z86.718 Personal history of other venous thrombosis and embolism; Z86.711 Personal history of pulmonary embolism; Z79.01 Long term (current) use of anticoagulants; Z88.6 Allergy status to analgesic agent; Z88.5 Allergy status to narcotic agent; Z88.0 Allergy status to penicillin
CPT/HCPCS: 86677; 88305; J1100; J1650; J2704; J7121

== ENCOUNTER 2021-06-09 15:15 | Emergency (ER) | payer OTHER ==
[~2021-06-09] VITALS: Ht 170.2 cm; Wt 101.8 kg
--- OUTSIDE RECORDS SUMMARY | 2021-06-09 15:18 | XMS ---
PreManage Notification: ARI SMALLS Security Exceptional Children Teacher Events No recent Security Events currently on file CRITERIA MET - [facility] CARE PROVIDERS There are no care providers on record at this time. Juliocesar has no Care Guidelines for this patient. Melia VISIT COUNT (12 MO.) 1 ALEKSANDR Rivas TOTAL 1 NOTE: Visits indicate total known visits. ED/C VISIT TRACKING (12 MO.) 06/09/2021 15:15 [facility] [place] TYPE: Emergency COMPLAINT: - DIZZINESS INPATIENT VISIT TRACKING (12 MO.) No inpatient visits to display in this time frame [email or web address]
[2021-06-09] MEDS ORDERED: VALIUM5 MG PO (20:29)
[2021-06-09] MEDS ORDERED: NASAL DECONGEST30 M2 PO (20:29)
--- NOTE | 2021-06-11 17:14 | EKG ---
[facility] [address] [facility] [place] [address] Signed Normal sinus rhythm with sinus arrhythmia Low voltage QRS Borderline ECG When compared with ECG of 08-AUG-2020 12:37, No significant change was found Confirmed by GLORIA JIM MD ([id number]) on 06/11/2021 5:14:20 PM Electronically Signed By: GLORIA JIM MD 06/11/21 1714 PATIENT NAME: SLIMARI LEE Electrocardiogram DATE OF : 68 PHYSICIAN: GLORIA JIM MD REPORT #: [id number] REPORT IS CONFIDENTIAL AND NOT TO BE RELEASED WITHOUT AUTHORIZATION
== END 2021-06-09 20:42 | disposition home or self-care (01) ==
LOC: ED 15:15
DX: H83.09 Labyrinthitis, unspecified ear (principal); J45.909 Unspecified asthma, uncomplicated; Z88.8 Allergy status to other drugs, medicaments and biological substances; Z88.0 Allergy status to penicillin; Z88.5 Allergy status to narcotic agent; Z88.1 Allergy status to other antibiotic agents; Z79.899 Other long term (current) drug therapy
CPT/HCPCS: 80053; 84443; 84484; 85025; 93005; 93010; 96374; 99284-25; A9270; J1100; J7030

== ENCOUNTER 2022-01-19 14:17 | Emergency (ER) | payer OTHER ==
[~2022-01-19] VITALS: Ht 170.2 cm; Wt 110.2 kg
[~2022-01-19 14:17] MED LIST changes: +NASAL DECONGEST30 M2 PO; +VALIUM5 MG PO
--- OUTSIDE RECORDS SUMMARY | 2022-01-19 14:20 | XMS ---
PreMana Notification: ARI SMALLS Security Corn Husker Events No recent Security Events currently on file CRITERIA MET - PDMP CARE PROVIDERS SIMON HARPER [facility] Current PHONE: [phone] Juliocesar has no Care Guidelines for this patient. EWarren VISIT COUNT (12 MO.) 2 ALEKSANDR Rivas TOTAL 2 NOTE: Visits indicate total known visits. ED/UCC VISIT TRACKING (12 MO.) 01/19/2022 14:18 [facility]ANDR [facility] [place] TYPE: Emergency COMPLAINT: - FLU SYMPTOMS 06/09/2021 15:15 [facility] [place] TYPE: Emergency COMPLAINT: - DIZZINESS DIAGNOSES: - Torticollis - Headache, unspecified - Personal history of pulmonary embolism - Labyrinthitis, unspecified ear - Unspecified asthma, uncomplicated - Dizziness and giddiness - Allergy status to other antibiotic agents - Other sales service coordinator (current) drug therapy - Allergy status to penicillin - Allergy status to other drugs, medicaments and biological substances - Personal history of other venous thrombosis and embolism - Allergy status to narcotic agent - nursing home (current) use of anticoagulants INPATIENT VISIT TRACKING (12 MO.) 12/22/2021 09:35 [facility] [place] [facility] TYPE: Ear, Nose, Throat DIAGNOSES: 67290. Other specified diseases of upper respiratory tract 72776. Stenosis of larynx 20163. Other specified diseases of upper respiratory tract 10/25/2021 05:17 [facility] [place] [facility] TYPE: Ear, Nose, Throat DIAGNOSES: 00641. Stenosis of larynx 74896. Other specified respiratory disorders 71991. Stenosis of larynx 08505. Other specified respiratory disorders 68684. Other specified diseases of upper respiratory tract 04550. Chronic embolism and thrombosis of unspecified deep veins of unspecified distal lower extremity [id number]
[2022-01-19] MEDS ORDERED: CITALOPRAM HBR40 MG PO (15:12)
[2022-01-19] MEDS ORDERED: CLINDAMYCIN HC300 MG PO (15:13)
[2022-01-19] MEDS ORDERED: ACETADOTE200 MG/1 M IV (15:14)
[2022-01-19] MEDS ORDERED: MAXIDEX5 ML OPTH (15:15)
[2022-01-19] MEDS ORDERED: ONDANSETRON ODT8 MG PO (19:25)
== END 2022-01-19 19:50 | disposition home or self-care (01) ==
LOC: ED 14:17
DX: K29.00 Acute gastritis without bleeding (principal); E86.0 Dehydration; Z20.822 Contact with and (suspected) exposure to COVID-19
CPT/HCPCS: 36415; 71045; 80053; 81001; 85025; 87502; 96365; 96375; 99284-25; A9270; C9803; J2405; J7030; U0003

== ENCOUNTER 2022-04-23 14:08 | Emergency (ER) | payer OTHER ==
[~2022-04-23] VITALS: Ht 170.2 cm; Wt 115.0 kg
[~2022-04-23 14:08] MED LIST changes: +ACETADOTE200 MG/1 M IV; +CITALOPRAM HBR40 MG PO; +CLINDAMYCIN HC300 MG PO; +MAXIDEX5 ML OPTH; +ONDANSETRON ODT8 MG PO
--- OUTSIDE RECORDS SUMMARY | 2022-04-23 14:10 | XMS ---
PreManage Notification: ARI SMALLS Security Hog Scraper Events No recent Security Events currently on file CRITERIA MET - PDMP CARE PROVIDERS SIMON HARPER [facility] Current PHONE: [phone] Juliocesar has no Care Guidelines for this patient. EWarren VISIT COUNT (12 MO.) 3 ALEKSANDR Rivas TOTAL 3 NOTE: Visits indicate total known visits. ED/UCC VISIT TRACKING (12 MO.) 04/23/2022 14:09 [facility]DR [facility] [place] TYPE: Emergency COMPLAINT: - NEED TRACHEA TUBE CHANGE 01/19/2022 14:18 [facility] [place] TYPE: Emergency COMPLAINT: - FLU SYMPTOMS DIAGNOSES: - Acute gastritis without bleeding - Contact with and (suspected) exposure to COVID-19 - Dehydration - Fever, unspecified 06/09/2021 15:[address] [facility] [place] TYPE: Emergency COMPLAINT: - DIZZINESS DIAGNOSES: - Unspecified asthma, uncomplicated - Allergy status to narcotic agent - Personal history of pulmonary embolism - Allergy status to other drugs, medicaments and biological substances - Torticollis - Other usp (current) drug therapy - Dizziness and giddiness - retirement (current) use of anticoagulants - Labyrinthitis, unspecified ear - Personal history of other venous thrombosis and embolism - Headache, unspecified - Allergy status to penicillin - Allergy status to other antibiotic agents INPATIENT VISIT TRACKING (12 MO.) 04/11/2022 19:19 [facility] TYPE: Ear, Nose, Throat DIAGNOSES: 33668. TRACHEAL STENOSIS 07869. SUBGLOTTIC STENOSIS 12/22/2021 09:35 [facility] TYPE: Ear, Nose, Throat DIAGNOSES: 92221. Other specified diseases of upper respiratory tract 19867. Other specified diseases of upper respiratory tract 31722. Stenosis of larynx 10/25/2021 05:17 [facility] TYPE: Ear, Nose, Throat DIAGNOSES: 32452. Other specified respiratory disorders 51786. Stenosis of larynx 51577. Stenosis of larynx 60963. Chronic embolism and thrombosis of unspecified deep veins of unspecified distal lower extremity 96722. Other specified diseases of upper respiratory tract 00684. Other specified respiratory disorders [email or web address]
== END 2022-04-23 16:11 | disposition home or self-care (01) ==
LOC: ED 14:08
DX: Z43.0 Encounter for attention to tracheostomy (principal); J45.909 Unspecified asthma, uncomplicated; Z88.8 Allergy status to other drugs, medicaments and biological substances; Z88.0 Allergy status to penicillin; Z88.5 Allergy status to narcotic agent; Z79.899 Other long term (current) drug therapy
CPT/HCPCS: 99283

== ENCOUNTER 2022-04-27 16:39 | Emergency (ER) | payer OTHER ==
[~2022-04-27] VITALS: Ht 170.2 cm; Wt 114.8 kg
--- OUTSIDE RECORDS SUMMARY | 2022-04-27 16:40 | XMS ---
PreManage Notification: ARI SMALLS Security Can Worker Events No recent Security Events currently on file CRITERIA MET - [facility] - 2 Visits in 30 Days - [facility] C[facility] PROVIDERS [facility] Current PHONE: [phone] Juliocesar has no Care Guidelines for this patient. EWarren VISIT COUNT (12 MO.) 4 [facility] TOTAL 4 NOTE: Visits indicate total known visits. ED/UCC VISIT TRACKING (12 MO.) 04/27/2022 16:40 [facility] [place] TYPE: Emergency COMPLAINT: - WOUND CHECK 04/23/2022 14:09 [facility] [place] TYPE: Emergency COMPLAINT: - NEED TRACHEA TUBE CHANGE 01/19/2022 14:18 [facility] [place] TYPE: Emergency COMPLAINT: - FLU SYMPTOMS DIAGNOSES: - Dehydration - Fever, unspecified - Acute gastritis without bleeding - Contact with and (suspected) exposure to COVID-19 06/09/2021 15:[address] 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 SUBGLOTTIC STENOSIS 35393. TRACHEAL STENOSIS 12/22/2021 09:35 [facility] TYPE: Ear, Nose, Throat DIAGNOSES: 06568. Other specified diseases of upper respiratory tract 87145. Stenosis of larynx 87633. Other specified diseases of upper respiratory tract 10/25/2021 05:17 [facility] TYPE: Ear, Nose, Throat DIAGNOSES: 63571. Other specified respiratory disorders 93349. Stenosis of larynx 19155. Chronic embolism and thrombosis of unspecified deep veins of unspecified distal lower extremity 21765. Other specified diseases of upper respiratory tract 50206. Other specified respiratory disorders 99250. Stenosis of larynx [id number]
[2022-04-27] MEDS ORDERED: ALPRAZOLAM0.5 MG PO (18:40)
[2022-04-27] MEDS ORDERED: DULOXETINE HCL30 MG PO (18:40)
== END 2022-04-27 23:41 | disposition home or self-care (01) ==
LOC: ED 16:39
DX: J95.01 Hemorrhage from tracheostomy stoma (principal); J45.909 Unspecified asthma, uncomplicated; Z86.711 Personal history of pulmonary embolism; Z86.718 Personal history of other venous thrombosis and embolism; Z88.0 Allergy status to penicillin; Z88.5 Allergy status to narcotic agent; Z88.8 Allergy status to other drugs, medicaments and biological substances
CPT/HCPCS: 36415; 70491; 71045; 80048; 85025; 85610; 99284-25; Q9967

== ENCOUNTER 2023-08-28 17:19 | Emergency (ER) | payer OTHER ==
[~2023-08-28] VITALS: Ht 170.2 cm; Wt 110.0 kg
[~2023-08-28 17:19] MED LIST changes: +ALPRAZOLAM0.5 MG PO; +DULOXETINE HCL30 MG PO
--- OUTSIDE RECORDS SUMMARY | 2023-08-28 19:21 | XMS ---
PreManage Notification: ARI SMALLS Security Bandoleer Straightener Stamper Events No recent Security Events currently on file CRITERIA MET - PDMP CARE PROVIDERS -, Robert- Dentist: Facilities Engineering Manager [facility] PHONE: [phone] Juliocesar has no Care Guidelines for this patient. E.Radhames VISIT COUNT (12 MO.) 1 ALEKSANDR Rivas TOTAL 1 NOTE: Visits indicate total known visits. ED/UCC VISIT TRACKING (12 MO.) 08/28/2023 17:19 [facility] [place] TYPE: Emergency COMPLAINT: - HEADACHE INPATIENT VISIT TRACKING (12 MO.) No inpatient visits to display in this time frame [id number]
[2023-08-28] MEDS ORDERED: CYCLOBENZAPRINE HCL 10 MG TAB PO ONE (20:15)
[2023-08-28] MEDS ORDERED: fentaNYL citrate 100 MCG/2 ML VIAL IV ONE ×2 (20:15→23:15)
[2023-08-28 20:44] LABS: BASOPHILS 0.7 % (0-2); EOSINOPHILS 2.1 % (0-6); HEMATOCRIT 44.6 % (35.0-50.0); HEMOGLOBIN 14.9 g/dL (12.0-18.0); LYMPHOCYTES 18.8 % (24-44); MCH 30.4 (27-36); MCHC 33.3 g/dl (30-36); MCV 91.2 fl (81-99); NEUTROPHILS 72.4 % (39-80); PLATELET COUNT 364 K/uL (140-440); RBC 4.89 M/ul (4.3-5.7); RDW 14.3 (10.5-15.0)
[2023-08-28 20:58] LABS: ALBUMIN 3.3 g/dL (3.4-5.0); ALBUMIN/GLOBULIN RATIO 0.75 (1.1-2.4); ANION GAP 9.5 (7-21); BILIRUBIN, TOTAL 0.3 ng/dL (0.2-1.0); BUN/CREATININE RATIO 11.21 (6.0-28.6); CALCIUM 9.6 mg/dL (8.5-10.1); CREATININE, SERUM 1.07 mg/dL (0.55-1.02); POTASSIUM 4.5 mmol/L (3.5-5.1); PROTEIN, TOTAL 7.7 g/dL (6.4-8.2)
[2023-08-28 21:34] LABS: INFLUENZA B NAA NEGATIVE (NEGATIVE); RESPIRATORY SYNCYTIAL VIR NAA NEGATIVE (NEGATIVE)
[2023-08-28] MEDS ORDERED: KETOROLAC TROMETHAMINE 30 MG/ML VIAL IV ONE (21:45)
[2023-08-28] MEDS ORDERED: DEXAMETHASONE SOD PHOS 10 MG/ML VIAL IM ONE (23:00)
[2023-08-28] MEDS ORDERED: LIDOCAINE HCL 4% 1 EACH PATCH TD ONE (23:15)
[2023-08-28] MEDS ORDERED: LIDODERM1 EACH TOP (23:16)
[2023-08-28] MEDS ORDERED: CYCLOBENZAPRINE10 MG PO (23:16)
[2023-08-28 23:28] VITALS: BP 153/93
[2023-08-29] MEDS ORDERED: LIDOCAINE PATCH REMOVAL 1 EA TD SCH (21:00)
== END 2023-08-28 23:29 | disposition home or self-care (01) ==
LOC: ED 17:19
PROVIDERS: Internal Medicine
DX: M62.838 Other muscle spasm (principal); R51.9 Headache, unspecified; J45.909 Unspecified asthma, uncomplicated; I82.409 Acute embolism and thrombosis of unspecified deep veins of unspecified lower extremity; Z86.711 Personal history of pulmonary embolism; Z93.0 Tracheostomy status; Z79.01 Long term (current) use of anticoagulants; Z79.899 Other long term (current) drug therapy; Z88.0 Allergy status to penicillin; Z88.1 Allergy status to other antibiotic agents; Z88.4 Allergy status to anesthetic agent; Z88.5 Allergy status to narcotic agent
CPT/HCPCS: 20552; 36415; 70450; 72125; 80053; 83735; 85025; 86140; 87502; 99284-25; A9270; J1100; J1885; J3010; U0002

== ENCOUNTER 2023-12-09 23:25 | Emergency (ER) | payer OTHER ==
[~2023-12-09] VITALS: Ht 170.2 cm; Wt 117.5 kg
[~2023-12-09 23:25] MED LIST changes: +CYCLOBENZAPRINE10 MG PO; +LIDODERM1 EACH TOP
--- OUTSIDE RECORDS SUMMARY | 2023-12-09 23:26 | XMS ---
PreManage Notification: ARI SMALLS Security Roentgenology Teacher Events No recent Security Events currently on file CRITERIA MET - PDM CARE PROVIDERS -, [facility] Dentist: Legal Editor [facility] PHONE: [phone] -Robert- Dentist: Legal Editor [facility] PHONE: [phone] Juliocesar has no Care Guidelines for this patient. Melia VISIT COUNT (12 MO.) 2 ALEKSANDR Rivas TOTAL 2 NOTE: Visits indicate total known visits. ED/UCC VISIT TRACKING (12 MO.) 12/09/2023 23:25 [facility] [place] TYPE: Emergency COMPLAINT: - MEDICAL CLEARANCE 08/28/2023 17:19 [facility] [place] TYPE: Emergency COMPLAINT: - HEADACHE DIAGNOSES: - Acute embolism and thrombosis of unspecified deep veins of unspecified lower extremity - Allergy status to anesthetic agent - Allergy status to narcotic agent - Allergy status to other antibiotic agents - Allergy status to penicillin - Cervicalgia - Headache, unspecified - long term care pharmacist (current) use of anticoagulants - Other [facility] (current) drug therapy - Other muscle spasm - Personal history of pulmonary embolism - Tracheostomy status - Unspecified asthma, uncomplicated INPATIENT VISIT TRACKING (12 MO.) No inpatient visits to display in this time frame [id number]
[2023-12-10 00:28] LABS: BASOPHILS 0.4 % (0-2); EOSINOPHILS 0.8 % (0-6); HEMOGLOBIN 15.6 g/dL (12.0-18.0); LYMPHOCYTES 17.5 % (24-44); MCH 30.3 (27-36); MCHC 32.5 g/dl (30-36); MCV 93.5 fl (81-99); MONOCYTES 7.9 % (0-12); NEUTROPHILS 73.4 % (39-80); PLATELET COUNT 378 K/uL (140-440); RBC 5.13 M/ul (4.3-5.7); RDW 15.5 (10.5-15.0)
[2023-12-10 00:34] LABS: BILIRUBIN, URINE NEGATIVE (negative); BLOOD/HGB, URINE NEGATIVE (Negative); KETONE, URINE NEGATIVE (Negative); LEUK ESTERASE, URINE NEGATIVE (negative); NITRITE, URINE NEGATIVE (negative)
[2023-12-10 00:49] LABS: AMPHETAMINES, URINE NEGATIVE (NEGATIVE); BARBITURATES, URINE NEGATIVE (NEGATIVE); BENZODIAZEPINE, URINE POSITIVE (NEGATIVE); BUPRENORPHINE, URINE NEGATIVE (NEGATIVE); CANNABINOID, URINE NEGATIVE (NEGATIVE); COCAINE, URINE NEGATIVE (NEGATIVE); ECSTASY, URINE NEGATIVE (NEGATIVE); FENTANYL, URINE NEGATIVE (NEGATIVE); METHADONE, URINE NEGATIVE (NEGATIVE); OPIATES, URINE NEGATIVE (NEGATIVE); OXYCODONE, URINE NEGATIVE (NEGATIVE); PHENCYCLIDINE, URINE NEGATIVE (NEGATIVE)
[2023-12-10 00:54] LABS: ACETAMINOPHEN 0 ug/mL (10-30); ALBUMIN 3.4 g/dL (3.4-5.0); ALBUMIN/GLOBULIN RATIO 0.76 (1.1-2.4); ALCOHOL, MEDICAL <3 ng/dL (<3); ALKALINE PHOSPHATASE 176 U/L (46-116); ALT (SGPT) 54 U/L (14-59); ANION GAP 15.3 (7-21); AST (SGOT) 15 U/L (15-37); BILIRUBIN, TOTAL 0.3 ng/dL (0.2-1.0); BUN/CREATININE RATIO 11.76 (6.0-28.6); CALCIUM 8.6 mg/dL (8.5-10.1); CARBON DIOXIDE 25 mmol/L (21-32); CHLORIDE 104 mmol/L (98-107); CREATININE, SERUM 1.02 mg/dL (0.55-1.02); GLOMERULAR FILTRATION RATE,EST 65 mL/min (>60); POTASSIUM 3.3 mmol/L (3.5-5.1); PROTEIN, TOTAL 7.9 g/dL (6.4-8.2); SALICYLATE 1.5 mg/dL (2.8-20.0); UREA NITROGEN 12 mg/dL (7-18)
[2023-12-10] MEDS ORDERED: ACETAMINOPHEN 325 MG TAB PO ONE (02:15)
[2023-12-10] MEDS ORDERED: CLONIDINE HCL0.2 MG PO (02:45)
[2023-12-10] MEDS ORDERED: ALPRAZolam 0.5 MG TAB PO PRN (03:15)
[2023-12-10] MEDS ORDERED: MONTELUKAST SODIUM 10 MG TAB PO ONE (03:15)
[2023-12-10] MEDS ORDERED: Rivaroxaban 10 MG TAB PO SCH (08:00)
[2023-12-10] MEDS ORDERED: VENLAFAXINE HCL 75 MG CAPCR PO SCH (09:00)
[2023-12-10 11:49] VITALS: BP 131/65
[2023-12-10] MEDS ORDERED: GABAPENTIN 300 MG CAP PO SCH (21:00)
== END 2023-12-10 11:45 | disposition home or self-care (01) ==
LOC: ED 23:25
DX: F32.9 Major depressive disorder, single episode, unspecified (principal); Z88.0 Allergy status to penicillin; Z88.5 Allergy status to narcotic agent; Z88.8 Allergy status to other drugs, medicaments and biological substances; Z79.899 Other long term (current) drug therapy
CPT/HCPCS: 36415; 80053; 80307; 81003; 84443; 84703; 85025; 99285; A9270; G0480